=== PATIENT | female | born 1935 | race Caucasian/White ===

== ENCOUNTER 2020-01-04 19:16 | Inpatient (IN) | payer MEDICARE, MEDICAID, SELFPAY ==
[2020-01-04 19:27] VITALS: BP 127/68; PULSE 98; RESP 20; TEMP 38.8; BMI 29.2
--- NOTE | 2020-01-04 19:52 | ECG_ITS ---
Test Reason : SEPSIS Blood Pressure : / mmHG Vent. Rate : 093 BPM Atrial Rate : 093 BPM P-R Int : 154 ms QRS Dur : 110 ms QT Int : 392 ms P-R-T Axes : 064 027 066 degrees QTc Int : 487 ms Normal sinus rhythm Intra-ventricular conduction delay Nonspecific ST abnormality Abnormal ECG No previous ECGs available Referred By: Cora Giraldo Electronically Signed By:BRUNLIDA WALTON MD
--- NOTE | 2020-01-04 19:54 | XR_ITS ---
EXAMINATION: XR CHEST CLINICAL INFORMATION: Baseline COMPARISON: None TECHNIQUE: Frontal view of the chest was obtained. FINDINGS: Patient status post median sternotomy. There is mild cardiac enlargement. There is an aortic valve prosthesis present. There is some mild increased interstitial markings but no gross CHF. In the retrocardiac region there is some mild increased density which could represent an infiltrate. No pleural effusions are seen. XR/XR chest 1V IMPRESSION: Mild cardiomegaly with aortic valve prosthesis. Left lower lobe infiltrate.
--- NOTE | 2020-01-04 19:55 | CT_ITS ---
EXAMINATION: CT ABDOMEN AND PELVIS WITHOUT CONTRAST CLINICAL INFORMATION: Peripheral and drainage from nephrostomy tube COMPARISON: None TECHNIQUE: Multidetector volumetric imaging was performed from the superior aspect of the liver through the pubic symphysis. Sagittal and coronal reformatted images were obtained on the technologist's workstation. This CT examination was performed using dose optimization techniques as appropriate, variously including the following: *Automated exposure control *Adjustment of mA and/or kV according to patient size (this includes techniques or standardized protocols for targeted exams where dose is matched to indication/reason for exam; i.e. extremities or head) *Use of iterative reconstruction technique DLP: 717 mGy-cm FINDINGS: LUNG BASES: There is patchy groundglass opacity in the lingula and left lower lobe which could represent atelectasis although pneumonia could give a similar appearance. There is likely right lower lobe atelectasis. Mild cardiomegaly. Sternal wires. Valve calcifications. LIVER, GALLBLADDER, AND BILIARY TREE: Limited noncontrast evaluation of the liver is normal. The common bile duct and central intrahepatic bile ducts are prominent. Status post cholecystectomy. PANCREAS: Limited noncontrast evaluation is normal. 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 Normal size spleen. No focal splenic lesion seen. ADRENAL GLANDS: Unremarkable. KIDNEYS AND URETERS: Left-sided nephroureteral stent in place. There is dilation of the left renal pelvis but no dilation of the left renal pelvis. The left ureter is not dilated. There is a right-sided nephrostomy tube as well as a right-sided nephroureteral stent. There is a 1.2 cm calculus in the right renal pelvis. There is a 3 mm right upper pole renal calculus. There is gas in the right upper pole collecting system as well as the right renal pelvis. A right-sided nephrostomy tube enters a right lower pole calyx and loops in the right renal pelvis. BLADDER: Bilateral nephrostomy tubes are seen. GASTROINTESTINAL TRACT: Stomach and small bowel are nondilated. No evidence of colitis or diverticulitis. ABDOMINAL WALL: Small fat-containing umbilical hernia. LYMPH NODES: Normal. VASCULAR: IVC filter in place. Circumferential calcified atherosclerotic changes. PELVIC VISCERA: Left ovary measures 2.5 x 2.0 cm. Right ovary measures 2.4 x 1.3 cm. OSSEOUS STRUCTURES: Extensive degenerative changes. No acute osseous abnormality. Grade 1 anterolisthesis of L4 on L5. Lower lumbar facet arthropathy most notable inferiorly. CT/CT abdomen pelvis wo con IMPRESSION: There are bilateral nephroureteral stents in place. A right-sided nephrostomy tube is also seen, entering a right lower pole calyx looping in the right renal pelvis. There is a 1.2 cm calculus in the right renal pelvis. There is a 4 mm right upper pole calculus. There is no right-sided hydronephrosis with a few scattered foci of gas in the right renal pelvis and a right upper pole calyx. This is nonspecific and could be due to the presence of the nephrostomy tube rather than from gas forming organisms. Mild left hydronephrosis suggest the left nephroureteral stent is not fully decompressed in the left renal collecting system.
[2020-01-04 20:32] LABS: Basophils Percent Auto 0.2 % (0-2); Hematocrit 24.5 % (37-47); Hemoglobin 7.1 g/dl (12.0-16.0); Imm Gran Abs Auto 0.05 X10*3/uL (0.00-0.03); Imm Gran Pct Auto 0.4 % (0.0-0.4); Lymphocytes Absolute Auto 0.3 X10*3/uL (1.2-4.9); Lymphocytes Percent Auto 2.7 % (20-40); MANUAL DIFF FLAG SCAN; Mean Corpuscular Hemoglobin 21.1 pg (27.0-33.0); Mean Corpuscular Volume 72.7 fL (80-98); Monocytes Absolute Auto 0.7 X10*3/uL (0.1-1.2); Neutrophils Absolute Auto 10.5 X10*3/uL (2.0-8.3); Neutrophils Percent Auto 90.7 % (45-73); Platelet Count 160 X10*3/uL (160-400); Red Blood Count 3.37 X10*6/uL (4.20-5.50); Red Cell Distribution Width 18.5 % (11.0-16.0); SCAN SMEAR FLAG 1; White Blood Count 11.6 X10*3/uL (4.8-10.8)
[2020-01-04] MEDS: 0.9 % Sodium Chloride 1,000 ML 999 ML IVCONT ×2 (20:36→23:24)
--- NOTE | 2020-01-04 20:37 | PC.NURSE ---
PT RECEIVED 500CC NS BY EMS AND ON ARRIVAL PT STARTED ON SEPSIS PROTOCAL. NS INFUSION STARTED AT 1999.
--- NOTE | 2020-01-04 20:38 | PC.NURSE ---
PT RETURNED FROM CT. PT JESSA WELL. CHEST XRAY NOW.
[2020-01-04] MEDS: cefTRIAXone sodium 1 GM in 0.9 % Sodium Chloride 50 ML IV (20:48)
[2020-01-04 20:49] VITALS: BP 115/59; PULSE 86; RESP 22
[2020-01-04 20:54] LABS: Lactic Acid 3.1 mmol/L (0.5-2.0)
[2020-01-04 20:56] LABS: SLIDE REVIEW VERIFIED
--- NOTE | 2020-01-04 20:56 | ED.FEVER ---
HPI - Fever General Chief Complaint: Fever Stated Complaint: blood in nephrostomy bag,fever (100.4) Time Seen by Provider: 01/04/20 19:51 Source: family Mode of arrival: EMS Limitations: altered mental status and physical limitation History of Present Illness HPI Narrative: 84-year-old female with past medical history of percutaneous nephrostomy tube, hypertension, hyperlipidemia, atrial fibrillation, anemia, dementia, and GERD presents with dark blood in nephrostomy bag and fevers of 103 at home. she presents via EMS with her daughter, daughter is healthcare proxy and is the primary is support analyst. MD elicited complaint: fever and weakness Pertinent past history: sepsis Onset (ago): day(s) ( Three) Measured temperature: 103 F Exacerbating factors: nothing Relieving factors: nothing Associated symptoms: back/flank pain Related Data Home Medications Medication Instructions Recorded Confirmed apixaban [Eliquis] 1 tab PO BID 01/05/20 01/05/20 atorvastatin 1 tab PO DAILY 01/05/20 01/05/20 fluoxetine 2 cap PO DAILY 01/05/20 01/05/20 furosemide 0.5 tab PO Q OTHER DAY 01/05/20 01/05/20 multivitamin [Daily-Reece] 1 tab PO DAILY 01/05/20 01/05/20 omeprazole 1 cap PO DAILY 01/05/20 01/05/20 spironolactone 0.5 tab PO DAILY 01/05/20 01/05/20 trazodone 1 tab PO BEDTIME 01/05/20 01/05/20 Allergies Allergy/AdvReac Type Severity Reaction Status Date / Time acetaminophen [From Percocet] AdvReac Rash Verified 01/04/20 20:42 aspirin [From Percodan] AdvReac Rash Verified 01/04/20 20:42 fentanyl AdvReac Rash Verified 01/04/20 20:42 oxycodone [From Percocet] AdvReac Rash Verified 01/04/20 20:42 Review of Systems Review of Systems: Yes Unobtainable due to mental status PMFSH Past Medical History Source: obtained from family Medical History (Updated 01/05/20 @ 01:19 by Cora Giraldo NP) Atrial fibrillation Dementia Kidney stones Surgical History Hx of heart artery stent Social History Social History Advance Directives: No Advance Directives Information Provided: Yes Physical Exam Vital Signs: Vital Signs: Last Vital Signs Temp 100.0 F 01/04/20 23:21 Pulse 93 01/05/20 00:00 Resp 22 H 01/05/20 00:00 BP 100/46 L 01/05/20 00:00 Pulse Ox 94 01/05/20 00:00 Body Mass Index 29.2 Constitutional: positive Fever and Chills has dementia per baseline ENT/Mouth: No sore throat Eyes: No Eye Pain, No Swelling, No Redness Cardiovascular: No Chest Pain, No SOB Respiratory: No Cough, No Sputum, No Wheezing Gastrointestinal: no Nausea, no Vomiting, No Diarrhea, positive abdominal pain Genitourinary: no Dysuria, positive Flank Pain, dark viscous blood noted in nephrostomy tube, no crepitus noted surrounding tube Musculoskeletal: No joint pain, No Myalgias Skin: No Skin Lesions, No rash Neuro: No Weakness, No Numbness, No Headache Psych: No Anxiety/Panic, No Depression Heme/Lymph: No Bruising, No Lymphadenopathy Course Course Course Narrative: patient meets sepsis criteria upon presentation, we will resuscitate fluids she did receive 500 mL via EMS, we will order 2 L to complete 30 mg/kg. we will order ceftriaxone, no prior lab values or microbiology studies. EKG shows normal sinus rhythm with nonspecific ST abnormality, rate is 93 beats per minute. She does have a history of AFib. Cultures and lactic acid pending. Patient does have a significant history of renal colic, had a percutaneous nephrostomy tube placement approximately 9 months ago at [facility]. She did live in [place], however she has been declining physically and mentally, moved in with her daughter who is healthcare proxy. Nephrostomy tube placed for renal stones that were not able to be removed with lithotripsy. Approximately 3 days ago daughter noted that there was blood in the tubing, she reached out to nephrology and/or primary care. White count 11.6, lactic acid 3.1, magnesium 1.3, troponin 26.5, H&H 7.1/24.5. Type and screen and 1 unit of packed red blood cells pending. Potassium repleted with 60 mEq p.o. and 10 mEq IV, magnesium repleted with 2 g IV, 3rd L of normal saline infusing. CT scan shows lower lobe infiltrates suggesting possible pneumonia, hydronephrosis and renal stones. Discussion with synthetic gem press operator Dr Harper and urology Dr. Lopez. Advised to continue with fluid infusion, antibiotics and they will follow up in the morning. Discussion with hospitalist regarding plan of care, patient will be admitted for sepsis, Pneumonia, and anemia. Consultations Consultation #1: Meredith Time: 21:40 Consultation #2: John Time: 21:50 Consultation #3: Donte Delacruz Time: 22:00 MDM - Fever Differential Diagnosis Differential diagnosis: Likely cellulitis, fever of unknown origin, pyelonephritis and sepsis Medical Records Attestation: I reviewed the patient's medical records. Lab Data Attestation: I reviewed the patient's lab results. Result diagrams: 01/04/20 20:18 01/04/20 20:18 Labs: Lab Results 01/04/20 01/04/20 01/04/20 Range/Units 20:18 20:18 20:18 WBC (4.8-10.8) X10*3/uL RBC (4.20-5.50) X10*6/uL Hgb (12.0-16.0) g/dl Hct (37-47) % MCV (80-98) fL MCH (27.0-33.0) pg MCHC (31.0-35.0) g/dl RDW (11.0-16.0) % Plt Count (160-400) X10*3/uL MPV (9.4-12.3) fL Immature Gran % (Auto) (0.0-0.4) % Neut % (Auto) (45-73) % Lymph % (Auto) (20-40) % Burnett % (Auto) (2-11) % Eos % (Auto) (0-4) % Baso % (Auto) (0-2) % Lymph # (Auto) (1.2-4.9) X10*3/uL Burnett # (Auto) (0.1-1.2) X10*3/uL Eos # (Auto) (0.0-0.4) X10*3/uL Baso # (Auto) (0.0-0.2) X10*3/uL Abs Immat Gran (auto) (0.00-0.03) X10*3/uL Absolute Neuts (auto) (2.0-8.3) X10*3/uL Absolute Nucleated RBC (0.0-0.012) X10*3/uL Nucleated RBC % (auto) (0.0-0.2) /100WBC Smear Tech's Comments Sodium (135-145) mmol/L Potassium (3.3-5.1) mmol/l Chloride (96-108) mmol/L Carbon Dioxide (22-29) mmol/L Anion Gap (12-20) BUN (9-16) mg/dL Creatinine (0.5-1.4) mg/dL Estim Creat Clear Calc Estimated GFR Random Glucose (60-115) mg/dL Lactic Acid 3.1 H* (0.5-2.0) mmol/L Lactic Acid Fup @ 2Hr (0.5-2.0) mmol/L Calcium (8.4-10.2) mg/dL Magnesium 1.3 L* (1.6-2.6) mg/dL Total Bilirubin (0.0-1.0) mg/dL Direct Bilirubin (0.0-0.5) mg/dL AST (5-31) U/L ALT (0-31) U/L Alkaline Phosphatase (39-117) U/L Troponin I High Sens 26.5 H (<3.5-17.0) ng/L Total Protein (6.5-8.0) g/dL Albumin (3.5-5.0) g/dL Lipase (8-78) U/L C. difficile Toxin A&B (Negative) C. difficile Antigen (Negative) C. difficile Interpret Crossmatch 01/04/20 01/04/20 01/04/20 Range/Units 20:18 20:18 20:34 WBC 11.6 H (4.8-10.8) X10*3/uL RBC 3.37 L (4.20-5.50) X10*6/uL Hgb 7.1 L (12.0-16.0) g/dl Hct 24.5 L (37-47) % MCV 72.7 L (80-98) fL MCH 21.1 L (27.0-33.0) pg MCHC 29.0 L (31.0-35.0) g/dl RDW 18.5 H (11.0-16.0) % Plt Count 160 (160-400) X10*3/uL MPV 10.0 (9.4-12.3) fL Immature Gran % (Auto) 0.4 (0.0-0.4) % Neut % (Auto) 90.7 H (45-73) % Lymph % (Auto) 2.7 L (20-40) % Burnett % (Auto) 6.0 (2-11) % Eos % (Auto) 0.0 (0-4) % Baso % (Auto) 0.2 (0-2) % Lymph # (Auto) 0.3 L (1.2-4.9) X10*3/uL Burnett # (Auto) 0.7 (0.1-1.2) X10*3/uL Eos # (Auto) 0.0 (0.0-0.4) X10*3/uL Baso # (Auto) 0.0 (0.0-0.2) X10*3/uL Abs Immat Gran (auto) 0.05 H (0.00-0.03) X10*3/uL Absolute Neuts (auto) 10.5 H (2.0-8.3) X10*3/uL Absolute Nucleated RBC 0.000 (0.0-0.012) X10*3/uL Nucleated RBC % (auto) 0.0 (0.0-0.2) /100WBC Smear Tech's Comments VERIFIED Sodium 137 (135-145) mmol/L Potassium 2.9 L (3.3-5.1) mmol/l Chloride 104 (96-108) mmol/L Carbon Dioxide 22 (22-29) mmol/L Anion Gap 14 (12-20) BUN 15 (9-16) mg/dL Creatinine 0.71 (0.5-1.4) mg/dL Estim Creat Clear Calc 59.2 Estimated GFR > 60 Random Glucose 177 H (60-115) mg/dL Lactic Acid (0.5-2.0) mmol/L Lactic Acid Fup @ 2Hr (0.5-2.0) mmol/L Calcium 7.5 L (8.4-10.2) mg/dL Magnesium (1.6-2.6) mg/dL Total Bilirubin 0.3 (0.0-1.0) mg/dL Direct Bilirubin 0.2 (0.0-0.5) mg/dL AST 9 (5-31) U/L ALT 7 (0-31) U/L Alkaline Phosphatase 80 (39-117) U/L Troponin I High Sens (<3.5-17.0) ng/L Total Protein 5.9 L (6.5-8.0) g/dL Albumin 3.3 L (3.5-5.0) g/dL Lipase 31 (8-78) U/L C. difficile Toxin A&B Negative (Negative) C. difficile Antigen Negative (Negative) C. difficile Interpret SEE NOTE Crossmatch 01/05/20 01/05/20 Range/Units 00:05 00:05 WBC (4.8-10.8) X10*3/uL RBC (4.20-5.50) X10*6/uL Hgb (12.0-16.0) g/dl Hct (37-47) % MCV (80-98) fL MCH (27.0-33.0) pg MCHC (31.0-35.0) g/dl RDW (11.0-16.0) % Plt Count (160-400) X10*3/uL MPV (9.4-12.3) fL Immature Gran % (Auto) (0.0-0.4) % Neut % (Auto) (45-73) % Lymph % (Auto) (20-40) % Burnett % (Auto) (2-11) % Eos % (Auto) (0-4) % Baso % (Auto) (0-2) % Lymph # (Auto) (1.2-4.9) X10*3/uL Burnett # (Auto) (0.1-1.2) X10*3/uL Eos # (Auto) (0.0-0.4) X10*3/uL Baso # (Auto) (0.0-0.2) X10*3/uL Abs Immat Gran (auto) (0.00-0.03) X10*3/uL Absolute Neuts (auto) (2.0-8.3) X10*3/uL Absolute Nucleated RBC (0.0-0.012) X10*3/uL Nucleated RBC % (auto) (0.0-0.2) /100WBC Smear Tech's Comments Sodium (135-145) mmol/L Potassium (3.3-5.1) mmol/l Chloride (96-108) mmol/L Carbon Dioxide (22-29) mmol/L Anion Gap (12-20) BUN (9-16) mg/dL Creatinine (0.5-1.4) mg/dL Estim Creat Clear Calc Estimated GFR Random Glucose (60-115) mg/dL Lactic Acid (0.5-2.0) mmol/L Lactic Acid Fup @ 2Hr 1.7 (0.5-2.0) mmol/L Calcium (8.4-10.2) mg/dL Magnesium (1.6-2.6) mg/dL Total Bilirubin (0.0-1.0) mg/dL Direct Bilirubin (0.0-0.5) mg/dL AST (5-31) U/L ALT (0-31) U/L Alkaline Phosphatase (39-117) U/L Troponin I High Sens (<3.5-17.0) ng/L Total Protein (6.5-8.0) g/dL Albumin (3.5-5.0) g/dL Lipase (8-78) U/L C. difficile Toxin A&B (Negative) C. difficile Antigen (Negative) C. difficile Interpret Crossmatch See Detail Imaging Data CT scan - abdomen: Attestation: I personally reviewed and interpreted this imaging study as follows: Radiologist's impression: FINDINGS: LUNG BASES: There is patchy groundglass opacity in the lingula and left lower lobe which could represent atelectasis although pneumonia could give a similar appearance. There is likely right lower lobe atelectasis. Mild cardiomegaly. Sternal wires. Valve calcifications. LIVER, GALLBLADDER, AND BILIARY TREE: Limited noncontrast evaluation of the liver is normal. The common bile duct and central intrahepatic bile ducts are prominent. Status post cholecystectomy. PANCREAS: Limited noncontrast evaluation is normal. 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 Normal size spleen. No focal splenic lesion seen. ADRENAL GLANDS: Unremarkable. KIDNEYS AND URETERS: Left-sided nephroureteral stent in place. There is dilation of the left renal pelvis but no dilation of the left renal pelvis. The left ureter is not dilated. There is a right-sided nephrostomy tube as well as a right-sided nephroureteral stent. There is a 1.2 cm calculus in the right renal pelvis. There is a 3 mm right upper pole renal calculus. There is gas in the right upper pole collecting system as well as the right renal pelvis. A right-sided nephrostomy tube enters a right lower pole calyx and loops in the right renal pelvis. BLADDER: Bilateral nephrostomy tubes are seen. GASTROINTESTINAL TRACT: Stomach and small bowel are nondilated. No evidence of colitis or diverticulitis. ABDOMINAL WALL: Small fat-containing umbilical hernia. LYMPH NODES: Normal. VASCULAR: IVC filter in place. Circumferential calcified atherosclerotic changes. PELVIC VISCERA: Left ovary measures 2.5 x 2.0 cm. Right ovary measures 2.4 x 1.3 cm. OSSEOUS STRUCTURES: Extensive degenerative changes. No acute osseous abnormality. Grade 1 anterolisthesis of L4 on L5. Lower lumbar facet arthropathy most notable inferiorly. CT/CT abdomen pelvis wo con IMPRESSION: There are bilateral nephroureteral stents in place. A right-sided nephrostomy tube is also seen, entering a right lower pole calyx looping in the right renal pelvis. There is a 1.2 cm calculus in the right renal pelvis. There is a 4 mm right upper pole calculus. There is no right-sided hydronephrosis with a few scattered foci of gas in the right renal pelvis and a right upper pole calyx. This is nonspecific and could be due to the presence of the nephrostomy tube rather than from gas forming organisms. Mild left hydronephrosis suggest the left nephroureteral stent is not fully decompressed in the left renal collecting system. Chest x-ray: Attestation: I personally reviewed and interpreted this imaging study as follows: Radiologist's impression: XR CHEST CLINICAL INFORMATION: Baseline COMPARISON: None TECHNIQUE: Frontal view of the chest was obtained. FINDINGS: Patient status post median sternotomy. There is mild cardiac enlargement. There is an aortic valve prosthesis present. There is some mild increased interstitial markings but no gross CHF. In the retrocardiac region there is some mild increased density which could represent an infiltrate. No pleural effusions are seen. XR/XR chest 1V IMPRESSION: Mild cardiomegaly with aortic valve prosthesis. Left lower lobe infiltrate. ECG Data ECG #1: Attestation: I personally reviewed and interpreted this ECG as follows: ECG interpretation date: 01/04/20 ECG interpretation time: 20:00 Prior ECG tracings: not available for review Interpretation: Vent. Rate : 093 BPM Atrial Rate : 093 BPM P-R Int : 154 ms QRS Dur : 110 ms QT Int : 392 ms P-R-T Axes : 064 027 066 degrees QTc Int : 487 ms Normal sinus rhythm Nonspecific ST abnormality Abnormal ECG No previous ECGs available Critical Care Time Critical Care Time Critical Care Time: Yes Total Critical Care Time: 65 Attestation: I have personally provided critical care time exclusive of time spent on separately billable procedures. Time includes review of laboratory data, radiology results, discussion with consultants, and monitoring for potential decompensation. Interventions were performed as documented. Discharge Plan Discharge Clinical Impression: Kidney stones, Sepsis, Pneumonia, Anemia, Hypokalemia, Hypomagnesemia Patient Disposition: Admitted As Inpatient
[2020-01-04 20:57] LABS: Alanine Aminotransferase 7 U/L (0-31); Albumin Level 3.3 g/dL (3.5-5.0); Alkaline Phosphatase 80 U/L (39-117); Anion Gap 14 (12-20); Aspartate Amino Transferase 9 U/L (5-31); Bilirubin Direct 0.2 mg/dL (0.0-0.5); Bilirubin Total 0.3 mg/dL (0.0-1.0); Blood Urea Nitrogen 15 mg/dL (9-16); Calcium 7.5 mg/dL (8.4-10.2); Carbon Dioxide 22 mmol/L (22-29); Chloride 104 mmol/L (96-108); Creatinine Clr Calc Pharmacy 59.2; Estimated Glomerular Filt Rate > 60; Glucose Random 177 mg/dL (60-115); Lipase 31 U/L (8-78); Potassium 2.9 mmol/l (3.3-5.1); Sodium 137 mmol/L (135-145); Total Protein 5.9 g/dL (6.5-8.0)
[2020-01-04 20:58] LABS: Troponin-I High Sensitivity 26.5 ng/L (<3.5-17.0)
[2020-01-04 20:59] LABS: Magnesium 1.3 mg/dL (1.6-2.6)
[2020-01-04 21:18] LABS: CDIFF Ag Negative (Negative); CDIFF Internal ctrl Dots and bkg OK (V); CDiff Toxin Negative (Negative)
[2020-01-04 22:00] VITALS: BP 109/55; PULSE 87; RESP 14
[2020-01-04 22:25] LABS: Reflex Lactate? Lactic Acid Added
[2020-01-04 22:38] VITALS: BP 99/53; PULSE 89
[2020-01-04] MEDS: Magnesium Sulfate/H2O 2 GM/50 ML PIGGYBACK IV (22:38)
[2020-01-04] MEDS: Potassium Chloride ER 20 MEQ TAB.ER.PRT 60 MEQ PO (22:38)
[2020-01-04 22:56] VITALS: BP 125/62; PULSE 94; RESP 14; O2SAT 97
--- NOTE | 2020-01-04 23:09 | PM.IMHP ---
History of Present Illness Date of Service: 01/04/20 Chief Complaint: blood in urine 84 y/o female with significant hx of nephrolithiasis s/p bilateral renal nephrostomy tube, HLP, Dementia, underlying psychotic disorder, GERD, HTN and afib on eliquis who presented from home due to blood in urine. GIven severe dementia patient is unable to provide with any significant hx but family member reported that patient started presenting with blood in the urine x 1 day now. Patient has a nephrostomy tube with bag which is filled with dark urine. One episode of fever of 101.9 recorded in the ED. WBC of 11.6, Hgb of 7.1, INR of 2.3, K of 2.9. lactate of 3.1, magnesium of 1.3. CT abdomen consistent with bilateral nephrostomy tube, right renal stone in the right renal pelvis, mild left hydronephrosis with no fully decompression. CXR showing left lower lobe infiltrate, aortic valve prosthesis. KCL supplemented by Ed as well as magnesium now, type and screen and 1 unit of blood ordered per ED. EKG showing QTC of 480. One dose of Rocephin adn Doxy ordered. Decision for admission given. Patient seen and evaluated at the bedside, laying down in bed, severe dementia. ROS unable to be obtained. Physical exam positive for right sided nephrostomy tube with bag filled of bloody dark urine. PMHX: nephrolithiasis s/p bilateral renal nephrostomy tube, HLP, Dementia, underlying psychotic disorder, GERD, HTN and afib on eliquis PSx: Bilateral nephrostomy tube with stenting, aortic valve prosthesis Toxic habits: No documented hx of alcohol abuse, smoking or IVDA Review of Systems Review of Systems: Yes Other (unable to be obtained ) [facility] Medical History (Updated 01/05/20 @ 00:31 by Anamaria Delacruz MD) Atrial fibrillation Dementia Kidney stones Functional capacity: independent ambulation Surgical History Hx of heart artery stent Social History Advance Directives: No Advance Directives Information Provided: Yes Meds Allergies Allergy/AdvReac Type Severity Reaction Status Date / Time acetaminophen [From Percocet] AdvReac Rash Verified 01/04/20 20:42 aspirin [From Percodan] AdvReac Rash Verified 01/04/20 20:42 fentanyl AdvReac Rash Verified 01/04/20 20:42 oxycodone [From Percocet] AdvReac Rash Verified 01/04/20 20:42 Home Medications Medication Instructions Recorded Confirmed Type apixaban [Eliquis] 1 tab PO BID 01/05/20 01/05/20 History atorvastatin 1 tab PO DAILY 01/05/20 01/05/20 History fluoxetine 2 cap PO DAILY 01/05/20 01/05/20 History furosemide 0.5 tab PO Q OTHER DAY 01/05/20 01/05/20 History multivitamin [Daily-Reece] 1 tab PO DAILY 01/05/20 01/05/20 History omeprazole 1 cap PO DAILY 01/05/20 01/05/20 History spironolactone 0.5 tab PO DAILY 01/05/20 01/05/20 History trazodone 1 tab PO BEDTIME 01/05/20 01/05/20 History Physical Exam Vital Signs and Narrative: Vital Signs: Last Vital Signs Temp 101.9 F H 01/04/20 19:27 Pulse 94 01/04/20 22:56 Resp 14 01/04/20 22:56 BP 125/62 01/04/20 22:56 Pulse Ox 97 01/04/20 22:56 Body Mass Index 29.2 Const: General: cooperative HENMT: Head: Yes normal to inspection Eyes: General: appearance normal, both eyes and all related structures Neck: Yes normal visual inspection Chest: Chest palpation & inspection: normal inspection of the chest Resp: Effort & Inspection: normal respiratory effort Cardio: Jugular venous distension: no JVD Rate: regular rate Heart sounds: S1 normal heart sound present and S2 normal heart sound present GI: Inspection: Yes normal to inspection Back/Spine/Pelvis: Back: other (right nephrostomy tube draining blood urine ) Skin: General skin exam: no rashes or lesions noted Neuro: General: other (awake but not oriented x 3) Extrem: General: Yes normal to inspection Results Labs Labs: Laboratory Tests 01/04/20 01/04/20 01/04/20 20:18 20:18 20:18 WBC RBC Hgb Hct MCV MCH MCHC RDW Plt Count MPV Immature Gran % (Auto) Neut % (Auto) Lymph % (Auto) [place] % (Auto) Eos % (Auto) Baso % (Auto) Lymph # (Auto) [place] # (Auto) Eos # (Auto) Baso # (Auto) Abs Immat Gran (auto) Absolute Neuts (auto) Absolute Nucleated RBC Nucleated RBC % (auto) Smear Tech's Comments Sodium Potassium Chloride Carbon Dioxide Anion Gap BUN Creatinine Estim Creat Clear Calc Estimated GFR Random Glucose Lactic Acid 3.1 H* Calcium Magnesium 1.3 L* Total Bilirubin Direct Bilirubin AST ALT Alkaline Phosphatase Troponin I High Sens 26.5 H Total Protein Albumin Lipase C. difficile Toxin A&B C. difficile Antigen C. difficile Interpret 01/04/20 01/04/20 01/04/20 20:18 20:18 20:34 WBC 11.6 H RBC 3.37 L Hgb 7.1 L Hct 24.5 L MCV 72.7 L MCH 21.1 L MCHC 29.0 L RDW 18.5 H Plt Count 160 MPV 10.0 Immature Gran % (Auto) 0.4 Neut % (Auto) 90.7 H Lymph % (Auto) 2.7 L [place] % (Auto) 6.0 Eos % (Auto) 0.0 Baso % (Auto) 0.2 Lymph # (Auto) 0.3 L [place] # (Auto) 0.7 Eos # (Auto) 0.0 Baso # (Auto) 0.0 Abs Immat Gran (auto) 0.05 H Absolute Neuts (auto) 10.5 H Absolute Nucleated RBC 0.000 Nucleated RBC % (auto) 0.0 Smear Tech's Comments VERIFIED Sodium 137 Potassium 2.9 L Chloride 104 Carbon Dioxide 22 Anion Gap 14 BUN 15 Creatinine 0.71 Estim Creat Clear Calc 59.2 Estimated GFR > 60 Random Glucose 177 H Lactic Acid Calcium 7.5 L Magnesium Total Bilirubin 0.3 Direct Bilirubin 0.2 AST 9 ALT 7 Alkaline Phosphatase 80 Troponin I High Sens Total Protein 5.9 L Albumin 3.3 L Lipase 31 C. difficile Toxin A&B Negative C. difficile Antigen Negative C. difficile Interpret SEE NOTE Imaging Radiologist's Impressions: Impressions Chest X-Ray 01/04/20 19:54 IMPRESSION: Mild cardiomegaly with aortic valve prosthesis. Left lower lobe infiltrate. Abdomen/Pelvis CT 01/04/20 19:55 IMPRESSION: There are bilateral nephroureteral stents in place. A right-sided nephrostomy tube is also seen, entering a right lower pole calyx looping in the right renal pelvis. There is a 1.2 cm calculus in the right renal pelvis. There is a 4 mm right upper pole calculus. There is no right-sided hydronephrosis with a few scattered foci of gas in the right renal pelvis and a right upper pole calyx. This is nonspecific and could be due to the presence of the nephrostomy tube rather than from gas forming organisms. Mild left hydronephrosis suggest the left nephroureteral stent is not fully decompressed in the left renal collecting system. Assessment and Plan (1) Sepsis: Status: Acute S/p one dose of rocephin and doxy per ED Continue with zosyn for gram neg and anaerobic coverage Follow up Bcx and Ucx as ordered per ED as well as UA Trend lactate Keep MAP >65 mmHg Infectious disease consult in the am (2) Pneumonia: Status: Acute as above (3) Anemia: Status: Acute Hgb 7.1 s/p type and screen and consent obtained per ED 1 unit of PRBC ordered per ED Repeat CBC in 6 hrs Keep Hgb >7 (4) Atrial fibrillation: Status: Acute hold Eliquis given significant hematuria Urology consulted per ED who will evaluate patient in the am Nephrology consulted per ED who will evaluate in the am (5) Dementia: Status: Acute (6) Kidney stones: Status: Acute right renal stone evident on imaging follow up urology / nephro recs (7) Hyperlipidemia: Status: Acute continue with statin home dose (8) Hypertension: Status: Acute hold lasix for now given borderline BP and hypokalemia continue with spironolactone home dose (9) GERD (gastroesophageal reflux disease): Status: Acute continue with PPI home dose (10) Hypokalemia: Status: Acute supplemented in the Ed. Follow up repeat in 3 hrs from now (11) Hypomagnesemia: Status: Acute supplemented. Follow up repeat mag in 3 hrs from now
[2020-01-04] MEDS: Potassium Chloride/H20 10 MEQ/100 ML PIGGYBACK 100 MEQ IV (23:19)
[2020-01-04 23:21] VITALS: BP 120/65; PULSE 94; RESP 20; TEMP 37.8; O2SAT 96
[2020-01-05] VITALS (16 sets, daily range): BP systolic 93–135; BP diastolic 46–76; PULSE 69–93; RESP 16–22; TEMP 36.1–39.4; O2SAT 92–99
[2020-01-05] MEDS: Doxycycline Hyclate 100 MG in 0.9 % Sodium Chloride 250 ML 166.67 MG IV (00:22)
[2020-01-05 00:31] LABS: ~Lactic Acid-LAB USE ONLY 1.7 mmol/L (0.5-2.0)
[2020-01-05 01:22] LABS: SARS COV2 PCR INHOUSE NEGATIVE (Negative)
--- NOTE | 2020-01-05 01:55 | PC.NURSE ---
pt is resting comfortably, daughter at bedside, rn will call back for report.
[2020-01-05 02:18] LABS: Glucose Urine UA NEG (NEG); Nitrite Urine POS (NEG); PH 6.5 (5.0-8.0); Urine Blood 3+ (NEG); Urine Ketones NEG (NEG); Urine Protein 2+ MG/DL (NEG-TRACE)
[2020-01-05 02:21] LABS: Appearance Urine TURBID; Color Urine RED
[2020-01-05 02:22] LABS: Leukocyte Esterase Urine 3+ (NEG)
[2020-01-05 02:33] LABS: RBC Urine TNTC /HPF (0)
--- NOTE | 2020-01-05 02:41 | PC.NURSE ---
pt cass left Chloe if needed call her for anything, pt is a poor historian and has vascular dementa. pt also is a fiddler and the nephrostomy tube is taped closed to prevent pt from opening. pt has not attempted to climb oob, pt has her upper dentures and the daughter took her clothing home. total neph tube output 600cc [place] no clots
[2020-01-05 06:12] LABS: MANUAL DIFF FLAG NO
[2020-01-05 06:52] LABS: Anion Gap 12 (12-20); Blood Urea Nitrogen 13 mg/dL (9-16); Calcium 7.8 mg/dL (8.4-10.2); Carbon Dioxide 22 mmol/L (22-29); Chloride 109 mmol/L (96-108); Estimated Glomerular Filt Rate > 60; Glucose Random 134 mg/dL (60-115); Lactate Dehydrogenase 236 U/L (122-220); Magnesium 1.9 mg/dL (1.6-2.6); Potassium 4.4 mmol/l (3.3-5.1); Sodium 139 mmol/L (135-145)
[2020-01-05 06:55] LABS: Anion Gap 13 (12-20); Blood Urea Nitrogen 13 mg/dL (9-16); Calcium 7.6 mg/dL (8.4-10.2); Carbon Dioxide 21 mmol/L (22-29); Chloride 109 mmol/L (96-108); Estimated Glomerular Filt Rate > 60; Glucose Random 134 mg/dL (60-115); Magnesium 1.9 mg/dL (1.6-2.6); Potassium 4.4 mmol/l (3.3-5.1); Sodium 139 mmol/L (135-145)
[2020-01-05 07:00] LABS: Basophils Percent Auto 0.1 % (0-2); Imm Gran Pct Auto 0.6 % (0.0-0.4); Lymphocytes Percent Auto 6.1 % (20-40); Mean Corpuscular HGB Conc 28.3 g/dl (31.0-35.0); Mean Corpuscular Hemoglobin 21.1 pg (27.0-33.0); Mean Corpuscular Volume 74.3 fL (80-98); Mean Platelet Volume 10.6 fL (9.4-12.3); Monocytes Percent Auto 6.2 % (2-11); Neutrophils Absolute Auto 13.6 X10*3/uL (2.0-8.3); Platelet Count 151 X10*3/uL (160-400); Red Blood Count 3.23 X10*6/uL (4.20-5.50); Red Cell Distribution Width 18.7 % (11.0-16.0); White Blood Count 15.6 X10*3/uL (4.8-10.8)
[2020-01-05 07:25] LABS: Hemoglobin 6.8 g/dl (12.0-16.0)
--- NOTE | 2020-01-05 08:30 | PM.UROCN ---
History of Present Illness Consult details Narrative: 84 y/o female with significant hx of nephrolithiasis s/p bilateral renal nephrostomy tube, Dementia, underlying psychotic disorder, GERD, HTN and afib on eliquis who presented from home due to blood in urine. Given severe dementia patient is unable to provide with any significant hx but family member reported that patient started presenting with blood in the urine x 1 day now. Nephrostomy tubes have been placed at [facility] in [place] Patient has a nephrostomy tube with bag which is filled with dark urine. One episode of fever of 101.9 recorded in the ED. WBC of 11.6, Hgb of 7.1, INR of 2.3, K of 2.9. lactate of 3.1, magnesium of 1.3. CT abdomen consistent with bilateral nephrostomy tube, right renal stone in the right renal pelvis, mild left hydronephrosis with no fully decompression. CXR showing left lower lobe infiltrate, aortic valve prosthesis. Blood in nephrostomy tube secondary to likely inflammation, infection on top of anticoagulation. Suggest secondary to aortic valve will need baseline anticoagulation. Would stop Eliquis and transition to heparin. Treat potential infection and hopefully this will resolve. More information will be needed regarded management of stones and further planning from urologist at the [facility] Past Medical History Medical History (Updated 01/05/20 @ 08:33 by Johnnie Lopez MD) Atrial fibrillation Dementia Kidney stones Functional capacity: independent ambulation Surgical History Surgical History Hx of heart artery stent Social History Social History Household Members: Unknown / Unable to assess Housing: Unknown / Unable to assess Alcohol intake: never Smoking Status: Unknown if ever smoked Smoked in Last 30 Days: No Use of substances other than those prescribed or required for medical reasons: Unknown Advance Directives: No Advance Directives Information Provided: Yes Do you have thoughts of harming others: None Recently lost weight without trying: Unsure Meds Allergies Allergy/AdvReac Type Severity Reaction Status Date / Time acetaminophen [From Percocet] AdvReac Rash Verified 01/04/20 20:42 aspirin [From Percodan] AdvReac Rash Verified 01/04/20 20:42 fentanyl AdvReac Rash Verified 01/04/20 20:42 oxycodone [From Percocet] AdvReac Rash Verified 01/04/20 20:42 Home Medications Medication Instructions Recorded Confirmed Type apixaban [Eliquis] 1 tab PO BID 01/05/20 01/05/20 History atorvastatin 1 tab PO DAILY 01/05/20 01/05/20 History fluoxetine 2 cap PO DAILY 01/05/20 01/05/20 History furosemide 0.5 tab PO Q OTHER DAY 01/05/20 01/05/20 History multivitamin [Daily-Reece] 1 tab PO DAILY 01/05/20 01/05/20 History omeprazole 1 cap PO DAILY 01/05/20 01/05/20 History spironolactone 0.5 tab PO DAILY 01/05/20 01/05/20 History trazodone 1 tab PO BEDTIME 01/05/20 01/05/20 History Physical Exam Vital Signs: Vital Signs: Last Vital Signs Temp 96.9 F 01/05/20 07:29 Pulse 88 01/05/20 07:29 Resp 18 01/05/20 07:29 BP 122/73 01/05/20 07:29 Pulse Ox 92 01/05/20 07:29 Body Mass Index 29.2 Const: General: alert and awake Nutritional Appearance: average body habitus Orientation/consciousness: oriented to person Eyes: General: appearance normal, both eyes and all related structures Chest: Chest palpation & inspection: normal inspection of the chest Resp: Effort & Inspection: normal respiratory effort Cardio: Rate: regular rate GI: Inspection: Yes normal to inspection Skin: Hair: normal Neuro: General: oriented to person Extrem: General: Yes normal to inspection Results Labs Result diagrams: 01/05/20 05:27 01/05/20 05:27 Labs: Abnormal lab results 01/04/20 01/04/20 01/04/20 Range/Units 20:18 20:18 20:18 WBC (4.8-10.8) X10*3/uL RBC (4.20-5.50) X10*6/uL Hgb (12.0-16.0) g/dl Hct (37-47) % MCV (80-98) fL MCH (27.0-33.0) pg MCHC (31.0-35.0) g/dl RDW (11.0-16.0) % Plt Count (160-400) X10*3/uL Immature Gran % (Auto) (0.0-0.4) % Neut % (Auto) (45-73) % Lymph % (Auto) (20-40) % Lymph # (Auto) (1.2-4.9) X10*3/uL Abs Immat Gran (auto) (0.00-0.03) X10*3/uL Absolute Neuts (auto) (2.0-8.3) X10*3/uL Potassium (3.3-5.1) mmol/l Chloride (96-108) mmol/L Carbon Dioxide (22-29) mmol/L Random Glucose (60-115) mg/dL Lactic Acid 3.1 H* (0.5-2.0) mmol/L Calcium (8.4-10.2) mg/dL Magnesium 1.3 L* (1.6-2.6) mg/dL Lactate Dehydrogenase (122-220) U/L Troponin I High Sens 26.5 H (<3.5-17.0) ng/L Total Protein (6.5-8.0) g/dL Albumin (3.5-5.0) g/dL Urine Protein (NEG-TRACE) MG/DL Urine Blood (NEG) Urine Nitrite (NEG) Ur Leukocyte Esterase (NEG) Urine RBC (0) /HPF Crossmatch 01/04/20 01/04/20 01/05/20 Range/Units 20:18 20:18 00:05 WBC 11.6 H (4.8-10.8) X10*3/uL RBC 3.37 L (4.20-5.50) X10*6/uL Hgb 7.1 L (12.0-16.0) g/dl Hct 24.5 L (37-47) % MCV 72.7 L (80-98) fL MCH 21.1 L (27.0-33.0) pg MCHC 29.0 L (31.0-35.0) g/dl RDW 18.5 H (11.0-16.0) % Plt Count (160-400) X10*3/uL Immature Gran % (Auto) (0.0-0.4) % Neut % (Auto) 90.7 H (45-73) % Lymph % (Auto) 2.7 L (20-40) % Lymph # (Auto) 0.3 L (1.2-4.9) X10*3/uL Abs Immat Gran (auto) 0.05 H (0.00-0.03) X10*3/uL Absolute Neuts (auto) 10.5 H (2.0-8.3) X10*3/uL Potassium 2.9 L (3.3-5.1) mmol/l Chloride (96-108) mmol/L Carbon Dioxide (22-29) mmol/L Random Glucose 177 H (60-115) mg/dL Lactic Acid (0.5-2.0) mmol/L Calcium 7.5 L (8.4-10.2) mg/dL Magnesium (1.6-2.6) mg/dL Lactate Dehydrogenase (122-220) U/L Troponin I High Sens (<3.5-17.0) ng/L Total Protein 5.9 L (6.5-8.0) g/dL Albumin 3.3 L (3.5-5.0) g/dL Urine Protein (NEG-TRACE) MG/DL Urine Blood (NEG) Urine Nitrite (NEG) Ur Leukocyte Esterase (NEG) Urine RBC (0) /HPF Crossmatch See Detail 01/05/20 01/05/20 01/05/20 Range/Units 01:38 05:27 05:27 WBC 15.6 H (4.8-10.8) X10*3/uL RBC 3.23 L (4.20-5.50) X10*6/uL Hgb 6.8 L* (12.0-16.0) g/dl Hct 24.0 L (37-47) % MCV 74.3 L (80-98) fL MCH 21.1 L (27.0-33.0) pg MCHC 28.3 L (31.0-35.0) g/dl RDW 18.7 H (11.0-16.0) % Plt Count 151 L (160-400) X10*3/uL Immature Gran % (Auto) 0.6 H (0.0-0.4) % Neut % (Auto) 87.0 H (45-73) % Lymph % (Auto) 6.1 L (20-40) % Lymph # (Auto) 1.0 L (1.2-4.9) X10*3/uL Abs Immat Gran (auto) 0.10 H (0.00-0.03) X10*3/uL Absolute Neuts (auto) 13.6 H (2.0-8.3) X10*3/uL Potassium (3.3-5.1) mmol/l Chloride 109 H (96-108) mmol/L Carbon Dioxide (22-29) mmol/L Random Glucose 134 H (60-115) mg/dL Lactic Acid (0.5-2.0) mmol/L Calcium 7.8 L (8.4-10.2) mg/dL Magnesium (1.6-2.6) mg/dL Lactate Dehydrogenase 236 H (122-220) U/L Troponin I High Sens (<3.5-17.0) ng/L Total Protein (6.5-8.0) g/dL Albumin (3.5-5.0) g/dL Urine Protein 2+ H (NEG-TRACE) MG/DL Urine Blood 3+ H (NEG) Urine Nitrite POS H (NEG) Ur Leukocyte Esterase 3+ H (NEG) Urine RBC TNTC H (0) /HPF Crossmatch 01/05/20 Range/Units 05:27 WBC (4.8-10.8) X10*3/uL RBC (4.20-5.50) X10*6/uL Hgb (12.0-16.0) g/dl Hct (37-47) % MCV (80-98) fL MCH (27.0-33.0) pg MCHC (31.0-35.0) g/dl RDW (11.0-16.0) % Plt Count (160-400) X10*3/uL Immature Gran % (Auto) (0.0-0.4) % Neut % (Auto) (45-73) % Lymph % (Auto) (20-40) % Lymph # (Auto) (1.2-4.9) X10*3/uL Abs Immat Gran (auto) (0.00-0.03) X10*3/uL Absolute Neuts (auto) (2.0-8.3) X10*3/uL Potassium (3.3-5.1) mmol/l Chloride 109 H (96-108) mmol/L Carbon Dioxide 21 L (22-29) mmol/L Random Glucose 134 H (60-115) mg/dL Lactic Acid (0.5-2.0) mmol/L Calcium 7.6 L (8.4-10.2) mg/dL Magnesium (1.6-2.6) mg/dL Lactate Dehydrogenase (122-220) U/L Troponin I High Sens (<3.5-17.0) ng/L Total Protein (6.5-8.0) g/dL Albumin (3.5-5.0) g/dL Urine Protein (NEG-TRACE) MG/DL Urine Blood (NEG) Urine Nitrite (NEG) Ur Leukocyte Esterase (NEG) Urine RBC (0) /HPF Crossmatch Short CBC 01/04/20 01/05/20 01/05/20 Range/Units 20:18 05:27 05:27 WBC 11.6 H Cancelled 15.6 H (4.8-10.8) X10*3/uL Hgb 7.1 L Cancelled 6.8 L* (12.0-16.0) g/dl Hct 24.5 L Cancelled 24.0 L (37-47) % Plt Count 160 Cancelled 151 L (160-400) X10*3/uL BMP 01/04/20 01/05/20 01/05/20 20:18 05:27 05:27 Sodium 137 139 139 Potassium 2.9 L 4.4 D 4.4 Chloride 104 109 H 109 H Carbon Dioxide 22 22 21 L BUN 15 13 13 Creatinine 0.71 0.60 0.60 Calcium 7.5 L 7.8 L 7.6 L Liver Function 01/04/20 Range/Units 20:18 Total Bilirubin 0.3 (0.0-1.0) mg/dL Direct Bilirubin 0.2 (0.0-0.5) mg/dL AST 9 (5-31) U/L ALT 7 (0-31) U/L Alkaline Phosphatase 80 (39-117) U/L Albumin 3.3 L (3.5-5.0) g/dL Urine 01/05/20 Range/Units 01:38 Urine Color RED Urine Appearance TURBID Urine pH 6.5 (5.0-8.0) Ur Specific [place] 1.020 (1.005-1.025) Urine Protein 2+ H (NEG-TRACE) MG/DL Urine Glucose (UA) NEG (NEG) MG/DL All other labs normal. Assessment and Plan (1) Kidney stones: Status: Acute (2) Gross hematuria: Status: Acute Hold anticoagulation if possible Treat with IV antibiotics for infection Will need further information for decision making regarding stone management. Has stent on left side which has no stone.
[2020-01-05] MEDS: Spironolactone 25 MG TABLET 12.5 MG PO (08:32)
[2020-01-05] MEDS: Piperacillin Sodium/Tazobactam 3.375 GM in 0.9 % Sodium Chloride 50 ML IV ×2 (08:32→16:27)
[2020-01-05] MEDS: FLUoxetine HCl 20 MG CAPSULE 40 MG PO (08:33)
[2020-01-05] MEDS: Omeprazole 20 MG CAPSULE.DR PO (08:33)
[2020-01-05] MEDS: 0.9 % Sodium Chloride Flush 3 ML SYRINGE IVFLUSH ×2 (08:38→16:27)
[2020-01-05] MEDS: Atorvastatin Calcium 80 MG TABLET PO (08:42)
--- NOTE | 2020-01-05 09:05 | P.CDIC_ITS ---
CDI Concurrent Query Service Date: 01/05/20 Documentation Clarification: Please clarify if you are treating a proba ble/suspected/likely or confirmed: Acute Blood Loss Anemia Other Anemia, please specify PLEASE DO NOT DELETE/MODIFY EXISTING CONTENT Additional information is needed in order to code to the highest accuracy and appropriate Severity of Illness (SOI). Please clarify the information noted below in your progress notes and discharge summary. Risk Factors/Clinical Indicators/Treatments 84 year old female admitted with fever and blood in nephrostomy bag, altered mental status, back and flank pain H/H 7.1/24.5 Transfuse 1 unit PRBC ED Impression: Anemia H&P Impression: Anemia Urology: kidney stones, gross hematuria CDS: Mary Cervantes RN Contact Number: [phone] Please Review the information above and exercise your independent professional judgment in responding to the query. If you concur, pleas document in the PROGRESS NOTES and DISCHARGE SUMMARY. If you do not agree with the query, please document in the query above. THIS QUERY IS PART OF THE PERMANENT MEDICAL RECORD
--- NOTE | 2020-01-05 11:13 | MHC.CM.PN ---
FEMALE 84 lives with dtr. Adult foster in place. Pt with dementia supervision and assistance required all functional mobility. DP home with family family transport PCP Shellie Morris. CM will follow for assessment of DC needs.
--- NOTE | 2020-01-05 12:20 | P.PNIM_ITS ---
Subjective Subjective Date of Service: 01/05/20 Interval History: f/u for anemia, acute blood loss anemia from hematuria and uti Physical Exam Vital Signs: Vital Signs: Last Vital Signs Temp 97.8 F 01/05/20 12:16 Pulse 69 01/05/20 12:16 Resp 18 01/05/20 12:16 BP 112/54 L 01/05/20 12:16 Pulse Ox 98 01/05/20 10:54 Body Mass Index 29.2 General: very confused, restless at time Resp: CTA bilateral CVS: S1,S2,RRR GI: +BS, NT, no distention : nephrostomy tube with dark urine Skin: No rash Neuro: motor grossly intact Psych: appropriate affect Objective Data Current Medications Generic Name Dose Route Start Last Admin Trade Name Freq PRN Reason Stop Dose Admin Atorvastatin Calcium 80 mg 01/05/20 09:00 01/05/20 08:42 Atorvastatin Calcium 80 Mg Tablet PO 80 mg DAILY YEHUDA Administration Fluoxetine HCl 40 mg 01/05/20 09:00 01/05/20 08:33 Fluoxetine Hcl 20 Mg Capsule PO 40 mg DAILY YEHUDA Administration Piperacillin Sod/Tazobactam 50 mls @ 100 mls/hr 01/05/20 09:00 01/05/20 10:41 Sod 3.375 gm/ Sodium Chloride IV Infused Q6H YEHUDA Infusion Omeprazole 20 mg 01/05/20 09:00 01/05/20 08:33 Omeprazole 20 Mg Capsule.Dr PO 20 mg DAILY YEHUDA Administration Sodium Chloride 3 ml 01/05/20 08:00 01/05/20 08:38 0.9 % Sodium Chloride Flush 3 Ml Syringe IVFLUSH 3 ml QSHIFT YEHUDA Administration Spironolactone 12.5 mg 01/05/20 09:00 01/05/20 08:32 Spironolactone 25 Mg Tablet PO 12.5 mg DAILY YEHUDA Administration Protocol Labs CBC & Chem 7: 01/05/20 05:27 01/05/20 05:27 Microbiology Microbiology Results: Microbiology 01/04/20 20:18 Blood - Venous Blood Culture - Preliminary 01/04/20 20:18 Blood - Venous Blood Culture - Preliminary Assessment and Plan (1) Gross hematuria: Status: Acute (2) Anemia due to acute blood loss: Status: Acute (3) Atrial fibrillation: Status: Acute (4) Hypertension: Status: Acute (5) Dementia: Status: Acute Assessment and Plan: 84/F full code with history of AF, kidney stones and has Nephrostomy tube iserted at [facility] 9 months ago and replaced 3 times, last time november 21, she is on Eliquis for AFIB. She presented with 3 days of hematuria and found to have severe anemia and has UTI. 1. Acute blood loss anemia/gross hematuria.. -stop Eliquis -Transfue and follow H/H -Urology following 2. AF--hold Eliquis d/t anemia and hematuria 3. HLD--Lipitor 4. UTI--D/C Zosyn, treat with Ceftriaxone should be suficient 5. Lactic acidosis due to severe anemia 6. dementia, not on med 7. GERD Omeprazole I discussed with daughter over the phone
[2020-01-05 17:23] LABS: Hematocrit 29.3 % (37-47); Hemoglobin 8.8 g/dl (12.0-16.0)
[2020-01-05] MEDS: cefTRIAXone sodium 1 GM in 0.9 % Sodium Chloride 50 ML IV (19:37)
[2020-01-06] MEDS: 0.9 % Sodium Chloride Flush 3 ML SYRINGE IVFLUSH ×3 (00:30→15:46)
[2020-01-06 04:00] VITALS: BP 118/81; PULSE 83; RESP 16; TEMP 36.3; O2SAT 96
[2020-01-06 07:03] VITALS: BP 142/72; PULSE 52; RESP 20; TEMP 36.6; O2SAT 96
[2020-01-06 07:17] LABS: Hematocrit 29.5 % (37-47); Hemoglobin 8.8 g/dl (12.0-16.0); Mean Corpuscular HGB Conc 29.8 g/dl (31.0-35.0); Mean Corpuscular Hemoglobin 22.2 pg (27.0-33.0); Mean Corpuscular Volume 74.5 fL (80-98); Mean Platelet Volume 10.8 fL (9.4-12.3); Platelet Count 143 X10*3/uL (160-400); Red Blood Count 3.96 X10*6/uL (4.20-5.50); White Blood Count 8.6 X10*3/uL (4.8-10.8)
[2020-01-06 08:06] LABS: Anion Gap 9 (12-20); Blood Urea Nitrogen 12 mg/dL (9-16); Calcium 7.7 mg/dL (8.4-10.2); Carbon Dioxide 26 mmol/L (22-29); Chloride 106 mmol/L (96-108); Creatinine Clr Calc Pharmacy 60.9; Estimated Glomerular Filt Rate > 60; Glucose Random 102 mg/dL (60-115); Sodium 137 mmol/L (135-145)
[2020-01-06] MEDS: FLUoxetine HCl 20 MG CAPSULE 40 MG PO (08:29)
[2020-01-06] MEDS: Omeprazole 20 MG CAPSULE.DR PO (08:29)
[2020-01-06] MEDS: Spironolactone 25 MG TABLET 12.5 MG PO (08:29)
[2020-01-06] MEDS: Atorvastatin Calcium 80 MG TABLET PO (08:29)
--- NOTE | 2020-01-06 10:11 | HO.PM.IMPN ---
Subjective Subjective Date of Service: 01/06/20 Interval History: f/u for anemia, acute blood loss anemia from hematuria and uti Review of Systems Review of Systems: Yes Unobtainable due to mental status Physical Exam Vital Signs: Vital Signs: Last Vital Signs Temp 98 F 01/06/20 07:03 Pulse 52 01/06/20 07:03 Resp 20 01/06/20 07:03 BP 142/72 H 01/06/20 07:03 Pulse Ox 96 01/06/20 07:03 Body Mass Index 29.2 General: very confused, restless at time Resp: CTA bilateral CVS: S1,S2,RRR GI: +BS, NT, no distention : nephrostomy tube with dark urine Skin: No rash Neuro: motor grossly intact Psych: appropriate affect Objective Data Current Medications Generic Name Dose Route Start Last Admin Trade Name Freq PRN Reason Stop Dose Admin Atorvastatin Calcium 80 mg 01/05/20 09:00 01/06/20 08:29 Atorvastatin Calcium 80 Mg Tablet PO 80 mg DAILY YEHUDA Administration Fluoxetine HCl 40 mg 01/05/20 09:00 01/06/20 08:29 Fluoxetine Hcl 20 Mg Capsule PO 40 mg DAILY YEHUDA Administration Ceftriaxone Sodium 1 gm/ 50 mls @ 100 mls/hr 01/05/20 18:00 01/05/20 20:07 Sodium Chloride IV Infused Q24H YEHUDA Infusion Omeprazole 20 mg 01/05/20 09:00 01/06/20 08:29 Omeprazole 20 Mg Capsule.Dr PO 20 mg DAILY YEHUDA Administration Sodium Chloride 3 ml 01/05/20 08:00 01/06/20 08:30 0.9 % Sodium Chloride Flush 3 Ml Syringe IVFLUSH 3 ml QSHIFT YEHUDA Administration Spironolactone 12.5 mg 01/05/20 09:00 01/06/20 08:29 Spironolactone 25 Mg Tablet PO 12.5 mg DAILY YEHUDA Administration Protocol Labs CBC & Chem 7: 01/06/20 06:06 01/06/20 06:06 Microbiology Microbiology Results: Microbiology 01/04/20 20:18 Blood - Venous Blood Culture - Preliminary Gram negative chantel 01/04/20 20:18 Blood - Venous Blood Culture - Preliminary Gram negative hcantel Assessment and Plan (1) Gross hematuria: Status: Acute (2) Anemia due to acute blood loss: Status: Acute (3) Atrial fibrillation: Status: Acute (4) Hypertension: Status: Acute (5) Dementia: Status: Acute Assessment and Plan: 84/F full code with history of AF, kidney stones and has Nephrostomy tube [facility]erted at [facility] 9 months ago and replaced 3 times, last time november 21, she is on Eliquis for AFIB. She presented with 3 days of hematuria and found to have severe anemia and has UTI. 1. Acute blood loss anemia/gross hematuria.. -Hold Eliquis -H/H is better following 2 units of RBC on 01/04 -Urology following 2. AF--hold Eliquis d/t anemia and hematuria 3. HLD--Lipitor 4. -Gram negative chantel bacteremia/UTI--likely urinary source -ID consult -Continue Ceftriaxone and follow culture sensitivity 5. Lactic acidosis due to severe anemia 6. dementia, not on med 7. GERD Omeprazole I di
[2020-01-06 11:57] VITALS: BP 166/77; PULSE 80; TEMP 36.8; O2SAT 99
[2020-01-06 15:46] VITALS: BP 113/59; RESP 18; TEMP 37.2
[2020-01-06] MEDS: cefTRIAXone sodium 1 GM in 0.9 % Sodium Chloride 50 ML IV (17:34)
[2020-01-06 18:56] VITALS: BP 143/70; PULSE 85; RESP 18; TEMP 37.3; O2SAT 96
--- NOTE | 2020-01-06 22:07 | P.CNID_ITS ---
History of Present Illness Data of Consult Service Date: 01/06/20 Requesting physician: Charles Danielle Primary Care Provider: Unknown Physician HPI Reason for consult: bacteremia He presents with gross hematuria He has dementia so cant tell pain well He has bilateral hydronephrosis but no gross obstruction noted He has no fever or chills Review of Systems Neurologic: Reports confusion Psychiatric: Psychiatric: Reports confusion [facility] Past Medical History Medical History Atrial fibrillation Dementia Kidney stones Functional capacity: independent ambulation Surgical History Surgical History Hx of heart artery stent Social History Social History Household Members: Unknown / Unable to assess Housing: Unknown / Unable to assess Alcohol intake: never Smoking Status: Unknown if ever smoked service: No Current occupational status: retired Meds Allergies Allergy/AdvReac Type Severity Reaction Status Date / Time acetaminophen [From Percocet] AdvReac Rash Verified 01/04/20 20:42 aspirin [From Percodan] AdvReac Rash Verified 01/04/20 20:42 fentanyl AdvReac Rash Verified 01/04/20 20:42 oxycodone [From Percocet] AdvReac Rash Verified 01/04/20 20:42 Home Medications Medication Instructions Recorded Confirmed Type Eliquis 1 tab PO BID 01/05/20 01/05/20 History atorvastatin 1 tab PO DAILY 01/05/20 01/05/20 History fluoxetine 2 cap PO DAILY 01/05/20 01/05/20 History furosemide 0.5 tab PO Q OTHER DAY 01/05/20 01/05/20 History multivitamin [Daily-Reece] 1 tab PO DAILY 01/05/20 01/05/20 History omeprazole 1 cap PO DAILY 01/05/20 01/05/20 History spironolactone 0.5 tab PO DAILY 01/05/20 01/05/20 History trazodone 1 tab PO BEDTIME 01/05/20 01/05/20 History Physical Exam Vital Signs: Vital Signs: Last Vital Signs Temp 99.1 F 01/06/20 18:56 Pulse 85 01/06/20 18:56 Resp 18 01/06/20 18:56 BP 143/70 H 01/06/20 18:56 Pulse Ox 96 01/06/20 18:56 Body Mass Index 29.2 Const: General: cooperative and confusion Orientation/consciousness: confusion HENMT: Head: Yes normal to inspection Eyes: General: appearance normal, both eyes and all related structures Resp: Effort & Inspection: normal respiratory effort Cardio: Rate: regular rate Rhythm: regular rhythm GI: Inspection: Yes normal to inspection Palpation (GI): nontender : General: Yes no CVA tenderness Back/Spine/Pelvis: Back: no CVA tenderness Skin: General skin exam: no rashes or lesions noted Neuro: General: confusion Extrem: General: Yes normal to inspection Assessment and Plan (1) Gross hematuria: Status: Acute Continue antibiotics, Ceftriaxone Urology followup Await cultures (2) Anemia due to acute blood loss: Status: Acute (3) Sepsis: Qualifiers: Sepsis acute organ dysfunction status: without acute organ dysfunction Sepsis type: sepsis due to unspecified organism Qualified Code(s): A41.9 - Sepsis, unspecified organism Status: Acute (4) Hypomagnesemia: Status: Acute (5) Hypokalemia: Status: Acute Results Labs CBC & Chem 7: 01/08/20 05:35 01/08/20 05:35 Labs: Short CBC 01/06/20 Range/Units 06:06 WBC 8.6 (4.8-10.8) X10*3/uL Hgb 8.8 L (12.0-16.0) g/dl Hct 29.5 L (37-47) % Plt Count 143 L (160-400) X10*3/uL BMP 01/06/20 06:06 Sodium 137 Potassium 4.0 Chloride 106 Carbon Dioxide 26 BUN 12 Creatinine 0.69 Calcium 7.7 L Microbiology Microbiology Results: Microbiology 01/05/20 01:36 Nephron, Right Urine Culture - Preliminary Gram negative chantel 01/04/20 20:18 Blood - Venous Blood Culture - Preliminary Gram negative chantel 01/04/20 20:18 Blood - Venous Blood Culture - Preliminary Gram negative chantel
--- NOTE | 2020-01-06 22:13 | P.CNID_ITS ---
History of Present Illness Data of Consult Primary Care Provider: Unknown Physician Review of Systems Neurologic: Reports confusion Psychiatric: Psychiatric: Reports confusion [facility] Past Medical History Medical History Atrial fibrillation Dementia Kidney stones Functional capacity: independent ambulation Surgical History Surgical History Hx of heart artery stent Social History Social History Household Members: Unknown / Unable to assess Housing: Unknown / Unable to assess Alcohol intake: never Smoking Status: Unknown if ever smoked Smoked in Last 30 Days: No Use of substances other than those prescribed or required for medical reasons: Unknown Currently Displaying Signs/Symptoms of Drug Intoxication Withdrawal: No Advance Directives: No Advance Directives Information Provided: Yes Do you have thoughts of harming others: None Recently lost weight without trying: Unsure service: No Current occupational status: retired Meds Allergies Allergy/AdvReac Type Severity Reaction Status Date / Time acetaminophen [From Percocet] AdvReac Rash Verified 01/04/20 20:42 aspirin [From Percodan] AdvReac Rash Verified 01/04/20 20:42 fentanyl AdvReac Rash Verified 01/04/20 20:42 oxycodone [From Percocet] AdvReac Rash Verified 01/04/20 20:42 Home Medications Medication Instructions Recorded Confirmed Type apixaban [Eliquis] 1 tab PO BID 01/05/20 01/05/20 History atorvastatin 1 tab PO DAILY 01/05/20 01/05/20 History fluoxetine 2 cap PO DAILY 01/05/20 01/05/20 History furosemide 0.5 tab PO Q OTHER DAY 01/05/20 01/05/20 History multivitamin [Daily-Reece] 1 tab PO DAILY 01/05/20 01/05/20 History omeprazole 1 cap PO DAILY 01/05/20 01/05/20 History spironolactone 0.5 tab PO DAILY 01/05/20 01/05/20 History trazodone 1 tab PO BEDTIME 01/05/20 01/05/20 History Physical Exam Vital Signs: Vital Signs: Last Vital Signs Temp 99.1 F 01/06/20 18:56 Pulse 85 01/06/20 18:56 Resp 18 01/06/20 18:56 BP 143/70 H 01/06/20 18:56 Pulse Ox 96 01/06/20 18:56 Body Mass Index 29.2 Const: General: confusion Orientation/consciousness: confusion Neuro: General: confusion Results Labs CBC & Chem 7: 01/06/20 06:06 01/06/20 06:06 Labs: Short CBC 01/06/20 Range/Units 06:06 WBC 8.6 (4.8-10.8) X10*3/uL Hgb 8.8 L (12.0-16.0) g/dl Hct 29.5 L (37-47) % Plt Count 143 L (160-400) X10*3/uL BMP 01/06/20 06:06 Sodium 137 Potassium 4.0 Chloride 106 Carbon Dioxide 26 BUN 12 Creatinine 0.69 Calcium 7.7 L Microbiology Microbiology Results: Microbiology 01/05/20 01:36 Nephron, Right Urine Culture - Preliminary Gram negative chantel 01/04/20 20:18 Blood - Venous Blood Culture - Preliminary Gram negative chantel 01/04/20 20:18 Blood - Venous Blood Culture - Preliminary Gram negative chantel
[2020-01-07] VITALS (7 sets, daily range): BP systolic 120–195; BP diastolic 58–98; PULSE 68–85; RESP 18–20; TEMP 36.2–37.2; O2SAT 95–98
[2020-01-07] MEDS: 0.9 % Sodium Chloride Flush 3 ML SYRINGE IVFLUSH ×3 (00:18→23:25)
--- NOTE | 2020-01-07 04:15 | PC.NURSE ---
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 I rechecked BP approx half hour later and it was improved. Patient was resting at this time.
[2020-01-07] MEDS: Atorvastatin Calcium 80 MG TABLET PO (09:32)
[2020-01-07] MEDS: Spironolactone 25 MG TABLET 12.5 MG PO (09:32)
[2020-01-07] MEDS: Omeprazole 20 MG CAPSULE.DR PO (09:32)
[2020-01-07] MEDS: FLUoxetine HCl 20 MG CAPSULE 40 MG PO (09:32)
--- NOTE | 2020-01-07 13:11 | P.PNIM_ITS ---
Subjective Subjective Interval History: f/u for anemia, acute blood loss anemia from hematuria and uti with GNR b acteremia ROS: no fever Neuro: confused Physical Exam Vital Signs: Vital Signs: Last Vital Signs Temp 98.5 F 01/07/20 12:00 Pulse 76 01/07/20 12:00 Resp 20 01/07/20 12:00 BP 156/89 H 01/07/20 12:00 Pulse Ox 98 01/07/20 12:00 Body Mass Index 29.2 General: very confused, baseline from dementia Resp: CTA bilateral CVS: S1,S2,RRR GI: +BS, NT, no distention : nephrostomy tube with dark urine Skin: No rash Neuro: motor grossly intact Psych: appropriate affect Objective Data Current Medications Generic Name Dose Route Start Last Admin Trade Name Freq PRN Reason Stop Dose Admin Atorvastatin Calcium 80 mg 01/05/20 09:00 01/07/20 09:32 Atorvastatin Calcium 80 Mg Tablet PO 80 mg DAILY YEHUDA Administration Fluoxetine HCl 40 mg 01/05/20 09:00 01/07/20 09:32 Fluoxetine Hcl 20 Mg Capsule PO 40 mg DAILY YEHUDA Administration Ceftriaxone Sodium 1 gm/ 50 mls @ 100 mls/hr 01/05/20 18:00 01/06/20 18:48 Sodium Chloride IV Infused Q24H YEHUDA Infusion Omeprazole 20 mg 01/05/20 09:00 01/07/20 09:32 Omeprazole 20 Mg Capsule.Dr PO 20 mg DAILY YEHUDA Administration Sodium Chloride 3 ml 01/05/20 08:00 01/07/20 09:32 0.9 % Sodium Chloride Flush 3 Ml Syringe IVFLUSH Not Given QSHIFT YEHUDA Spironolactone 12.5 mg 01/05/20 09:00 01/07/20 09:32 Spironolactone 25 Mg Tablet PO 12.5 mg DAILY YEHUDA Administration Protocol Labs CBC & Chem 7: 01/06/20 06:06 01/06/20 06:06 Microbiology Microbiology Results: Microbiology 01/05/20 01:36 Nephron, Right Urine Culture - Final Citrobacter braakii 01/04/20 20:18 Blood - Venous Blood Culture - Final Citrobacter braakii 01/04/20 20:18 Blood - Venous Blood Culture - Final Citrobacter braakii Assessment and Plan (1) Gross hematuria: Status: Acute (2) Anemia due to acute blood loss: Status: Acute (3) Atrial fibrillation: Status: Acute (4) Hypertension: Status: Acute (5) Dementia: Status: Acute Assessment and Plan: 84/F full code with history of advanced dementia, AF, kidney stones and has Nephrostomy tube iserted at [facility] 9 months ago and replaced 3 times, last time november 21, she is on Eliquis for AFIB. She presented with 3 days of hematuria and found to have severe anemia and has UTI ang Citrobacter bacteremia 1. Acute blood loss anemia/gross hematuria.. -Hold Eliquis -H/H is better following 2 units of RBC on 01/04 -Urology following 2. AF--hold Eliquis d/t anemia and hematuria 3. HLD--Lipitor 4. -Gram negative chantel (Citrobacterer) bacteremia/UTI -Was on Zosyn x 1 day, then Ceftriaxone Citrobacter is sensitive to ceftriaxone. ID to determine is PO is an option (i think so) and if not then will need a PICC line -Continue Ceftriaxone and follow culture sensitivity 5. Lactic acidosis due to severe anemia 6. dementia, not on med 7. GERD Omeprazole DVT prophylaxis , compression device
[2020-01-07] MEDS: cefTRIAXone sodium 1 GM in 0.9 % Sodium Chloride 50 ML IV (16:53)
[2020-01-08] MEDS: Haloperidol Lactate 5 MG/ML VIAL 2 MG IV (03:00)
[2020-01-08 03:38] VITALS: BP 130/78; PULSE 75; RESP 20; TEMP 36.9; O2SAT 97
[2020-01-08 03:39] VITALS: BP 130/78; PULSE 75; RESP 20; TEMP 36.9; O2SAT 97
[2020-01-08 06:22] LABS: Hematocrit 29.9 % (37-47); Hemoglobin 8.9 g/dl (12.0-16.0); Mean Corpuscular HGB Conc 29.8 g/dl (31.0-35.0); Mean Platelet Volume 10.4 fL (9.4-12.3); Platelet Count 142 X10*3/uL (160-400); Red Blood Count 4.04 X10*6/uL (4.20-5.50); Red Cell Distribution Width 19.4 % (11.0-16.0); White Blood Count 5.3 X10*3/uL (4.8-10.8)
[2020-01-08 07:13] LABS: Anion Gap 10 (12-20); Blood Urea Nitrogen 11 mg/dL (9-16); Calcium 8.2 mg/dL (8.4-10.2); Carbon Dioxide 28 mmol/L (22-29); Chloride 104 mmol/L (96-108); Creatinine Clr Calc Pharmacy 65.6; Estimated Glomerular Filt Rate > 60; Glucose Random 88 mg/dL (60-115); Potassium 3.5 mmol/l (3.3-5.1); Sodium 138 mmol/L (135-145)
[2020-01-08 07:22] VITALS: BP 142/80; PULSE 80; RESP 18; TEMP 37; O2SAT 97
[2020-01-08] MEDS: Atorvastatin Calcium 80 MG TABLET PO (08:32)
[2020-01-08] MEDS: Omeprazole 20 MG CAPSULE.DR PO (08:32)
[2020-01-08] MEDS: FLUoxetine HCl 20 MG CAPSULE 40 MG PO (08:32)
[2020-01-08 08:33] VITALS: BP 142/80; PULSE 80
[2020-01-08] MEDS: Spironolactone 25 MG TABLET 12.5 MG PO (08:33)
[2020-01-08] MEDS: 0.9 % Sodium Chloride Flush 3 ML SYRINGE IVFLUSH (08:33)
[2020-01-08 11:01] VITALS: BP 157/66; PULSE 83; RESP 20; TEMP 37.4; O2SAT 97
--- NOTE | 2020-01-08 14:02 | MHC.CM.PN ---
CM placed a call to dtr ARI Camacho to return call re: VNA services, is patient already active with VNA and if so which one. patient continues on IV ceftriaxone for positive blood cultures. Discharge plan is to return home with dtr in an adult foster care setting. Family will provide transport. CM will continue to follow for discharge needs.
--- NOTE | 2020-01-08 14:09 | PM.DS ---
DS: Providers Provider Date of admission: 01/05/20 00:18 Primary care physician: Shellie Betts MD [address] [place] [address] Consults: 01/05/20 00:32 Consult to Infectious Diseases Routine Consulting Provider: Infectious Disease Reason for consultation: sepsis Has provider been notified: No 01/05/20 04:15 Consult to Urology Routine Consulting Provider: [facility] [place] Urology Services Reason for consultation: nephrostomy tube with ureteral stone Has provider been notified: No 01/05/20 17:39 Consult to Infectious Diseases Routine Consulting Provider: Linh Vizcarra Reason for consultation: Gram negative chantel bacteremia Has provider been notified: Yes DS: Diagnosis Discharge Diagnosis (1) Gross hematuria: Status: Acute (2) Anemia due to acute blood loss: Status: Acute (3) Atrial fibrillation: Status: Acute (4) Sepsis: Status: Acute (5) Bacteremia: Status: Acute (6) Citrobacter infection: Status: Acute (7) Nephrostomy complication: Status: Acute (8) Hypomagnesemia: Status: Acute (9) Hypokalemia: Status: Acute DS: Summary Hospital Course Hospital Course: From the admission history and physical by hospitalist Anamaria Delacruz, 01/04/20: 84 y/o female with significant hx of nephrolithiasis s/p bilateral renal nephrostomy tube, HLP, Dementia, underlying psychotic disorder, GERD, HTN and afib on eliquis who presented from home due to blood in urine. GIven severe dementia patient is unable to provide with any significant hx but family member reported that patient started presenting with blood in the urine x 1 day now. Patient has a nephrostomy tube with bag which is filled with dark urine. One episode of fever of 101.9 recorded in the ED. WBC of 11.6, Hgb of 7.1, INR of 2.3, K of 2.9. lactate of 3.1, magnesium of 1.3. CT abdomen consistent with bilateral nephrostomy tube, right renal stone in the right renal pelvis, mild left hydronephrosis with no fully decompression. CXR showing left lower lobe infiltrate, aortic valve prosthesis. KCL supplemented by Ed as well as magnesium now, type and screen and 1 unit of blood ordered per ED. EKG showing QTC of 480. One dose of Rocephin adn Doxy ordered. Decision for admission given. Patient seen and evaluated at the bedside, laying down in bed, severe dementia. ROS unable to be obtained. Physical exam positive for right sided nephrostomy tube with bag filled of bloody dark urine. The patient was admitted to the [facility] for severe sepsis and anemia from hematuria. Apixaban was held and she was transfused 2 units of packed red blood cells. Lactate normalized with volume repletion. Potassium and magnesium were repleted. She was found to have Citrobacter braakii UTI with bacteremia. She was treated with ceftriaxone for 4 days and transitioned to sulfamethoxazole/trimethoprim upon discharge to complete another 10 days of therapy. To avoid hyperkalemia, spironolactone will be held while on the antibiotic. Hematuria resolved as the infection was treated. She was instructed to follow up with her primary care physician and her urologist at [facility] and to discuss resumption of apixaban with them. A lab order for CBCd, BMP, and magnesium in 1 week was placed. Time Spent with Patient Time attestation: Total time spent providing and/or coordinating discharge services: 45 Physical Exam Vital Signs: Vital Signs: Last Vital Signs Temp 99.4 F 01/08/20 11:01 Pulse 83 01/08/20 11:01 Resp 20 01/08/20 11:01 BP 157/66 H 01/08/20 11:01 Pulse Ox 97 01/08/20 11:01 Body Mass Index 29.2 Const: General: no acute distress Neck: Neck: Yes normal visual inspection Resp: Effort & Inspection: normal respiratory effort Auscultation: clear to auscultation bilaterally Cardio: Rate: regular rate Rhythm: regular rhythm Heart sounds: S1 normal heart sound present GI: Inspection: Yes normal to inspection Palpation (GI): Soft to palpation and nontender : Other: R nephrostomy draining clear urine without hematuria Skin: General skin exam: no rashes or lesions noted DS: Data Data Completed and Pending Labs on day of discharge: Laboratory Tests 01/04/20 01/04/20 01/04/20 20:18 20:18 20:18 WBC RBC Hgb Hct MCV MCH MCHC RDW Plt Count MPV Immature Gran % (Auto) Neut % (Auto) Lymph % (Auto) Fisher % (Auto) Eos % (Auto) Baso % (Auto) Lymph # (Auto) Fisher # (Auto) Eos # (Auto) Baso # (Auto) Abs Immat Gran (auto) Absolute Neuts (auto) Absolute Nucleated RBC Nucleated RBC % (auto) Smear Tech's Comments Smear Path Review Sodium Potassium Chloride Carbon Dioxide Anion Gap BUN Creatinine Estim Creat Clear Calc Estimated GFR Random Glucose Lactic Acid 3.1 H* Lactic Acid Fup @ 2Hr Calcium Magnesium 1.3 L* Total Bilirubin Direct Bilirubin AST ALT Alkaline Phosphatase Lactate Dehydrogenase Troponin I High Sens 26.5 H Total Protein Albumin Lipase Urine Color Urine Appearance Urine pH Ur Specific Francis Urine Protein Urine Glucose (UA) Urine Ketones Urine Blood Urine Nitrite Ur Leukocyte Esterase Urine RBC Urine WBC Ur Squamous Epith Cells Urine Bacteria C. difficile Toxin A&B C. difficile Antigen C. difficile Interpret Coronavirus (PCR) Blood Type Antibody Screen Crossmatch 01/04/20 01/04/20 01/04/20 20:18 20:18 20:34 WBC 11.6 H RBC 3.37 L Hgb 7.1 L Hct 24.5 L MCV 72.7 L MCH 21.1 L MCHC 29.0 L RDW 18.5 H Plt Count 160 MPV 10.0 Immature Gran % (Auto) 0.4 Neut % (Auto) 90.7 H Lymph % (Auto) 2.7 L Fisher % (Auto) 6.0 Eos % (Auto) 0.0 Baso % (Auto) 0.2 Lymph # (Auto) 0.3 L Fisher # (Auto) 0.7 Eos # (Auto) 0.0 Baso # (Auto) 0.0 Abs Immat Gran (auto) 0.05 H Absolute Neuts (auto) 10.5 H Absolute Nucleated RBC 0.000 Nucleated RBC % (auto) 0.0 Smear Tech's Comments VERIFIED Smear Path Review Sodium 137 Potassium 2.9 L Chloride 104 Carbon Dioxide 22 Anion Gap 14 BUN 15 Creatinine 0.71 Estim Creat Clear Calc 59.2 Estimated GFR > 60 Random Glucose 177 H Lactic Acid Lactic Acid Fup @ 2Hr Calcium 7.5 L Magnesium Total Bilirubin 0.3 Direct Bilirubin 0.2 AST 9 ALT 7 Alkaline Phosphatase 80 Lactate Dehydrogenase Troponin I High Sens Total Protein 5.9 L Albumin 3.3 L Lipase 31 Urine Color Urine Appearance Urine pH Ur Specific Francis Urine Protein Urine Glucose (UA) Urine Ketones Urine Blood Urine Nitrite Ur Leukocyte Esterase Urine RBC Urine WBC Ur Squamous Epith Cells Urine Bacteria C. difficile Toxin A&B Negative C. difficile Antigen Negative C. difficile Interpret SEE NOTE Coronavirus (PCR) Blood Type Antibody Screen Crossmatch 01/05/20 01/05/20 01/05/20 00:05 00:05 00:05 WBC RBC Hgb Hct MCV MCH MCHC RDW Plt Count MPV Immature Gran % (Auto) Neut % (Auto) Lymph % (Auto) Fisher % (Auto) Eos % (Auto) Baso % (Auto) Lymph # (Auto) Fisher # (Auto) Eos # (Auto) Baso # (Auto) Abs Immat Gran (auto) Absolute Neuts (auto) Absolute Nucleated RBC Nucleated RBC % (auto) Smear Tech's Comments Smear Path Review Sodium Potassium Chloride Carbon Dioxide Anion Gap BUN Creatinine Estim Creat Clear Calc Estimated GFR Random Glucose Lactic Acid Lactic Acid Fup @ 2Hr 1.7 Calcium Magnesium Total Bilirubin Direct Bilirubin AST ALT Alkaline Phosphatase Lactate Dehydrogenase Troponin I High Sens Total Protein Albumin Lipase Urine Color Urine Appearance Urine pH Ur Specific Francis Urine Protein Urine Glucose (UA) Urine Ketones Urine Blood Urine Nitrite Ur Leukocyte Esterase Urine RBC Urine WBC Ur Squamous Epith Cells Urine Bacteria C. difficile Toxin A&B C. difficile Antigen C. difficile Interpret Coronavirus (PCR) NEGATIVE Blood Type O Negative Antibody Screen NEGATIVE Crossmatch See Detail 01/05/20 01/05/20 01/05/20 01:38 05:27 05:27 WBC Cancelled RBC Cancelled Hgb Cancelled Hct Cancelled MCV Cancelled MCH Cancelled MCHC Cancelled RDW Cancelled Plt Count Cancelled MPV Cancelled Immature Gran % (Auto) Cancelled Neut % (Auto) Cancelled Lymph % (Auto) Cancelled Fisher % (Auto) Cancelled Eos % (Auto) Cancelled Baso % (Auto) Cancelled Lymph # (Auto) Cancelled Fisher # (Auto) Cancelled Eos # (Auto) Cancelled Baso # (Auto) Cancelled Abs Immat Gran (auto) Cancelled Absolute Neuts (auto) Cancelled Absolute Nucleated RBC Cancelled Nucleated RBC % (auto) Cancelled Smear Tech's Comments Smear Path Review Sodium 139 Potassium 4.4 D Chloride 109 H Carbon Dioxide 22 Anion Gap 12 BUN 13 Creatinine 0.60 Estim Creat Clear Calc 70.0 Estimated GFR > 60 Random Glucose 134 H Lactic Acid Lactic Acid Fup @ 2Hr Calcium 7.8 L Magnesium 1.9 Total Bilirubin Direct Bilirubin AST ALT Alkaline Phosphatase Lactate Dehydrogenase 236 H Troponin I High Sens Total Protein Albumin Lipase Urine Color RED Urine Appearance TURBID Urine pH 6.5 Ur Specific Francis 1.020 Urine Protein 2+ H Urine Glucose (UA) NEG Urine Ketones NEG Urine Blood 3+ H Urine Nitrite POS H Ur Leukocyte Esterase 3+ H Urine RBC TNTC H Urine WBC TNP Ur Squamous Epith Cells TNP Urine Bacteria TNP C. difficile Toxin A&B C. difficile Antigen C. difficile Interpret Coronavirus (PCR) Blood Type Antibody Screen Crossmatch 01/05/20 01/05/20 01/05/20 05:27 05:27 17:16 WBC 15.6 H RBC 3.23 L Hgb 6.8 L* 8.8 L D Hct 24.0 L 29.3 L D MCV 74.3 L MCH 21.1 L MCHC 28.3 L RDW 18.7 H Plt Count 151 L MPV 10.6 Immature Gran % (Auto) 0.6 H Neut % (Auto) 87.0 H Lymph % (Auto) 6.1 L Fisher % (Auto) 6.2 Eos % (Auto) 0.0 Baso % (Auto) 0.1 Lymph # (Auto) 1.0 L Fisher # (Auto) 1.0 Eos # (Auto) 0.0 Baso # (Auto) 0.0 Abs Immat Gran (auto) 0.10 H Absolute Neuts (auto) 13.6 H Absolute Nucleated RBC 0.000 Nucleated RBC % (auto) 0.0 Smear Tech's Comments Smear Path Review SEE NOTE Sodium 139 Potassium 4.4 Chloride 109 H Carbon Dioxide 21 L Anion Gap 13 BUN 13 Creatinine 0.60 Estim Creat Clear Calc 70.0 Estimated GFR > 60 Random Glucose 134 H Lactic Acid Lactic Acid Fup @ 2Hr Calcium 7.6 L Magnesium 1.9 Total Bilirubin Direct Bilirubin AST ALT Alkaline Phosphatase Lactate Dehydrogenase Troponin I High Sens Total Protein Albumin Lipase Urine Color Urine Appearance Urine pH Ur Specific Francis Urine Protein Urine Glucose (UA) Urine Ketones Urine Blood Urine Nitrite Ur Leukocyte Esterase Urine RBC Urine WBC Ur Squamous Epith Cells Urine Bacteria C. difficile Toxin A&B C. difficile Antigen C. difficile Interpret Coronavirus (PCR) Blood Type Antibody Screen Crossmatch 11/07/20 11/07/20 11/09/20 06:06 06:06 05:35 WBC 8.6 5.3 RBC 3.96 L D 4.04 L Hgb 8.8 L 8.9 L Hct 29.5 L 29.9 L MCV 74.5 L 74.0 L MCH 22.2 L 22.0 L MCHC 29.8 L 29.8 L RDW 19.0 H 19.4 H Plt Count 143 L 142 L MPV 10.8 10.4 Immature Gran % (Auto) Neut % (Auto) Lymph % (Auto) Fisher % (Auto) Eos % (Auto) Baso % (Auto) Lymph # (Auto) Fisher # (Auto) Eos # (Auto) Baso # (Auto) Abs Immat Gran (auto) Absolute Neuts (auto) Absolute Nucleated RBC 0.000 0.000 Nucleated RBC % (auto) 0.0 0.0 Smear Tech's Comments Smear Path Review Sodium 137 Potassium 4.0 Chloride 106 Carbon Dioxide 26 Anion Gap 9 L BUN 12 Creatinine 0.69 Estim Creat Clear Calc 60.9 Estimated GFR > 60 Random Glucose 102 Lactic Acid Lactic Acid Fup @ 2Hr Calcium 7.7 L Magnesium Total Bilirubin Direct Bilirubin AST ALT Alkaline Phosphatase Lactate Dehydrogenase Troponin I High Sens Total Protein Albumin Lipase Urine Color Urine Appearance Urine pH Ur Specific Francis Urine Protein Urine Glucose (UA) Urine Ketones Urine Blood Urine Nitrite Ur Leukocyte Esterase Urine RBC Urine WBC Ur Squamous Epith Cells Urine Bacteria C. difficile Toxin A&B C. difficile Antigen C. difficile Interpret Coronavirus (PCR) Blood Type Antibody Screen Crossmatch 01/08/20 05:35 WBC RBC Hgb Hct MCV MCH MCHC RDW Plt Count MPV Immature Gran % (Auto) Neut % (Auto) Lymph % (Auto) Fisher % (Auto) Eos % (Auto) Baso % (Auto) Lymph # (Auto) Fisher # (Auto) Eos # (Auto) Baso # (Auto) Abs Immat Gran (auto) Absolute Neuts (auto) Absolute Nucleated RBC Nucleated RBC % (auto) Smear Tech's Comments Smear Path Review Sodium 138 Potassium 3.5 Chloride 104 Carbon Dioxide 28 Anion Gap 10 L BUN 11 Creatinine 0.64 Estim Creat Clear Calc 65.6 Estimated GFR > 60 Random Glucose 88 Lactic Acid Lactic Acid Fup @ 2Hr Calcium 8.2 L D Magnesium Total Bilirubin Direct Bilirubin AST ALT Alkaline Phosphatase Lactate Dehydrogenase Troponin I High Sens Total Protein Albumin Lipase Urine Color Urine Appearance Urine pH Ur Specific Francis Urine Protein Urine Glucose (UA) Urine Ketones Urine Blood Urine Nitrite Ur Leukocyte Esterase Urine RBC Urine WBC Ur Squamous Epith Cells Urine Bacteria C. difficile Toxin A&B C. difficile Antigen C. difficile Interpret Coronavirus (PCR) Blood Type Antibody Screen Crossmatch Urine and blood cultures from 01/04/20: Organism 1 Citrobacter braakii C braakii M.I.C. RX --------- --- Cefazolin >=64 R Ceftriaxone <=1 S Gentamicin <=1 S Levofloxacin <=0.12 S Trimethoprim/Sulfamethoxazole <=[address] A/P from 01/04/20: There are bilateral nephroureteral stents in place. A right-sided nephrostomy tube is also seen, entering a right lower pole calyx looping in the right renal pelvis. There is a 1.2 cm calculus in the right renal pelvis. There is a 4 mm right upper pole calculus. There is no right-sided hydronephrosis with a few scattered foci of gas in the right renal pelvis and a right upper pole calyx. This is nonspecific and could be due to the presence of the nephrostomy tube rather than from gas forming organisms. Mild left hydronephrosis suggest the left nephroureteral stent is not fully decompressed in the left renal collecting system. CXR from 01/04/20: Mild cardiomegaly with aortic valve prosthesis. Left lower lobe infiltrate. Discharge Plan Discharge Anticipated Discharge Date/Time: 01/08/20 13:39 Patient Disposition: Home Health Service Referrals: Physician,Unknown [Primary Care Provider] - Discharge Medications: New sulfamethoxazole-trimethoprim 800-160 mg Tablet 1 tab PO BID 10 Days Qty: 20 RF: 0 Continued multivitamin [Daily-Reece] Tablet 1 tab PO DAILY RF: 0 atorvastatin 80 mg tablet 1 tab PO DAILY RF: 0 trazodone 50 mg tablet 1 tab PO BEDTIME RF: 0 omeprazole 20 mg capsule,delayed release(DR/EC) 1 cap PO DAILY RF: 0 furosemide 20 mg tablet 0.5 tab PO Q OTHER DAY RF: 0 fluoxetine 20 mg capsule 2 cap PO DAILY RF: 0 Held spironolactone 25 mg tablet 0.5 tab PO DAILY RF: 0 Hold Instructions: Resume on 01/18/20. Eliquis 5 mg tablet 1 tab PO BID RF: 0 Hold Instructions: Resume on 01/15/20. discuss with primary care physician and urologist Discharge Orders: Discharge Order (Routine); Ordered 01/08/20 Ordered By: Leeanne Dao Diet: advance to your usual diet Activity on Discharge: As tolerated Patient Instructions: Sulfamethoxazole/Trimethoprim (By mouth), Nephrostomy Tube Care (DC), Bacteremia (DC) Other Ambulatory Orders: Basic Metabolic Panel (Routine) Timeframe: 1 Week Facility: [facility] - Location: Laboratory Ordered By: Leeanne Dao Complete Blood Count Auto Diff (Routine) Timeframe: 1 Week Facility: [facility] - Location: Laboratory Ordered By: Leeanne Dao Magnesium (Routine) Timeframe: 1 Week Facility: [facility] - Location: Laboratory Ordered By: Leeanne Dao Visit Report Forms: Patient Portal Discharge page Care Plan Goals: resolve infection + hematuria Health Concerns: UTI, bacteremia, and hematuria Plan of Treatment: Take antibiotic [sulfamethoxazole/trimethoprim, also known as Bactrim or Septra] 1 tab twice daily for 10 more days. HOLD apixaban [Eliquis] until you can discuss this with your primary care doctor and your urologist. HOLD spironolactone [Aldactone] while taking Bactrim; otherwise, your potassium level may rise too high. Recheck labs [basic metabolic panel plus magnesium level] in 1 week. You were transfused 2 units of packed red blood cells. Take iron 1 tab daily for a month. Recheck labs [CBC with differential] in 1 week.
--- NOTE | 2020-01-08 14:16 | MHC.CM.PN ---
ENRRIQUE spoke with patient's dtr Chloe who reports patient does not have VNA and does not need a referral to a VNA. Instructed mom is discharged home today, no services. Chloe will be providing transportation.
--- NOTE | 2020-01-08 14:30 | W.MHC.F2F ---
Service Date Service Date: 01/08/20 Encounter Date of encounter: 01/08/20 Reasons for Services Reason for nursing home: medication management, medication treatment, teach disease management and GI/ assessment Homebound: Leaving the home is medically contraindicated at this time without the asist of a device and/or another person due th the listed conditions above and below. Reason homebound: cognitively impaired / unsafe and weakness related to hospital stay Homebound supporting statement: Ms Prater was admitted to [facility] 01/04-01/08/20 for severe sepsis from Citrobacter UTI/bacteremia. She has underlying dementia. Certification: Based on the above findings, I certify that this patient is confined to the home and needs intermittent nursing home care, physical therapy and/or speech therapy, or continues to need occupational therapy. The patient is under my care, and I have initiated the establishment of the plan of care. The patient will be followed by a physician who will periodically review the plan of care.
[2020-01-08 15:11] VITALS: BP 148/75; PULSE 90; RESP 18; TEMP 36.7; O2SAT 97
== END 2020-01-08 17:16 | disposition home health service (06) | DRG 871 ==
LOC: HO.ED 22:36 → HO.IMC 01-05 00:47
PROVIDERS: Internal Medicine; Nurse Practitioner Family; Admitting Provider Internal Medicine; Emergency Provider Internal Medicine; Visit Provider Family Medicine
DX: A41.59 Other Gram-negative sepsis (principal); J18.9 Pneumonia, unspecified organism; D62 Acute posthemorrhagic anemia; N13.6 Pyonephrosis; I48.91 Unspecified atrial fibrillation; E87.6 Hypokalemia; E83.42 Hypomagnesemia; K21.9 Gastro-esophageal reflux disease without esophagitis; R31.0 Gross hematuria; F03.90 Unspecified dementia, unspecified severity, without behavioral disturbance, psychotic disturbance, mood disturbance, and anxiety; R65.20 Severe sepsis without septic shock; Z20.828 Contact with and (suspected) exposure to other viral communicable diseases; Z87.442 Personal history of urinary calculi; Z88.5 Allergy status to narcotic agent; Z88.6 Allergy status to analgesic agent; Z79.01 Long term (current) use of anticoagulants; Z79.899 Other long term (current) drug therapy
CPT/HCPCS: 36415; 36430; 71045; 74176; 80048; 80076; 81001; 83605; 83615; 83690; 83735; 84484; 85014; 85018; 85025; 85027; 85060; 86850; 86900; 86901; 86920; 86923; 87040; 87077; 87086; 87088; 87186; 87324; 87449; 93005; 96361; 96365; 96366; 96367; 96375; 99285; 99291; J0696; J2543; J3475; P9016; U0003

== ENCOUNTER 2021-03-14 16:25 | Emergency (ER) | payer MEDICARE, MEDICAID, SELFPAY ==
--- NOTE | ~2021-03-14 | CT_ITS ---
EXAMINATION: CT HEAD WITHOUT CONTRAST (STROKE PROTOCOL) CLINICAL INFORMATION: Stroke protocol. Aphasia. Left-sided weakness. COMPARISON: None TECHNIQUE: Contiguous axial imaging was performed from the skull base to vertex without intravenous administration of contrast. This CT examination was performed using dose optimization techniques as appropriate, variously including the following: *Automated exposure control *Adjustment of mA and/or kV according to patient size (this includes techniques or standardized protocols for targeted exams where dose is matched to indication/reason for exam; i.e. extremities or head) *Use of iterative reconstruction technique DLP: 677 mGy-cm FINDINGS: Old infarct with focal encephalomalacia involving the right parietal-occipital lobe. Old lacunar infarct in the right external capsule. There is generalized global volume loss. There is moderate prominence of the ventricles and the sulci . There is moderate hypodensity of the periventricular white matter due to chronic small vessel ischemic disease. There are vascular calcifications of the internal carotid arteries bilaterally. There is no intracranial hemorrhage, hematoma, or extra-axial fluid collection. There is no hydrocephalus, edema, or mass effect. The [place]-white matter differentiation appears symmetric. There is no acute infarct or mass lesion. No acute osseous abnormality. The visualized sinuses and middle ears and mastoid air cells show no significant mucosal thickening. There are no air-fluid levels. CT/CT head for stroke IMPRESSION: No acute intracranial pathology. This critical result was discussed with DR. Coker at 1647 hours on 03/14/2019. It was ascertained that the content and urgency of the report was understood at the time of direct communication.
--- NOTE | 2021-03-14 16:29 | ECG_ITS ---
Test Reason : STROKE Blood Pressure : / mmHG Vent. Rate : 088 BPM Atrial Rate : 088 BPM P-R Int : 150 ms QRS Dur : 106 ms QT Int : 374 ms P-R-T Axes : 071 049 057 degrees QTc Int : 452 ms Sinus rhythm with Premature atrial complexes Nonspecific ST abnormality Borderline ECG When compared with ECG of 04-JAN-2020 20:00, Premature atrial complexes are now Present Referred By: Gaurav Davey Electronically Signed By:ANA FLORES
--- NOTE | 2021-03-14 16:33 | ED_ITS ---
HPI - Neuro Symptoms/Deficit General Chief Complaint: Stroke Stated Complaint: CVA Time Seen by Provider: 03/14/21 16:29 Source: family Mode of arrival: EMS History of Present Illness HPI Narrative: Patient 85 years old with history of vascular dementia AFib on Eliquis with history of TIAs in the past came here as daughter noticed the ang ent is very weak with weakness in both lower extremities just prior to arrival when EMS arrived patient had difficulty in speaking with left-sided weakness when she arrived patient has no focal weakness noticed no facial deformity speaking occasionally no dysarthria noted Related Data Home Medications Medication Instructions Recorded Confirmed apixaban 5 mg tablet (Eliquis) 1 tab PO BID 01/05/20 01/05/20 atorvastatin 80 mg tablet 1 tab PO DAILY 01/05/20 01/05/20 fluoxetine 20 mg capsule 2 cap PO DAILY 01/05/20 01/05/20 furosemide 20 mg tablet 0.5 tab PO Q OTHER DAY 01/05/20 01/05/20 multivitamin (Daily-Reece) 1 tab PO DAILY 01/05/20 01/05/20 omeprazole 20 mg capsule,delayed 1 cap PO DAILY 01/05/20 01/05/20 release spironolactone 25 mg tablet 0.5 tab PO DAILY 01/05/20 01/05/20 trazodone 50 mg tablet 1 tab PO BEDTIME 01/05/20 01/05/20 Previous Rx's Medication Instructions Recorded ferrous sulfate 325 mg (65 mg 325 mg PO DAILY #30 tab 01/08/20 iron) tablet,delayed release sulfamethoxazole 800 1 tab PO BID 10 Days #20 tab 01/08/20 mg-trimethoprim 160 mg tablet cefuroxime axetil 250 mg tablet 250 mg PO BID 7 Days #14 tab 03/14/21 Allergies Allergy/AdvReac Type Severity Reaction Status Date / Time acetaminophen [From Percocet] AdvReac Rash Verified 01/04/20 20:42 aspirin [From Percodan] AdvReac Rash Verified 01/04/20 20:42 fentanyl AdvReac Rash Verified 01/04/20 20:42 oxycodone [From Percocet] AdvReac Rash Verified 01/04/20 20:42 Review of Systems Review of Systems: Yes Unobtainable due to mental status PMFSH Past Medical History Medical History Anemia Atrial fibrillation Dementia GERD (gastroesophageal reflux disease) Hyperlipidemia Hypertension Kidney stones Surgical History Hx of heart artery stent Social History Social History Household Members: Unknown / Unable to assess Housing: Unknown / Unable to assess Unable to assess alcohol history related to: Unknown Alcohol intake: never Advance Directives: No Advance Directives Information Provided: Yes service: No Current occupational status: retired Physical Exam Vital Signs: Vital Signs: Last Vital Signs Temp 98.5 F 03/14/21 19:57 Pulse 80 03/14/21 19:57 Resp 20 03/14/21 19:57 BP 118/64 03/14/21 19:57 Pulse Ox 97 03/14/21 19:57 BMI result Body Mass Index 31.6 Appearance: Alert. Oriented X1. No acute distress. Eyes: PERRLA, No Nystagmus ENT: Pharynx normal. Oral Mucosa moist Neck: Normal inspection. Neck supple. CVS: Normal heart rate and rhythm. Pulses normal. Respiratory: No respiratory distress. Equal air entry bilateral, no wheezing/rales/rhonchi Abdomen: Soft and nontender. Bowel sounds are present, no mass palpable, no CVA tenderness Skin: Skin warm and dry. Normal skin color. Normal skin turgor. Extremities: No lower extremity edema. No calf tenderness Neuro: Oriented X 1. No motor deficit. No sensory deficit.No cerebellar signs , cranial nerves II-XII intact MDM - Neuro Symptoms/Deficit MDM Narrative Medical decision making narrative: CT scan negative for any acute severe patient improved after coming to the ER at her baseline per daughter workup showed UTI will start her on Rocephin and discharge patient home on Ceftin per urine culture report in the past when she had Citrobacter sensitive to Rocephin Lab Data Attestation: I reviewed the patient's lab results. Result diagrams: 03/14/21 16:49 03/14/21 16:49 Labs: Lab Results 03/14/21 03/14/21 03/14/21 Range/Units 16:49 16:49 16:49 WBC 6.7 (4.8-10.8) X10*3/uL RBC 3.77 L (4.20-5.50) X10*6/uL Hgb 8.9 L (12.0-16.0) g/dl Hct 29.5 L (37.0-47.0) % MCV 78.2 L (80.0-98.0) fL MCH 23.6 L (27.0-33.0) pg MCHC 30.2 L (31.0-35.0) g/dl RDW 18.3 H (11.0-16.0) % Plt Count 201 (160-400) X10*3/uL MPV 8.9 L (9.4-12.3) fL Immature Gran % (Auto) 0.4 (0.0-0.4) % Neut % (Auto) 75.0 H (45-73) % Lymph % (Auto) 12.6 L (20-40) % [place] % (Auto) 11.8 H (2-11) % Eos % (Auto) 0.1 (0-4) % Baso % (Auto) 0.1 (0-2) % Lymph # (Auto) 0.9 L (1.2-4.9) X10*3/uL [place] # (Auto) 0.8 (0.1-1.2) X10*3/uL Eos # (Auto) 0.0 (0.0-0.4) X10*3/uL Baso # (Auto) 0.0 (0.0-0.2) X10*3/uL Abs Immat Gran (auto) 0.03 (0.00-0.03) X10*3/uL Absolute Neuts (auto) 5.0 (2.0-8.3) x10*3/uL Absolute Nucleated RBC 0.000 (0.0-0.012) X10*3/uL Nucleated RBC % (auto) 0.0 (0.0-0.2) /100WBC PT 17.7 H (9.9-13.0) SEC INR 1.5 H (0.9-1.1) Sodium 136 (135-145) mmol/L Potassium 4.2 (3.3-5.1) mmol/L Chloride 102 (96-108) mmol/L Carbon Dioxide 24 (22-29) mmol/L Anion Gap 14 (12-20) BUN 17 H (9-16) mg/dL Creatinine 0.82 (0.5-1.4) mg/dL Estim Creat Clear Calc 56.4 Estimated GFR > 60 Random Glucose 169 H (60-115) mg/dL Calcium 8.7 D (8.4-10.2) mg/dL Troponin I High Sens (<3.5-17.0) ng/L Hold Red Top Urine Color Urine Appearance Urine pH (5.0-8.0) Ur Specific [place] (1.005-1.025) Urine Protein (NEG-TRACE) MG/DL Urine Glucose (UA) (NEG) MG/DL Urine Ketones (NEG) MG/DL Urine Blood (NEG) Urine Nitrite (NEG) Ur Leukocyte Esterase (NEG) Urine RBC (0) /HPF Urine WBC (0-4) /HPF Ur Squamous Epith Cells /LPF Urine Bacteria /LPF 03/14/21 03/14/21 03/14/21 Range/Units 16:49 16:49 19:22 WBC (4.8-10.8) X10*3/uL RBC (4.20-5.50) X10*6/uL Hgb (12.0-16.0) g/dl Hct (37.0-47.0) % MCV (80.0-98.0) fL MCH (27.0-33.0) pg MCHC (31.0-35.0) g/dl RDW (11.0-16.0) % Plt Count (160-400) X10*3/uL MPV (9.4-12.3) fL Immature Gran % (Auto) (0.0-0.4) % Neut % (Auto) (45-73) % Lymph % (Auto) (20-40) % [place] % (Auto) (2-11) % Eos % (Auto) (0-4) % Baso % (Auto) (0-2) % Lymph # (Auto) (1.2-4.9) X10*3/uL [place] # (Auto) (0.1-1.2) X10*3/uL Eos # (Auto) (0.0-0.4) X10*3/uL Baso # (Auto) (0.0-0.2) X10*3/uL Abs Immat Gran (auto) (0.00-0.03) X10*3/uL Absolute Neuts (auto) (2.0-8.3) x10*3/uL Absolute Nucleated RBC (0.0-0.012) X10*3/uL Nucleated RBC % (auto) (0.0-0.2) /100WBC PT (9.9-13.0) SEC INR (0.9-1.1) Sodium (135-145) mmol/L Potassium (3.3-5.1) mmol/L Chloride (96-108) mmol/L Carbon Dioxide (22-29) mmol/L Anion Gap (12-20) BUN (9-16) mg/dL Creatinine (0.5-1.4) mg/dL Estim Creat Clear Calc Estimated GFR Random Glucose (60-115) mg/dL Calcium (8.4-10.2) mg/dL Troponin I High Sens 10.6 (<3.5-17.0) ng/L Hold Red Top See Note Urine Color YELLOW Urine Appearance CLOUDY Urine pH 6.0 (5.0-8.0) Ur Specific [place] >= 1.030 H (1.005-1.025) Urine Protein 2+ H (NEG-TRACE) MG/DL Urine Glucose (UA) 100 H (NEG) MG/DL Urine Ketones NEG (NEG) MG/DL Urine Blood 3+ H (NEG) Urine Nitrite NEG (NEG) Ur Leukocyte Esterase 3+ H (NEG) Urine RBC 15-29 H (0) /HPF Urine WBC TNTC H (0-4) /HPF Ur Squamous Epith Cells NONE /LPF Urine Bacteria 4+ /LPF ECG Data Attestation: I personally reviewed and interpreted this ECG as follows: Interpretation: Number sinus rhythm heart rate 88 beats per minute PACs no acute ST wave changes no acute ischemia Discharge Plan Discharge Clinical Impression: Generalized weakness, Urinary tract infection Patient Disposition: Home, Self-Care Instructions: Urinary Tract Infection in Women (ED), Weakness (ED) Additional Instructions: Drink plenty of fluids Antibiotics as advised Prescriptions: New cefuroxime axetil 250 mg tablet 250 mg PO BID 7 Days Qty: 14 RF: 0 No Action multivitamin [Daily-Reece] Tablet 1 tab PO DAILY RF: 0 atorvastatin 80 mg tablet 1 tab PO DAILY RF: 0 trazodone 50 mg tablet 1 tab PO BEDTIME RF: 0 spironolactone 25 mg tablet 0.5 tab PO DAILY RF: 0 Hold Instructions: Resume on 01/18/20. omeprazole 20 mg capsule,delayed release(DR/EC) 1 cap PO DAILY RF: 0 furosemide 20 mg tablet 0.5 tab PO Q OTHER DAY RF: 0 fluoxetine 20 mg capsule 2 cap PO DAILY RF: 0 Eliquis 5 mg tablet 1 tab PO BID RF: 0 Hold Instructions: Resume on 01/15/20. discuss with primary care physician and urologist sulfamethoxazole-trimethoprim 800-160 mg Tablet 1 tab PO BID 10 Days Qty: 20 RF: 0 ferrous sulfate 325 mg (65 mg iron) tablet,delayed release (DR/EC) 325 mg PO DAILY Qty: 30 RF: 0 Interventions: ED Discharge Assessment Last Done: 03/14/21 21:19 Discharge Date/Time: 03/14/21 21:20
[2021-03-14 16:39] VITALS: BP 147/76; BP 180/90; PULSE 85; PULSE 92; RESP 18; TEMP 37.3; O2SAT 94; BMI 31.6
[2021-03-14 16:53] LABS: MANUAL DIFF FLAG NO
[2021-03-14 16:54] LABS: Basophils Percent Auto 0.1 % (0-2); Eosinophils Percent Auto 0.1 % (0-4); Hematocrit 29.5 % (37.0-47.0); Hemoglobin 8.9 g/dl (12.0-16.0); Imm Gran Abs Auto 0.03 X10*3/uL (0.00-0.03); Imm Gran Pct Auto 0.4 % (0.0-0.4); Lymphocytes Absolute Auto 0.9 X10*3/uL (1.2-4.9); Lymphocytes Percent Auto 12.6 % (20-40); Mean Corpuscular HGB Conc 30.2 g/dl (31.0-35.0); Mean Corpuscular Hemoglobin 23.6 pg (27.0-33.0); Mean Corpuscular Volume 78.2 fL (80.0-98.0); Mean Platelet Volume 8.9 fL (9.4-12.3); Monocytes Absolute Auto 0.8 X10*3/uL (0.1-1.2); Monocytes Percent Auto 11.8 % (2-11); Platelet Count 201 X10*3/uL (160-400); Red Blood Count 3.77 X10*6/uL (4.20-5.50); Red Cell Distribution Width 18.3 % (11.0-16.0); White Blood Count 6.7 X10*3/uL (4.8-10.8)
[2021-03-14 16:59] LABS: INTERNATIONAL NORM RATIO 1.5 (0.9-1.1); Prothrombin Time 17.7 SEC (9.9-13.0)
[2021-03-14 17:15] LABS: Anion Gap 14 (12-20); Blood Urea Nitrogen 17 mg/dL (9-16); Calcium 8.7 mg/dL (8.4-10.2); Carbon Dioxide 24 mmol/L (22-29); Chloride 102 mmol/L (96-108); Creatinine Clr Calc Pharmacy 56.4; Estimated Glomerular Filt Rate > 60; Glucose Random 169 mg/dL (60-115); Potassium 4.2 mmol/L (3.3-5.1); Sodium 136 mmol/L (135-145)
[2021-03-14 17:17] LABS: Troponin-I High Sensitivity 10.6 ng/L (<3.5-17.0)
[2021-03-14 17:27] LABS: Stroke Lab Use COMPLETE
[2021-03-14 19:47] LABS: Appearance Urine CLOUDY; Color Urine YELLOW; Glucose Urine UA 100 MG/DL (NEG); Leukocyte Esterase Urine 3+ (NEG); Nitrite Urine NEG (NEG); Specific Gravity - Urine >= 1.030 (1.005-1.025); UACC Culture Trigger YES; Urine Blood 3+ (NEG); Urine Ketones NEG (NEG); Urine Protein 2+ MG/DL (NEG-TRACE)
[2021-03-14 19:48] LABS: Bacteria Urine 4+ /LPF; WBC Urine TNTC /HPF (0-4)
[2021-03-14 19:57] VITALS: BP 118/64; PULSE 80; RESP 20; TEMP 36.9; O2SAT 97
[2021-03-14] MEDS: cefTRIAXone sodium 1 GM in 0.9 % Sodium Chloride 50 ML IV (20:42)
== END 2021-03-14 21:20 | disposition home or self-care (01) ==
PROVIDERS: Emergency Provider Internal Medicine
DX: R53.1 Weakness (principal); N39.0 Urinary tract infection, site not specified; I48.91 Unspecified atrial fibrillation; Z79.01 Long term (current) use of anticoagulants; Z79.899 Other long term (current) drug therapy; Z86.73 Personal history of transient ischemic attack (TIA), and cerebral infarction without residual deficits
CPT/HCPCS: 36415; 51798; 70450; 80048; 81001; 84484; 85025; 85610; 87086; 93005; 96365; 99285; J0696

== ENCOUNTER 2022-12-17 13:56 | Inpatient (IN) | payer MEDICARE, MEDICAID, SELFPAY ==
[2022-12-17] VITALS (9 sets, daily range): BP systolic 117–149; BP diastolic 75–92; PULSE 101–130; RESP 16–28; TEMP 36.8–38.6; O2SAT 93–96; BMI 28.8; BMI 27.8
--- NOTE | ~2022-12-17 | XR_ITS ---
EXAMINATION: XR CHEST CLINICAL INFORMATION: Cough. COMPARISON: Chest x-ray January 04, 2020 TECHNIQUE: Frontal portable view of the chest was obtained. 2:58 PM FINDINGS: Status post median sternotomy for aortic valve replacement. No acute abnormality. No pulmonary vascular congestion allowing for low inspiratory effort. There is no focal consolidation, no pleural effusion or pneumothorax. Multilevel degenerative spondylosis spine. XR/XR chest 1V IMPRESSION: No acute abnormality of the chest.
--- NOTE | ~2022-12-17 | XR_ITS ---
EXAMINATION: XR WRIST, LEFT XR HAND, LEFT CLINICAL INFORMATION: Fall. Clinical concern for fracture COMPARISON: None available. TECHNIQUE: Two views of the left wrist and 2 view of the left hand FINDINGS: LEFT WRIST: Osteopenia. Proliferative osteophyte. The scapholunate interval is top normal. There is sclerosis and proliferative change involving the radial aspect of the midcarpal joint and there is narrowing with sclerosis and proliferative osteophyte in the radial aspect of the carpal metacarpal joint. LEFT HAND: There is an apparent fracture involving the distal aspect of the second metacarpal. This may involve the articular surface to a minor degree. There are extensive proliferative changes involving the IP joints throughout the hand. There appears to be swelling involving the thumb and throughout the digits. Focal constriction around the soft tissues at the first proximal phalanx suspected. XR/XR hand wrist LT IMPRESSION: Extensive soft tissue swelling. I suspect a fracture of the distal second metacarpal. Osteopenia and fairly marked arthritis.
--- NOTE | ~2022-12-17 | CT_ITS ---
EXAMINATION: CT facial bones wo IV con, CT head/brain wo IV con CLINICAL INFORMATION: Reason for Exam AMS, periorbital ecchymosis COMPARISON: CT head 03/14/2021 TECHNIQUE: Contiguous axial imaging was performed from the skull base to vertex without intravenous contrast. Sagittal and coronal reformatted images were obtained. Helical noncontrast CT imaging was acquired through the facial bones and source images were reviewed along with axial reconstructions and sagittal and coronal MPRs. This CT examination was performed using dose optimization techniques as appropriate, variously including the following: * Automated exposure control * Adjustment of mA and/or kV according to patient size (this includes techniques or standardized protocols for targeted exams where dose is matched to indication/reason for exam; i.e. extremities or head) Use of iterative reconstruction technique DLP: 1161 mGy-cm FINDINGS: CT HEAD: Soft tissue swelling/hematoma overlying the right frontal calvarium. No underlying displaced calvarial fracture. No acute intracranial hemorrhage. 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 Chronic infarction along the right external capsule. Left greater than right cerebellar hemisphere infarctions. Generalized cerebral volume loss with associated ventricular and sulcal prominence. Confluent periventricular and subcortical white matter hypodensity is nonspecific but likely represent chronic or vascular ischemic change. Intracranial atherosclerotic ossification is noted. CT MAXILLOFACIAL: The pterygoid plates and zygomatic arches are intact. The globes are unremarkable. The orbits including the orbital floors are intact. The mandible is intact and both temporomandibular joints are located. The patient is edentulous. Scattered polypoid mucosal thickening in the paranasal sinuses. Prior left-sided canal wall down mastoidectomy. Soft tissue in the left mastoidectomy bowl and external auditory canal. Partially visualized degenerative changes of the upper cervical spine with prominent degenerative pannus around the odontoid process. CT/CT facial bones wo IV con IMPRESSION: Right frontal soft tissue swelling/hematoma. No underlying depressed calvarial fracture. No acute intracranial hemorrhage. Numerous areas of chronic infarction as described above. No acute, displaced facial bone fracture.
--- NOTE | 2022-12-17 14:00 | ECG_ITS ---
Test Reason : AMS Blood Pressure : / mmHG Vent. Rate : 124 BPM Atrial Rate : 124 BPM P-R Int : 138 ms QRS Dur : 104 ms QT Int : 338 ms P-R-T Axes : 050 -10 134 degrees QTc Int : 485 ms Sinus tachycardia Intra-ventricular conduction delay Possible Left atrial enlargement Left ventricular hypertrophy with repolarization abnormality ( R in aVL , [place] product ) Abnormal ECG When compared with ECG of 14-MAR-2021 17:10, Premature atrial complexes are no longer Present Questionable change in QRS axis ST now depressed in Lateral leads T wave inversion now evident in Lateral leads Referred By: Africa Turner Electronically Signed By:BRUNILDA WALTON MD
--- NOTE | 2022-12-17 14:21 | ED.GENADULT ---
HPI - General Adult General Chief complaint: General Medical Stated complaint: FALL 11 DAYS AGO,LETHARGIC,H/O UTI,AMS Time Seen by Provider: 12/17/22 13:59 Source: EMS Mode of arrival: EMS History of Present Illness HPI narrative: This is an 87-year-old female who is brought in by EMS, lethargic, does have a history of urinary tract infections, altered mental status, not providing any of the history at this time, was noted to be in a hospital bed in the basement of her daughter's house and there was feces everywhere according to EMS. Further history is that patient had a fall on [employer] approximately 10 days ago on my quick review of patient's medication listed appears at Eliquis has been held. At that time she was at evaluated at [facility]. Related Data Home Medications Medication Instructions Recorded Confirmed atorvastatin 80 mg tablet 1 tab PO DAILY 01/05/20 12/17/22 fluoxetine 20 mg capsule 2 cap PO DAILY 01/05/20 12/17/22 furosemide 20 mg tablet 0.5 tab PO Q48H 01/05/20 12/17/22 omeprazole 20 mg capsule,delayed 1 cap PO DAILY 01/05/20 12/17/22 release spironolactone 25 mg tablet 0.5 tab PO DAILY 01/05/20 12/17/22 trazodone 50 mg tablet 1 tab PO BEDTIME PRN Insomnia 01/05/20 12/17/22 apixaban 2.5 mg tablet (Eliquis) 2.5 mg PO BID 12/17/22 12/17/22 nystatin 100,000 unit/gram topical 1 appl topical DAILY N 12/17/22 12/17/22 powder Allergies Allergy/AdvReac Type Severity Reaction Status Date / Time acetaminophen [From Percocet] AdvReac Rash Verified 01/04/20 20:42 aspirin [From Percodan] AdvReac Rash Verified 01/04/20 20:42 fentanyl AdvReac Rash Verified 01/04/20 20:42 oxycodone [From Percocet] AdvReac Rash Verified 01/04/20 20:42 Review of Systems Review of Systems: Pertinent positives and negatives as stated in the HPI [facility] Past Medical History Source: nursing notes reviewed Medical History GERD (gastroesophageal reflux disease) Hypertension Hyperlipidemia Anemia Atrial fibrillation Kidney stones Dementia Surgical History Hx of heart artery stent Social History Social History Household Members: Unknown / Unable to assess Housing: Unknown / Unable to assess Unable to assess alcohol history related to: Unknown Alcohol intake: never Smoked in Last 30 Days: No Use of substances other than those prescribed or required for medical reasons: No Advance Directives: Yes Advance Directives Information Provided: No Advance Directives on File: No service: No Current occupational status: retired Physical Exam ED Vital Signs: Vital Signs - 24 hr 12/17/22 14:21 12/17/22 15:27 12/17/22 15:32 Temperature 101.5 F H 98.6 F 98.8 F Pulse Rate 126 H 124 H 117 H Respiratory Rate 28 H 23 H 17 Blood Pressure 149/88 H 129/88 129/88 Pulse Oximetry 93 94 93 Oxygen Delivery Method Room Air Room Air Room Air BMI result Body Mass Index 28.8 VITAL SIGNS: Reviewed. GENERAL: Well developed, well nourished, in no acute distress. HEAD: Normocephalic/4-1/2 cm contusion of the right forehead that extends into the hairline appears to be older in nature as there is color change noted, no ritchie signs EYES: PERRLA, EOMI, there is periorbital ecchymosis EARS: Ext canals without abnormality, TMs non-bulging and non-erythematous NOSE: Nares patent bilateral OROPHARYNX: no oral lesions noted, posterior pharynx clear, dry mucosa, patient does have ecchymosis to the submental area NECK: Supple, no adenopathy LUNGS: Normal breath sounds. No adventitious sounds or accessory muscle use. SpO2<93> CARDIOVASCULAR: Regular rate and rhythm without noted murmurs, no JVD or lower extremity edema. ABDOMEN: Soft, non-tender, non-distended with bowel sounds. MUSCULOSKELETAL: No tenderness, deformities, or effusions noted on gross inspection. EXTREMITIES: No cyanosis, clubbing or edema. SKIN: Inspection of the skin reveals no rashes, I do not note any questionable bruising on the body no suspicious skin breakdown NEUROLOGIC: Lethargic and strength and sensation to light touch were grossly intact x 4. Medications Administered Discontinued Medications Generic Name Dose Route Start Last Admin Trade Name Bill PRN Reason Stop Dose Admin Acetaminophen 650 mg 12/17/22 14:24 12/17/22 14:52 Acetaminophen Supp 650 Mg Supp.Rect MD 12/17/22 14:25 650 mg ONCE ONE Administration Sodium Chloride 1,000 mls @ 999 mls/hr 12/17/22 14:30 12/17/22 14:53 Ns IV 12/17/22 15:30 999 mls/hr .Q1H1M YEHUDA Administration Cefepime HCl 2 gm/ Sodium 50 mls @ 100 mls/hr 12/17/22 14:39 12/17/22 15:31 Chloride IV 12/17/22 15:08 Infused ONCE ONE Infusion Medical Decision Making Medical Decision Making [facility] Narrative: 1405: 87-year-old female with history and clinical presentation, DDX: Suspect UTI, sepsis, dehydration, intracranial hemorrhage. EMS/nursing will be reporting patient's living conditions and social work/case management was notified. 1410: Sepsis alert called I reviewed all investigations to include documentation from [facility]. Although hematologic indices do not demonstrate a leukocytosis patient is febrile and urinalysis is grossly positive for infection. Otherwise, there is a stable microcytic anemia without evidence of active bleeding and there is no thrombocytopenia. Coagulation studies are elevated with a PT-20.1 and an INR-1.7. Chemistry indices are consistent with likely dehydration there is a mild metabolic acidosis this likely attributable to dehydration, lactic acid is 1.9. Otherwise, there is no evidence of GINA or electrolyte/liver enzyme derangements. CT scan of the head negative for acute intracranial pathology and CT scan of facial bones also just showing soft tissue injury. Chest x-ray does not demonstrate any infiltrate and otherwise my interpretation is in agreement with radiology's impression. 1527: I discussed case with hospitalist service who accepts admission. Differential Diagnosis Differential Diagnoses: The differential diagnosis associated with the presentation includes Please see the discussion above Admission/Observation Consideration of admission/observation: Escalation of care including admission/observation considered Please see the discussion above Consult Healthcare Provider Management of the patient was discussed with: Hospitalist Please see the discussion above Lab Data [facility] Lab Attestation statement: I reviewed the patient's lab results. Please see the discussion above 12/17/22 14:42 12/17/22 14:42 Labs: Lab Results 12/17/22 12/17/22 Range/Units 14:42 14:47 WBC 10.2 (4.8-10.8) X10*3/uL RBC 4.95 D (4.20-5.50) X10*6/uL Hgb 10.3 L (12.0-16.0) g/dl Hct 36.6 L D (37.0-47.0) % MCV 73.9 L (80.0-98.0) fL MCH 20.8 L (27.0-33.0) pg MCHC 28.1 L (31.0-35.0) g/dl RDW 23.1 H (11.0-16.0) % Plt Count 322 D (160-400) X10*3/uL MPV 9.8 (9.4-12.3) fL Immature Gran % (Auto) 0.5 H (0.0-0.4) % Neut % (Auto) 73.1 H (45-73) % Lymph % (Auto) 16.9 L (20-40) % [place] % (Auto) 9.3 (2-11) % Eos % (Auto) 0.0 (0-4) % Baso % (Auto) 0.2 (0-2) % Lymph # (Auto) 1.7 (1.2-4.9) X10*3/uL [place] # (Auto) 1.0 (0.1-1.2) X10*3/uL Eos # (Auto) 0.0 (0.0-0.4) X10*3/uL Baso # (Auto) 0.0 (0.0-0.2) X10*3/uL Abs Immat Gran (auto) 0.05 H (0.00-0.03) X10*3/uL Absolute Neuts (auto) 7.4 (2.0-8.3) x10*3/uL Absolute Nucleated RBC 0.020 H (0.0-0.012) X10*3/uL Nucleated RBC % (auto) 0.2 (0.0-0.2) /100WBC PT 20.1 H (11.1-13.3) SEC INR 1.7 H (0.9-1.1) Sodium 148 H (135-145) mmol/L Potassium 4.2 (3.3-5.1) mmol/L Chloride 116 H (96-108) mmol/L Carbon Dioxide 21 L (22-29) mmol/L Anion Gap 15 (12-20) BUN 86 H (9-16) mg/dL Creatinine 1.37 (0.5-1.4) mg/dL Estim Creat Clear Calc 28.8 Estimated GFR 37 Random Glucose 157 H (60-115) mg/dL Lactic Acid 1.9 (0.5-2.0) mmol/L Calcium 10.3 H D (8.4-10.2) mg/dL Total Bilirubin 0.4 (0.0-1.0) mg/dL AST 26 (5-31) U/L ALT 20 (0-31) U/L Alkaline Phosphatase 106 (39-117) U/L Total Protein 8.3 H (6.5-8.0) g/dL Albumin 4.0 (3.5-5.0) g/dL Urine Color [place] A Urine Appearance Turbid Urine pH 7.5 (5.0-9.0) Ur Specific [place] 1.020 (1.005-1.025) Urine Protein 300 (3+) H (Neg-Trace) mg/dL Urine Glucose (UA) Negative (Negative) mg/dL Urine Ketones Negative (Negative) mg/dL Urine Blood Large (3+) H (Negative) Urine Nitrite Positive H (Negative) Ur Leukocyte Esterase Large (3+) H (Negative) Urine RBC >20 H (0-2) /HPF Urine WBC >50 H (0-5) /HPF Ur Squamous Epith Cells 6-10 (0-2) /HPF Urine Bacteria 4+ (None Seen) Hyaline Casts 3-5 (0-2) /LPF Independent Interpretation I performed an independent interpretation of an: EKG Interpretation: Sinus tachycardia, HR-124, no STEMI, MD/QTC within normal limits there does appear to be ST-T changes in the lateral leads likely secondary to rate. Radiology Impression Discussion of test interpretation with radiology: I have reviewed the radiologist's reading. Radiologist Impression: Please see the discussion above External Record Review External record reviewed: Outpatient record, Prior outpatient labs, Prior outpatient radiology and Outside ED record Critical Care Time Critical Care Time Critical Care Time: Yes Total Critical Care Time: 60 Attestation: I personally attest to this time spent taking care of the patient. Discharge Plan Discharge Clinical Impression: Altered mental status, Sepsis, Urinary tract infection Patient Disposition: Admitted As Inpatient
[2022-12-17 14:48] LABS: MANUAL DIFF FLAG NO
[2022-12-17 14:49] LABS: Basophils Percent Auto 0.2 % (0-2); Hematocrit 36.6 % (37.0-47.0); Hemoglobin 10.3 g/dl (12.0-16.0); Imm Gran Abs Auto 0.05 X10*3/uL (0.00-0.03); Imm Gran Pct Auto 0.5 % (0.0-0.4); Lymphocytes Absolute Auto 1.7 X10*3/uL (1.2-4.9); Lymphocytes Percent Auto 16.9 % (20-40); Mean Corpuscular HGB Conc 28.1 g/dl (31.0-35.0); Mean Corpuscular Hemoglobin 20.8 pg (27.0-33.0); Mean Corpuscular Volume 73.9 fL (80.0-98.0); Mean Platelet Volume 9.8 fL (9.4-12.3); Monocytes Percent Auto 9.3 % (2-11); NRBC Pct Auto 0.2 /100WBC (0.0-0.2); Neutrophils Absolute Auto 7.4 x10*3/uL (2.0-8.3); Neutrophils Percent Auto 73.1 % (45-73); Platelet Count 322 X10*3/uL (160-400); Red Blood Count 4.95 X10*6/uL (4.20-5.50); Red Cell Distribution Width 23.1 % (11.0-16.0); White Blood Count 10.2 X10*3/uL (4.8-10.8)
[2022-12-17] MEDS: Acetaminophen Supp 650 MG SUPP.RECT PR (14:52)
[2022-12-17] MEDS: cefEPime HCl 2 GM in 0.9 % Sodium Chloride 50 ML IV (14:53)
[2022-12-17] MEDS: 0.9 % Sodium Chloride 1,000 ML 999 ML IV (14:53)
[2022-12-17 14:55] LABS: INTERNATIONAL NORM RATIO 1.7 (0.9-1.1); Prothrombin Time 20.1 SEC (11.1-13.3)
[2022-12-17 15:05] LABS: Appearance Urine Turbid; Color Urine Orange; Glucose Urine UA Negative (Negative); Leukocyte Esterase Urine Large (3+) (Negative); Nitrite Urine Positive (Negative); PH 7.5 (5.0-9.0); UMIC TRIGGER UACC YES; Urine Blood Large (3+) (Negative); Urine Ketones Negative (Negative); Urine Protein 300 (3+) mg/dL (Neg-Trace)
[2022-12-17 15:06] LABS: Alanine Aminotransferase 20 U/L (0-31); Alkaline Phosphatase 106 U/L (39-117); Anion Gap 15 (12-20); Aspartate Amino Transferase 26 U/L (5-31); Bilirubin Total 0.4 mg/dL (0.0-1.0); Blood Urea Nitrogen 86 mg/dL (9-16); Calcium 10.3 mg/dL (8.4-10.2); Carbon Dioxide 21 mmol/L (22-29); Chloride 116 mmol/L (96-108); Creatinine Clr Calc Pharmacy 28.8; Estimated Glomerular Filt Rate 37; Glucose Random 157 mg/dL (60-115); Potassium 4.2 mmol/L (3.3-5.1); Sodium 148 mmol/L (135-145); Total Protein 8.3 g/dL (6.5-8.0)
[2022-12-17 15:08] LABS: Bacteria Urine 4+ (None Seen); RBC Urine >20 /HPF (0-2); UACC Culture Trigger YES; WBC Urine >50 /HPF (0-5)
[2022-12-17 15:09] LABS: Lactic Acid 1.9 mmol/L (0.5-2.0)
--- OUTSIDE RECORDS SUMMARY | 2022-12-17 15:38 | XMS_ITS | Continuity of Care Document ---
Author Name Unknown Organization [facility] ter Address [address] [place] [id number]- Care Team Providers Care Director Translation Name Role Phone Win Wright MD Primary Care Physician Encounter [facility] [place](s): 12/06/22 - 12/06/[address] [id number]- Encounter Diagnosis Fracture of ethmoid sinus(Final) - 12/06/22 Urinary tract infection(Final) - 12/06/22 Discharge Disposition: A-D/C Home Attending Physician: Loc Frausto DO Admitting Physician: Loc Frausto DO Referring Physician: Not on Staff, Referring MD Allergies, Adverse Reactions, Alerts Substance Reaction Severity Status fentaNYL Oxycodone Active oxyCODONE Active Immunizations Given and Recorded Vaccine Date Status Refusal Reason tetanus/diphtheria/pertussis, acel(Tdap) 12/06/22 Given SARS-CoV-2 (COVID-19) mRNA BNT-162b2 vac 1, 2 12/25/20 Given 1? Unknown: Resend to [facility]. 2Result Comment: BOOSTER Medications nitrofurantoin macrocrystals 100 mg oral capsule 1 capsule = 100 mg, By Mouth, 2 times a day, for 5 days, # 10 capsule, 0 Refills, Acute 12/11/22 20:05:00 EDT, 12/06/22 20:05:00 EDT, Capsule, [id number], Partial fill upon patient request if the prescription is for a schedule II opio... Start Date: 12/06/22 Stop Date: 12/11/22 Status: Ordered Results Radiology Reports * Exam Date Time Procedure Performing Provider Status 12/06/22 12:[address] Maxilloface W/O Contrast [place] i , Destinee; Auth (Verified) Notes: (CT Maxilloface W/O Contrast) Reason For Exam: Pain RESULT: CT Maxilloface W/O Contrast CT Head/Brain W/O Contrast, CT Cervical Spine W/O Contrast, CT Maxilloface W/O Contrast INDICATION: Patient was with family when she fell out of her wheelchair. Found by EMS to have a nose bleed which resolved en route.; Reason: Trauma; Clinical Question(s): Hematoma TECHNIQUE: Noncontrast head CT using axial technique was reconstructed in axial and coronal planes.Noncontrast spiral CT through the facial bones and cervical spine was formatted in 3 planes. Automatic tube modulation was used for the cervical spine and iterative dose reconstruction was used for both the head and cervical spine to optimize scan parameters and image quality. CTDIvol Body: 11.30 mGy, DLP Body: 340 mGy*cm. CTDIvol Head: 39.90 mGy, DLP Head: 671 mGy*cm. COMPARISON: None. FINDINGS: Track Laborer View Findings, Lines and Tubes: None. BRAIN AND EXTRA-AXIAL SPACES: No parenchymal hemorrhage, midline shift, or mass effect. Chronic encephalomalacia in the right parietal lobe. Chronic infarct in the left cerebellum. Chronic lacunar infarct in the right basal ganglia. Ackerman-white matter differentiation is well preserved. No acute infarct. Negative insular ribbon sign. Atherosclerotic vascular calcification of the carotid arteries but negative hyperdense vessel sign. Moderate prominence of the ventricles and sulci consistent with parenchymal volume loss. Moderate low-density white matter changes. No subarachnoid hemorrhage. No subdural or epidural collection. CALVARIUM, SKULL BASE, AND SOFT TISSUES: No fractures or suspicious bony lesions. Mild mucosal thickening within the bilateral ethmoidal, sphenoidal and maxillary sinuses. There is a mucosal retention cyst/polyp in the left maxillary sinus. There is nonpneumatization/postinfectious sclerosis related to chronic mastoiditis. There is mild serum within the left external auditory canal. Visualized orbits and globes are intact. Right frontoparietal scalp hematoma with an overlying laceration. Right periorbital hematoma. MAXILLOFACIAL: Facial soft tissues: Right periorbital/preseptal hematoma Nasal bones: No fracture. Orbits and orbital juares: No fracture of the orbital juares. No intraorbital hematoma. Maxilla and alveolus: Mild discontinuity along the right frontal process of the maxilla/ethmoidal air cells (series 301; image 121), suspicious for an acute fracture. There are surrounding small gas locules in this region. Pterygoid plates: No fracture. Visualized parapharyngeal spaces: Symmetric without suspicious or acute abnormality. Zygomatic arches: No fracture. Mandible: The portions included on the exam are normal. No fracture or dislocation. CERVICAL SPINE: No fracture. No acute osseous abnormalities. No locked or perched facet. Severe multilevel degenerative disc space narrowing and end plate irregularity, most pronounced at the C4-C5 and C5-C6 levels.. OTHER BONES: No acute abnormality. CERVICAL SOFT TISSUES AND LUNG APICES: Normal soft tissues. Visualized lung apices are clear. Diffuse multinodular goiter. IMPRESSION: 1. No acute intracranial abnormality. 2. Mild discontinuity along the frontal process of the right maxilla/ethmoidal air cells, suspicious for an acute fracture. Scattered gas locules in this region. 3. Right frontoparietal scalp hematoma with an overlying laceration as well as a right periorbital hematoma. 4. Diffuse multinodular goiter. I have personally reviewed the images and I agree with this report. WSN: [id number] Ordering Physician: Cesar Wade Dictated By: Andres Rodas MD Dictated Date/Time: 12/06/22 12:47 p Reviewed By: Dominguez Kay MD Signed By: Dominguez Kay MD Signed Date/Time: 12/06/22 12:52 pm Transcribed By: MARCO ANTONIO Transcribed Date/Time: 12/06/22 12:34 pm * Exam Date Time Procedure Performing Provider Status 12/06/22 12:[address] Cervical Spine W/O Contrast Destinee Kaur; Auth (Verified) Notes: (CT Cervical Spine W/O Contrast) Reason For Exam: Neck trauma, dangerous injury mechanism;Other: RESULT: CT Cervical Spine W/O Contrast CT Head/Brain W/O Contrast, CT Cervical Spine W/O Contrast, CT Maxilloface W/O Contrast INDICATION: Patient was with family when she fell out of her wheelchair. Found by EMS to have a nose bleed which resolved en route.; Reason: Trauma; Clinical Question(s): Hematoma TECHNIQUE: Noncontrast head CT using axial technique was reconstructed in axial and coronal planes.Noncontrast spiral CT through the facial bones and cervical spine was formatted in 3 planes. Automatic tube modulation was used for the cervical spine and iterative dose reconstruction was used for both the head and cervical spine to optimize scan parameters and image quality. CTDIvol Body: 11.30 mGy, DLP Body: 340 mGy*cm. CTDIvol Head: 39.90 mGy, DLP Head: 671 mGy*cm. COMPARISON: None. FINDINGS: Track Laborer View Findings, Lines and Tubes: None. BRAIN AND EXTRA-AXIAL SPACES: No parenchymal hemorrhage, midline shift, or mass effect. Chronic encephalomalacia in the right parietal lobe. Chronic infarct in the left cerebellum. Chronic lacunar infarct in the right basal ganglia. Ackerman-white matter differentiation is well preserved. No acute infarct. Negative insular ribbon sign. Atherosclerotic vascular calcification of the carotid arteries but negative hyperdense vessel sign. Moderate prominence of the ventricles and sulci consistent with parenchymal volume loss. Moderate low-density white matter changes. No subarachnoid hemorrhage. No subdural or epidural collection. CALVARIUM, SKULL BASE, AND SOFT TISSUES: No fractures or suspicious bony lesions. Mild mucosal thickening within the bilateral ethmoidal, sphenoidal and maxillary sinuses. There is a mucosal retention cyst/polyp in the left maxillary sinus. There is nonpneumatization/postinfectious sclerosis related to chronic mastoiditis. There is mild serum within the left external auditory canal. Visualized orbits and globes are intact. Right frontoparietal scalp hematoma with an overlying laceration. Right periorbital hematoma. MAXILLOFACIAL: Facial soft tissues: Right periorbital/preseptal hematoma Nasal bones: No fracture. Orbits and orbital juares: No fracture of the orbital juares. No intraorbital hematoma. Maxilla and alveolus: Mild discontinuity along the right frontal process of the maxilla/ethmoidal air cells (series 301; image 121), suspicious for an acute fracture. There are surrounding small gas locules in this region. Pterygoid plates: No fracture. Visualized parapharyngeal spaces: Symmetric without suspicious or acute abnormality. Zygomatic arches: No fracture. Mandible: The portions included on the exam are normal. No fracture or dislocation. CERVICAL SPINE: No fracture. No acute osseous abnormalities. No locked or perched facet. Severe multilevel degenerative disc space narrowing and end plate irregularity, most pronounced at the C4-C5 and C5-C6 levels.. OTHER BONES: No acute abnormality. CERVICAL SOFT TISSUES AND LUNG APICES: Normal soft tissues. Visualized lung apices are clear. Diffuse multinodular goiter. IMPRESSION: 1. No acute intracranial abnormality. 2. Mild discontinuity along the frontal process of the right maxilla/ethmoidal air cells, suspicious for an acute fracture. Scattered gas locules in this region. 3. Right frontoparietal scalp hematoma with an overlying laceration as well as a right periorbital hematoma. 4. Diffuse multinodular goiter. I have personally reviewed the images and I agree with this report. WSN: [id number] Ordering Physician: Cesar Wade Dictated By: Andres Rodas MD Dictated Date/Time: 12/06/22 12:47 p Reviewed By: Dominguez Kay MD Signed By: Dominguez Kay MD Signed Date/Time: 12/06/22 12:52 pm Transcribed By: MARCO ANTONIO Transcribed Date/Time: 12/06/22 12:34 pm * Exam Date Time Procedure Performing Provider Status 12/06/22 12:[address] Head/Brain W/O Contrast Destinee Pham; Auth (Verified) Notes: (CT Head/Brain W/O Contrast) Reason For Exam: Trauma RESULT: CT Head/Brain W/O Contrast CT Head/Brain W/O Contrast, CT Cervical Spine W/O Contrast, CT Maxilloface W/O Contrast INDICATION: Patient was with family when she fell out of her wheelchair. Found by EMS to have a nose bleed which resolved en route.; Reason: Trauma; Clinical Question(s): Hematoma TECHNIQUE: Noncontrast head CT using axial technique was reconstructed in axial and coronal planes.Noncontrast spiral CT through the facial bones and cervical spine was formatted in 3 planes. Automatic tube modulation was used for the cervical spine and iterative dose reconstruction was used for both the head and cervical spine to optimize scan parameters and image quality. CTDIvol Body: 11.30 mGy, DLP Body: 340 mGy*cm. CTDIvol Head: 39.90 mGy, DLP Head: 671 mGy*cm. COMPARISON: None. FINDINGS: Track Laborer View Findings, Lines and Tubes: None. BRAIN AND EXTRA-AXIAL SPACES: No parenchymal hemorrhage, midline shift, or mass effect. Chronic encephalomalacia in the right parietal lobe. Chronic infarct in the left cerebellum. Chronic lacunar infarct in the right basal ganglia. Ackerman-white matter differentiation is well preserved. No acute infarct. Negative insular ribbon sign. Atherosclerotic vascular calcification of the carotid arteries but negative hyperdense vessel sign. Moderate prominence of the ventricles and sulci consistent with parenchymal volume loss. Moderate low-density white matter changes. No subarachnoid hemorrhage. No subdural or epidural collection. CALVARIUM, SKULL BASE, AND SOFT TISSUES: No fractures or suspicious bony lesions. Mild mucosal thickening within the bilateral ethmoidal, sphenoidal and maxillary sinuses. There is a mucosal retention cyst/polyp in the left maxillary sinus. There is nonpneumatization/postinfectious sclerosis related to chronic mastoiditis. There is mild serum within the left external auditory canal. Visualized orbits and globes are intact. Right frontoparietal scalp hematoma with an overlying laceration. Right periorbital hematoma. MAXILLOFACIAL: Facial soft tissues: Right periorbital/preseptal hematoma Nasal bones: No fracture. Orbits and orbital juares: No fracture of the orbital juares. No intraorbital hematoma. Maxilla and alveolus: Mild discontinuity along the right frontal process of the maxilla/ethmoidal air cells (series 301; image 121), suspicious for an acute fracture. There are surrounding small gas locules in this region. Pterygoid plates: No fracture. Visualized parapharyngeal spaces: Symmetric without suspicious or acute abnormality. Zygomatic arches: No fracture. Mandible: The portions included on the exam are normal. No fracture or dislocation. CERVICAL SPINE: No fracture. No acute osseous abnormalities. No locked or perched facet. Severe multilevel degenerative disc space narrowing and end plate irregularity, most pronounced at the C4-C5 and C5-C6 levels.. OTHER BONES: No acute abnormality. CERVICAL SOFT TISSUES AND LUNG APICES: Normal soft tissues. Visualized lung apices are clear. Diffuse multinodular goiter. IMPRESSION: 1. No acute intracranial abnormality. 2. Mild discontinuity along the frontal process of the right maxilla/ethmoidal air cells, suspicious for an acute fracture. Scattered gas locules in this region. 3. Right frontoparietal scalp hematoma with an overlying laceration as well as a right periorbital hematoma. 4. Diffuse multinodular goiter. I have personally reviewed the images and I agree with this report. WSN: [id number] Ordering Physician: Cesar Wade Dictated By: Andres Rodas MD Dictated Date/Time: 12/06/22 12:47 p Reviewed By: Dominguez Kay MD Signed By: Dominguez Kay MD Signed Date/Time: 12/06/22 12:52 pm Transcribed By: MARCO ANTONIO Transcribed Date/Time: 12/06/22 12:34 pm Vital Signs Most recent to oldest [Reference Range]: 1 2 3 Oxygen Saturation [94-100 %] 98 % (12/06/22 8:42 PM) 98 % (12/06/22 6:28 PM) 97 % (12/06/22 11:46 AM) Pulse Rate [55-90 bpm] 88 bpm (12/06/22 8:42 PM) 85 bpm (12/06/22 6:28 PM) 82 bpm (12/06/22 11:46 AM) Blood Pressure [90-138/55-84 mm Hg] 145/98mm Hg *H* (12/06/22 8:42 PM) 149/88mm Hg *H* (12/06/22 6:28 PM) 144/93mm Hg *H* (12/06/22 11:46 AM) Respiratory Rate [16-30 br/min] 16 br/min (12/06/22 8:42 PM) 16 br/min (12/06/22 6:28 PM) 18 br/min (12/06/22 11:46 AM) Temperature [96.8-100.4 DegF] 98.2 DegF (12/06/22 8:42 PM) 98.2 DegF (12/06/22 11:46 AM) Mode of Delivery (Oxygen) Room air (12/06/22 8:42 PM) Room air (12/06/22 6:28 PM) Room air (12/06/22 11:46 AM) Temperature Route Oral (12/06/22 8:42 PM) Temporal (12/06/22 11:46 AM) EKG study * Event Display: ECG 12-Lead Authored Date: Please click on pdf link to open report * Event Display: ECG 12-Lead Authored Date: Ventricular Rate: 81 BPM Atrial Rate: 81 BPM P-R Interval: 156 ms QRS Duration: 120 ms Q-T Interval: 410 ms QTC Calculation(Bazett): 476 ms P [place]: 47 degrees R [place]: 6 degrees T [place]: 89 degrees Normal sinus rhythm Left ventricular hypertrophy with QRS widening and repolarization abnormality ( R in aVL , José product ) Abnormal ECG No previous ECGs available Confirmed by JERAD VÁSQUEZ MD ([id number]) on 12/06/2022 8:27:02 PM [place]: JERAD VÁSQUEZ MD Patient Care team information Care Team Personnel Name: Win Wright MD Position: Reference Physician Member Role: PCP Address: Address: [address] [place] [id number] Name: Viki Schulte Position: [facility] ED TA [facility] Name: Selena Salinas RN Position: [facility] ED RN W/OE and Tasks Member Role: Patient Care Provider Name: Loc Frausto DO Position: [facility] Resident Member Role: Admitting Physician Address: Address: [address] [place] [address] Dept of Emergency Medicine [address] Name: Guerda Hutchison MD Position: [facility] Resident Member Role: ED Resident Address: Address: [address] [place] [address] Emergency Medicine [address]
--- NOTE | 2022-12-17 16:41 | P.HPHOSP_ITS ---
History of Present Illness Date of Service: 12/17/22 Attending physician on admission: Osiel Ramirez Chief Complaint: AMS, lethargy Pt is a 87-year-old female with a PMH significant for?advanced dementia, paroxysmal AFib on Eliquis, HLD, mood disorder, GERD, and nephrolithiasis s/p bilateral renal nephrostomy tubes who presents to the ED from home with altered mental status and lethargy. Patient is arousable but altered and incapable of providing HPI instead obtained from provider and chart review supplemented by family. Patient was brought in by EMS who found her in a hospital bed in the basement of her daughter's house with ?feces everywhere? according to EMS. Daughter reports she found her mother lethargic and minimally responsive this morning. States she has long history of UTIs often presents similarly when she has a UTI. Denies patient complained of any other symptoms. No chest pain, SOB, abdominal pain. Had not experienced any nausea or vomiting or diarrhea. Of note, patient with significant ecchymosis around face and eyes and with notable right forehead contusion the patient's daughter states she suffered after a fall from her wheelchair 10 days ago. Patient is non ambulatory and wheelchair-bound. Apparently patient was outside sitting in her wheelchair when she leaned forward to grab something and fell forward on the pavement when one of the wheels became stuck. Patient was evaluated at [facility] and cleared for any acute intracranial fracture or hemorrhage. In the ED patient was febrile up to 101.5, tachycardic up to 126, tachypneic up to 28, hypertensive up to 149/88, satting at 93% on RA. Labs were significant for stable microcytic anemia of 10.3/36.6, sodium 148, BUN 86 with creatinine 1.37. UA positive for UTI. CXR showed no acute abnormality of the chest. CT?of face and head showed right frontal soft tissue swelling/hematoma but no underlying depressed calvarial fracture, and no acute displaced facial bone fracture. Also found no acute intracranial hemorrhage but numerous areas of chronic infarction. EKG demonstrated sinus tachycardia with intraventricular conduction delay with ST depressions and T-wave inversions in lateral leads. Pt was treated with acetaminophen, IVF, and cefepime. Pt will be admitted to the hospital for treatment of acute toxic metabolic encephalopathy in the setting of UTI. Review of Systems 2 Review of Systems: Unable to obtain due to patient's mentation [facility] Medical History GERD (gastroesophageal reflux disease) Hypertension Hyperlipidemia Anemia Atrial fibrillation Kidney stones Dementia Surgical History Hx of heart artery stent Social History Household Members: Unknown / Unable to assess Housing: Unknown / Unable to assess Unable to assess alcohol history related to: Unknown Alcohol intake: never Smoked in Last 30 Days: No Use of substances other than those prescribed or required for medical reasons: No Advance Directives: Yes Advance Directives Information Provided: No Advance Directives on File: No service: No Current occupational status: retired [employer] Allergies Allergy/AdvReac Type Severity Reaction Status Date / Time acetaminophen [From Percocet] AdvReac Rash Verified 01/04/20 20:42 aspirin [From Percodan] AdvReac Rash Verified 01/04/20 20:42 fentanyl AdvReac Rash Verified 01/04/20 20:42 oxycodone [From Percocet] AdvReac Rash Verified 01/04/20 20:42 Home Medications Medication Instructions Recorded Confirmed Last Taken Type atorvastatin 80 mg tablet 1 tab PO DAILY 01/05/20 12/17/22 12/17/22 History fluoxetine 20 mg capsule 2 cap PO DAILY 01/05/20 12/17/22 12/17/22 History furosemide 20 mg tablet 0.5 tab PO Q48H 01/05/20 12/17/22 12/17/22 History omeprazole 20 mg capsule,delayed 1 cap PO DAILY 01/05/20 12/17/22 12/17/22 History release spironolactone 25 mg tablet 0.5 tab PO DAILY 01/05/20 12/17/22 12/17/22 History trazodone 50 mg tablet 1 tab PO BEDTIME PRN Insomnia 01/05/20 12/17/22 Unknown History apixaban 2.5 mg tablet (Eliquis) 2.5 mg PO BID 12/17/22 12/17/22 12/17/22 History nystatin 100,000 unit/gram topical 1 appl topical DAILY N 12/17/22 12/17/22 12/17/22 History powder Physical Exam 2 Vital Signs and Narrative: Vital Signs: Last Vital Signs Temp 98.8 F 12/17/22 15:32 Pulse 117 H 12/17/22 15:32 Resp 17 12/17/22 15:32 BP 129/88 12/17/22 15:32 Pulse Ox 93 12/17/22 15:32 O2 Del Method Room Air 12/17/22 15:32 BMI result Body Mass Index 28.8 Constitutional: Lethargic, opens eyes to verbal stimuli but not responding to questions, in no acute distress. Mental Status: Patient is lethargic, not oriented to person place, time, or situation. Head: Contusion with ecchymosis on right forehead. See pictures below. Eyes: Pupils are equal, round, and reactive to light. Periorbital ecchymosis. See pictures below. Ear, Nose, and Throat: Oropharynx clear, mucous membranes moist. Ears and nose without deformities. Trachea midline. Respiratory: Clear to auscultation bilaterally. No wheezing, rales, or rhonchi. Cardiovascular: S1, S2, tachycardic. No murmurs, rubs, or gallops. Gastrointestinal: Abdomen soft, non-tender, non-distended. Normal bowel sounds. Neurologic: Cranial nerves II-XII are grossly intact bilaterally. Moves all extremities spontaneously. Extremities: No edema. Unkept and overgrown toenails. See pictures below. Results Labs 12/17/22 14:42 12/17/22 14:42 Labs: Laboratory Results - last 24 hr 12/17/22 12/17/22 14:42 14:47 MCV 73.9 L MCH 20.8 L MCHC 28.1 L RDW 23.1 H Plt Count 322 D MPV 9.8 Immature Gran % (Auto) 0.5 H Neut % (Auto) 73.1 H Lymph % (Auto) 16.9 L Bent % (Auto) 9.3 Eos % (Auto) 0.0 Baso % (Auto) 0.2 Lymph # (Auto) 1.7 Bent # (Auto) 1.0 Eos # (Auto) 0.0 Baso # (Auto) 0.0 Abs Immat Gran (auto) 0.05 H Absolute Neuts (auto) 7.4 Absolute Nucleated RBC 0.020 H Nucleated RBC % (auto) 0.2 PT 20.1 H INR 1.7 H Anion Gap 15 Estim Creat Clear Calc 28.8 Estimated GFR 37 Random Glucose 157 H Lactic Acid 1.9 Calcium 10.3 H D Total Bilirubin 0.4 AST 26 ALT 20 Alkaline Phosphatase 106 Total Protein 8.3 H Albumin 4.0 Urine Color [place] A Urine Appearance Turbid Urine pH 7.5 Ur Specific [place] 1.020 Urine Protein 300 (3+) H Urine Glucose (UA) Negative Urine Ketones Negative Urine Blood Large (3+) H Urine Nitrite Positive H Ur Leukocyte Esterase Large (3+) H Urine RBC >20 H Urine WBC >50 H Ur Squamous Epith Cells 6-10 Urine Bacteria 4+ Hyaline Casts 3-5 Imaging Radiologist's Impressions: Impressions Chest X-Ray 12/17/22 15:12 IMPRESSION: No acute abnormality of the chest. Face CT 12/17/22 15:35 IMPRESSION: Right frontal soft tissue swelling/hematoma. No underlying depressed calvarial fracture. No acute intracranial hemorrhage. Numerous areas of chronic infarction as described above. No acute, displaced facial bone fracture. Head CT 12/17/22 15:35 IMPRESSION: Right frontal soft tissue swelling/hematoma. No underlying depressed calvarial fracture. No acute intracranial hemorrhage. Numerous areas of chronic infarction as described above. No acute, displaced facial bone fracture. Assessment and Plan (1) Urinary tract infection: Status: Acute (2) Altered mental status: Status: Acute (3) GINA (acute kidney injury): Status: Acute Plan Pt is a 87-year-old female with a PMH significant for?advanced dementia, paroxysmal AFib on Eliquis, HLD, mood disorder, GERD, and nephrolithiasis s/p bilateral renal nephrostomy tubes who presents to the ED from home with altered mental status and lethargy. Pt will be admitted to the hospital for treatment of acute toxic metabolic encephalopathy in the setting of UTI. Acute metabolic encephalopathy in the setting of UTI Patient with lethargy, altered mental status, not oriented to self UA positive for UTI Patient meets sepsis criteria: UTI, fever, tachycardia, tachypnea; lactic acid WNL at 1.9 Patient received IVF and started on broad-spectrum antibiotics in the ED Will treat with cefepime, started 12/17/[address] on maintenance fluids Monitor mental status GINA BUN 86 creatinine 1.37, up from BUN 17 and creatinine 0.82 on 03/14/2021 Likely secondary to dehydration Patient received IVF in ED, will place on maintenance fluids Follow BMP Paroxysmal AFib Continue Eliquis GERD Continue omeprazole HLD Continue statin Mood disorder Continue fluoxetine Full Code Attending:?Dr. Cannon DVT Prophylaxis: Lovenox Pt will require a hospitalization of at least two nights for treatment of?acute metabolic encephalopathy in the setting of UTI with IV hydration and antibiotics. Time Spent With Patient Time: Total time managing care of this patient today ____ minutes. Quality Stroke Does the patient have a stroke diagnosis?: No VTE Prior VTE?: No VTE Risk Level:: Medical - moderate - high VTE Device Contraindication: Treatment Not Indicated VTE Drug Contraindication: N/A - Med Ordered
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
[2022-12-17] MEDS: Lactated Ringers 1,000 ML 100 ML IVCONT (17:58)
--- NOTE | 2022-12-17 18:06 | HO.SKINPHOTO ---
Location: Category: Stage: Length: Width: Depth: cm Location: Category: Stage: Length: Width: Depth: cm Location: Category: Stage: Length: Width: Depth: cm Location: Category: Stage: Length: Width: Depth: cm Location: Category: Stage: Length: Width: Depth: cm Location: Category: Stage: Length: Width: Depth: cm
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
--- NOTE | 2022-12-17 19:43 | PC.NURSE ---
report given to c rn derrick awaiting transport.
[2022-12-17] MEDS: Apixaban 2.5 MG TABLET PO (21:50)
[2022-12-17] MEDS: 0.9 % Sodium Chloride Flush 3 ML SYRINGE IVFLUSH (21:50)
[2022-12-18] MEDS: cefEPime HCl 1 GM in 0.9 % Sodium Chloride 50 ML IV ×2 (02:30→16:05)
[2022-12-18 04:00] VITALS: BP 142/69; PULSE 106; RESP 18; TEMP 36.4; O2SAT 94
[2022-12-18] MEDS: Lactated Ringers 1,000 ML 100 ML IVCONT (06:21)
[2022-12-18 08:00] VITALS: BP 159/90; PULSE 109; RESP 20; TEMP 36.7; O2SAT 95
[2022-12-18 09:19] LABS: Anion Gap 14 (12-20); Blood Urea Nitrogen 71 mg/dL (9-16); Calcium 9.6 mg/dL (8.4-10.2); Carbon Dioxide 20 mmol/L (22-29); Chloride 121 mmol/L (96-108); Estimated Glomerular Filt Rate 56; Glucose Random 146 mg/dL (60-115); Potassium 3.9 mmol/L (3.3-5.1); Sodium 151 mmol/L (135-145)
--- NOTE | 2022-12-18 09:19 | MHC.SL.SWA ---
Speech Pathologist Impression: Risk of aspiration, oropharyngeal dysphagia Risk of Aspiration Due to: Lethargy Neurological Condition Reduced Cognition Dysphasia Diet Status: UPGRADE, START on NDD1 Liquid Consistency and Strategies for Safe Swallow: Liquid Intake Recommendation: Thin Liquid Intake Strategies: Small Sips No Straws Solid Food Consistency: Dietary Recommendations: Pureed (NDD1) Additional Modifications to Solid Foods: Recommend UPGRADE from NPO, START on PUREED (NDD1) diet and THIN liquids, pills CRUSHED in PUREE. Pt requires total 1:1 assistance feeding and strict aspiration precautions. Pt must be awake and alert for presentation of PO, minimize distractions during meal time. Notified team (MD, RN, RD) of recommendations via [place] Message. MOLD CHECKER will continue to follow during pt's hospitalization. Oral Medication Intake: Crushed with Puree Please contact the pharmacy regarding appropriate crushable or liquid drug formulations that are available whenever modified delivery is recommended. Compensatory Strategies and Precautions to be Taken for Safe Swallow: Sitting Upright (90 deg) No Straw Small Bites and Sips Alternate Liquids/Solids Rate of Ingestion Change Oral Check Avoid Specific Foods Supervision While Eating and Drinking for Safe Swallow: Total Assistance (1:1) Foods to Avoid: Mixed textures Swallowing Recommended Treatments: Compens. Strategy Educat. Recommendation for Speech: Inpatient Speech Therapy Comment: Frequency/Duration: PRN M-F Date Range for Service Req: Timeline to reassess: Head Host/Hostess Clinican/Clinical Fellow: No Supervisory Statement: I have reviewed and agree with the student/clinical fellow's documentation: N/A Speech Language Pathologist: Sosa Wei M.A., CCC-MOLD CHECKER
[2022-12-18 09:23] LABS: Hematocrit 31.9 % (37.0-47.0); Mean Corpuscular HGB Conc 28.2 g/dl (31.0-35.0); Mean Corpuscular Hemoglobin 21.5 pg (27.0-33.0); Mean Corpuscular Volume 76.1 fL (80.0-98.0); Mean Platelet Volume 10.6 fL (9.4-12.3); Platelet Count 246 X10*3/uL (160-400); Red Blood Count 4.19 X10*6/uL (4.20-5.50); Red Cell Distribution Width 22.9 % (11.0-16.0); White Blood Count 7.8 X10*3/uL (4.8-10.8)
[2022-12-18] MEDS: Spironolactone 25 MG TABLET 12.5 MG PO (10:56)
[2022-12-18] MEDS: FLUoxetine HCl 20 MG CAPSULE 40 MG PO (10:57)
[2022-12-18] MEDS: Atorvastatin Calcium 80 MG TABLET PO (10:57)
[2022-12-18] MEDS: Dextrose 5 % 1,000 ML 50 ML IVCONT (10:57)
[2022-12-18] MEDS: Omeprazole 20 MG CAPSULE.DR PO (10:57)
[2022-12-18] MEDS: Apixaban 2.5 MG TABLET PO ×2 (10:57→20:43)
[2022-12-18 11:39] VITALS: BP 137/91; PULSE 110; RESP 18; TEMP 36.7; O2SAT 96
--- NOTE | 2022-12-18 13:12 | MHC.CM.PN ---
CM MET WITH PTS DAUGHTERTRENT AT BEDSIDE SHE REPORTS THE PT LIVES WITH HER AND HAS A ROOM IN THE FINISHED BASEMENT AND ON THE MAIN LEVEL SHE SAYS THERE IS ALSO A CHAIR LIFT SHE SAYS THE PT HAS HER CATS IN THE BASEMENT WHICH IS LIKE HER OWN LITTLE APARTMENT SHE HAS A HOSPITAL BED IN THE DOWNSTAIRS ROOM AND USES A ROLLATOR TO AMBULATE PT GOES TO A DAY [facility]GRAM M-F FROM [id number] AND HAS A PRIVATE PAY FREEDOM OF INFORMATION OFFICER THAT COMES WHEN DAUGHTER AND ARE WORKING PTS DAUGHTER REPORTS THE PT IS NEVER IN THE HOME ALONE HER PCP IS [facility] PCP OFFICE PER HER REPORT, COPY REQUESTED IMM DELIVERED DCP: RETURN HOME WITH RESUMPTION OF DAY PROGRAM AND FREEDOM OF INFORMATION OFFICER DAUGHTER WILL TRANSPORT
[2022-12-18 16:00] VITALS: BP 140/83; PULSE 113; RESP 16; TEMP 36.7; O2SAT 97
--- NOTE | 2022-12-18 16:43 | P.PNIM_ITS ---
Subjective Subjective Date of Service: 12/18/22 Interval History: ams ,gina Review of Systems Patient is more awake but unable to give much info No fevers Physical Exam 2 Vital Signs: Vital Signs: Last Vital Signs Temp 98.0 F 12/18/22 16:00 Pulse 113 H 12/18/22 16:00 Resp 16 12/18/22 16:00 BP 140/83 H 12/18/22 16:00 Pulse Ox 97 12/18/22 16:00 O2 Del Method Room Air 12/18/22 16:00 BMI result Body Mass Index 27.8 Appearance: awake ,unable to provide info.? please see pictures from h&P -face eccymosis. cvs: rrr, [id number] , no murmur res: clear to auscultation ,no rhonchii or wheezing abd: no rebound or guarding ,nt, bs present. ext pulses present , no cyanosis , neuro:moves ext sponatneously Objective Data Active Medications Apixaban (Apixaban 2.5 Mg Tablet) 2.5 mg PO BID [facility] Last Admin: 12/18/22 10:57 Dose: 2.5 mg Documented By: BRIGID Atorvastatin Calcium (Atorvastatin Calcium 80 Mg Tablet) 80 mg PO DAILY [facility] Last Admin: 12/18/22 10:57 Dose: 80 mg Documented By: BIRGID Benzonatate (Benzonatate 100 Mg Capsule) 100 mg PO TID PRN PRN Reason: Cough Docusate Sodium (Docusate Sodium 100 Mg Capsule) 100 mg PO DAILY PRN PRN Reason: Constipation Fluoxetine HCl (Fluoxetine Hcl 20 Mg Capsule) 40 mg PO DAILY [facility] Last Admin: 12/18/22 10:57 Dose: 40 mg Documented By: BRIGID Cefepime HCl 1 gm/ Sodium (Chloride) 50 mls @ 100 mls/hr IV Q12H [facility] Last Admin: 12/18/22 16:05 Dose: 100 mls/hr Documented By: BRIGID Dextrose (D5w) 1,000 mls @ 50 mls/hr IVCONT .Q20H [facility] Last Admin: 12/18/22 10:57 Dose: 50 mls/hr Documented By: BRIGID Melatonin (Melatonin 3 Mg Tablet) 6 mg PO BEDTIME PRN PRN Reason: Insomnia Omeprazole (Omeprazole 20 Mg Capsule.) 20 mg PO DAILY@0630 [facility] Last Admin: 12/18/22 10:57 Dose: 20 mg Documented By: BRIGID Ondansetron HCl (Ondansetron Hcl 4 Mg/2 Ml Vial) 4 mg IVPUSH Q8H PRN PRN Reason: Nausea and Vomiting Sodium Chloride (0.9 % Sodium Chloride Flush 3 Ml Syringe) 3 ml IVFLUSH QSHIFT [facility] Last Admin: 12/18/22 16:26 Dose: Not Given Documented By: BRIGID Non-Admin Reason: IV Running Spironolactone (Spironolactone 25 Mg Tablet) 12.5 mg PO DAILY [facility]; Protocol Last Admin: 12/18/22 10:56 Dose: 12.5 mg Documented By: BRIGID Trazodone HCl (Trazodone Hcl 50 Mg Tablet) 50 mg PO BEDTIME PRN PRN Reason: Insomnia Labs 12/18/22 08:18 12/18/22 08:18 Labs: Laboratory Results - last 24 hr 12/18/22 08:18 MCV 76.1 L MCH 21.5 L MCHC 28.2 L RDW 22.9 H Plt Count 246 MPV 10.6 Absolute Nucleated RBC 0.000 Nucleated RBC % (auto) 0.0 Anion Gap 14 Estim Creat Clear Calc 41.0 Estimated GFR 56 Random Glucose 146 H Calcium 9.6 D Microbiology Microbiology Results: Microbiology 12/17/22 Unknown Urine Culture - Preliminary Urine Catheterized - Arellano Catheter Gram negative chantel Assessment and Plan (1) GNIA (acute kidney injury): Status: Acute (2) Urinary tract infection: Status: Acute (3) Sepsis: Status: Acute Plan 87-year-old female with a PMH significant for?advanced dementia, paroxysmal AFib on Eliquis, HLD, mood disorder, GERD, and nephrolithiasis s/p bilateral renal nephrostomy tubes who presents to the ED from home with altered mental status and lethargy. Pt will be admitted to the hospital for treatment of acute toxic metabolic encephalopathy in the setting of UTI. Acute metabolic encephalopathy in the setting of UTI awake ,not able to give info, not oriented to self UA positive for UTI,sepsis improving continue cefepime, started 12/17/2022 Monitor mental status GINA-Likely secondary to dehydration improving with fluids Follow BMP. hypernatremia :changed fluids to d5w -will recheck sodium. Paroxysmal AFib Continue Eliquis GERD Continue omeprazole HLD Continue statin Mood disorder Continue fluoxetine Full Code Attending:?Dr. Cannon DVT Prophylaxis: Lovenox ongoing hospitalization need for treatment of?acute metabolic encephalopathy in the setting of UTI and antibiotics. Time Spent With Patient Time: Total time managing care of this patient today ____ minutes. Quality Stroke Does the patient have a stroke diagnosis?: No VTE Prior VTE?: No VTE Risk Level:: Medical - moderate - high VTE Device Contraindication: Treatment Not Indicated VTE Drug Contraindication: N/A - Med Ordered
--- NOTE | 2022-12-18 16:46 | P.CDIM_ITS ---
PROVIDER RESPONSE TEXT: To clarify, the appropriate diagnosis supported by the clinical indicators: Other (explain): no metabolic acisodis QUERY TEXT: PHYSICIAN'S DOCUMENTATION REQUEST Date of Query: 12/18/2022 12:33 PM EDT Patient Name: Susan Prater Admit Date: 12/17/2022 Dear Stuart Cannon, A review of the medical record indicates additional documentation may be needed. Please review below and update the documentation accordingly. Clinical Indicators: Ed: Chemistry indices are consistent with likely dehydration there is a mild metabolic acidosis this likely attributable to dehydration, lactic acid 1.9, Clarify which of the following accurately represents the acuity of the metabolic acidosis: Acute Acute on chronic Other (explain)Clinically unable to determine (explain)Thank you, Rita Carter, CCS, CDIS Use of terms such as suspected, likely, concern for, or probable (associated with a specific diagnosi s that is being evaluated, monitored, or treated as if it exists) are acceptable and can be coded in the inpatient se tting, when documented at the time of discharge. Please use your independent medical judgment in providing your response. THIS QUERY IS PART OF THE PERMANENT MEDICAL RECORD
[2022-12-18 19:10] VITALS: BP 121/79; PULSE 114; RESP 18; TEMP 37; O2SAT 95
[2022-12-18 19:24] LABS: Sodium 149 mmol/L (135-145)
[2022-12-19] VITALS: BP 139/89; PULSE 109; RESP 20; TEMP 36.8; O2SAT 99
[2022-12-19] MEDS: cefEPime HCl 1 GM in 0.9 % Sodium Chloride 50 ML IV ×2 (03:39→15:27)
[2022-12-19] MEDS: Dextrose 5 % 1,000 ML 50 ML IVCONT (03:39)
[2022-12-19 03:43] VITALS: BP 165/97; PULSE 93; RESP 20; TEMP 36.3; O2SAT 96
[2022-12-19 07:12] VITALS: BP 158/85; PULSE 97; RESP 20; O2SAT 98
[2022-12-19] MEDS: Apixaban 2.5 MG TABLET PO ×2 (09:02→21:54)
[2022-12-19] MEDS: FLUoxetine HCl 20 MG CAPSULE 40 MG PO (09:02)
[2022-12-19] MEDS: Spironolactone 25 MG TABLET 12.5 MG PO (09:02)
[2022-12-19] MEDS: Atorvastatin Calcium 80 MG TABLET PO (09:02)
[2022-12-19] MEDS: 0.9 % Sodium Chloride Flush 3 ML SYRINGE IVFLUSH ×3 (09:03→21:55)
[2022-12-19 10:06] LABS: Anion Gap 14 (12-20); Blood Urea Nitrogen 48 mg/dL (9-16); Calcium 9.2 mg/dL (8.4-10.2); Carbon Dioxide 21 mmol/L (22-29); Chloride 116 mmol/L (96-108); Creatinine Clr Calc Pharmacy 39.7; Estimated Glomerular Filt Rate 54; Glucose Random 209 mg/dL (60-115); Potassium 3.7 mmol/L (3.3-5.1); Sodium 147 mmol/L (135-145)
[2022-12-19 11:15] VITALS: BP 119/73; PULSE 96; RESP 20; O2SAT 97
[2022-12-19 15:31] VITALS: BP 147/73; PULSE 98; RESP 20; TEMP 37.1; O2SAT 95
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
[2022-12-19 16:24] LABS: Estimated Average Glucose 111 mg/dL; Hemoglobin A1c % 5.5 % (<6.0)
[2022-12-19 18:59] VITALS: BP 128/70; PULSE 98; RESP 20; TEMP 36.7; O2SAT 98
[2022-12-19] MEDS: Melatonin 3 MG TABLET 6 MG PO (21:54)
[2022-12-20] VITALS (7 sets, daily range): BP systolic 104–140; BP diastolic 55–79; PULSE 77–91; RESP 16–20; TEMP 36.1–37.4; O2SAT 93–100
[2022-12-20] MEDS: Dextrose 5 % 1,000 ML 50 ML IVCONT (00:25)
[2022-12-20] MEDS: cefEPime HCl 1 GM in 0.9 % Sodium Chloride 50 ML IV ×2 (03:34→13:36)
[2022-12-20] MEDS: Omeprazole 20 MG CAPSULE.DR PO (06:49)
[2022-12-20 08:28] LABS: Anion Gap 14 (12-20); Blood Urea Nitrogen 39 mg/dL (9-16); Calcium 9.3 mg/dL (8.4-10.2); Carbon Dioxide 20 mmol/L (22-29); Chloride 116 mmol/L (96-108); Creatinine Clr Calc Pharmacy 44.2; Estimated Glomerular Filt Rate > 60; Glucose Random 114 mg/dL (60-115); Potassium 4.1 mmol/L (3.3-5.1); Sodium 146 mmol/L (135-145)
[2022-12-20] MEDS: 0.9 % Sodium Chloride Flush 3 ML SYRINGE IVFLUSH ×3 (09:43→20:28)
--- NOTE | 2022-12-20 09:54 | PM.EVENT ---
Event Note Date of Service: 12/20/22 Event Note: Patient unable to give history Currently in splint Moving all digits No additional orthopedic intervention needed at this time Formal note to follow Time Spent With Patient Time: Total time managing care of this patient today ____ minutes.
--- NOTE | 2022-12-20 11:20 | P.CONOP_ITS ---
History of Present Illness HPI Consult date: 12/20/22 Chief complaint: AMS, lethargy, UTI Narrative: Patient resting in bed Unable to give history Nursing is at bedside attending to patient No acute distress Brace placed LUE Moving all extremities LUE moving all digits PMFSH Past Medical History Medical History GERD (gastroesophageal reflux disease) Hypertension Hyperlipidemia Anemia Atrial fibrillation Kidney stones Dementia Surgical History Surgical History Hx of heart artery stent Social History Social History Household Members: Children Housing: House Unable to assess alcohol history related to: Unknown Alcohol intake: never Patient Tobacco Use Status: Tobacco use Unknown Smoked in Last 30 Days: No Use of substances other than those prescribed or required for medical reasons: Unknown Currently Displaying Signs/Symptoms of Drug Intoxication Withdrawal: No Advance Directives: Yes Advance Directives Information Provided: No Advance Directives on File: No Advance Directives Date on File: 12/17/22 Recently lost weight without trying: Unsure Nutrition Risks: Difficulty swallowing Patient : No : No service: No Current occupational status: retired [employer] Allergies Allergy/AdvReac Type Severity Reaction Status Date / Time acetaminophen [From Percocet] AdvReac Rash Verified 01/04/20 20:42 aspirin [From Percodan] AdvReac Rash Verified 01/04/20 20:42 fentanyl AdvReac Rash Verified 01/04/20 20:42 oxycodone [From Percocet] AdvReac Rash Verified 01/04/20 20:42 Active Medications: Current Medications Apixaban (Apixaban 2.5 Mg Tablet) 2.5 mg PO BID [facility] Last Admin: 12/20/22 09:44 Dose: Not Given Atorvastatin Calcium (Atorvastatin Calcium 80 Mg Tablet) 80 mg PO DAILY [facility] Last Admin: 12/20/22 09:44 Dose: Not Given Benzonatate (Benzonatate 100 Mg Capsule) 100 mg PO TID PRN PRN Reason: Cough Docusate Sodium (Docusate Sodium 100 Mg Capsule) 100 mg PO DAILY PRN PRN Reason: Constipation Fluoxetine HCl (Fluoxetine Hcl 20 Mg Capsule) 40 mg PO DAILY [facility] Last Admin: 12/20/22 09:44 Dose: Not Given Cefepime HCl 1 gm/ Sodium (Chloride) 50 mls @ 100 mls/hr IV Q12H [facility] Last Infusion: 12/20/22 04:05 Dose: Infused Melatonin (Melatonin 3 Mg Tablet) 6 mg PO BEDTIME PRN PRN Reason: Insomnia Last Admin: 12/19/22 21:54 Dose: 6 mg Omeprazole (Omeprazole 20 Mg Capsule.Dr) 20 mg PO DAILY@0630 [facility] Last Admin: 12/20/22 06:49 Dose: 20 mg Ondansetron HCl (Ondansetron Hcl 4 Mg/2 Ml Vial) 4 mg IVPUSH Q8H PRN PRN Reason: Nausea and Vomiting Sodium Chloride (0.9 % Sodium Chloride Flush 3 Ml Syringe) 3 ml IVFLUSH QSHIFT [facility] Last Admin: 12/20/22 09:43 Dose: 3 ml Spironolactone (Spironolactone 25 Mg Tablet) 12.5 mg PO DAILY [facility]; Protocol Last Admin: 12/20/22 09:44 Dose: Not Given Trazodone HCl (Trazodone Hcl 50 Mg Tablet) 50 mg PO BEDTIME PRN PRN Reason: Insomnia Home Medications Medication Instructions Recorded Confirmed Last Taken Type atorvastatin 80 mg tablet 1 tab PO DAILY 01/05/20 12/17/22 12/17/22 History fluoxetine 20 mg capsule 2 cap PO DAILY 01/05/20 12/17/22 12/17/22 History furosemide 20 mg tablet 0.5 tab PO Q48H 01/05/20 12/17/22 12/17/22 History omeprazole 20 mg capsule,delayed 1 cap PO DAILY 01/05/20 12/17/22 12/17/22 History release spironolactone 25 mg tablet 0.5 tab PO DAILY 01/05/20 12/17/22 12/17/22 History trazodone 50 mg tablet 1 tab PO BEDTIME PRN Insomnia 01/05/20 12/17/22 Unknown History apixaban 2.5 mg tablet (Eliquis) 2.5 mg PO BID 12/17/22 12/17/22 12/17/22 History nystatin 100,000 unit/gram topical 1 appl topical DAILY N 12/17/22 12/17/22 12/17/22 History powder Physical Exam 2 Vital Signs: Vital Signs: Last Vital Signs Temp 97.8 F 12/20/22 11:09 Pulse 77 12/20/22 11:09 Resp 20 12/20/22 11:09 BP 132/77 12/20/22 11:09 Pulse Ox 96 12/20/22 11:09 O2 Del Method Room Air 12/20/22 11:09 BMI result Body Mass Index 27.8 Const: General: healthy appearing and no acute distress Resp: Effort & Inspection: normal respiratory effort and able to speak in complete sentences Cardio: Rate: regular rate Peripheral pulses: Peripheral pulses 2+ throughout GI: Palpation (GI): Soft to palpation Skin: Lesions: no lesions Rashes: no rashes Results Labs 12/18/22 08:18 12/20/22 07:58 Labs: Abnormal lab results 12/20/22 Range/Units 07:58 Sodium 146 H (135-145) mmol/L Chloride 116 H (96-108) mmol/L Carbon Dioxide 20 L (22-29) mmol/L BUN 39 H (9-16) mg/dL H & H 12/17/22 12/18/22 Range/Units 14:42 08:18 Hgb 10.3 L 9.0 L (12.0-16.0) g/dl Hct 36.6 L D 31.9 L (37.0-47.0) % Coagulation 12/17/22 Range/Units 14:42 INR 1.7 H (0.9-1.1) All other labs normal. Assessment and Plan (1) Sepsis: Status: Acute (2) Altered mental status: Status: Acute (3) Metacarpal bone fracture: Status: Acute X-rays of left hand reviewed and significant for second metacarpal fracture distally Splint patient has is appropriate and she should remain in No lifting, pushing, pulling left hand No additional acute orthopeidc intervention needed at this time - June f/u out patient Time Spent With Patient Time: Total time managing care of this patient today ____ minutes. Procedures Date of Service Date of Service: 12/20/22
--- NOTE | 2022-12-20 15:11 | HO.PM.IMPN ---
Subjective Subjective Date of Service: 12/20/22 Interval History: ams ,gina Review of Systems More awake, unable to give much information Seems pleasant Physical Exam Vital Signs: Vital Signs: Last Vital Signs Temp 98.5 F 12/20/22 14:59 Pulse 78 12/20/22 14:59 Resp 20 12/20/22 14:59 BP 127/75 12/20/22 14:59 Pulse Ox 98 12/20/22 14:59 O2 Del Method Room Air 12/20/22 14:59 BMI result Body Mass Index 27.8 Appearance: awake ,unable to provide info.? please see pictures from h&P -face eccymosis. cvs: [id number], [id number] , no murmur res: clear to auscultation ,no rhonchii or wheezing abd: no rebound or guarding ,nt, bs present. ext pulses present , no cyanosis , arm left -wrapped ,some discomfort wiggles arms neuro:moves ext sponatneously Objective Data Active Medications Apixaban (Apixaban 2.5 Mg Tablet) 2.5 mg PO BID [facility] Last Admin: 12/20/22 09:44 Dose: Not Given Documented By: RICHARDSON Non-Admin Reason: Patient Refused Atorvastatin Calcium (Atorvastatin Calcium 80 Mg Tablet) 80 mg PO DAILY [facility] Last Admin: 12/20/22 09:44 Dose: Not Given Documented By: RICHARDSON Non-Admin Reason: Patient Refused Benzonatate (Benzonatate 100 Mg Capsule) 100 mg PO TID PRN PRN Reason: Cough Docusate Sodium (Docusate Sodium 100 Mg Capsule) 100 mg PO DAILY PRN PRN Reason: Constipation Fluoxetine HCl (Fluoxetine Hcl 20 Mg Capsule) 40 mg PO DAILY [facility] Last Admin: 12/20/22 09:44 Dose: Not Given Documented By: RICHARDSON Non-Admin Reason: Patient Refused Cefepime HCl 1 gm/ Sodium (Chloride) 50 mls @ 100 mls/hr IV Q12H [facility] Last Admin: 12/20/22 13:36 Dose: 100 mls/hr Documented By: ZAMZAM Melatonin (Melatonin 3 Mg Tablet) 6 mg PO BEDTIME PRN PRN Reason: Insomnia Last Admin: 12/19/22 21:54 Dose: 6 mg Documented By: BEL Omeprazole (Omeprazole 20 Mg Capsule.) 20 mg PO DAILY@0630 [facility] Last Admin: 12/20/22 06:49 Dose: 20 mg Documented By: BEL Ondansetron HCl (Ondansetron Hcl 4 Mg/2 Ml Vial) 4 mg IVPUSH Q8H PRN PRN Reason: Nausea and Vomiting Sodium Chloride (0.9 % Sodium Chloride Flush 3 Ml Syringe) 3 ml IVFLUSH QSHIFT [facility] Last Admin: 12/20/22 09:43 Dose: 3 ml Documented By: RICHARDSON Spironolactone (Spironolactone 25 Mg Tablet) 12.5 mg PO DAILY [facility]; Protocol Last Admin: 12/20/22 09:44 Dose: Not Given Documented By: RICHARDSON Non-Admin Reason: Patient Refused Trazodone HCl (Trazodone Hcl 50 Mg Tablet) 50 mg PO BEDTIME PRN PRN Reason: Insomnia Labs 12/18/22 08:18 12/20/22 07:58 Labs: Laboratory Results - last 24 hr 12/18/22 12/20/22 08:18 07:58 Hold Purple Top SEE NOTE Anion Gap 14 Estim Creat Clear Calc 44.2 Estimated GFR > 60 Random Glucose 114 Estimat Average Glucose 111 Hemoglobin A1c % 5.5 Calcium 9.3 Microbiology Microbiology Results: Microbiology 12/17/22 14:44 Blood Culture - Preliminary Blood - Venous No growth after 48 hours. 12/17/22 14:42 Blood Culture - Preliminary Blood - Venous No growth after 48 hours. Assessment and Plan (1) GINA (acute kidney injury): Status: Acute (2) Urinary tract infection: Status: Acute Plan 87-year-old female with a PMH significant for?advanced dementia, paroxysmal AFib on Eliquis, HLD, mood disorder, GERD, and nephrolithiasis s/p bilateral renal nephrostomy tubes who presents to the ED from home with altered mental status and lethargy. Pt will be admitted to the hospital for treatment of acute toxic metabolic encephalopathy in the setting of UTI. Acute metabolic encephalopathy in the setting of UTI awake ,not able to give info, not oriented to self UA positive for UTI,sepsis improving continue cefepime, started 12/17/2022 Monitor mental status GINA-Likely secondary to dehydration improving with fluids Follow BMP. hypernatremia :changed fluids to d5w -sodiumimproving 146 stop fluids free moniter bmp. Paroxysmal AFib Continue Eliquis GERD Continue omeprazole HLD Continue statin Mood disorder Continue fluoxetine left wrist wraapped /has ?fracture : xray added ortho eval Full Code DVT Prophylaxis: Lovenox ongoing hospitalization need for treatment of?acute metabolic encephalopathy in the setting of UTI and antibiotics. called family to updated in detail ,overall prognosis seems very poor. Time Spent With Patient Time: Total time managing care of this patient today ____ minutes. Quality Stroke Does the patient have a stroke diagnosis?: No VTE Prior VTE?: No VTE Risk Level:: Medical - moderate - high VTE Device Contraindication: Treatment Not Indicated VTE Drug Contraindication: N/A - Med Ordered
[2022-12-20] MEDS: Apixaban 2.5 MG TABLET PO (20:28)
[2022-12-21 03:23] VITALS: BP 134/77; PULSE 86; RESP 20; TEMP 36.4; O2SAT 100
[2022-12-21] MEDS: cefEPime HCl 1 GM in 0.9 % Sodium Chloride 50 ML IV ×2 (03:39→17:24)
--- NOTE | 2022-12-21 04:38 | PC.NURSE ---
pt is confused and non redirectable. pt continued to pull off tele monitor. MD aware and apprved pt. being off tele for the night.
[2022-12-21 07:44] VITALS: BP 118/76; PULSE 84; RESP 16; TEMP 36.2; O2SAT 94
[2022-12-21] MEDS: Dextrose 5 % 1,000 ML 50 ML IVCONT (09:26)
[2022-12-21] MEDS: 0.9 % Sodium Chloride Flush 3 ML SYRINGE IVFLUSH ×3 (09:32→20:14)
[2022-12-21 09:33] LABS: Anion Gap 12 (12-20); Blood Urea Nitrogen 27 mg/dL (9-16); Calcium 9.4 mg/dL (8.4-10.2); Carbon Dioxide 21 mmol/L (22-29); Chloride 113 mmol/L (96-108); Creatinine Clr Calc Pharmacy 48.6; Estimated Glomerular Filt Rate > 60; Glucose Random 93 mg/dL (60-115); Sodium 142 mmol/L (135-145)
[2022-12-21 11:42] VITALS: BP 115/83; PULSE 79; RESP 20; TEMP 36.2; O2SAT 98
--- NOTE | 2022-12-21 12:08 | MHC.CM.PN ---
Multiple PT attempts have been made; CM will follow for PT eval to assist with disposition.
--- NOTE | 2022-12-21 12:46 | MHC.SLORD ---
Speech Language Pathology Order Status: TELEGRAPHIC TYPEWRITER REPAIRER attempted to see pt at lunchtime for f/u. Pt sleeping, awoke to light touch, but falling back asleep. No PO trials administered. Pt is currently on a pureed diet w/ thin liquids, requiring 1:1 assist d/t hx dementia.
[2022-12-21 15:10] VITALS: BP 97/62; PULSE 87; RESP 20; TEMP 36.4; O2SAT 98
--- NOTE | 2022-12-21 15:47 | P.PNIM_ITS ---
Subjective Subjective Date of Service: 12/21/22 Interval History: ams ,gina,hypernatremia Review of Systems More awake, unable to give much information Seems pleasant Physical Exam 2 Vital Signs: Vital Signs: Last Vital Signs Temp 97.5 F 12/21/22 15:10 Pulse 87 12/21/22 15:10 Resp 20 12/21/22 15:10 BP 97/62 12/21/22 15:10 Pulse Ox 98 12/21/22 15:10 O2 Del Method Room Air 12/21/22 15:10 BMI result Body Mass Index 27.8 Appearance: awake ,unable to provide info.? please see pictures from h&P -face eccymosis. cvs: [id number], [id number] . res: clear to auscultation ,no rhonchii or wheezing abd: no rebound or guarding ,nt, bs present. ext pulses present , no cyanosis , arm left -wrapped ,some discomfort wiggles arms neuro:moves ext sponatneously Objective Data Active Medications Apixaban (Apixaban 2.5 Mg Tablet) 2.5 mg PO BID [facility] Last Admin: 12/21/22 09:40 Dose: Not Given Documented By: MERA Non-Admin Reason: Patient Refused Atorvastatin Calcium (Atorvastatin Calcium 80 Mg Tablet) 80 mg PO DAILY [facility] Last Admin: 12/21/22 09:40 Dose: Not Given Documented By: MERA Non-Admin Reason: Patient Refused Benzonatate (Benzonatate 100 Mg Capsule) 100 mg PO TID PRN PRN Reason: Cough Docusate Sodium (Docusate Sodium 100 Mg Capsule) 100 mg PO DAILY PRN PRN Reason: Constipation Fluoxetine HCl (Fluoxetine Hcl 20 Mg Capsule) 40 mg PO DAILY [facility] Last Admin: 12/21/22 09:40 Dose: Not Given Documented By: MERA Non-Admin Reason: Patient Refused Cefepime HCl 1 gm/ Sodium (Chloride) 50 mls @ 100 mls/hr IV Q12H [facility] Last Infusion: 12/21/22 04:29 Dose: Infused Documented By: ANDREW Dextrose (D5w) 1,000 mls @ 50 mls/hr IVCONT .Q20H [facility] Last Admin: 12/21/22 09:26 Dose: 50 mls/hr Documented By: MERA Melatonin (Melatonin 3 Mg Tablet) 6 mg PO BEDTIME PRN PRN Reason: Insomnia Last Admin: 12/19/22 21:54 Dose: 6 mg Documented By: BEL Omeprazole (Omeprazole 20 Mg Capsule.) 20 mg PO DAILY@0630 [facility] Last Admin: 12/21/22 06:03 Dose: Not Given Documented By: ANDREW Non-Admin Reason: Patient Refused Ondansetron HCl (Ondansetron Hcl 4 Mg/2 Ml Vial) 4 mg IVPUSH Q8H PRN PRN Reason: Nausea and Vomiting Sodium Chloride (0.9 % Sodium Chloride Flush 3 Ml Syringe) 3 ml IVFLUSH QSHIFT [facility] Last Admin: 12/21/22 09:32 Dose: 3 ml Documented By: MERA Trazodone HCl (Trazodone Hcl 50 Mg Tablet) 50 mg PO BEDTIME PRN PRN Reason: Insomnia Labs 12/18/22 08:18 12/21/22 08:49 Labs: Laboratory Results - last 24 hr 12/21/22 08:49 Anion Gap 12 Estim Creat Clear Calc 48.6 Estimated GFR > 60 Random Glucose 93 Calcium 9.4 Assessment and Plan (1) GINA (acute kidney injury): Status: Acute (2) Urinary tract infection: Status: Acute (3) Metacarpal bone fracture: Status: Acute Plan 87-year-old female with a PMH significant for?advanced dementia, paroxysmal AFib on Eliquis, HLD, mood disorder, GERD, and nephrolithiasis s/p bilateral renal nephrostomy tubes who presents to the ED from home with altered mental status and lethargy. Pt will be admitted to the hospital for treatment of acute toxic metabolic encephalopathy in the setting of UTI. Acute metabolic encephalopathy in the setting of UTI awake ,not able to give info, not oriented to self UA positive for UTI,sepsis improving continue cefepime, started 12/17/2022 Monitor mental status GINA-Likely secondary to dehydration improving with fluids Follow BMP. hypernatremia :changed fluids to d5w -sodiumimproving 146 stop fluids free moniter bmp. Paroxysmal AFib Continue Eliquis GERD Continue omeprazole HLD Continue statin Mood disorder Continue fluoxetine left wrist wraapped /has ?fracture : ortho eval noted -X-rays of left hand reviewed and significant for second metacarpal fracture distally Splint patient has is appropriate and she should remain in No lifting, pushing, pulling left hand No additional acute orthopeidc intervention needed at this time - May f/u out patient Full Code DVT Prophylaxis: Lovenox ongoing hospitalization need for treatment of?acute metabolic encephalopathy in the setting of UTI and antibiotics. Time Spent With Patient Time: Total time managing care of this patient today ____ minutes. Quality Stroke Does the patient have a stroke diagnosis?: No VTE Prior VTE?: No VTE Risk Level:: Medical - moderate - high VTE Device Contraindication: Treatment Not Indicated VTE Drug Contraindication: N/A - Med Ordered
[2022-12-21 18:59] VITALS: BP 97/62; PULSE 88; RESP 20; TEMP 36.7; O2SAT 97
[2022-12-21] MEDS: Apixaban 2.5 MG TABLET PO (20:14)
[2022-12-21 23:07] VITALS: BP 137/75; PULSE 83; RESP 19; TEMP 36.6; O2SAT 96
--- NOTE | 2022-12-22 02:22 | PC.NURSE ---
report given to gia BENAVIDES @ 1101
[2022-12-22 03:08] VITALS: BP 137/73; PULSE 87; RESP 16; TEMP 36.3; O2SAT 95
[2022-12-22] MEDS: Dextrose 5 % 1,000 ML 50 ML IVCONT (03:23)
[2022-12-22] MEDS: cefEPime HCl 1 GM in 0.9 % Sodium Chloride 50 ML IV (03:23)
[2022-12-22 07:09] VITALS: BP 115/70; PULSE 86; RESP 20; TEMP 37.1; O2SAT 98
[2022-12-22] MEDS: Atorvastatin Calcium 80 MG TABLET PO (09:05)
[2022-12-22] MEDS: FLUoxetine HCl 20 MG CAPSULE 40 MG PO (09:05)
[2022-12-22] MEDS: Apixaban 2.5 MG TABLET PO ×2 (09:05→22:30)
[2022-12-22] MEDS: 0.9 % Sodium Chloride Flush 3 ML SYRINGE IVFLUSH ×2 (09:06→17:57)
--- NOTE | 2022-12-22 09:33 | MHC.CM.PN ---
CM received a call from Brooke at [facility]/Protective Worker, @ [phone], Ext. [phone]; Brooke will be included in the final dc plan. CM will follow.
[2022-12-22 11:21] VITALS: BP 111/58; PULSE 89; RESP 16; TEMP 36.7; O2SAT 98
--- NOTE | 2022-12-22 12:58 | HO.PM.IMPN ---
Subjective Subjective Date of Service: 12/22/22 Interval History: ams Review of Systems Awake, unable to give much information. Physical Exam Vital Signs: Vital Signs: Last Vital Signs Temp 98.1 F 12/22/22 11:21 Pulse 89 12/22/22 11:21 Resp 16 12/22/22 11:21 BP 111/58 L 12/22/22 11:21 Pulse Ox 98 12/22/22 11:21 O2 Del Method Room Air 12/22/22 11:21 BMI result Body Mass Index 27.8 Appearance: awake ,unable to provide info.? please see pictures from h&P -face eccymosis. cvs: rrr, [id number] . res: clear to auscultation ,no rhonchii or wheezing abd: no rebound or guarding ,nt, bs present. ext pulses present , no cyanosis , arm left -wrapped ,some discomfort wiggles arms neuro:moves ext sponatneously Objective Data Active Medications Apixaban (Apixaban 2.5 Mg Tablet) 2.5 mg PO BID [facility] Last Admin: 12/22/22 09:05 Dose: 2.5 mg Documented By: IAM Atorvastatin Calcium (Atorvastatin Calcium 80 Mg Tablet) 80 mg PO DAILY [facility] Last Admin: 12/22/22 09:05 Dose: 80 mg Documented By: IAM Benzonatate (Benzonatate 100 Mg Capsule) 100 mg PO TID PRN PRN Reason: Cough Docusate Sodium (Docusate Sodium 100 Mg Capsule) 100 mg PO DAILY PRN PRN Reason: Constipation Fluoxetine HCl (Fluoxetine Hcl 20 Mg Capsule) 40 mg PO DAILY [facility] Last Admin: 12/22/22 09:05 Dose: 40 mg Documented By: IAM Cefepime HCl 1 gm/ Sodium (Chloride) 50 mls @ 100 mls/hr IV Q12H [facility] Last Infusion: 12/22/22 04:02 Dose: Infused Documented By: CHAVEZ Dextrose (D5w) 1,000 mls @ 50 mls/hr IVCONT .Q20H [facility] Last Admin: 12/22/22 03:23 Dose: 50 mls/hr Documented By: CHAVEZ Melatonin (Melatonin 3 Mg Tablet) 6 mg PO BEDTIME PRN PRN Reason: Insomnia Last Admin: 12/19/22 21:54 Dose: 6 mg Documented By: BEL Omeprazole (Omeprazole 20 Mg Darek.) 20 mg PO DAILY@0630 [facility] Last Admin: 12/22/22 05:49 Dose: Not Given Documented By: CHAVEZ Non-Admin Reason: Patient Refused Ondansetron HCl (Ondansetron Hcl 4 Mg/2 Ml Vial) 4 mg IVPUSH Q8H PRN PRN Reason: Nausea and Vomiting Sodium Chloride (0.9 % Sodium Chloride Flush 3 Ml Syringe) 3 ml IVFLUSH QSHIFT [facility] Last Admin: 12/22/22 09:06 Dose: 3 ml Documented By: JESSEEYChiara Trazodone HCl (Trazodone Hcl 50 Mg Tablet) 50 mg PO BEDTIME PRN PRN Reason: Insomnia Labs 12/18/22 08:18 12/21/22 08:49 Assessment and Plan (1) Altered mental status: Status: Acute Plan 87-year-old female with a PMH significant for?advanced dementia, paroxysmal AFib on Eliquis, HLD, mood disorder, GERD, and nephrolithiasis s/p bilateral renal nephrostomy tubes who presents to the ED from home with altered mental status and lethargy. Pt will be admitted to the hospital for treatment of acute toxic metabolic encephalopathy in the setting of UTI. Acute metabolic encephalopathy in the setting of UTI awake ,not able to give info, not oriented to self ct head negative UA positive for UTI,sepsis improving urine culture ecoli-senstive to ceftriaxone.blood culture neg@48hrs got cefpime from 12/17/2022 to 12/22 ,switched to ceftriaxone now. Monitor mental status seems unchanged added neuro eval . id eval added GINA-Likely secondary to dehydration improving with fluids Follow BMP. hypernatremia :changed fluids to d5w -sodiumimproving 146 stop fluids free moniter bmp. Paroxysmal AFib Continue Eliquis GERD Continue omeprazole HLD Continue statin Mood disorder Continue fluoxetine left wrist wraapped /has ?fracture : ortho eval noted -X-rays of left hand reviewed and significant for second metacarpal fracture distally Splint patient has is appropriate and she should remain in No lifting, pushing, pulling left hand No additional acute orthopeidc intervention needed at this time - June f/u out patient Full Code DVT Prophylaxis: Lovenox ongoing hospitalization need for treatment of?acute metabolic encephalopathy in the setting of UTI and antibiotics. mental status not optimal yet. parminder d/w patient daughter in detail . Time Spent With Patient Time: Total time managing care of this patient today ____ minutes. Quality Stroke Does the patient have a stroke diagnosis?: No VTE Prior VTE?: No VTE Risk Level:: Medical - moderate - high VTE Device Contraindication: Treatment Not Indicated VTE Drug Contraindication: N/A - Med Ordered
--- NOTE | 2022-12-22 13:45 | MHC.CM.PN ---
This CM placed call to [facility] casework manager Brooke x 2 (awaiting return call), and [facility] facility maintenance supervisor Michelle Kent x 1 (awaiting return call). This CM met with pt, she is non-verbal, appears very confused, and unable to provide any information. CM will continue to follow.
[2022-12-22 15:14] VITALS: BP 129/66; PULSE 86; RESP 20; TEMP 36.4; O2SAT 96
--- NOTE | 2022-12-22 16:04 | MHC.CM.PN ---
This CM called pts daughter Paradise to confirm [facility] services and Day program. Per Paradise the [employer] TECHNICIAN is a family friend that comes in to help with her care, and the day program is at the [facility] in [place]. This CM called and spoke to the nurse of the day program Rita at [phone] to confirm that the pt attends 5 days/week and was last there on 12/04. Per Rita, the pts previous baseline was ambulating with assistance of 2 people and a walker, and she states she is not very talkative at baseline. Per Rita, the pts attending the day program there must be able to bare their own weight to return to the day program and cannot be on oxygen.
[2022-12-22] MEDS: cefTRIAXone sodium 1 GM in 0.9 % Sodium Chloride 50 ML IV (17:56)
[2022-12-22 18:51] VITALS: BP 115/70; PULSE 90; RESP 20; TEMP 36.6; O2SAT 98
[2022-12-22 23:10] VITALS: BP 105/64; PULSE 92; RESP 19; TEMP 36.3
[2022-12-23] MEDS: Dextrose 5 % 1,000 ML 50 ML IVCONT (00:40)
[2022-12-23 03:34] VITALS: BP 134/59; PULSE 88; RESP 19; TEMP 36.7
[2022-12-23 07:17] VITALS: BP 122/75; PULSE 88; RESP 20; TEMP 36.3; O2SAT 99
[2022-12-23] MEDS: Apixaban 2.5 MG TABLET PO ×2 (07:57→20:07)
[2022-12-23] MEDS: FLUoxetine HCl 20 MG CAPSULE 40 MG PO (07:57)
[2022-12-23] MEDS: Atorvastatin Calcium 80 MG TABLET PO (07:57)
[2022-12-23] MEDS: 0.9 % Sodium Chloride Flush 3 ML SYRINGE IVFLUSH ×3 (07:58→20:07)
[2022-12-23 11:12] VITALS: BP 115/70; PULSE 96; RESP 20; TEMP 36.6; O2SAT 99
[2022-12-23 11:35] VITALS: BP 115/70; PULSE 96; O2SAT 99
--- NOTE | 2022-12-23 11:39 | P.CNNE_ITS ---
History of Present Illness Data of Consult Service Date: 12/23/22 Primary Care Provider: Meenu Mcgarry [facility] Reason for consult: Encephalopathy 87-year-old female with a PMH significant for?advanced dementia, paroxysmal AFib on Eliquis, HLD, mood disorder, GERD, and nephrolithiasis s/p bilateral renal nephrostomy tubes who presents to the ED from home with altered mental status and lethargy. She was unable to provide any history. There was no witnessing of any seizure or any new focal weakness. Review of Systems 2 Review of Systems: Could not be done with her [facility] Past Medical History Medical History GERD (gastroesophageal reflux disease) Hypertension Hyperlipidemia Anemia Atrial fibrillation Kidney stones Dementia Surgical History Surgical History Hx of heart artery stent Social History Social History Household Members: Children Housing: House Unable to assess alcohol history related to: Unknown Alcohol intake: never Patient Tobacco Use Status: Tobacco use Unknown Smoked in Last 30 Days: No Use of substances other than those prescribed or required for medical reasons: Unknown Currently Displaying Signs/Symptoms of Drug Intoxication Withdrawal: No Advance Directives: Yes Advance Directives Information Provided: No Advance Directives on File: No Advance Directives Date on File: 12/17/22 Recently lost weight without trying: Unsure Nutrition Risks: Difficulty swallowing Patient : No : No service: No Current occupational status: retired Meds Allergies Allergy/AdvReac Type Severity Reaction Status Date / Time acetaminophen [From Percocet] AdvReac Rash Verified 01/04/20 20:42 aspirin [From Percodan] AdvReac Rash Verified 01/04/20 20:42 fentanyl AdvReac Rash Verified 01/04/20 20:42 oxycodone [From Percocet] AdvReac Rash Verified 01/04/20 20:42 Active Medications: Current Medications Apixaban (Apixaban 2.5 Mg Tablet) 2.5 mg PO BID [facility] Last Admin: 12/23/22 07:57 Dose: 2.5 mg Atorvastatin Calcium (Atorvastatin Calcium 80 Mg Tablet) 80 mg PO DAILY [facility] Last Admin: 12/23/22 07:57 Dose: 80 mg Benzonatate (Benzonatate 100 Mg Capsule) 100 mg PO TID PRN PRN Reason: Cough Docusate Sodium (Docusate Sodium 100 Mg Capsule) 100 mg PO DAILY PRN PRN Reason: Constipation Fluoxetine HCl (Fluoxetine Hcl 20 Mg Capsule) 40 mg PO DAILY [facility] Last Admin: 12/23/22 07:57 Dose: 40 mg Ceftriaxone Sodium 1 gm/ (Sodium Chloride) 50 mls @ 100 mls/hr IV Q24H [facility] Last Infusion: 12/22/22 18:40 Dose: Infused Melatonin (Melatonin 3 Mg Tablet) 6 mg PO BEDTIME PRN PRN Reason: Insomnia Last Admin: 12/19/22 21:54 Dose: 6 mg Omeprazole (Omeprazole 20 Mg Capsule.Dr) 20 mg PO DAILY@0630 [facility] Last Admin: 12/23/22 06:27 Dose: Not Given Ondansetron HCl (Ondansetron Hcl 4 Mg/2 Ml Vial) 4 mg IVPUSH Q8H PRN PRN Reason: Nausea and Vomiting Sodium Chloride (0.9 % Sodium Chloride Flush 3 Ml Syringe) 3 ml IVFLUSH QSHIFT [facility] Last Admin: 12/23/22 07:58 Dose: 3 ml Trazodone HCl (Trazodone Hcl 50 Mg Tablet) 50 mg PO BEDTIME PRN PRN Reason: Insomnia Home Medications Medication Instructions Recorded Confirmed Last Taken Type atorvastatin 80 mg tablet 1 tab PO DAILY 01/05/20 12/17/22 12/17/22 History fluoxetine 20 mg capsule 2 cap PO DAILY 01/05/20 12/17/22 12/17/22 History furosemide 20 mg tablet 0.5 tab PO Q48H 01/05/20 12/17/22 12/17/22 History omeprazole 20 mg capsule,delayed 1 cap PO DAILY 01/05/20 12/17/22 12/17/22 History release spironolactone 25 mg tablet 0.5 tab PO DAILY 01/05/20 12/17/22 12/17/22 History trazodone 50 mg tablet 1 tab PO BEDTIME PRN Insomnia 01/05/20 12/17/22 Unknown History apixaban 2.5 mg tablet (Eliquis) 2.5 mg PO BID 12/17/22 12/17/22 12/17/22 History nystatin 100,000 unit/gram topical 1 appl topical DAILY N 12/17/22 12/17/22 12/17/22 History powder Physical Exam 2 Vital Signs: Vital Signs: Last Vital Signs Temp 97.8 F 12/23/22 11:12 Pulse 96 12/23/22 11:12 Resp 20 12/23/22 11:12 BP 115/70 12/23/22 11:12 Pulse Ox 99 12/23/22 11:12 O2 Del Method Room Air 12/23/22 11:12 FiO2 94 12/23/22 03:34 BMI result Body Mass Index 27.8 Neuro: Other: She is alert and awake playing with the table name. She did not speak, did not comprehend, and did not follow commands. She made eye contact. There was no obvious eye jerking or facial twitching. Face seems symmetrical. Visual miranda seemed okay. There was no obvious focal arm weakness. Plantars were withdrawing. Exam was limited. Results Labs 12/18/22 08:18 12/21/22 08:49 Labs: Noncontrast head CT revealed moderate to severe diffuse atrophy moderately severe chronic microvascular ischemic changes and larger area of infarction and right parietal and smaller and left parietal area. Microbiology Microbiology Results: Microbiology 12/17/22 14:44 Blood - Venous Blood Culture - Final No growth after 5 days. 12/17/22 14:42 Blood - Venous Blood Culture - Final No growth after 5 days. 12/17/22 Unknown Urine Catheterized - Arellano Catheter Urine Culture - Final Escherichia coli Assessment and Plan (1) Aphasia: Status: Acute 87 years old woman with underlying history of probably moderate to severe multifactorial, degenerative and vascular, dementia. At this time her examination was consistent with mixed aphasia. With history of atrial fibrillation and severe dementia, both vascular disease and dementia could be explanations. If feasible, noncontrast MRI of brain care up to make definitive diagnosis. Otherwise conservative management is recommended. Anticoagulation may continue. Time Spent With Patient Time: Total time managing care of this patient today ____ minutes. Procedures Date of Service Date of Service: 12/23/22
--- NOTE | 2022-12-23 12:13 | MHC.SL.SWA ---
Risk of Aspiration Due to: Lethargy Neurological Condition Reduced Cognition Dysphasia Diet Status: No change Liquid Consistency and Strategies for Safe Swallow: Liquid Intake Recommendation: Thin Liquid Intake Strategies: Small Sips No Straws Solid Food Consistency: Dietary Recommendations: Pureed (NDD1) Oral Medication Intake: Crushed with Puree Please contact the pharmacy regarding appropriate crushable or liquid drug formulations that are available whenever modified delivery is recommended. Compensatory Strategies and Precautions to be Taken for Safe Swallow: Sitting Upright (90 deg) No Straw Small Bites and Sips Alternate Liquids/Solids Rate of Ingestion Change Oral Check Avoid Specific Foods Supervision While Eating and Drinking for Safe Swallow: Total Assistance (1:1) Foods to Avoid: Mixed textures Swallowing Recommended Treatments: Compens. Strategy Educat. Recommendation for Speech: Inpatient Speech Therapy Comment: RN reports pt tolerated pills crushed in puree. RN reports overall decreased PO intake; frequently pushing hands away and trying to spit food into blanche reporting various items don't taste food. Continue to recommend Puree Solids (NDD1) and Thin Liquids. Meds Crushed w/ Puree. Pt requires total 1:1 assistance feeding and strict aspiration precautions. Pt must be awake and alert for presentation of PO, minimize distractions during meal time. [employer] to continue to follow during hospitalization. Frequency/Duration: PRN M-F On Site Nurse Clinican/Clinical Fellow: No Supervisory Statement: I have reviewed and agree with the student/clinical fellow's documentation: N/A Speech Language Pathologist: Adele Reeves M.A., [facility]-[employer]
--- NOTE | 2022-12-23 13:52 | MHC.CM.PN ---
EMR reviewed and per MD rounds, pt is not medically cleared for D/C at this time, and awaiting neuro consult. This CM spoke with Brooke from [facility] to inquire about a home evaluation taking place prior to the pts discharge. Per Brooke she will speak with her animal humane agent supervisor about this tomorrow 12/24. PT eval completed with pt today and due to her advanced dementia and inability to consistently follow commands, pt is not appropriate for skilled PT and D/C home with 24/hr care or LTC is recommended.
[2022-12-23] MEDS: cefTRIAXone sodium 1 GM in 0.9 % Sodium Chloride 50 ML IV (14:43)
--- NOTE | 2022-12-23 15:32 | P.PNIM_ITS ---
Subjective Subjective Date of Service: 12/23/22 Interval History: Minimally verbal When I examined her heart, she said there's a lobster on my chest Review of Systems Review of Systems: Yes Unobtainable due to mental status Physical Exam 2 Vital Signs: Vital Signs: Last Vital Signs Temp 97.8 F 12/23/22 11:12 Pulse 96 12/23/22 11:35 Resp 20 12/23/22 11:12 BP 115/70 12/23/22 11:35 Pulse Ox 99 12/23/22 11:35 O2 Del Method Room Air 12/23/22 11:12 FiO2 94 12/23/22 03:34 BMI result Body Mass Index 27.8 Gen: in no acute distress HEENT: sclera anicteric, moist mucus membranes Neck: supple Lungs: clear to auscultation bilaterally Heart: regular rate and rhythm, no murmurs Abd: soft, non-tender, non-distended Ext: no edema Skin: warm/well-perfused Neuro: alert, disoriented, moving all extremities Psych: impaired insight Objective Data Active Medications Apixaban (Apixaban 2.5 Mg Tablet) 2.5 mg PO BID [facility] Last Admin: 12/23/22 07:57 Dose: 2.5 mg Documented By: ZAMZAM Atorvastatin Calcium (Atorvastatin Calcium 80 Mg Tablet) 80 mg PO DAILY [facility] Last Admin: 12/23/22 07:57 Dose: 80 mg Documented By: ZAMZAM Benzonatate (Benzonatate 100 Mg Capsule) 100 mg PO TID PRN PRN Reason: Cough Docusate Sodium (Docusate Sodium 100 Mg Capsule) 100 mg PO DAILY PRN PRN Reason: Constipation Fluoxetine HCl (Fluoxetine Hcl 20 Mg Capsule) 40 mg PO DAILY [facility] Last Admin: 12/23/22 07:57 Dose: 40 mg Documented By: ZAMZAM Ceftriaxone Sodium 1 gm/ (Sodium Chloride) 50 mls @ 100 mls/hr IV Q24H [facility] Last Infusion: 12/23/22 15:30 Dose: Infused Documented By: ZAMZAM Melatonin (Melatonin 3 Mg Tablet) 6 mg PO BEDTIME PRN PRN Reason: Insomnia Last Admin: 12/19/22 21:54 Dose: 6 mg Documented By: BEL Omeprazole (Omeprazole 20 Mg Capsule.) 20 mg PO DAILY@0630 [facility] Last Admin: 12/23/22 06:27 Dose: Not Given Documented By: MOY Non-Admin Reason: Patient Refused Ondansetron HCl (Ondansetron Hcl 4 Mg/2 Ml Vial) 4 mg IVPUSH Q8H PRN PRN Reason: Nausea and Vomiting Sodium Chloride (0.9 % Sodium Chloride Flush 3 Ml Syringe) 3 ml IVFLUSH QSHIFT [facility] Last Admin: 12/23/22 14:43 Dose: 3 ml Documented By: ZAMZAM Trazodone HCl (Trazodone Hcl 50 Mg Tablet) 50 mg PO BEDTIME PRN PRN Reason: Insomnia Labs 12/18/22 08:18 12/21/22 08:49 Microbiology Microbiology Results: Microbiology 12/17/22 14:44 Blood Culture - Final Blood - Venous No growth after 5 days. 12/17/22 14:42 Blood Culture - Final Blood - Venous No growth after 5 days. Assessment and Plan (1) Altered mental status: Status: Acute Plan d7 87yo F with advanced dementia, paroxysmal AF on apixaban, HLD, mood disorder, GERD, nephrolithiasis with history of bilateral nephrostomy tubes presents from home with AMS + lethargy admitted for encephalopathy due to sepsis from UTI acute encephalopathy due to sepsis/UTI - E coli, li-sensitive, on cefepime 12/17-12/22 then ceftriaxone 12/22- - Neuro consulted, MRI for definitive diagnosis of demenetia etiology GINA, prerenal - resolved after fluid hydration hyperNa, hypovolemic - resolved after fluid hydration paroxysmal AF - continue apixaban GERD - PPI HLD - statin mood disorder - fluoxetine, trazodone distal L 2nd MCP fracture - splinted, Ortho consulted, outpt f/u VTE ppx - LMWH dispo - TBD In my clinical judgment, the patient requires continued inpatient hospitalization for the following reasons: encephalopathy Time Spent With Patient Time: Total time managing care of this patient today __35__ minutes. Quality Stroke Does the patient have a stroke diagnosis?: No VTE Prior VTE?: No VTE Risk Level:: Medical - moderate - high VTE Device Contraindication: Treatment Not Indicated VTE Drug Contraindication: N/A - Med Ordered
[2022-12-23 15:51] VITALS: BP 115/65; PULSE 105; RESP 20; TEMP 37.1; O2SAT 94
[2022-12-23] MEDS: traZODone HCL 50 MG TABLET PO (20:07)
[2022-12-23 20:38] VITALS: BP 135/80; PULSE 100; RESP 20; TEMP 37.3; O2SAT 98
[2022-12-24 03:13] VITALS: BP 124/87; PULSE 76; RESP 20; TEMP 36.9; O2SAT 95
[2022-12-24] MEDS: cefuroxime axetiL 500 MG TABLET PO (04:50)
[2022-12-24 07:07] VITALS: BP 106/65; PULSE 77; RESP 20; TEMP 36.3; O2SAT 98
[2022-12-24 07:42] LABS: Anion Gap 14 (12-20); Blood Urea Nitrogen 14 mg/dL (9-16); Calcium 9.4 mg/dL (8.4-10.2); Carbon Dioxide 22 mmol/L (22-29); Chloride 108 mmol/L (96-108); Creatinine Clr Calc Pharmacy 49.2; Estimated Glomerular Filt Rate > 60; Glucose Random 103 mg/dL (60-115); Potassium 3.6 mmol/L (3.3-5.1); Sodium 140 mmol/L (135-145)
[2022-12-24] MEDS: Apixaban 2.5 MG TABLET PO (09:10)
[2022-12-24] MEDS: FLUoxetine HCl 20 MG CAPSULE 40 MG PO (09:10)
[2022-12-24] MEDS: Atorvastatin Calcium 80 MG TABLET PO (09:10)
[2022-12-24] MEDS: 0.9 % Sodium Chloride Flush 3 ML SYRINGE IVFLUSH ×2 (09:11→15:25)
[2022-12-24 11:12] VITALS: BP 117/76; PULSE 87; RESP 20; TEMP 36.6; O2SAT 98
--- NOTE | 2022-12-24 12:23 | MHC.CM.PN ---
This CM spoke with Michelle Kent, shuttle veneering supervisor at [facility], per Michelle they do not go to people's home to evaluate prior to D/C, but can go to the home once the pt is there. Per Michelle, this pt should not return home due to the environment EMS reported, but they cannot officially recommend that due to her being under [facility]'s care. [facility] will continue to stay involved with the pt through D/C. This CM spoke with daughter Paradise regarding PT recommendations for LTC, Chloe states that's not going to happen, and is adamant about her mother returning home. This CM stated to Chloe that there are concerns about her mother going back home due to the environment EMS found her in. Chloe states she has no idea what this CM is talking about. This CM asked Chloe if she was aware that there is an open report with protective services, Chloe stated she did not, and became upset using explicit language and denying the allegations. This CM stated to Chloe that CM director and MD would be notified and we would contact her again when we know the next steps. CM will continue to follow.
--- NOTE | 2022-12-24 13:58 | HO.PM.IMPN ---
Subjective Subjective Date of Service: 12/24/22 Interval History: unable to obtain ROS due to mental status Review of Systems Review of Systems: Yes Unobtainable due to mental status Physical Exam Vital Signs: Vital Signs: Last Vital Signs Temp 97.9 F 12/24/22 11:12 Pulse 87 12/24/22 11:12 Resp 20 12/24/22 11:12 BP 117/76 12/24/22 11:12 Pulse Ox 98 12/24/22 11:12 O2 Del Method Room Air 12/24/22 11:12 FiO2 94 12/23/22 03:34 BMI result Body Mass Index 27.8 Gen: in no acute distress HEENT: sclera anicteric, moist mucus membranes Neck: supple Lungs: clear to auscultation bilaterally Heart: regular rate and rhythm, no murmurs Abd: soft, non-tender, non-distended Ext: no edema Skin: warm/well-perfused Neuro: alert, disoriented, moving all extremities Psych: impaired insight Objective Data Active Medications Apixaban (Apixaban 2.5 Mg Tablet) 2.5 mg PO BID [facility] Last Admin: 12/24/22 09:10 Dose: 2.5 mg Documented By: AYLA Atorvastatin Calcium (Atorvastatin Calcium 80 Mg Tablet) 80 mg PO DAILY [facility] Last Admin: 12/24/22 09:10 Dose: 80 mg Documented By: AYLA Benzonatate (Benzonatate 100 Mg Capsule) 100 mg PO TID PRN PRN Reason: Cough Cefuroxime Axetil (Cefuroxime Axetil 500 Mg Tablet) 500 mg PO Q12H [facility] Last Admin: 12/24/22 04:50 Dose: 500 mg Documented By: LEONARD Docusate Sodium (Docusate Sodium 100 Mg Capsule) 100 mg PO DAILY PRN PRN Reason: Constipation Fluoxetine HCl (Fluoxetine Hcl 20 Mg Capsule) 40 mg PO DAILY [facility] Last Admin: 12/24/22 09:10 Dose: 40 mg Documented By: AYLA Melatonin (Melatonin 3 Mg Tablet) 6 mg PO BEDTIME PRN PRN Reason: Insomnia Last Admin: 12/19/22 21:54 Dose: 6 mg Documented By: BEL Omeprazole (Omeprazole 20 Mg Capsule.) 20 mg PO DAILY@0630 [facility] Last Admin: 12/24/22 05:08 Dose: Not Given Documented By: LEONARD Non-Admin Reason: Inability to swallow whole pills Ondansetron HCl (Ondansetron Hcl 4 Mg/2 Ml Vial) 4 mg IVPUSH Q8H PRN PRN Reason: Nausea and Vomiting Sodium Chloride (0.9 % Sodium Chloride Flush 3 Ml Syringe) 3 ml IVFLUSH QSHIFT [facility] Last Admin: 12/24/22 09:11 Dose: 3 ml Documented By: AYLA Trazodone HCl (Trazodone Hcl 50 Mg Tablet) 50 mg PO BEDTIME PRN PRN Reason: Insomnia Last Admin: 12/23/22 20:07 Dose: 50 mg Documented By: LEONARD Labs 12/18/22 08:18 12/24/22 06:31 Labs: Laboratory Results - last 24 hr 12/24/22 12/24/22 06:31 07:16 Hold Purple Top SEE NOTE Anion Gap 14 Estim Creat Clear Calc 49.2 Estimated GFR > 60 Random Glucose 103 Calcium 9.4 Assessment and Plan (1) Altered mental status: Status: Acute Plan d8 87yo F with advanced dementia, paroxysmal AF on apixaban, HLD, mood disorder, GERD, nephrolithiasis with history of bilateral nephrostomy tubes presents from home with AMS + lethargy admitted for encephalopathy due to sepsis from UTI acute encephalopathy due to sepsis/UTI - E coli, li-sensitive, on cefepime 12/17-12/22 then ceftriaxone 12/22-12/23 then cefuroxime 12/23- - Neuro consulted, MRI for definitive diagnosis of dementia etiology GINA, prerenal - resolved after fluid hydration hyperNa, hypovolemic - resolved after fluid hydration paroxysmal AF - continue apixaban GERD - PPI HLD - statin mood disorder - fluoxetine, trazodone distal L 2nd MCP fracture - splinted, Ortho consulted, outpt f/u VTE ppx - LMWH dispo - TBD In my clinical judgment, the patient requires continued inpatient hospitalization for the following reasons: encephalopathy, active Elder Protective Services case- refer to Case Management notes Time Spent With Patient Time: Total time managing care of this patient today ___35_ minutes. Quality Stroke Does the patient have a stroke diagnosis?: No VTE Prior VTE?: No VTE Risk Level:: Medical - moderate - high VTE Device Contraindication: Treatment Not Indicated VTE Drug Contraindication: N/A - Med Ordered
--- NOTE | 2022-12-24 14:29 | MHC.SL.SWA ---
Speech Pathologist Impression: Risk of Aspiration Due to: Lethargy Neurological Condition Reduced Cognition Dysphasia Diet Status: Continue to recommend Puree Solids (NDD1) and Thin Liquids. Meds Crushed w/ Puree. Pt requires total 1:1 assistance feeding and strict aspiration precautions. Pt must be awake and alert for presentation of PO, minimize distractions during meal time. Liquid Consistency and Strategies for Safe Swallow: Liquid Intake Recommendation: Thin Liquid Intake Strategies: Small Sips No Straws Solid Food Consistency: Dietary Recommendations: Pureed (NDD1) Additional Modifications to Solid Foods: Notified team (MD, RN, RD) of recommendations via [employer] Message. FACILITY WORKER will continue to follow during pt's hospitalization. Oral Medication Intake: Crushed with Puree Please contact the pharmacy regarding appropriate crushable or liquid drug formulations that are available whenever modified delivery is recommended. Compensatory Strategies and Precautions to be Taken for Safe Swallow: Sitting Upright (90 deg) No Straw Small Bites and Sips Alternate Liquids/Solids Rate of Ingestion Change Oral Check Avoid Specific Foods Supervision While Eating and Drinking for Safe Swallow: Total Assistance (1:1) Foods to Avoid: Mixed textures Swallowing Recommended Treatments: Compens. Strategy Educat. Recommendation for Speech: Inpatient Speech Therapy Comment: Patient seen at lunch, with patient sleeping at onset of treatment, but woke to voice and expressed interest in having food. Head of bed adjusted so patient was seated upright in bed. Patient with limited food at lunch, had bowl of mashed potato with gravy, jello, chocolate pudding, ice cream and juices on tray. Patient accepted bite of potato with gravy, mildly grimacing at the taste, producing a mildly prolonged oral phase and mild delay of swallow on single bite. Patient then expressed dislike of the potato and pushed away offered second bite. Patient was then offered ice cream on tray, which was noted to be a preferred food. Patient said I like ice cream but on first bite, said what's that? at taste. Patient accepted several bites of ice cream without evidencing any swallow difficulty, but then refused further presentations. Patient offered bite of pudding, accepting only one spoonful, then stating I don't like that. Patient given sips of both apple juice and cranberry juice, with patient rejecting the juice for taste as well after two sips. Patient is tolerating current food consistencies well with regard to swallow, however is taking limited PO, rejecting food after a bite or two. Patient would benefit from nutrition consult/supplements to assure adequate nutrition. Recommend continue on puree (NDD1) with Thin Liquids, pills crushed in puree. Frequency/Duration: PRN M-F Date Range for Service Req: Timeline to reassess: Superintendent Clinican/Clinical Fellow: No Supervisory Statement: I have reviewed and agree with the student/clinical fellow's documentation: N/A Speech Language Pathologist: Adele Reeves M.A., CCC-FACILITY WORKER
[2022-12-24 14:57] VITALS: BP 117/67; PULSE 89; RESP 16; TEMP 36.9; O2SAT 92
[2022-12-24 20:00] VITALS: BP 109/82; PULSE 99; RESP 17; TEMP 36.7; O2SAT 97
[2022-12-24 23:42] VITALS: BP 127/73; PULSE 96; RESP 20; TEMP 36.6; O2SAT 98
[2022-12-25] MEDS: 0.9 % Sodium Chloride Flush 3 ML SYRINGE IVFLUSH ×3 (00:22→16:31)
[2022-12-25 03:33] VITALS: BP 126/58; PULSE 100; RESP 18; TEMP 36.3; O2SAT 97
[2022-12-25] MEDS: cefuroxime axetiL 500 MG TABLET PO (05:16)
[2022-12-25] MEDS: Omeprazole 20 MG CAPSULE.DR PO (05:26)
--- NOTE | 2022-12-25 07:55 | MHC.CM.PN ---
Addendum entered by Alla Krishna 12/25/22 10:31: Spoke with Outside Parts Salesisabell Remy- plan to discuss with Kylah Gan & Michelle Kent for next steps. Original Note: This health science writer reviewed case with covering Risk Management- Dr. Lemus, MASK DESIGN ENGINEER. Plan to discuss case with Eliazar and Jonel. Call placed by this health science writer- awaiting return phone call.
[2022-12-25 08:00] VITALS: BP 125/91; PULSE 97; RESP 20; TEMP 36.8; O2SAT 96
--- NOTE | 2022-12-25 10:46 | MHC.SLORD ---
Speech Language Pathology Order Status: Pt refused all offerings of food from breakfast tray. IRONWORKER APPRENTICE brought pt vanilla ice cream, which she reportedly enjoys, but pt continued to refuse. Pt holding blanket to her mouth and swiping IRONWORKER APPRENTICE's arm away. Pt is currently on a pureed diet (NDD1) with thin liquids.
[2022-12-25 11:34] VITALS: BP 188/94; PULSE 95; RESP 18; TEMP 36.3; O2SAT 97
--- NOTE | 2022-12-25 12:02 | HO.PM.IMPN ---
Subjective Subjective Date of Service: 12/25/22 Interval History: blood-tinged urine last night altered, unable to get history Review of Systems Review of Systems: Yes Unobtainable due to mental status Physical Exam Vital Signs: Vital Signs: Last Vital Signs Temp 97.4 F 12/25/22 11:34 Pulse 95 12/25/22 11:34 Resp 18 12/25/22 11:34 BP 188/94 H 12/25/22 11:34 Pulse Ox 97 12/25/22 11:34 O2 Del Method Room Air 12/25/22 11:34 FiO2 94 12/23/22 03:34 BMI result Body Mass Index 27.8 Gen: in no acute distress HEENT: sclera anicteric, moist mucus membranes Neck: supple Lungs: clear to auscultation bilaterally Heart: regular rate and rhythm, no murmurs Abd: soft, non-tender, non-distended Ext: no edema, L wrist in splint Skin: warm/well-perfused Neuro: alert, disoriented, moving all extremities Psych: impaired insight Objective Data Active Medications Apixaban (Apixaban 2.5 Mg Tablet) 2.5 mg PO BID [facility] Last Admin: 12/24/22 09:10 Dose: 2.5 mg Documented By: AYLA Atorvastatin Calcium (Atorvastatin Calcium 80 Mg Tablet) 80 mg PO DAILY [facility] Last Admin: 12/25/22 09:23 Dose: Not Given Documented By: CHRIS Non-Admin Reason: Patient Refused Benzonatate (Benzonatate 100 Mg Capsule) 100 mg PO TID PRN PRN Reason: Cough Cefuroxime Axetil (Cefuroxime Axetil 500 Mg Tablet) 500 mg PO Q12H [facility] Last Admin: 12/25/22 05:16 Dose: 500 mg Documented By: NAT Comments: pt was very sleepy Docusate Sodium (Docusate Sodium 100 Mg Capsule) 100 mg PO DAILY PRN PRN Reason: Constipation Fluoxetine HCl (Fluoxetine Hcl 20 Mg Capsule) 40 mg PO DAILY [facility] Last Admin: 12/25/22 09:23 Dose: Not Given Documented By: CHRIS Non-Admin Reason: Patient Refused Melatonin (Melatonin 3 Mg Tablet) 6 mg PO BEDTIME PRN PRN Reason: Insomnia Last Admin: 12/19/22 21:54 Dose: 6 mg Documented By: BEL Omeprazole (Omeprazole 20 Mg Capsule.) 20 mg PO DAILY@0630 [facility] Last Admin: 12/25/22 05:26 Dose: 20 mg Documented By: NAT Ondansetron HCl (Ondansetron Hcl 4 Mg/2 Ml Vial) 4 mg IVPUSH Q8H PRN PRN Reason: Nausea and Vomiting Sodium Chloride (0.9 % Sodium Chloride Flush 3 Ml Syringe) 3 ml IVFLUSH QSHIFT [facility] Last Admin: 12/25/22 09:17 Dose: 3 ml Documented By: CHRIS Trazodone HCl (Trazodone Hcl 50 Mg Tablet) 50 mg PO BEDTIME PRN PRN Reason: Insomnia Last Admin: 12/23/22 20:07 Dose: 50 mg Documented By: LEONARD Labs 12/18/22 08:18 12/24/22 06:31 Assessment and Plan (1) Altered mental status: Status: Acute Plan d9 87yo F with advanced dementia, paroxysmal AF on apixaban, HLD, mood disorder, GERD, nephrolithiasis with history of bilateral nephrostomy tubes presents from home with AMS + lethargy admitted for encephalopathy due to sepsis from UTI acute encephalopathy due to sepsis/UTI - E coli, li-sensitive, on cefepime 12/17-12/22 then ceftriaxone 12/22-12/23 then cefuroxime 12/23-12/25 - Neuro consulted, MRI for definitive diagnosis of dementia etiology but pt unable to stay still for study hematuria - hold apixaban, monitor hyperNa, hypovolemic GINA, prerenal - resolved after fluid hydration, recheck BMP in AM paroxysmal AF - continue apixaban GERD - PPI HLD - statin mood disorder - fluoxetine, trazodone distal L 2nd MCP fracture - splinted, Ortho consulted, outpt f/u VTE ppx - SCDs dispo - TBD In my clinical judgment, the patient requires continued inpatient hospitalization for the following reasons: encephalopathy, active Elder Protective Services case- refer to Case Management notes Time Spent With Patient Time: Total time managing care of this patient today ___35_ minutes. Quality Stroke Does the patient have a stroke diagnosis?: No VTE Prior VTE?: No VTE Risk Level:: Medical - moderate - high VTE Device Contraindication: Treatment Not Indicated VTE Drug Contraindication: N/A - Med Ordered
[2022-12-25 17:28] VITALS: BP 119/76; PULSE 93; RESP 20; TEMP 36.2; O2SAT 99
--- NOTE | 2022-12-25 18:19 | PC.NURSE ---
Patient refused morning medication, she also refused to speak or make eye contact. When offered food or drink she would push the spoon away and cover face with blanket. Patient did refused meals - will have a few spoon full each meal - less than 10%
[2022-12-25 19:05] VITALS: BP 126/75; PULSE 89; RESP 20; TEMP 35.9; O2SAT 98
[2022-12-25 23:46] VITALS: BP 122/60; PULSE 86; RESP 20; TEMP 35.9; O2SAT 98
[2022-12-26 03:19] VITALS: BP 145/84; PULSE 92; RESP 20; TEMP 36.3; O2SAT 98
[2022-12-26] MEDS: Omeprazole 20 MG CAPSULE.DR PO (05:30)
[2022-12-26 08:00] VITALS: BP 115/86; PULSE 95; RESP 20; TEMP 36.3; O2SAT 94
[2022-12-26] MEDS: 0.9 % Sodium Chloride Flush 3 ML SYRINGE IVFLUSH ×3 (10:15→20:18)
--- NOTE | 2022-12-26 11:21 | HO.PM.IMPN ---
Subjective Subjective Date of Service: 12/26/22 Interval History: minimally verbal Review of Systems Review of Systems: Yes Unobtainable due to mental status Physical Exam Vital Signs: Vital Signs: Last Vital Signs Temp 97.4 F 12/26/22 08:00 Pulse 95 12/26/22 08:00 Resp 20 12/26/22 08:00 BP 115/86 12/26/22 08:00 Pulse Ox 94 12/26/22 08:00 O2 Del Method Room Air 12/26/22 08:00 FiO2 94 12/23/22 03:34 BMI result Body Mass Index 27.8 Gen: in no acute distress HEENT: sclera anicteric, moist mucus membranes Neck: supple Lungs: clear to auscultation bilaterally Heart: regular rate and rhythm, no murmurs Abd: soft, non-tender, non-distended Ext: no edema, L wrist in splint Skin: warm/well-perfused Neuro: alert, disoriented, moving all extremities Psych: impaired insight Objective Data Active Medications Apixaban (Apixaban 2.5 Mg Tablet) 2.5 mg PO BID [facility] Last Admin: 12/24/22 09:10 Dose: 2.5 mg Documented By: AYLA Atorvastatin Calcium (Atorvastatin Calcium 80 Mg Tablet) 80 mg PO DAILY [facility] Last Admin: 12/26/22 10:18 Dose: Not Given Documented By: GOLDY Non-Admin Reason: Patient Refused Benzonatate (Benzonatate 100 Mg Capsule) 100 mg PO TID PRN PRN Reason: Cough Docusate Sodium (Docusate Sodium 100 Mg Capsule) 100 mg PO DAILY PRN PRN Reason: Constipation Fluoxetine HCl (Fluoxetine Hcl 20 Mg Capsule) 40 mg PO DAILY [facility] Last Admin: 12/26/22 10:18 Dose: Not Given Documented By: GOLDY Non-Admin Reason: Patient Refused Melatonin (Melatonin 3 Mg Tablet) 6 mg PO BEDTIME PRN PRN Reason: Insomnia Last Admin: 12/19/22 21:54 Dose: 6 mg Documented By: BEL Omeprazole (Omeprazole 20 Mg Capsule.) 20 mg PO DAILY@0630 [facility] Last Admin: 12/26/22 05:30 Dose: 20 mg Documented By: NAVA Ondansetron HCl (Ondansetron Hcl 4 Mg/2 Ml Vial) 4 mg IVPUSH Q8H PRN PRN Reason: Nausea and Vomiting Sodium Chloride (0.9 % Sodium Chloride Flush 3 Ml Syringe) 3 ml IVFLUSH QSHIFT [facility] Last Admin: 12/26/22 10:15 Dose: 3 ml Documented By: GOLDY Trazodone HCl (Trazodone Hcl 50 Mg Tablet) 50 mg PO BEDTIME PRN PRN Reason: Insomnia Last Admin: 12/23/22 20:07 Dose: 50 mg Documented By: LEONARD Labs 12/18/22 08:18 12/24/22 06:31 Assessment and Plan (1) Altered mental status: Status: Acute Plan d10 87yo F with advanced dementia, paroxysmal AF on apixaban, HLD, mood disorder, GERD, nephrolithiasis with history of bilateral nephrostomy tubes presents from home with AMS + lethargy admitted for encephalopathy due to sepsis from UTI acute encephalopathy due to sepsis/UTI - E coli, li-sensitive, completed antibiotics: cefepime 12/17-12/22 then ceftriaxone 12/22-12/23 then cefuroxime 12/23-12/25 - Neuro consulted, MRI for definitive diagnosis of dementia etiology but pt unable to stay still for study hematuria - hold apixaban, monitor hyperNa, hypovolemic GINA, prerenal - resolved after fluid hydration, recheck BMP pending paroxysmal AF - continue apixaban GERD - PPI HLD - statin mood disorder - fluoxetine, trazodone distal L 2nd MCP fracture - splinted, Ortho consulted, outpt f/u VTE ppx - SCDs dispo - TBD In my clinical judgment, the patient requires continued inpatient hospitalization for the following reasons: encephalopathy, active Elder Protective Services case- refer to Case Management notes- Risk Mgmt involved at this point Transfer to /S, no tele needed Time Spent With Patient Time: Total time managing care of this patient today __35__ minutes. Quality Stroke Does the patient have a stroke diagnosis?: No VTE Prior VTE?: No VTE Risk Level:: Medical - moderate - high VTE Device Contraindication: Treatment Not Indicated VTE Drug Contraindication: N/A - Med Ordered
[2022-12-26 11:57] VITALS: BP 114/59; PULSE 93; RESP 16; TEMP 36.4
[2022-12-26 15:38] VITALS: BP 117/75; PULSE 92; RESP 20; TEMP 36.3; O2SAT 97
[2022-12-26 16:14] VITALS: BP 132/74; PULSE 90; RESP 20; TEMP 37; O2SAT 99
[2022-12-26 19:57] VITALS: BP 120/71; PULSE 95; RESP 17; TEMP 36.1; O2SAT 97
[2022-12-27] VITALS (7 sets, daily range): BP systolic 109–153; BP diastolic 72–81; PULSE 70–97; RESP 14–20; TEMP 36.2–36.6; O2SAT 95–99
[2022-12-27] MEDS: 0.9 % Sodium Chloride Flush 3 ML SYRINGE IVFLUSH ×2 (08:52→21:52)
--- NOTE | 2022-12-27 08:59 | P.PNIM_ITS ---
Subjective Subjective Date of Service: 12/27/22 Interval History: awake but non-verbal Review of Systems Review of Systems: Yes Unobtainable due to mental status Physical Exam 2 Vital Signs: Vital Signs: Last Vital Signs Temp 97.8 F 12/27/22 07:35 Pulse 88 12/27/22 07:35 Resp 20 12/27/22 07:35 BP 147/76 H 12/27/22 07:35 Pulse Ox 99 12/27/22 07:35 O2 Del Method Room Air 12/27/22 07:35 FiO2 94 12/23/22 03:34 BMI result Body Mass Index 27.8 Gen: in no acute distress but non-verbal HEENT: sclera anicteric, moist mucus membranes Neck: supple Lungs: clear to auscultation bilaterally Heart: regular rate and rhythm, no murmurs Abd: soft, non-tender, non-distended Ext: no edema, L wrist in splint Skin: warm/well-perfused Neuro: alert, non-verbal, moving all extremities Psych: impaired insight Objective Data Active Medications Apixaban (Apixaban 2.5 Mg Tablet) 2.5 mg PO BID [facility] Last Admin: 12/24/22 09:10 Dose: 2.5 mg Documented By: AYLA Atorvastatin Calcium (Atorvastatin Calcium 80 Mg Tablet) 80 mg PO DAILY [facility] Last Admin: 12/26/22 10:18 Dose: Not Given Documented By: GOLDY Non-Admin Reason: Patient Refused Benzonatate (Benzonatate 100 Mg Capsule) 100 mg PO TID PRN PRN Reason: Cough Docusate Sodium (Docusate Sodium 100 Mg Capsule) 100 mg PO DAILY PRN PRN Reason: Constipation Fluoxetine HCl (Fluoxetine Hcl 20 Mg Capsule) 40 mg PO DAILY [facility] Last Admin: 12/26/22 10:18 Dose: Not Given Documented By: GOLDY Non-Admin Reason: Patient Refused Melatonin (Melatonin 3 Mg Tablet) 6 mg PO BEDTIME PRN PRN Reason: Insomnia Last Admin: 12/19/22 21:54 Dose: 6 mg Documented By: BEL Omeprazole (Omeprazole 20 Mg Capsule.) 20 mg PO DAILY@0630 [facility] Last Admin: 12/27/22 05:26 Dose: Not Given Documented By: JAMIE Non-Admin Reason: unable to crush Ondansetron HCl (Ondansetron Hcl 4 Mg/2 Ml Vial) 4 mg IVPUSH Q8H PRN PRN Reason: Nausea and Vomiting Sodium Chloride (0.9 % Sodium Chloride Flush 3 Ml Syringe) 3 ml IVFLUSH QSHIFT [facility] Last Admin: 12/26/22 20:18 Dose: 3 ml Documented By: JAMIE Trazodone HCl (Trazodone Hcl 50 Mg Tablet) 50 mg PO BEDTIME PRN PRN Reason: Insomnia Last Admin: 12/23/22 20:07 Dose: 50 mg Documented By: LEONARD Labs 12/18/22 08:18 12/24/22 06:31 Assessment and Plan (1) Altered mental status: Status: Acute Plan d11 87yo F with advanced dementia, paroxysmal AF on apixaban, HLD, mood disorder, GERD, nephrolithiasis with history of bilateral nephrostomy tubes presents from home with AMS + lethargy admitted for encephalopathy due to sepsis from UTI acute encephalopathy due to sepsis/UTI - E coli, li-sensitive, completed antibiotics: cefepime 12/17-12/22 then ceftriaxone 12/22-12/23 then cefuroxime 12/23-12/25 - Neuro consulted, MRI for definitive diagnosis of dementia etiology but pt unable to stay still for study hematuria onset 12/25/22 - hold apixaban, continue to monitor hyperNa, hypovolemic GINA, prerenal - resolved after fluid hydration paroxysmal AF - apixaban held due to hematuria GERD - PPI HLD - statin mood disorder - fluoxetine, trazodone distal L 2nd MCP fracture - splinted, Ortho consulted, outpt follow-up VTE ppx - SCDs, apixaban held dispo - TBD In my clinical judgment, the patient requires continued inpatient hospitalization for the following reasons: active Elder Protective Services case- refer to Case Management notes- Risk Mgmt involved at this point Time Spent With Patient Time: Total time managing care of this patient today ___30_ minutes. Quality Stroke Does the patient have a stroke diagnosis?: No VTE Prior VTE?: No VTE Risk Level:: Medical - moderate - high VTE Device Contraindication: Treatment Not Indicated VTE Drug Contraindication: N/A - Med Ordered
[2022-12-28 02:39] VITALS: BP 126/79; PULSE 92; RESP 16; TEMP 36.4; O2SAT 99
[2022-12-28 07:21] VITALS: BP 146/70; PULSE 87; RESP 16; TEMP 36.2; O2SAT 98
[2022-12-28] MEDS: 0.9 % Sodium Chloride Flush 3 ML SYRINGE IVFLUSH ×2 (08:30→16:24)
[2022-12-28] MEDS: FLUoxetine HCl 20 MG CAPSULE 40 MG PO (08:30)
[2022-12-28] MEDS: Atorvastatin Calcium 80 MG TABLET PO (08:30)
--- NOTE | 2022-12-28 09:31 | P.PNIM_ITS ---
Subjective Subjective Date of Service: 12/29/22 Interval History: Unable to obtain medical history, patient is nonverbal, no acute issues overnight tolerating diet. Review of Systems Unable to obtain as above. Physical Exam 2 Vital Signs: Vital Signs: Last Vital Signs Temp 97.1 F 12/28/22 07:21 Pulse 87 12/28/22 07:21 Resp 16 12/28/22 07:21 BP 146/70 H 12/28/22 07:21 Pulse Ox 98 12/28/22 07:21 O2 Del Method Room Air 12/28/22 07:21 FiO2 94 12/23/22 03:34 BMI result Body Mass Index 27.8 Const: Other: Gen: Resting comfortably, in no acute distress, non-verbal HEENT: sclera anicteric, moist mucus membranes Neck: No JVD Lungs: clear to auscultation bilaterally Heart: regular rate and rhythm, no murmurs Abd: soft, non-tender, non-distended Ext: no edema, L wrist in splint Skin: Facial ecchymosis Neuro: alert, non-verbal, moving all extremities Psych: impaired insight Objective Data Active Medications Apixaban (Apixaban 2.5 Mg Tablet) 2.5 mg PO BID [facility] Last Admin: 12/24/22 09:10 Dose: 2.5 mg Documented By: AYLA Atorvastatin Calcium (Atorvastatin Calcium 80 Mg Tablet) 80 mg PO DAILY [facility] Last Admin: 12/28/22 08:30 Dose: 80 mg Documented By: ALE Benzonatate (Benzonatate 100 Mg Capsule) 100 mg PO TID PRN PRN Reason: Cough Docusate Sodium (Docusate Sodium 100 Mg Capsule) 100 mg PO DAILY PRN PRN Reason: Constipation Fluoxetine HCl (Fluoxetine Hcl 20 Mg Capsule) 40 mg PO DAILY [facility] Last Admin: 12/28/22 08:30 Dose: 40 mg Documented By: ALE Melatonin (Melatonin 3 Mg Tablet) 6 mg PO BEDTIME PRN PRN Reason: Insomnia Last Admin: 12/19/22 21:54 Dose: 6 mg Documented By: BEL Omeprazole (Omeprazole 20 Mg Capsule.) 20 mg PO DAILY@0630 [facility] Last Admin: 12/28/22 06:26 Dose: Not Given Documented By: SENG Non-Admin Reason: pt refusing covering mouth Ondansetron HCl (Ondansetron Hcl 4 Mg/2 Ml Vial) 4 mg IVPUSH Q8H PRN PRN Reason: Nausea and Vomiting Sodium Chloride (0.9 % Sodium Chloride Flush 3 Ml Syringe) 3 ml IVFLUSH QSHIFT [facility] Last Admin: 12/28/22 08:30 Dose: 3 ml Documented By: ALE Trazodone HCl (Trazodone Hcl 50 Mg Tablet) 50 mg PO BEDTIME PRN PRN Reason: Insomnia Last Admin: 12/23/22 20:07 Dose: 50 mg Documented By: LEONARD Labs 12/18/22 08:18 12/24/22 06:31 Assessment and Plan (1) Altered mental status: Status: Acute Plan 87yo F with advanced dementia, paroxysmal AF on apixaban, HLD, mood disorder, GERD, nephrolithiasis with history of bilateral nephrostomy tubes presents from home with AMS + lethargy admitted for encephalopathy due to sepsis from UTI acute encephalopathy due to sepsis/UTI - acute encephalopathy resolved spoke with daughter she feels patient is at her baseline, she communicates with daughter in couple words go to day program - E coli, li-sensitive, completed antibiotics: cefepime 12/17-12/22 then ceftriaxone 12/22-12/23 then cefuroxime 12/23-12/25 - Neuro consulted, MRI for definitive diagnosis of dementia etiology ordered but patient unable to stay still for study therefore will cancel MRI. hematuria onset 12/25/22 - apixaban on hold, no recurrent hematuria will follow next 24 hours and will discuss with family regarding continued use of apixaban hyperNa, hypovolemic GINA, prerenal - resolved after fluid hydration paroxysmal AF - now in normal sinus rhythm, apixaban held due to hematuria, not on rate control medication GERD - PPI HLD - statin mood disorder - fluoxetine, trazodone distal L 2nd MCP fracture - splinted, Ortho consulted, outpt follow-up VTE ppx - SCDs, apixaban held dispo - PT recommend long-term care versus 24/ 7 care at home In my clinical judgment, the patient requires continued inpatient hospitalization for the following reasons: active Elder Protective Services case- refer to Case Management notes- Risk Mgmt involved at this point Time Spent With Patient Time: Total time managing care of this patient today ____ minutes. Quality Stroke Does the patient have a stroke diagnosis?: No VTE Prior VTE?: No VTE Risk Level:: Medical - moderate - high VTE Device Contraindication: Treatment Not Indicated VTE Drug Contraindication: N/A - Med Ordered
--- NOTE | 2022-12-28 11:17 | MHC.SL.SWA ---
Speech Pathologist Impression: Risk of aspiration Risk of Aspiration Due to: Lethargy Neurological Condition Reduced Cognition Dysphasia Diet Status: Continue to recommend Puree Solids (NDD1) and Thin Liquids. Meds Crushed w/ Puree. Pt requires total 1:1 assistance feeding and strict aspiration precautions. Pt must be awake and alert for presentation of PO, minimize distractions during meal time. Liquid Consistency and Strategies for Safe Swallow: Liquid Intake Recommendation: Thin Liquid Intake Strategies: Small Sips No Straws Solid Food Consistency: Dietary Recommendations: Pureed (NDD1) Oral Medication Intake: Crushed with Puree Please contact the pharmacy regarding appropriate crushable or liquid drug formulations that are available whenever modified delivery is recommended. Compensatory Strategies and Precautions to be Taken for Safe Swallow: Sitting Upright (90 deg) No Straw Small Bites and Sips Alternate Liquids/Solids Rate of Ingestion Change Oral Check Avoid Specific Foods Supervision While Eating and Drinking for Safe Swallow: Total Assistance (1:1) Foods to Avoid: Mixed textures Swallowing Recommended Treatments: Compens. Strategy Educat. Recommendation for Speech: Inpatient Speech Therapy Frequency/Duration: PRN M-F Date Range for Service Req: Timeline to reassess: Interior Design Consultant Clinican/Clinical Fellow: No Supervisory Statement: I have reviewed and agree with the student/clinical fellow's documentation: N/A Speech Language Pathologist: Sosa Wei M.A., CCC-TACTICAL DEBRIEFER
--- NOTE | 2022-12-28 15:07 | MHC.CM.PN ---
per rounds pt not ready for dc risk is involved
[2022-12-28 15:23] VITALS: BP 145/77; PULSE 95; RESP 16; TEMP 36.1; O2SAT 94
[2022-12-28 19:41] VITALS: BP 118/79; PULSE 94; RESP 18; TEMP 36.3; O2SAT 96
[2022-12-29] MEDS: 0.9 % Sodium Chloride Flush 3 ML SYRINGE IVFLUSH ×2 (00:35→08:24)
[2022-12-29 03:36] VITALS: BP 114/75; PULSE 87; RESP 18; TEMP 36.3; O2SAT 98
[2022-12-29 07:33] VITALS: BP 120/71; PULSE 75; RESP 18; TEMP 36; O2SAT 100
[2022-12-29] MEDS: FLUoxetine HCl 20 MG CAPSULE 40 MG PO (08:24)
[2022-12-29] MEDS: Atorvastatin Calcium 80 MG TABLET PO (08:24)
--- NOTE | 2022-12-29 09:44 | PC.NURSE ---
IV and due to be removed, Spoke with MD Dr Allan regarding a new IV access, per MD Pt does not require IV access at this time, IV removed no issues, no new access attempted.
--- NOTE | 2022-12-29 10:31 | MHC.SPEECHCO ---
Pt signaled decline of PO items offered by swating away with her right arm. Left arm is in a brace. She has a fidget toy beside her, but does not engage when models provided. No verbal responses to questioning this morning. Pt has had minimal PO intake in recent days. INDUSTRIAL TRUCK DRIVER will continue to follow.
[2022-12-29 11:45] VITALS: BP 122/81; PULSE 69; RESP 16; TEMP 35.8; O2SAT 98
[2022-12-29 15:11] VITALS: BP 125/72; PULSE 76; RESP 18; TEMP 36.3; O2SAT 98
--- NOTE | 2022-12-29 16:23 | HO.PM.IMPN ---
Subjective Subjective Date of Service: 12/29/22 Interval History: Resting comfortably, no acute events overnight ,vitals remains stable, tolerating diet. Review of Systems Unable to obtain according to mental status Physical Exam Vital Signs: Vital Signs: Last Vital Signs Temp 97.3 F 12/29/22 15:11 Pulse 76 12/29/22 15:11 Resp 18 12/29/22 15:11 BP 125/72 12/29/22 15:11 Pulse Ox 98 12/29/22 15:11 O2 Del Method Room Air 12/29/22 15:11 FiO2 94 12/23/22 03:34 BMI result Body Mass Index 27.8 Const: Other: Gen: Resting comf ortably, in no acu te distress, non-v erbal HEENT: scler a anicteric, moist mucus membranes N priyanka: No JVD Lungs : clear to auscult ation bilaterally Heart: regular rat e and rhythm, no m urmurs Abd: soft, non-tender, non-di stended Ext: no ed cameron, L wrist in sp lint Skin: Facial ecchymosis Neuro: alert, non-verbal , moving all extre mities Psych: impa ired insight Objective Data Active Medications Apixaban (Apixaban 2.5 Mg Tablet) 2.5 mg PO BID [facility] Last Admin: 12/24/22 09:10 Dose: 2.5 mg Documented By: AYLA Atorvastatin Calcium (Atorvastatin Calcium 80 Mg Tablet) 80 mg PO DAILY [facility] Last Admin: 12/29/22 08:24 Dose: 80 mg Documented By: ALE Benzonatate (Benzonatate 100 Mg Capsule) 100 mg PO TID PRN PRN Reason: Cough Docusate Sodium (Docusate Sodium 100 Mg Capsule) 100 mg PO DAILY PRN PRN Reason: Constipation Fluoxetine HCl (Fluoxetine Hcl 20 Mg Capsule) 40 mg PO DAILY [facility] Last Admin: 12/29/22 08:24 Dose: 40 mg Documented By: ALE Melatonin (Melatonin 3 Mg Tablet) 6 mg PO BEDTIME PRN PRN Reason: Insomnia Last Admin: 12/19/22 21:54 Dose: 6 mg Documented By: BEL Omeprazole (Omeprazole 20 Mg Capsule.) 20 mg PO DAILY@0630 [facility] Last Admin: 12/29/22 06:18 Dose: Not Given Documented By: NAT Non-Admin Reason: Patient Refused Ondansetron HCl (Ondansetron Hcl 4 Mg/2 Ml Vial) 4 mg IVPUSH Q8H PRN PRN Reason: Nausea and Vomiting Sodium Chloride (0.9 % Sodium Chloride Flush 3 Ml Syringe) 3 ml IVFLUSH QSHIFT YEHUDA Last Admin: 12/29/22 13:47 Dose: Not Given Documented By: ALE Non-Admin Reason: No Access Trazodone HCl (Trazodone Hcl 50 Mg Tablet) 50 mg PO BEDTIME PRN PRN Reason: Insomnia Last Admin: 12/23/22 20:07 Dose: 50 mg Documented By: LEONARD Labs 12/18/22 08:18 12/24/22 06:31 Assessment and Plan (1) Altered mental status: Status: Acute Plan 87yo F with advanced dementia, paroxysmal AF on apixaban, HLD, mood disorder, GERD, nephrolithiasis with history of bilateral nephrostomy tubes presents from home with AMS + lethargy admitted for encephalopathy due to sepsis from UTI acute encephalopathy due to sepsis/UTI. - acute encephalopathy resolved spoke with daughter she feels patient is at her baseline, she communicates with daughter in couple words, go to day program - E coli, li-sensitive, completed antibiotics: cefepime 12/17-12/22 then ceftriaxone 12/22-12/23 then cefuroxime 12/23-12/25 - Neuro consulted, and they felt patient probably has moderate to severe multifactorial, degenerative/vascular dementia MRI was rec for definitive diagnosis of dementia but patient unable to stay still for study therefore mri cancelled. hematuria onset 12/25/22 is spoke with daughter patient has no history of recurrent fall, hematuria resolved therefore will resume apixaban recommend to follow up with Cardiology hyperNa, hypovolemic GINA, prerenal - resolved after fluid hydration, Lasix and Aldactone on hold, will resume low-dose Aldactone upon discharge. paroxysmal AF- now in normal sinus rhythm, apixaban held due to hematuria, not on rate control medication GERD - PPI HLD - statin mood disorder - continue fluoxetine, trazodone distal L 2nd MCP fracture - splinted, Ortho consulted, outpt follow-up, informed daughter to call or toe for follow-up in next 1-2 weeks VTE ppx - SCDs, apixaban held dispo - PT recommend long-term care versus 24/ 7 care at home, daughter wishes to take her home once cleared by risk management In my clinical judgment, the patient requires continued inpatient hospitalization for the following reasons: active Elder Protective Services case- refer to Case Management notes- Risk Mgmt involved at this point Called daughter and updated her about patient's clinical condition daughter wishes to take her home, will discuss with disability case manager regarding discharge plan. Time Spent With Patient Time: Total time managing care of this patient today ____ minutes. Quality Stroke Does the patient have a stroke diagnosis?: No VTE Prior VTE?: No VTE Risk Level:: Medical - moderate - high VTE Device Contraindication: Treatment Not Indicated VTE Drug Contraindication: N/A - Med Ordered
[2022-12-29 19:20] VITALS: BP 105/64; PULSE 87; RESP 18; TEMP 36.8; O2SAT 99
[2022-12-29 23:45] VITALS: BP 125/80; PULSE 75; RESP 18; TEMP 36.2; O2SAT 99
[2022-12-30 03:54] VITALS: BP 136/68; PULSE 51; RESP 17; TEMP 36.1; O2SAT 96
[2022-12-30] MEDS: Omeprazole 20 MG CAPSULE.DR PO (06:38)
[2022-12-30 07:22] VITALS: BP 131/88; PULSE 77; RESP 12; TEMP 37.1; O2SAT 99
[2022-12-30] MEDS: Atorvastatin Calcium 80 MG TABLET PO (08:59)
[2022-12-30] MEDS: FLUoxetine HCl 20 MG CAPSULE 40 MG PO (08:59)
--- NOTE | 2022-12-30 10:52 | MHC.CM.PN ---
per risk pt can be dcd home if ok with [facility] ..spoke with rahel at [facility] who says pt can go and she will be followed in the community pt also [facility] ,she is in adult family care program t/ worker notified gss/protective worker charlie at [phone] ext [phone] by telephone message that pt is being dcd today vance beyer pick up attendant pt at 4
[2022-12-30 11:24] VITALS: PULSE 76; RESP 16; TEMP 36.1; O2SAT 99
--- NOTE | 2022-12-30 12:04 | PM.DS ---
DS: Providers Provider Date of Service: 12/30/22 Date of admission: 12/17/22 17:41 Primary care physician: Meenu Mcgarry Consults: 12/19/22 15:51 Consult to Orthopedics Routine Consulting Provider: [facility] Reason for consultation: distal 2 nd metacarpal fracture Has provider been notified: No 12/22/22 14:14 Consult to Neurology Routine Consulting Provider: [facility] Reason for consultation: encephalopathy unclear etiology Has provider been notified: No DS: Diagnosis Discharge Diagnosis (1) Altered mental status: Status: Acute DS: Summary Hospital Course Hospital Course: History of presenting illness: Date of Service: 12/17/22 Attending physician on admission: Osiel Ramirez Chief Complaint: AMS, lethargy Pt is a 87-year-old female with a PMH significant for?advanced dementia, paroxysmal AFib on Eliquis, HLD, mood disorder, GERD, and nephrolithiasis s/p bilateral renal nephrostomy tubes who presents to the ED from home with altered mental status and lethargy. Patient is arousable but altered and incapable of providing HPI instead obtained from provider and chart review supplemented by family. Patient was brought in by EMS who found her in a hospital bed in the basement of her daughter's house with ?feces everywhere? according to EMS. Daughter reports she found her mother lethargic and minimally responsive this morning. States she has long history of UTIs often presents similarly when she has a UTI. Denies patient complained of any other symptoms. No chest pain, SOB, abdominal pain. Had not experienced any nausea or vomiting or diarrhea. Of note, patient with significant ecchymosis around face and eyes and with notable right forehead contusion the patient's daughter states she suffered after a fall from her wheelchair 10 days ago. Patient is non ambulatory and wheelchair-bound. Apparently patient was outside sitting in her wheelchair when she leaned forward to grab something and fell forward on the pavement when one of the wheels became stuck. Patient was evaluated at [facility] and cleared for any acute intracranial fracture or hemorrhage. In the ED patient was febrile up to 101.5, tachycardic up to 126, tachypneic up to 28, hypertensive up to 149/88, satting at 93% on RA. Labs were significant for stable microcytic anemia of 10.3/36.6, sodium 148, BUN 86 with creatinine 1.37. UA positive for UTI. CXR showed no acute abnormality of the chest. CT?of face and head showed right frontal soft tissue swelling/hematoma but no underlying depressed calvarial fracture, and no acute displaced facial bone fracture. Also found no acute intracranial hemorrhage but numerous areas of chronic infarction. EKG demonstrated sinus tachycardia with intraventricular conduction delay with ST depressions and T-wave inversions in lateral leads. Pt was treated with acetaminophen, IVF, and cefepime. Pt will be admitted to the hospital for treatment of acute toxic metabolic encephalopathy in the setting of UTI. She Hospital course: 87yo F with advanced dementia, paroxysmal AF on apixaban, HLD, mood disorder, GERD, nephrolithiasis with history of bilateral nephrostomy tubes,presents from home with AMS + lethargy admitted for encephalopathy due to sepsis from UTI acute toxic metabolic encephalopathy due to sepsis/UTI, urine culture grew E colii, li-sensitive, completed antibiotics: cefepime 12/17-12/22 then ceftriaxone 12/22-12/23 then cefuroxime 12/23-12/25, Neuro consulted, and they felt patient probably has moderate to severe multifactorial, degenerative/vascular dementia MRI was rec for definitive diagnosis of dementia but patient unable to stay still for study therefore mri cancelled,acute encephalopathy resolved spoke with daughter she feels patient is at her baseline hematuria noted on 12/25/22 spoke with daughter patient has no history of recurrent fall, hematuria resolved therefore will resume apixaban recommend to follow up with Cardiology. hyperNa, hypovolemic GINA, prerenal - resolved after fluid hydration, Lasix and Aldactone were held, will resume low-dose Aldactone. paroxysmal AF- now in normal sinus rhythm, continue apixaban, not on rate control medication In regard to GERD, hyperlipidemia and mood disorder recommend to continue all home medications. Distal L 2nd MCP fracture - splinted, Ortho consulted, they recommend outpt follow-up, informed daughter to call orthopedic surgeon, follow-up in next 1-2 weeks. Time Attestation Discharge coordination time: Greater than 30 minutes Quality: Safe Use of Opioids Does Pt have an Active Cancer Diagnosis on the Problem List?: No Quality: Stroke Does the patient have a stroke diagnosis?: No Physical Exam Vital Signs: Vital Signs: Last Vital Signs Temp 97.0 F 12/30/22 11:24 Pulse 76 12/30/22 11:24 Resp 16 12/30/22 11:24 BP 131/88 12/30/22 07:22 Pulse Ox 99 12/30/22 11:24 O2 Del Method Room Air 12/30/22 07:22 FiO2 94 12/23/22 03:34 BMI result Body Mass Index 27.8 Const: Other: Gen: Resting comfortably, in no acute distress, non-verbal. HEENT: sclera anicteric, moist mucus membranes. Neck: No JVD. Lungs: clear to auscultation bilaterally Heart: regular rate and rhythm, no murmurs Abd: soft, non-tender, non-distended Ext: no edema, L wrist in splint Skin: Facial ecchymosis fading. Neuro: alert, non-verbal, moving all extremities. Psych: impaired insight. DS: Data Data Completed and Pending Completed studies during hospitalization [Text1]: Procedures Transfusion of Nonautologous Red Blood Cells into Peripheral Vein, Percutaneous Approach (01/05/20) Discharge Plan Discharge Anticipated Discharge Date/Time: 12/30/22 11:37 Patient Disposition: Home, Self-Care Discharge Diagnosis: Acute toxic metabolic encephalopathy Acute UTI Acute kidney injury Referrals: Meenu Mcgarry [Other] - 1 Week [facility]/protective,af foster care program [Other] - 1 Week Discharge Medications: New acetaminophen 500 mg capsule 500 mg PO Q6H PRN (Reason: pain (scale score 1-3)) Qty: 60 0RF Continued atorvastatin 80 mg tablet 1 tab PO DAILY trazodone 50 mg tablet 1 tab PO BEDTIME PRN (Reason: Insomnia) spironolactone 25 mg tablet 0.5 tab PO DAILY Hold Instructions: Resume on 01/18/20. omeprazole 20 mg capsule,delayed release(DR/EC) 1 cap PO DAILY fluoxetine 20 mg capsule 2 cap PO DAILY nystatin 100,000 unit/gram powder 1 appl topical DAILY Eliquis 2.5 mg tablet 2.5 mg PO BID Discontinued furosemide 20 mg tablet 0.5 tab PO Q48H Discharge Orders: Discharge Order (Routine); Ordered 12/30/22 Ordered By: Jacobo Allan Diet: Advance to usual diet Activity on Discharge: As tolerated Stand Alone Forms: Patient Portal Discharge page Care Plan Goals: UTI finished treatment with antibiotic Acute kidney injury resolved discontinue Lasix Left hand 2nd metacarpal distal fracture, continue splint, no lifting, no pushing pulling left hand outpatient follow-up with Orthopedic Give Tylenol 1 tablet twice daily for 1-2 weeks for left hand pain Health Concerns: Continue all home medications as before Plan of Treatment: Outpatient follow-up with orthopedic surgeon call for appointment in next 1-2 weeks Assessment: As above
--- NOTE | 2022-12-30 12:34 | MHC.SL.SWA ---
Risk of Aspiration Due to: Lethargy Neurological Condition Reduced Cognition Dysphasia Diet Status: No change Liquid Consistency and Strategies for Safe Swallow: Liquid Intake Recommendation: Thin Liquid Intake Strategies: Small Sips Solid Food Consistency: Dietary Recommendations: Pureed (NDD1) Oral Medication Intake: Crushed with Puree Please contact the pharmacy regarding appropriate crushable or liquid drug formulations that are available whenever modified delivery is recommended. Compensatory Strategies and Precautions to be Taken for Safe Swallow: Sitting Upright (90 deg) Small Bites and Sips Alternate Liquids/Solids Rate of Ingestion Change Oral Check Avoid Specific Foods Supervision While Eating and Drinking for Safe Swallow: Total Assistance (1:1) Foods to Avoid: Mixed textures Swallowing Recommended Treatments: Compens. Strategy Educat. Recommendation for Speech: Inpatient Speech Therapy Continued dysphagia tx at next level of care Comment: Patient evaluated by SLEEP MANAGER on 12/18; recommended puree solids (NDD1), thin liquids, and pills crushed in puree. Patient spit out ground solid consistency during initial evaluation. Pt has accepted minimal trials of these consistencies w/ SLEEP MANAGER since initial evaluation. Pt has refused more advanced solids. Recommend patient receive speech therapy for dysphagia at next level of care. Patient would benefit from nutrition consult/supplements to assure adequate nutrition. Frequency/Duration: PRN M-F Camp Attendant Clinican/Clinical Fellow: No Supervisory Statement: I have reviewed and agree with the student/clinical fellow's documentation: N/A Speech Language Pathologist: Adele Reeves M.A., [facility]-SLEEP MANAGER
== END 2022-12-30 17:50 | disposition home or self-care (01) | DRG 871 ==
LOC: HO.ED 15:37 → HO.EDOVER 18:02 → HO.IMC 18:46 → HO.S3 12-26 15:12
PROVIDERS: Family Medicine; Internal Medicine; Admitting Provider Student in an Organized Health Care Education/Training Program; Emergency Provider Student in an Organized Health Care Education/Training Program; PCP Student in an Organized Health Care Education/Training Program; Visit Provider Hospitalist
DX: A41.9 Sepsis, unspecified organism (principal); G92.8 Other toxic encephalopathy; N39.0 Urinary tract infection, site not specified; N17.9 Acute kidney failure, unspecified; E87.0 Hyperosmolality and hypernatremia; R47.01 Aphasia; T76.01XA Adult neglect or abandonment, suspected, initial encounter; S62.391A Other fracture of second metacarpal bone, left hand, initial encounter for closed fracture; W19.XXXA Unspecified fall, initial encounter; F39 Unspecified mood [affective] disorder; B96.20 Unspecified Escherichia coli [E. coli] as the cause of diseases classified elsewhere; F01.C0 Vascular dementia, severe, without behavioral disturbance, psychotic disturbance, mood disturbance, and anxiety; E86.1 Hypovolemia; R31.9 Hematuria, unspecified; Z68.27 Body mass index [BMI] 27.0-27.9, adult; E78.5 Hyperlipidemia, unspecified; K21.9 Gastro-esophageal reflux disease without esophagitis; I48.0 Paroxysmal atrial fibrillation; E86.0 Dehydration; Z79.01 Long term (current) use of anticoagulants; Z79.899 Other long term (current) drug therapy
CPT/HCPCS: 36415; 70450; 70486; 71045; 73110; 73130; 80048; 80053; 81001; 81003; 83036; 83605; 84295; 85025; 85027; 85610; 87040; 87086; 87088; 87186; 92526; 92610; 93005; 97162; 99285; C1758; J0692; J0696

== ENCOUNTER → 2022-12-17 17:41 | Outpatient (BNV) | payer MEDICARE, MEDICAID, SELFPAY | PROVIDERS: Admitting Provider Student in an Organized Health Care Education/Training Program; Emergency Provider Student in an Organized Health Care Education/Training Program; Visit Provider Physician Assistant | DX: S62.301A Unspecified fracture of second metacarpal bone, left hand, initial encounter for closed fracture (principal); A41.9 Sepsis, unspecified organism | CPT/HCPCS: 99231; 99499 ==

== ENCOUNTER → 2022-12-17 17:41 | Outpatient (BNV) | payer MEDICARE, MEDICAID, SELFPAY | PROVIDERS: Admitting Provider Student in an Organized Health Care Education/Training Program; Emergency Provider Student in an Organized Health Care Education/Training Program; Visit Provider Student in an Organized Health Care Education/Training Program | DX: R41.82 Altered mental status, unspecified (principal) | CPT/HCPCS: 99223; 99231; 99232; 99233; 99239 ==

== ENCOUNTER 2024-09-02 14:51 | Inpatient (IN) | payer MEDICARE, MEDICAID, SELFPAY ==
[2024-09-02 15:01] VITALS: BP 105/71; PULSE 103; RESP 18; O2SAT 94; BMI 26.6
--- NOTE | 2024-09-02 15:03 | ECG_ITS ---
Test Reason : UTI Blood Pressure : */* mmHG Vent. Rate : 103 BPM Atrial Rate : 103 BPM P-R Int : 126 ms QRS Dur : 98 ms QT Int : 360 ms P-R-T Axes : 52 -1 83 degrees QTcB Int : 471 ms Sinus tachycardia Left ventricular hypertrophy with repolarization abnormality ( R in aVL , [place] product ) Abnormal ECG When compared with ECG of 17-Dec-2022 14:22, No significant change was found Referred By: Nanda Kaur Electronically Signed By: TERRANCE QUINTANA MD
--- NOTE | 2024-09-02 15:03 | ED.GENADULT ---
HPI - General Adult General Chief complaint: Altered Mental Status Stated complaint: quest uti Time Seen by Provider: 09/02/24 15:55 Source: family, RN notes reviewed and old records reviewed Mode of arrival: wheelchair Limitations: altered mental status History of Present Illness ED Provider: Lawson HPI narrative: Patient is an 88-year-old female with history of vascular dementia, anemia, aphasia, GERD, HTN, HLD, AFib on Eliquis presenting to the emergency department with daughter who reports that earlier in the week patient had nausea and vomiting, no diarrhea after her electronic device monitor was sick with similar symptoms. After that patient was not drinking enough fluids, more lethargic than baseline, darker urine. Daughter reports frequent UTIs and history of Klebsiella infection. Sees a urologist to replaces her ureteral stents every 3 months. Daughter had labs done and UA at [facility] today but brought patient here as it is closer to their home. Patient unable to report complaints but does grimace slightly with palpation of suprapubic area. MD complaint: lethargy Onset (ago): day(s) Related Data Home Medications ?Medication ?Instructions ?Recorded ?Confirmed atorvastatin 80 mg tablet 1 tab PO DAILY 01/05/20 12/17/22 fluoxetine 20 mg capsule 2 cap PO DAILY 01/05/20 12/17/22 omeprazole 20 mg capsule,delayed 1 cap PO DAILY 01/05/20 12/17/22 release spironolactone 25 mg tablet 0.5 tab PO DAILY 01/05/20 12/17/22 trazodone 50 mg tablet 1 tab PO BEDTIME PRN Insomnia 01/05/20 12/17/22 apixaban 2.5 mg tablet (Eliquis) 2.5 mg PO BID 12/17/22 12/17/22 nystatin 100,000 unit/gram topical 1 appl topical DAILY N 12/17/22 12/17/22 powder Previous Rx's ?Medication ?Instructions ?Recorded acetaminophen 500 mg capsule 500 mg PO Q6H PRN pain (scale 12/30/22 score 1-3) #60 caps Allergies Allergy/AdvReac Type Severity Reaction Status Date / Time aspirin (From Percodan) AdvReac Rash Verified 09/02/24 15:03 fentanyl AdvReac Rash Verified 09/02/24 15:03 oxycodone (From Percocet) AdvReac Rash Verified 09/02/24 15:03 Review of Systems Review of Systems: As per HPI Yes all other systems are reviewed and are negative Constitutional: Constitutional: Reports as per HPI [facility] Past Medical History Medical History GERD (gastroesophageal reflux disease) Hypertension Hyperlipidemia Anemia Atrial fibrillation Kidney stones Dementia Surgical History Hx of heart artery stent Social History Social History Household Members: Children Housing: House Unable to assess alcohol history related to: Unknown Alcohol intake: never Patient Tobacco Use Status: Tobacco use Unknown Advance Directives: Yes Advance Directives Information Provided: Yes Advance Directives on File: No Advance Directives Date on File: 12/17/22 service: No Current occupational status: retired Physical Exam ED Vital Signs: Vital Signs - 24 hr 09/02/24 15:01 09/02/24 15:54 09/02/24 18:49 Temperature 101.0 F H 97.8 F Pulse Rate 103 H 83 Respiratory Rate 18 13 Blood Pressure 105/71 97/57 L Pulse Oximetry 94 96 Oxygen Delivery Method Room Air Room Air BMI result Body Mass Index 26.6 Vital signs have been reviewed and appear to be correct. Blood pressure normal. Heart rate slightly tachycardic. Respiratory rate normal. Temperature febrile. Oxygen saturation normal. Const General: cooperative and no acute distress Limitations: other limitations (baseline dementia, aphasia) HENNV Head: Yes normocephalic and Yes atraumatic Ears: external ears normal General nose exam: Normal external nose present Face and sinus: Yes face symmetric Mouth: oropharynx normal and moist mucous membranes Throat: Yes uvula midline Eyes Pupils: Equal, round and reactive pupils present Neck Neck: Yes normal visual inspection and Yes supple Resp Effort & Inspection: normal respiratory effort and able to speak in complete sentences Auscultation: clear to auscultation bilaterally Cardio Rate: regular rate Rhythm: regular rhythm Heart sounds: S1 normal heart sound present and S2 normal heart sound present GI Palpation (GI): Soft to palpation, Tenderness to palpation present (GI) suprapubicly, no guarding and No Rebound tenderness present Auscultation: normoactive bowel sounds General: Yes no CVA tenderness Back/Spine/Pelvis Back: no CVA tenderness Skin General skin exam: elasticity normal and turgor normal Neuro General: moves all extremities, no focal motor deficits and CN's II-XI intact bilaterally Cranial nerves: Yes Equal, round and reactive pupils present Extrem General: Yes full ROM, Yes no pedal edema and Yes no calf tenderness Course Course Course Narrative: RME performed by Nanda Kaur PA-C. Patient is an 88 year old assigned female at presenting to the emergency department with lethargy and possible UTI. Detailed physical exam and review of systems are deferred to the candle [facility]. EKG, labs, imaging, and swabs ordered. Patient placed back in the waiting room pending room availability and results. Medications Administered Discontinued Medications Generic Name Dose Route Start Last Admin Trade Name Freq PRN Reason Stop Dose Admin Ceftriaxone Sodium 1 gm 09/02/24 16:04 09/02/24 17:17 Ceftriaxone Sodium 1 Gm Vial IVPUSH 09/02/24 16:05 1 gm ONCE ONE Administration Lactated Ringer's 1,000 mls @ 999 mls/hr 09/02/24 17:45 09/02/24 17:40 Lr IV 09/02/24 18:45 999 mls/hr .Q1H1M YEHUDA Administration Medical Decision Making Medical Decision Making [facility] Narrative: Patient is an 88-year-old female with history of vascular dementia, anemia, aphasia, GERD, HTN, HLD, AFib on Eliquis presenting to the emergency department with daughter who reports that earlier in the week patient had nausea and vomiting, no diarrhea after her electronic device monitor was sick with similar symptoms. On exam patient is awake, A+Ox3, slightly tachycardic, VS otherwise WNL, febrile, normal neurological exam without focal deficits, physical exam findings as above. Given reported symptoms and physical exam findings, initial differential includes but is not limited to UTI/pyelonephritis, sepsis, pneumonia, gastroenteritis, electrolyte abnormality, dehydration. IV antibiotics ordered. Labs notable for no leukocytosis, elevated lactic, slightly elevated troponin. EKG shows sinus tachycardia, no significant change from prior. UA notable for 3+ leukocytes, positive nitrites, 3+ blood, greater than 50 wbc's, 4+ bacteria. IV ceftriaxone ordered. IV Tylenol ordered for fever. Admission to medicine accepted by DONA Vilchis. Differential Diagnosis Differential Diagnoses: The differential diagnosis associated with the presentation includes as per MDM Admission/Observation Consideration of admission/observation: Escalation of care including admission/observation considered Consult Healthcare Provider Management of the patient was discussed with: Hospitalist Lab Data [facility] Lab Attestation statement: I reviewed the patient's lab results. as per [facility] 09/02/24 15:27 09/02/24 15:27 Labs: Lab Results 09/02/24 09/02/24 Range/Units 15:27 17:04 WBC 10.5 (4.8-10.8) X10*3/uL RBC 5.21 D (4.20-5.50) X10*6/uL Hgb 11.0 L D (12.0-16.0) g/dl Hct 37.3 (37.0-47.0) % MCV 71.6 L (80.0-98.0) fL MCH 21.1 L (27.0-33.0) pg MCHC 29.5 L (31.0-35.0) g/dl RDW 22.6 H (11.0-16.0) % Plt Count 171 D (160-400) X10*3/uL MPV 10.4 (9.4-12.3) fL Immature Gran % (Auto) 0.4 (0.0-0.4) % Neut % (Auto) 59.5 (45-73) % Lymph % (Auto) 30.1 (20-40) % [place] % (Auto) 7.9 (2-11) % Eos % (Auto) 1.8 (0-4) % Baso % (Auto) 0.3 (0-2) % Lymph # (Auto) 3.2 (1.2-4.9) X10*3/uL [place] # (Auto) 0.8 (0.1-1.2) X10*3/uL Eos # (Auto) 0.2 (0.0-0.4) X10*3/uL Baso # (Auto) 0.0 (0.0-0.2) X10*3/uL Abs Immat Gran (auto) 0.04 H (0.00-0.03) X10*3/uL Absolute Neuts (auto) 6.3 (2.0-8.3) x10*3/uL Absolute Nucleated RBC 0.000 (0.0-0.012) X10*3/uL Nucleated RBC % (auto) 0.0 (0.0-0.2) /100WBC PT 18.9 H (10.9-12.4) SEC INR 1.6 H (0.9-1.1) Sodium 144 (135-145) mmol/L Potassium 4.4 (3.3-5.1) mmol/L Chloride 113 H (96-108) mmol/L Carbon Dioxide 19 L (22-29) mmol/L Anion Gap 16 (12-20) BUN 64 H (9-16) mg/dL Creatinine 0.72 (0.5-1.4) mg/dL Estim Creat Clear Calc 51.9 Estimated GFR > 60 Random Glucose 163 H (60-115) mg/dL Lactic Acid 2.4 H* (0.5-2.0) mmol/L Calcium 9.4 (8.4-10.2) mg/dL Magnesium 1.9 (1.6-2.6) mg/dL Total Bilirubin 0.5 (0.0-1.0) mg/dL AST 21 (5-31) U/L ALT 15 (0-31) U/L Alkaline Phosphatase 74 (39-117) U/L Troponin I High Sens 19.0 H (<3.5-17.0) ng/L Total Protein 7.0 (6.5-8.0) g/dL Albumin 3.9 (3.5-5.0) g/dL Influenza Type A (PCR) NEGATIVE (Negative) Influenza Type B (PCR) NEGATIVE (Negative) RSV RNA Qual (PCR) NEGATIVE (Negative) SARS-CoV-2 RNA (RT-PCR) NEGATIVE (Negative) Independent Interpretation I performed an independent interpretation of an: EKG (Sinus tachycardia, rate 103 beats per minute, normal MI interval, no significant change from prior) Independent Historian Clinical information obtained from an independent historian. History obtained from or confirmed by: Other (daughter) External Record Review External record reviewed: Inpatient record, Office record and Outpatient record Prescription Management I considered prescription management with: Antibiotic Discharge Plan Discharge Clinical Impression: Sepsis Qualifiers: Sepsis type: sepsis due to unspecified organism Sepsis acute organ dysfunction status: without acute organ dysfunction Qualified Code(s): A41.9 - Sepsis, unspecified organism UTI (urinary tract infection) Qualifiers: Urinary tract infection type: acute cystitis Hematuria presence: with hematuria Qualified Code(s): N30.01 - Acute cystitis with hematuria Patient Disposition: Admitted As Inpatient Print Language: Choose Not To Answer
[2024-09-02 15:33] LABS: MANUAL DIFF FLAG NO
[2024-09-02 15:38] LABS: Hematocrit 37.3 % (37.0-47.0); Hemoglobin 11.0 g/dl (12.0-16.0); Imm Gran Abs Auto 0.04 X10*3/uL (0.00-0.03); Imm Gran Pct Auto 0.4 % (0.0-0.4); Lymphocytes Absolute Auto 3.2 X10*3/uL (1.2-4.9); Mean Corpuscular HGB Conc 29.5 g/dl (31.0-35.0); Mean Corpuscular Hemoglobin 21.1 pg (27.0-33.0); Mean Corpuscular Volume 71.6 fL (80.0-98.0); NRBC Abs Auto 0.000 X10*3/uL (0.0-0.012); NRBC Pct Auto 0.0 /100WBC (0.0-0.2); Platelet Count 171 X10*3/uL (160-400); Red Blood Count 5.21 X10*6/uL (4.20-5.50); White Blood Count 10.5 X10*3/uL (4.8-10.8)
[2024-09-02 15:41] LABS: INTERNATIONAL NORM RATIO 1.6 (0.9-1.1); Prothrombin Time 18.9 SEC (10.9-12.4)
[2024-09-02 15:54] VITALS: TEMP 38.3
[2024-09-02 16:10] LABS: Alanine Aminotransferase 15 U/L (0-31); Albumin Level 3.9 g/dL (3.5-5.0); Alkaline Phosphatase 74 U/L (39-117); Anion Gap 16 (12-20); Aspartate Amino Transferase 21 U/L (5-31); Blood Urea Nitrogen 64 mg/dL (9-16); Calcium 9.4 mg/dL (8.4-10.2); Carbon Dioxide 19 mmol/L (22-29); Chloride 113 mmol/L (96-108); Creatinine Clr Calc Pharmacy 51.9; Estimated Glomerular Filt Rate > 60; Magnesium 1.9 mg/dL (1.6-2.6); Potassium 4.4 mmol/L (3.3-5.1); Sodium 144 mmol/L (135-145); Total Protein 7.0 g/dL (6.5-8.0)
[2024-09-02 16:11] LABS: Resp Syncy Virus RNA Qual PCR NEGATIVE (Negative); SARS COV2 PCR INHOUSE NEGATIVE (Negative)
[2024-09-02 16:17] LABS: Troponin-I High Sensitivity 19.0 ng/L (<3.5-17.0)
[2024-09-02] MEDS: Lactated Ringers 1,000 ML 999 ML IV (17:40)
[2024-09-02 18:49] VITALS: BP 97/57; PULSE 83; RESP 13; TEMP 36.6; O2SAT 96
[2024-09-02 19:07] LABS: Reflex Lactate? Lactic Acid Added
[2024-09-02 19:24] LABS: Troponin-I High Sensitivity 17.0 ng/L (<3.5-17.0)
--- NOTE | 2024-09-02 19:35 | PHA.MEDREC ---
Addendum entered by Clementine Urbina [facility] 09/03/24 08:12: patient also gets all medications crushed. Addendum entered by Clementine Urbina [facility] 09/02/24 19:36: daughter stated she gave her mother night time meds for today prior to arrival as she knew they would be here a while Original Note: Pharmacy Consult ? Medication Reconciliation Pharmacy has completed the medication reconciliation, spoke to patient's daughter at bedside who confirmed all meds with a list from karen's office.
[2024-09-02 19:44] VITALS: TEMP 37.3
[2024-09-02 20:25] LABS: ~Lactic Acid-LAB USE ONLY 3.0 mmol/L (0.5-2.0)
--- NOTE | 2024-09-02 20:25 | PC.NURSE ---
Critical lactic 3.0 taken by this RN, admitting provider made aware at this time
--- NOTE | 2024-09-02 20:41 | PC.NURSE ---
delay in ivf admin d/t iv in L AC and positional, multiple attempts to keep arm straight. attempted to obtain 2nd iv pt is difficult stick and unable to.
[2024-09-02 20:50] LABS: Appearance Urine Turbid; Glucose Urine UA Negative (Negative); PH 5.5 (5.0-9.0); Specific Gravity - Urine 1.015 (1.005-1.025); UMIC TRIGGER UACC YES
[2024-09-02 21:09] LABS: UACC Culture Trigger YES
--- NOTE | 2024-09-02 21:13 | PM.IMHP ---
History of Present Illness Date of Service: 09/02/24 Attending physician on admission: Andrea Pederson Chief Complaint: AMS, fever Patient is an 88-year-old female with a past medical history significant for vascular dementia, HLD, paroxysmal AFib on Eliquis, mood disorder, GERD, chronic ureteral stents changed every 3 months due to nephrolithiasis, last changed 08/09/2024, who presented to the ED due to lethargy, concentrated urine, and decreased p.o. intake. The patient's daughter also notes change in mentation from her baseline dementia. She reports she recently had a GI bug which went around the family which subsequently caused her dehydration and she usually gets UTIs after dehydration. The patient does not contribute to her history, entire history as given by the patient's daughter. Review of Systems Review of Systems: Yes Unobtainable due to mental status [facility] Medical History (Updated 09/02/24 @ 21:29 by Chana Vo PA-C) Ureteral stent present Aphasia Metacarpal bone fracture GERD (gastroesophageal reflux disease) Hypertension Hyperlipidemia Anemia Atrial fibrillation Kidney stones Dementia Surgical History Hx of heart artery stent Social History Household Members: Children Housing: House Unable to assess alcohol history related to: Unknown Alcohol intake: never Patient Tobacco Use Status: Tobacco use Unknown Advance Directives: Yes Advance Directives Information Provided: Yes Advance Directives on File: No Advance Directives Date on File: 12/17/22 service: No Current occupational status: retired Narrative: No smoking, alcohol or drug use Meds Allergies Allergy/AdvReac Type Severity Reaction Status Date / Time aspirin (From Percodan) AdvReac Rash Verified 09/02/24 15:03 fentanyl AdvReac Rash Verified 09/02/24 15:03 oxycodone (From Percocet) AdvReac Rash Verified 09/02/24 15:03 Active Medications: Current Medications Acetaminophen (Acetaminophen 325 Mg Tablet) 975 mg PO Q6H PRN PRN Reason: Pain, Mild 1-3,fever,headache Apixaban (Apixaban 2.5 Mg Tablet) 2.5 mg PO BID YEHUDA Atorvastatin Calcium (Atorvastatin Calcium 80 Mg Tablet) 80 mg PO BEDTIME YEHUDA Calcium Carbonate (Calcium Carbonate 750 Mg Tab.Chew) 750 mg PO Q4H PRN PRN Reason: Heartburn Ceftriaxone Sodium (Ceftriaxone Sodium 2 Gm Vial) 2 gm IVPUSH Q24H ON LICENSE OF [facility] Erythromycin (Erythromycin Base 0.5% Oph Oin 1 Gm Tube) cm EYE-BOTH BEDTIME PRN PRN Reason: itchiness after rubbing eyes Fluoxetine HCl (Fluoxetine Hcl 20 Mg Capsule) 40 mg PO DAILY ON LICENSE OF [facility] Sodium Chloride (Sodium Chloride 0.45 %) 1,000 mls @ 50 mls/hr IVCONT .Q20H ON LICENSE OF [facility] Last Admin: 09/02/24 20:56 Dose: 50 mls/hr Magnesium Hydroxide (Milk Of Magnesia 30 Ml Oral.Susp) 30 ml PO DAILY PRN PRN Reason: Constipation Melatonin (Melatonin 3 Mg Tablet) 6 mg PO BEDTIME PRN PRN Reason: Insomnia Non-Formulary Medication (Zinc Oxide) 1 appl TOPICAL DAILY PRN PRN Reason: buttocks irritation Omeprazole (Omeprazole 20 Mg Capsule.Dr) 20 mg PO DAILY@629 ON LICENSE OF [facility] Ondansetron HCl (Ondansetron Hcl 4 Mg/2 Ml Vial) 4 mg IVPUSH Q8H PRN PRN Reason: Nausea and Vomiting Sodium Chloride (0.9 % Sodium Chloride Flush 3 Ml Syringe) 3 ml IVFLUSH QSHIFT ON LICENSE OF [facility] Tramadol HCl (Tramadol Hcl 50 Mg Tablet) 50 mg PO Q6H PRN PRN Reason: Pain, Moderate(Pain Scale 4-6) Trazodone HCl (Trazodone Hcl 50 Mg Tablet) 50 mg PO BID PRN PRN Reason: Insomnia/agitation Home Medications ?Medication ?Instructions ?Recorded ?Confirmed ?Last Taken ?Type atorvastatin 80 mg tablet 1 tab PO BEDTIME 01/05/20 09/02/24 09/02/24 History fluoxetine 20 mg capsule 2 cap PO DAILY 01/05/20 09/02/24 09/02/24 History omeprazole 20 mg capsule,delayed 20 mg PO DAILY@62901/05/20 09/02/24 09/02/24 History release trazodone 50 mg tablet 1 tab PO BID PRN Insomnia/agitation 01/05/20 09/02/24 Unknown History apixaban 2.5 mg tablet (Eliquis) 2.5 mg PO BID 12/17/22 09/02/24 09/02/24 History nystatin 100,000 unit/gram topical 1 appl topical DAILY PRN irritation 12/17/22 09/02/24 12/17/22 History powder erythromycin 5 mg/gram (0.5 %) eye 1 appl ophthalmic (eye) BEDTIME 09/02/24 09/02/24 Unknown History ointment PRN itchiness after rubbing eyes zinc oxide 40 % topical ointment 1 appl topical DAILY PRN buttocks 09/02/24 09/02/24 Unknown History irritation Physical Exam Vital Signs and Narrative: Vital Signs: Last Vital Signs Temp 97.8 F 09/02/24 18:49 Pulse 83 09/02/24 18:49 Resp 13 09/02/24 18:49 BP 97/57 L 09/02/24 18:49 Pulse Ox 96 09/02/24 18:49 O2 Del Method Room Air 09/02/24 18:49 BMI result Body Mass Index 26.6 General: responsive but somnolent. hard of hearing, better in right ear. no acute distress Resp: CTA bilaterally, limited exam as pt is not responsive to commands CVS: tachycardia, normal rhythm, +murmur GI: +BS, slight grimace with suprapubic palpation, no distention Skin: Warm, dry Neuro: Cranial nerves II-XII grossly intact bilaterally. Motor grossly intact bilaterally Extremities: No LE edema Psych: Somnolent Results Labs 09/02/24 15:27 09/02/24 15:27 Labs: Laboratory Results - last 24 hr 09/02/24 09/02/24 09/02/24 15:27 17:04 18:42 MCV 71.6 L MCH 21.1 L MCHC 29.5 L RDW 22.6 H Plt Count 171 D MPV 10.4 Immature Gran % (Auto) 0.4 Neut % (Auto) 59.5 Lymph % (Auto) 30.1 [place] % (Auto) 7.9 Eos % (Auto) 1.8 Baso % (Auto) 0.3 Lymph # (Auto) 3.2 [place] # (Auto) 0.8 Eos # (Auto) 0.2 Baso # (Auto) 0.0 Abs Immat Gran (auto) 0.04 H Absolute Neuts (auto) 6.3 Absolute Nucleated RBC 0.000 Nucleated RBC % (auto) 0.0 PT 18.9 H INR 1.6 H Anion Gap 16 Estim Creat Clear Calc 51.9 Estimated GFR > 60 Random Glucose 163 H Lactic Acid 2.4 H* Lactic Acid F/U @ 2Hr Calcium 9.4 Magnesium 1.9 Total Bilirubin 0.5 AST 21 ALT 15 Alkaline Phosphatase 74 Troponin I High Sens 19.0 H 17.0 Total Protein 7.0 Albumin 3.9 Urine Color Urine Appearance Urine pH Ur Specific [place] Urine Protein Urine Glucose (UA) Urine Ketones Urine Blood Urine Nitrite Ur Leukocyte Esterase Urine RBC Urine WBC Ur Squamous Epith Cells Urine Bacteria Hyaline Casts Influenza Type A (PCR) NEGATIVE Influenza Type B (PCR) NEGATIVE RSV RNA Qual (PCR) NEGATIVE SARS-CoV-2 RNA (RT-PCR) NEGATIVE 09/02/24 09/02/24 20:00 20:41 MCV MCH MCHC RDW Plt Count MPV Immature Gran % (Auto) Neut % (Auto) Lymph % (Auto) [place] % (Auto) Eos % (Auto) Baso % (Auto) Lymph # (Auto) [place] # (Auto) Eos # (Auto) Baso # (Auto) Abs Immat Gran (auto) Absolute Neuts (auto) Absolute Nucleated RBC Nucleated RBC % (auto) PT INR Anion Gap Estim Creat Clear Calc Estimated GFR Random Glucose Lactic Acid Lactic Acid F/U @ 2Hr 3.0 H* Calcium Magnesium Total Bilirubin AST ALT Alkaline Phosphatase Troponin I High Sens Total Protein Albumin Urine Color Yellow Urine Appearance Turbid Urine pH 5.5 Ur Specific [place] 1.015 Urine Protein 100 (2+) H Urine Glucose (UA) Negative Urine Ketones Negative Urine Blood Large (3+) H Urine Nitrite Positive H Ur Leukocyte Esterase Large (3+) H Urine RBC 0-2 Urine WBC 0-5 Ur Squamous Epith Cells 0-2 Urine Bacteria 1+ Hyaline Casts 0-2 Influenza Type A (PCR) Influenza Type B (PCR) RSV RNA Qual (PCR) SARS-CoV-2 RNA (RT-PCR) Assessment and Plan (1) Acute metabolic encephalopathy: Status: Acute (2) Sepsis: Qualifiers: Sepsis acute organ dysfunction status: without acute organ dysfunction Sepsis type: sepsis due to unspecified organism Qualified Code(s): A41.9 - Sepsis, unspecified organism Status: Acute (3) UTI (urinary tract infection): Qualifiers: Hematuria presence: with hematuria Urinary tract infection type: acute cystitis Qualified Code(s): N30.01 - Acute cystitis with hematuria Status: Acute (4) Ureteral stent present: Status: Acute (5) Hyperchloremic metabolic acidosis: Status: Acute (6) Elevated troponin: Status: Acute (7) Chronic anemia: Status: Acute (8) Lactic acidosis: Status: Acute Plan Patient is an 88-year-old female with a past medical history significant for vascular dementia, HLD, paroxysmal AFib on Eliquis, mood disorder, GERD, chronic ureteral stents changed every 3 months due to nephrolithiasis, last changed 08/09/2024, who presented to the ED due to lethargy, concentrated urine, and decreased p.o. intake. Patient is hard of hearing and currently altered. Patient's daughter reports entire history. She also states that the patient has poor p.o. intake and texture issues with foods but no dysphagia or choking issues, consumes 2 ensures daily. Acute metabolic encephalopathy with sepsis secondary to UTI - WBC 10.5, tachycardic, febrile at 101.0, lactic acid 2.4, 3.0 on repeat, blood cultures x2 pending, not severe sepsis - UA positive, culture pending - patient with chronic bilateral ureteral stents, last changed 08/09/2024, has not had a UTI and months per patient's daughter, followed by Andrei Chung urology - started on ceftriaxone in ED, continue - urology and ID consult - monitor CBC and BMP Hyperchloremic metabolic acidosis - bicarb 19, chloride 113 - received LR in ED - start 1/2NS 50ml/hr - monitor BMP Elevated troponin - troponin 19, 17 on repeat. Likely secondary to dehydration - EKG with sinus tachycardia, nonischemic - no reported chest pain Microcytic anemia - H&H at baseline - no need for blood transfusion at this time - monitor CBC Lactic acidosis -- likely secondary to dehydration. not severe sepsis - lactic acid 2.4, 3.0 on repeat - BUN elevated at 64 - given 1 L LR in the ED, start 1/2 normal saline 50 mL/HR as above - trend lactic acid Vascular dementia/mood disorder - continue fluoxetine, trazodone Paroxysmal AFib - mild tachycardia, no active AFib on EKG - continue Eliquis, already received night dose GERD - continue omeprazole HLD - continue statin Full code VTE prophylaxis: Eliquis Patient with acute metabolic encephalopathy with sepsis secondary to UTI, requiring admission for at least 2 midnight stay for IV fluids, IV antibiotics and monitoring. Quality Stroke Does the patient have a stroke diagnosis?: No VTE Prior VTE?: No VTE Risk Level:: Medical - moderate - high VTE Device Contraindication: Treatment Not Indicated VTE Drug Contraindication: N/A - Med Ordered
[2024-09-02 22:00] VITALS: BP 93/60; PULSE 71; RESP 15; O2SAT 95
[2024-09-02 22:03] LABS: Reflex Lactate? 2 Y
--- NOTE | 2024-09-02 22:08 | PM.EVENT ---
Event Note Date of Service: 09/02/24 Event Note: BP persistently low. was 95/59 when evaluated around 2044, now 93/60 at 2200. was started on 1/2 NS 50ml/hr, will discontinue and switch to LR 50ml/hr. due for repeat lactic acid now. management discussed with Dr Pederson. Time Spent With Patient Time: Total time managing care of this patient today ____ minutes.
--- NOTE | 2024-09-02 22:14 | PC.NURSE ---
carlie CARCAMO made aware of BP, fluids changed.
[2024-09-02] MEDS: Lactated Ringers 1,000 ML 50 ML IVCONT (22:23)
[2024-09-02 22:51] LABS: ~Lactic Acid-LAB USE ONLY 2.4 mmol/L (0.5-2.0)
[2024-09-02 22:58] VITALS: BP 109/65; PULSE 73; RESP 16; O2SAT 96
[2024-09-03 00:28] VITALS: BP 108/64; PULSE 73; RESP 16; O2SAT 95
[2024-09-03 05:51] VITALS: BP 126/71; PULSE 72; RESP 16; TEMP 36.4; O2SAT 98
--- NOTE | 2024-09-03 05:52 | PC.NURSE ---
incontinent of stool and urine, bed linen changed and eboni care given. purewick replaced. vitals obtained. repositioned. call means within reach, resting comfortably.
[2024-09-03 05:59] LABS: MANUAL DIFF FLAG NO
[2024-09-03 06:16] LABS: Anion Gap 14 (12-20); Blood Urea Nitrogen 45 mg/dL (9-16); Calcium 8.9 mg/dL (8.4-10.2); Carbon Dioxide 22 mmol/L (22-29); Chloride 112 mmol/L (96-108); Creatinine Clr Calc Pharmacy 60.3; Estimated Glomerular Filt Rate > 60; Potassium 4.2 mmol/L (3.3-5.1); Sodium 144 mmol/L (135-145)
[2024-09-03 06:42] LABS: Hematocrit 34.8 % (37.0-47.0); Hemoglobin 10.4 g/dl (12.0-16.0); Imm Gran Abs Auto 0.03 X10*3/uL (0.00-0.03); Imm Gran Pct Auto 0.5 % (0.0-0.4); Lymphocytes Absolute Auto 2.7 X10*3/uL (1.2-4.9); Mean Corpuscular HGB Conc 29.9 g/dl (31.0-35.0); Mean Corpuscular Hemoglobin 21.3 pg (27.0-33.0); Mean Corpuscular Volume 71.2 fL (80.0-98.0); NRBC Abs Auto 0.000 X10*3/uL (0.0-0.012); NRBC Pct Auto 0.0 /100WBC (0.0-0.2); Red Blood Count 4.89 X10*6/uL (4.20-5.50); White Blood Count 5.9 X10*3/uL (4.8-10.8)
[2024-09-03 06:52] LABS: Platelet Count 114 X10*3/uL (160-400)
--- NOTE | 2024-09-03 07:09 | PC.NURSE ---
This RN assumed care of patient @ 0700. Patient JON SEALS running @ 50 in Left AC. Patient takes medications crushed. Pure wick on collecting yellow urine. Patient fidgety at times pulling at BP cuff and purewick, redirected easily. VSS and up to date. Patient waiting for a bed at this time
--- NOTE | 2024-09-03 07:57 | HO.PM.IMPN ---
Subjective Subjective Date of Service: 09/03/24 Interval History: f/u on metabolic encephalopathy, UTI not saying d/t dementia Physical Exam Vital Signs: Vital Signs: Last Vital Signs Temp 97.5 F 09/03/24 05:51 Pulse 72 09/03/24 05:51 Resp 16 09/03/24 05:51 BP 126/71 09/03/24 05:51 Pulse Ox 98 09/03/24 05:51 O2 Del Method Room Air 09/03/24 05:51 BMI result Body Mass Index 26.6 Const: Other: General: No distress, non-verbal Resp: CTA bilateral CVS: S1,S2,RRR GI: +BS, NT, no distention Skin: No rash Neuro: motor grossly intact Psych: appropriate affect Objective Data Active Medications Acetaminophen (Acetaminophen 325 Mg Tablet) 975 mg PO Q6H PRN PRN Reason: Pain, Mild 1-3,fever,headache Apixaban (Apixaban 2.5 Mg Tablet) 2.5 mg PO BID YEHUDA Atorvastatin Calcium (Atorvastatin Calcium 80 Mg Tablet) 80 mg PO BEDTIME [facility]HU[facility] Calcium Carbonate (Calcium Carbonate 750 Mg Tab.Chew) 750 mg PO Q4H PRN PRN Reason: Heartburn Ceftriaxone Sodium (Ceftriaxone Sodium 2 Gm Vial) 2 gm IVPUSH Q24H [facility] Erythromycin (Erythromycin Base 0.5% Oph Oin 1 Gm Tube) 1 cm EYE-BOTH BEDTIME PRN PRN Reason: itchiness after rubbing eyes Fluoxetine HCl (Fluoxetine Hcl 20 Mg Capsule) 40 mg PO DAILY [facility] Lactated Ringer's (Lr) 1,000 mls @ 50 mls/hr IVCONT .Q20H [facility] Last Admin: 09/02/24 22:23 Dose: 50 mls/hr Documented By: MANUEL Magnesium Hydroxide (Milk Of Magnesia 30 Ml Oral.Susp) 30 ml PO DAILY PRN PRN Reason: Constipation Melatonin (Melatonin 3 Mg Tablet) 6 mg PO BEDTIME PRN PRN Reason: Insomnia Omeprazole (Omeprazole 20 Mg Capsule.Dr) 20 mg PO DAILY@0630 [facility] Last Admin: 09/03/24 07:08 Dose: 20 mg Documented By: BRENDON Ondansetron HCl (Ondansetron Hcl 4 Mg/2 Ml Vial) 4 mg IVPUSH Q8H PRN PRN Reason: Nausea and Vomiting Sodium Chloride (0.9 % Sodium Chloride Flush 3 Ml Syringe) 3 ml IVFLUSH QSHIFT [facility]HUDA Last Admin: 09/03/24 07:09 Dose: Not Given Documented By: BRENDON Non-Admin Reason: IV Running Tramadol HCl (Tramadol Hcl 50 Mg Tablet) 50 mg PO Q6H PRN PRN Reason: Pain, Moderate(Pain Scale 4-6) Trazodone HCl (Trazodone Hcl 50 Mg Tablet) 50 mg PO BID PRN PRN Reason: Insomnia/agitation Zinc Oxide (Zinc Oxide 20% Ointment 28.35 Gm Tube) 1 appl TOPICAL DAILY PRN PRN Reason: buttocks irritation Labs 09/03/24 05:40 09/03/24 05:40 Labs: Laboratory Results - last 24 hr 09/02/24 09/02/24 09/02/24 15:27 17:04 18:42 MCV 71.6 L MCH 21.1 L MCHC 29.5 L RDW 22.6 H Plt Count 171 D MPV 10.4 Immature Gran % (Auto) 0.4 Neut % (Auto) 59.5 Lymph % (Auto) 30.1 [place] % (Auto) 7.9 Eos % (Auto) 1.8 Baso % (Auto) 0.3 Lymph # (Auto) 3.2 [place] # (Auto) 0.8 Eos # (Auto) 0.2 Baso # (Auto) 0.0 Abs Immat Gran (auto) 0.04 H Absolute Neuts (auto) 6.3 Absolute Nucleated RBC 0.000 Nucleated RBC % (auto) 0.0 PT 18.9 H INR 1.6 H Anion Gap 16 Estim Creat Clear Calc 51.9 Estimated GFR > 60 Random Glucose 163 H Lactic Acid 2.4 H* Lactic Acid F/U @ 2Hr Lactic Acid F/U @ 4Hr Calcium 9.4 Magnesium 1.9 Total Bilirubin 0.5 AST 21 ALT 15 Alkaline Phosphatase 74 Troponin I High Sens 19.0 H 17.0 Total Protein 7.0 Albumin 3.9 Urine Color Urine Appearance Urine pH Ur Specific [place] Urine Protein Urine Glucose (UA) Urine Ketones Urine Blood Urine Nitrite Ur Leukocyte Esterase Urine RBC Urine WBC Ur Squamous Epith Cells Urine Bacteria Hyaline Casts Influenza Type A (PCR) NEGATIVE Influenza Type B (PCR) NEGATIVE RSV RNA Qual (PCR) NEGATIVE SARS-CoV-2 RNA (RT-PCR) NEGATIVE 09/02/24 09/02/24 09/02/24 20:00 20:41 22:25 MCV MCH MCHC RDW Plt Count MPV Immature Gran % (Auto) Neut % (Auto) Lymph % (Auto) [place] % (Auto) Eos % (Auto) Baso % (Auto) Lymph # (Auto) [place] # (Auto) Eos # (Auto) Baso # (Auto) Abs Immat Gran (auto) Absolute Neuts (auto) Absolute Nucleated RBC Nucleated RBC % (auto) PT INR Anion Gap Estim Creat Clear Calc Estimated GFR Random Glucose Lactic Acid Lactic Acid F/U @ 2Hr 3.0 H* Lactic Acid F/U @ 4Hr 2.4 H* Calcium Magnesium Total Bilirubin AST ALT Alkaline Phosphatase Troponin I High Sens Total Protein Albumin Urine Color Yellow Urine Appearance Turbid Urine pH 5.5 Ur Specific [place] 1.015 Urine Protein 100 (2+) H Urine Glucose (UA) Negative Urine Ketones Negative Urine Blood Large (3+) H Urine Nitrite Positive H Ur Leukocyte Esterase Large (3+) H Urine RBC 0-2 Urine WBC 0-5 Ur Squamous Epith Cells 0-2 Urine Bacteria 1+ Hyaline Casts 0-2 Influenza Type A (PCR) Influenza Type B (PCR) RSV RNA Qual (PCR) SARS-CoV-2 RNA (RT-PCR) 09/03/24 05:40 MCV 71.2 L MCH 21.3 L MCHC 29.9 L RDW 22.5 H Plt Count 114 L D MPV Not Reportable Immature Gran % (Auto) 0.5 H Neut % (Auto) 43.9 L Lymph % (Auto) 45.2 H [place] % (Auto) 7.7 Eos % (Auto) 2.2 Baso % (Auto) 0.5 Lymph # (Auto) 2.7 [place] # (Auto) 0.5 Eos # (Auto) 0.1 Baso # (Auto) 0.0 Abs Immat Gran (auto) 0.03 Absolute Neuts (auto) 2.6 Absolute Nucleated RBC 0.000 Nucleated RBC % (auto) 0.0 PT INR Anion Gap 14 Estim Creat Clear Calc 60.3 Estimated GFR > 60 Random Glucose 100 Lactic Acid Lactic Acid F/U @ 2Hr Lactic Acid F/U @ 4Hr Calcium 8.9 Magnesium Total Bilirubin AST ALT Alkaline Phosphatase Troponin I High Sens Total Protein Albumin Urine Color Urine Appearance Urine pH Ur Specific [place] Urine Protein Urine Glucose (UA) Urine Ketones Urine Blood Urine Nitrite Ur Leukocyte Esterase Urine RBC Urine WBC Ur Squamous Epith Cells Urine Bacteria Hyaline Casts Influenza Type A (PCR) Influenza Type B (PCR) RSV RNA Qual (PCR) SARS-CoV-2 RNA (RT-PCR) Assessment and Plan (1) UTI (urinary tract infection): Status: Acute Plan Patient is an 88-year-old female with a past medical history significant for vascular dementia, HLD, paroxysmal AFib on Eliquis, mood disorder, GERD, chronic ureteral stents changed every 3 months due to nephrolithiasis, last changed 08/09/2024, who presented to the ED due to lethargy, concentrated urine, and decreased p.o. intake. Patient is hard of hearing and currently altered. Patient's daughter reports entire history. She also states that the patient has poor p.o. intake and texture issues with foods but no dysphagia or choking issues, consumes 2 ensures daily. Acute metabolic encephalopathy d/t sepsis secondary to UTI treat underlying UTI with Ceftriaxone, follow culture Has bilateral ureteral stents, last changed 08/09/2024, has not had a UTI and months per patient's daughter, followed by Andrei Chung urology Urology, ID consult Hyperchloremic metabolic acidosis, resolved with IVF Elevated troponin, ruled [place], trop 19, 17, no chest pain, no further testing Microcytic anemia, chronic, stable - monitor CBC Acute Lactic acidosis --related d/t not sepsis Vascular dementia/mood disorder continue fluoxetine, trazodone Paroxysmal AFib, rate controlled, continue eliquis GERD continue omeprazole HLD continue Lipitor Full code VTE prophylaxis: Eliquis Quality Stroke Does the patient have a stroke diagnosis?: No VTE Prior VTE?: No VTE Risk Level:: Medical - moderate - high VTE Device Contraindication: Treatment Not Indicated VTE Drug Contraindication: N/A - Med Ordered
[2024-09-03 09:15] VITALS: BP 115/65; PULSE 73; RESP 16; TEMP 36.8; O2SAT 95
--- NOTE | 2024-09-03 12:00 | MHC.EDTECH ---
Patient is a 1:1 feed as well
--- NOTE | 2024-09-03 13:10 | MHC.EDTECH ---
patient was npo at that time in the morning
[2024-09-03 15:17] VITALS: BP 131/83; PULSE 74; RESP 14; TEMP 36.9; O2SAT 100
--- NOTE | 2024-09-03 15:23 | PC.NURSE ---
vital signs obtained/wnl. patient checked for incontinence - small amount of urine noted to pads. new pads/pericare performed. new purewick placed/set to suction. slight redness noted to pt's coccyx area/in between groin/thighs bilaterally. no open areas noted to reddened areas. barrier cream applied to all affected areas. pink foam applied to coccyx region. pt otherwise offers no complaints. LR infusing @ 50mls/hr. on RA w/o difficulty. no sob/wob noted. respirations even/unlabored. pending bed assignment. plan of care ongoing. call means placed within reach.
--- NOTE | 2024-09-03 15:25 | MHC.EDTECH ---
The RN and I changed and repositioned the patient, applied cream and a meplex to coccyx
[2024-09-03 17:15] VITALS: BMI 24.8
[2024-09-03] MEDS: Lactated Ringers 1,000 ML 50 ML IVCONT (17:42)
[2024-09-03 17:52] VITALS: BP 110/59; PULSE 68; RESP 20; TEMP 36; O2SAT 100
[2024-09-03 19:35] VITALS: BP 133/75; PULSE 71; RESP 16; TEMP 36.1; O2SAT 97
[2024-09-04 03:47] VITALS: BP 121/68; PULSE 67; RESP 16; TEMP 36.1; O2SAT 99
[2024-09-04 05:53] LABS: Hematocrit 32.6 % (37.0-47.0); Hemoglobin 9.5 g/dl (12.0-16.0); Imm Gran Abs Auto 0.02 X10*3/uL (0.00-0.03); Imm Gran Pct Auto 0.3 % (0.0-0.4); Lymphocytes Absolute Auto 2.0 X10*3/uL (1.2-4.9); MANUAL DIFF FLAG SCAN; Mean Corpuscular HGB Conc 29.1 g/dl (31.0-35.0); Mean Corpuscular Hemoglobin 20.9 pg (27.0-33.0); Mean Corpuscular Volume 71.6 fL (80.0-98.0); NRBC Abs Auto 0.000 X10*3/uL (0.0-0.012); NRBC Pct Auto 0.0 /100WBC (0.0-0.2); PLT CLUMP 1; Red Blood Count 4.55 X10*6/uL (4.20-5.50); SCAN SMEAR FLAG 1
[2024-09-04 06:04] LABS: Anion Gap 13 (12-20); Blood Urea Nitrogen 36 mg/dL (9-16); Calcium 8.9 mg/dL (8.4-10.2); Carbon Dioxide 24 mmol/L (22-29); Chloride 113 mmol/L (96-108); Creatinine Clr Calc Pharmacy 61.4; Estimated Glomerular Filt Rate > 60; Potassium 4.1 mmol/L (3.3-5.1); Sodium 146 mmol/L (135-145)
[2024-09-04 06:19] LABS: White Blood Count 6.1 X10*3/uL (4.8-10.8)
[2024-09-04 06:20] LABS: Platelet Count 108 X10*3/uL (160-400)
[2024-09-04 06:54] VITALS: BP 110/55; PULSE 58; RESP 15; TEMP 36.1; O2SAT 97
--- NOTE | 2024-09-04 09:35 | HO.PM.IMPN ---
Subjective Subjective Date of Service: 09/05/24 Interval History: f/u on metabolic encephalopathy, UTI Non verbal, No fever Physical Exam Vital Signs: Vital Signs: Last Vital Signs Temp 97 F 09/04/24 06:54 Pulse 58 09/04/24 06:54 Resp 15 09/04/24 06:54 BP 110/55 L 09/04/24 06:54 Pulse Ox 97 09/04/24 06:54 O2 Del Method Room Air 09/04/24 06:54 BMI result Body Mass Index 24.8 Const: Other: General: No distress, non-verbal Resp: CTA bilateral CVS: S1,S2,RRR GI: +BS, NT, no distention Skin: No rash Neuro: motor grossly intact Psych: appropriate affect Objective Data Active Medications Acetaminophen (Acetaminophen 325 Mg Tablet) 975 mg PO Q6H PRN PRN Reason: Pain, Mild 1-3,fever,headache Apixaban (Apixaban 2.5 Mg Tablet) 2.5 mg PO BID [facility] Last Admin: 09/04/24 07:36 Dose: 2.5 mg Documented By: MOODY Atorvastatin Calcium (Atorvastatin Calcium 80 Mg Tablet) 80 mg PO BEDTIME [facility] Last Admin: 09/03/24 21:36 Dose: 80 mg Documented By: CASTILChiara Calcium Carbonate (Calcium Carbonate 750 Mg Tab.Chew) 750 mg PO Q4H PRN PRN Reason: Heartburn Ceftriaxone Sodium (Ceftriaxone Sodium 2 Gm Vial) 2 gm IVPUSH Q24H [facility] Last Admin: 09/03/24 17:43 Dose: 2 gm Documented By: SANDRA Erythromycin (Erythromycin Base 0.5% Oph Oin 1 Gm Tube) 1 cm EYE-BOTH BEDTIME PRN PRN Reason: itchiness after rubbing eyes Fluoxetine HCl (Fluoxetine Hcl 20 Mg Capsule) 40 mg PO DAILY [facility] Last Admin: 09/04/24 07:36 Dose: 40 mg Documented By: MOODY Lactated Ringer's (Lr) 1,000 mls @ 50 mls/hr IVCONT .Q20H [facility] Last Admin: 09/03/24 17:42 Dose: 50 mls/hr Documented By: SANDRA Magnesium Hydroxide (Milk Of Magnesia 30 Ml Oral.Susp) 30 ml PO DAILY PRN PRN Reason: Constipation Melatonin (Melatonin 3 Mg Tablet) 6 mg PO BEDTIME PRN PRN Reason: Insomnia Omeprazole (Omeprazole 20 Mg Capsule.Dr) 20 mg PO DAILY@0630 [facility] Last Admin: 09/04/24 05:38 Dose: 20 mg Documented By: SAMREEN Ondansetron HCl (Ondansetron Hcl 4 Mg/2 Ml Vial) 4 mg IVPUSH Q8H PRN PRN Reason: Nausea and Vomiting Sodium Chloride (0.9 % Sodium Chloride Flush 3 Ml Syringe) 3 ml IVFLUSH QSHIFT [facility] Last Admin: 09/04/24 07:31 Dose: Not Given Documented By: MOODY Non-Admin Reason: IV Running Tramadol HCl (Tramadol Hcl 50 Mg Tablet) 50 mg PO Q6H PRN PRN Reason: Pain, Moderate(Pain Scale 4-6) Trazodone HCl (Trazodone Hcl 50 Mg Tablet) 50 mg PO BID PRN PRN Reason: Insomnia/agitation Last Admin: 09/03/24 23:32 Dose: 50 mg Documented By: SAMREEN Zinc Oxide (Zinc Oxide 20% Ointment 28.35 Gm Tube) 1 appl TOPICAL DAILY PRN PRN Reason: buttocks irritation Labs 09/05/24 05:35 09/05/24 05:35 Labs: Laboratory Results - last 24 hr 09/04/24 05:28 MCV 71.6 L MCH 20.9 L MCHC 29.1 L RDW 22.4 H Plt Count 108 L MPV Not Reportable Immature Gran % (Auto) 0.3 Neut % (Auto) 55.2 Lymph % (Auto) 32.8 [place] % (Auto) 9.4 Eos % (Auto) 2.0 Baso % (Auto) 0.3 Lymph # (Auto) 2.0 [place] # (Auto) 0.6 Eos # (Auto) 0.1 Baso # (Auto) 0.0 Abs Immat Gran (auto) 0.02 Absolute Neuts (auto) 3.4 Absolute Nucleated RBC 0.000 Nucleated RBC % (auto) 0.0 Smear Tech's Comments VERIFIED Anion Gap 13 Estim Creat Clear Calc 61.4 Estimated GFR > 60 Random Glucose 101 Calcium 8.9 Microbiology Microbiology Results: Microbiology 09/02/24 20:41 Urine Culture - Preliminary Urine Catheterized - Straight Catheter Culture in progress. 09/02/24 17:04 Blood Culture - Preliminary Blood - Venous No growth after 24 hours. 09/02/24 16:47 Blood Culture - Preliminary Blood - Venous No growth after 24 hours. Assessment and Plan (1) UTI (urinary tract infection): Status: Acute Plan Patient is an 88-year-old female with a past medical history significant for vascular dementia, HLD, paroxysmal AFib on Eliquis, mood disorder, GERD, chronic ureteral stents changed every 3 months due to nephrolithiasis, last changed 08/09/2024, who presented to the ED due to lethargy, concentrated urine, and decreased p.o. intake. Patient is hard of hearing and currently altered. Patient's daughter reports entire history. She also states that the patient has poor p.o. intake and texture issues with foods but no dysphagia or choking issues, consumes 2 ensures daily. Acute metabolic encephalopathy d/t sepsis secondary to UTI treat underlying UTI with Ceftriaxone, follow culture Has bilateral ureteral stents, last changed 08/09/2024, has not had a UTI in months per patient's daughter, followed by Andrei Chung urology Seen by uro, no intervention at this time HypErchloremic metabolic acidosis, resolved with IVF Elevated troponin, ruled [place], trop 19, 17, no chest pain, no further testing Microcytic anemia, chronic, stable - monitor CBC Acute Lactic acidosis --related d/t not sepsis Vascular dementia/mood disorder continue fluoxetine, trazodone Paroxysmal AFib, rate controlled, continue eliquis GERD continue omeprazole HLD continue Lipitor Full code VTE prophylaxis: Eliquis Quality Stroke Does the patient have a stroke diagnosis?: No VTE Prior VTE?: No VTE Risk Level:: Medical - moderate - high VTE Device Contraindication: Treatment Not Indicated VTE Drug Contraindication: N/A - Med Ordered
[2024-09-04] MEDS: Lactated Ringers 1,000 ML 50 ML IVCONT (12:25)
--- NOTE | 2024-09-04 15:12 | MHC.CM.PN ---
CM SPOKE TO PTS DAUGHTER, TRENT IRAHETA [phone] SHE CONFIRMS PT LIVES IN HER HOME, BUT HAS A SEPARATE LIVING AREA IN A [place]EMENT [place]EL [place] PT HAS A HOSPITAL BED AND A STAIR LIFT, SHE REQUIRES TWO ASSIST TO AMBULATE SHE TRIES TO SIT SHE HAS 20 HOURS OF [employer] REPAIRER SERVICES VIA [facility] PROVIDES ANY OTHER CARE NEEDED COPY OF HCP REQUESTED PCP: MEL MENDOZA AT [facility] DELIVERED DCP: HOME, [facility]SP[facility]
[2024-09-04 15:50] VITALS: BP 104/56; PULSE 73; RESP 16; TEMP 36.6; O2SAT 98
[2024-09-04] MEDS: 0.9 % Sodium Chloride Flush 3 ML SYRINGE IVFLUSH (17:37)
[2024-09-04 19:22] VITALS: BP 100/54; PULSE 76; RESP 16; TEMP 36.3; O2SAT 97
[2024-09-05 03:22] VITALS: BP 107/59; PULSE 56; RESP 18; TEMP 36.6; O2SAT 96
[2024-09-05 06:00] LABS: MANUAL DIFF FLAG NO
[2024-09-05 06:20] LABS: Anion Gap 12 (12-20); Blood Urea Nitrogen 22 mg/dL (9-16); Calcium 9.0 mg/dL (8.4-10.2); Carbon Dioxide 28 mmol/L (22-29); Chloride 112 mmol/L (96-108); Creatinine Clr Calc Pharmacy 58.4; Estimated Glomerular Filt Rate > 60; Potassium 4.2 mmol/L (3.3-5.1); Sodium 148 mmol/L (135-145)
[2024-09-05 06:36] LABS: Hematocrit 32.0 % (37.0-47.0); Hemoglobin 9.3 g/dl (12.0-16.0); Imm Gran Abs Auto 0.02 X10*3/uL (0.00-0.03); Imm Gran Pct Auto 0.4 % (0.0-0.4); Lymphocytes Absolute Auto 1.8 X10*3/uL (1.2-4.9); Mean Corpuscular HGB Conc 29.1 g/dl (31.0-35.0); Mean Corpuscular Hemoglobin 21.2 pg (27.0-33.0); Mean Corpuscular Volume 72.9 fL (80.0-98.0); NRBC Abs Auto 0.000 X10*3/uL (0.0-0.012); NRBC Pct Auto 0.0 /100WBC (0.0-0.2); Platelet Count 102 X10*3/uL (160-400); Red Blood Count 4.39 X10*6/uL (4.20-5.50); White Blood Count 5.1 X10*3/uL (4.8-10.8)
[2024-09-05 07:41] VITALS: BP 102/68; PULSE 50; RESP 16; TEMP 36; O2SAT 96
[2024-09-05] MEDS: 0.9 % Sodium Chloride Flush 3 ML SYRINGE IVFLUSH ×2 (09:19→17:08)
--- NOTE | 2024-09-05 10:36 | P.PNIM_ITS ---
Subjective Subjective Date of Service: 09/05/24 Interval History: No fever refusing to drink water, sodium 148] Physical Exam 2 Vital Signs: Vital Signs: Last Vital Signs Temp 96.8 F 09/05/24 07:41 Pulse 50 09/05/24 07:41 Resp 16 09/05/24 07:41 BP 102/68 09/05/24 07:41 Pulse Ox 96 09/05/24 07:41 O2 Del Method Room Air 09/05/24 07:41 BMI result Body Mass Index 24.8 Const: Other: General: No distress, non-verbal Resp: CTA bilateral CVS: S1,S2,RRR GI: +BS, NT, no distention Skin: No rash Neuro: motor grossly intact Psych: appropriate affect Objective Data Active Medications Acetaminophen (Acetaminophen 325 Mg Tablet) 975 mg PO Q6H PRN PRN Reason: Pain, Mild 1-3,fever,headache Apixaban (Apixaban 2.5 Mg Tablet) 2.5 mg PO BID [facility] Last Admin: 09/05/24 09:19 Dose: 2.5 mg Documented By: MIGDALIA Atorvastatin Calcium (Atorvastatin Calcium 80 Mg Tablet) 80 mg PO BEDTIME [facility] Last Admin: 09/04/24 21:55 Dose: 80 mg Documented By: HARMAN Calcium Carbonate (Calcium Carbonate 750 Mg Tab.Chew) 750 mg PO Q4H PRN PRN Reason: Heartburn Ceftriaxone Sodium (Ceftriaxone Sodium 2 Gm Vial) 2 gm IVPUSH Q24H [facility] Last Admin: 09/04/24 17:30 Dose: 2 gm Documented By: MOODY Erythromycin (Erythromycin Base 0.5% Oph Oin 1 Gm Tube) 1 cm EYE-BOTH BEDTIME PRN PRN Reason: itchiness after rubbing eyes Fluoxetine HCl (Fluoxetine Hcl 20 Mg Capsule) 40 mg PO DAILY [facility] Last Admin: 09/05/24 09:19 Dose: 40 mg Documented By: MIGDALIA Magnesium Hydroxide (Milk Of Magnesia 30 Ml Oral.Susp) 30 ml PO DAILY PRN PRN Reason: Constipation Melatonin (Melatonin 3 Mg Tablet) 6 mg PO BEDTIME PRN PRN Reason: Insomnia Last Admin: 09/04/24 21:54 Dose: 6 mg Documented By: HARMAN Omeprazole (Omeprazole 20 Mg Capsule.) 20 mg PO DAILY@0630 [facility] Last Admin: 09/05/24 05:36 Dose: 20 mg Documented By: HARMAN Ondansetron HCl (Ondansetron Hcl 4 Mg/2 Ml Vial) 4 mg IVPUSH Q8H PRN PRN Reason: Nausea and Vomiting Sodium Chloride (0.9 % Sodium Chloride Flush 3 Ml Syringe) 3 ml IVFLUSH QSHIFT [facility] Last Admin: 09/05/24 09:19 Dose: 3 ml Documented By: MIGDALIA Tramadol HCl (Tramadol Hcl 50 Mg Tablet) 50 mg PO Q6H PRN PRN Reason: Pain, Moderate(Pain Scale 4-6) Trazodone HCl (Trazodone Hcl 50 Mg Tablet) 50 mg PO BID PRN PRN Reason: Insomnia/agitation Last Admin: 09/04/24 21:54 Dose: 50 mg Documented By: HARMAN Zinc Oxide (Zinc Oxide 20% Ointment 28.35 Gm Tube) 1 appl TOPICAL DAILY PRN PRN Reason: buttocks irritation Labs 09/05/24 05:35 09/05/24 05:35 Labs: Laboratory Results - last 24 hr 09/05/24 05:35 MCV 72.9 L MCH 21.2 L MCHC 29.1 L RDW 22.2 H Plt Count 102 L MPV Not Reportable Immature Gran % (Auto) 0.4 Neut % (Auto) 56.6 Lymph % (Auto) 34.7 [place] % (Auto) 6.5 Eos % (Auto) 1.6 Baso % (Auto) 0.2 Lymph # (Auto) 1.8 [place] # (Auto) 0.3 Eos # (Auto) 0.1 Baso # (Auto) 0.0 Abs Immat Gran (auto) 0.02 Absolute Neuts (auto) 2.9 Absolute Nucleated RBC 0.000 Nucleated RBC % (auto) 0.0 Anion Gap 12 Estim Creat Clear Calc 58.4 Estimated GFR > 60 Random Glucose 92 Calcium 9.0 Microbiology Microbiology Results: Microbiology 09/02/24 20:41 Urine Culture - Preliminary Urine Catheterized - Straight Catheter Gram negative chantel 09/02/24 17:04 Blood Culture - Preliminary Blood - Venous No growth after 48 hours. 09/02/24 16:47 Blood Culture - Preliminary Blood - Venous No growth after 48 hours. Assessment and Plan (1) UTI (urinary tract infection): Status: Acute Plan Patient is an 88-year-old female with a past medical history significant for vascular dementia, HLD, paroxysmal AFib on Eliquis, mood disorder, GERD, chronic ureteral stents changed every 3 months due to nephrolithiasis, last changed 08/09/2024, who presented to the ED due to lethargy, concentrated urine, and decreased p.o. intake. Patient is hard of hearing and currently altered. Patient's daughter reports entire history. She also states that the patient has poor p.o. intake and texture issues with foods but no dysphagia or choking issues, consumes 2 ensures daily. Acute metabolic encephalopathy d/t sepsis secondary to UTI, culture = GNR, no sensitivity treat underlying UTI with Ceftriaxone, follow culture Has bilateral ureteral stents, last changed 08/09/2024, has not had a UTI in months per patient's daughter, followed by Andrei Chung urology Seen by uro, no intervention at this time HypErchloremic metabolic acidosis, resolved with IVF Elevated troponin, ruled [place], trop 19, 17, no chest pain, no further testing Mild hypernatremia, d/t refusin to drink water, iv water Microcytic anemia, chronic, stable - monitor CBC Acute Lactic acidosis --related d/t not sepsis Vascular dementia/mood disorder continue fluoxetine, trazodone Paroxysmal AFib, rate controlled, continue eliquis GERD continue omeprazole HLD continue Lipitor Full code VTE prophylaxis: Eliquis Quality Stroke Does the patient have a stroke diagnosis?: No VTE Prior VTE?: No VTE Risk Level:: Medical - moderate - high VTE Device Contraindication: Treatment Not Indicated VTE Drug Contraindication: N/A - Med Ordered
--- NOTE | 2024-09-05 11:12 | MHC.CLN ---
NUTRITION DIET=REGULAR. PER PROVIDER, ENSURE BID (700 KCALS, 40 G PROTEIN). INTAKE APPEARS TO BE ABOUT 25%. SUPPLEMENT APPROPRIATE TO PROMOTE NUTRITIONAL INTAKE.
[2024-09-05 15:15] VITALS: BP 99/53; PULSE 58; RESP 16; TEMP 36.6; O2SAT 97
[2024-09-05 19:18] VITALS: BP 105/55; PULSE 63; RESP 16; TEMP 36.3; O2SAT 99
[2024-09-06 04:00] VITALS: BP 114/65; PULSE 57; RESP 16; TEMP 36; O2SAT 94
--- NOTE | 2024-09-06 06:08 | PC.NURSE ---
Patient with 2 liquidy BM overnight. omeprazole held as PHA note and nurse note as well states pt on puree and takes all meds crushed. cannot crush omeprazole.
[2024-09-06 08:00] VITALS: BP 101/59; PULSE 67; RESP 16; TEMP 36.4; O2SAT 96
--- NOTE | 2024-09-06 08:54 | P.DS_ITS ---
DS: Providers Provider Date of Service: 09/07/24 Date of admission: 09/02/24 18:57 Date of discharge: 09/07/24 Primary care physician: Unknown Physician DS: Diagnosis Discharge Diagnosis (1) UTI (urinary tract infection): Status: Acute DS: Summary Hospital Course Hospital Course: admission hpi Chief Complaint: AMS, fever Patient is an 88-year-old female with a past medical history significant for vascular dementia, HLD, paroxysmal AFib on Eliquis, mood disorder, GERD, chronic ureteral stents changed every 3 months due to nephrolithiasis, last changed 08/09/2024, who presented to the ED due to lethargy, concentrated urine, and decreased p.o. intake. The patient's daughter also notes change in mentation from her baseline dementia. She reports she recently had a GI bug which went around the family which subsequently caused her dehydration and she usually gets UTIs after dehydration. The patient does not contribute to her history, entire history as given by the patient's daughter. Hospital course: Patient is an 88-year-old female with a past medical history significant for vascular dementia, HLD, paroxysmal AFib on Eliquis, mood disorder, GERD, chronic ureteral stents changed every 3 months due to nephrolithiasis, last changed 08/09/2024, who presented to the ED due to lethargy, concentrated urine, and decreased p.o. intake. Patient is hard of hearing and currently altered. Patient's daughter reports entire history. She also states that the patient has poor p.o. intake and texture issues with foods but no dysphagia or choking issues, consumes 2 ensures daily. Patient was admitted for UTI/sepsis and metabolic encephalopathy, hospital course complicated by hypernatremi due to refusing to drink water and given IVF Acute metabolic encephalopathy d/t sepsis secondary to UTI, culture = ESBL Klebsiela, sensitive to ertapenem, antibiotics was switched to meropenem while in the hospital and will change to Ertapenem at discharge for a total of 10 days . She has bilateral ureteral stents, last changed 08/09/2024, has not had a UTI in months per patient's daughter, followed by [facility]ung urology Seen by urology here and advise to follow up with her urologist. HypErchloremic metabolic acidosis, resolved with IVF Elevated troponin, ruled SD, trop 19, 17, no chest pain, no further testing Mild hypernatremia, d/t refusin to drink water, given iv fluid and corrected Microcytic anemia, chronic, stable - monitor CBC Acute Lactic acidosis --related d/t not sepsis Vascular dementia/mood disorder continue fluoxetine, trazodone Paroxysmal AFib, rate controlled, continue eliquis GERD continue omeprazole HLD continue Lipitor Dispo; daughter will take her home Time Attestation Discharge Coordination Time (in mins): 45 Quality: Safe Use of Opioids Does Pt have an Active Cancer Diagnosis on the Problem List?: No Quality: Stroke Does the patient have a stroke diagnosis?: No Physical Exam Vital Signs: Vital Signs: Selected Entries 09/07/24 08:00 Temperature 97.1 F Pulse Rate 74 Respiratory Rate 18 Blood Pressure 110/68 Pulse Oximetry 95 Oxygen Delivery Me thod Room Air Const: Other: General: No distress, non-verbal Resp: CTA bilateral CVS: S1,S2,RRR GI: +BS, NT, no distention Skin: No rash Neuro: motor grossly intact Psych: appropriate affect DS: Data Data Completed and Pending Completed studies during hospitalization [Text1]: Procedures Transfusion of Nonautologous Red Blood Cells into Peripheral Vein, Percutaneous Approach (01/05/20) Labs on day of discharge: Preliminary micro results at discharge 09/02/24 20:41 Urine Culture - Preliminary Urine Catheterized - Straight Catheter Klebsiella pneumoniae 09/02/24 17:04 Blood Culture - Preliminary Blood - Venous No growth after 48 hours. 09/02/24 16:47 Blood Culture - Preliminary Blood - Venous No growth after 48 hours. Discharge Plan Discharge Anticipated Discharge Date/Time: 09/07/24 08:44 Patient Disposition: Home Health Service Discharge Diagnosis: Sepsis, UTI, encephalopathy, Referrals: [facility] [Other] - 1 Week Referral Note: [facility] will provide your IV antibiotics [facility] [Outside] - 1 Day Physician,Unknown J [Primary Care Provider, Medical] - 1 Week Discharge Medications: New ertapenem 1 gram recon soln 1 g IM Q24H Qty: 8 0RF Rx Instructions: next dose 09/08/24 Continued atorvastatin 80 mg tablet 1 tab PO BEDTIME trazodone 50 mg tablet 1 tab PO BID PRN (Reason: Insomnia/agitation) omeprazole 20 mg capsule,delayed release(DR/EC) 20 mg PO DAILY@0630 fluoxetine 20 mg capsule 2 cap PO DAILY nystatin 100,000 unit/gram powder 1 appl topical DAILY PRN (Reason: irritation) Eliquis 2.5 mg tablet 2.5 mg PO BID acetaminophen 500 mg capsule 500 mg PO Q6H PRN (Reason: pain (scale score 1-3)) Qty: 60 0RF erythromycin 5 mg/gram (0.5 %) ointment 1 appl ophthalmic (eye) BEDTIME PRN (Reason: itchiness after rubbing eyes) zinc oxide 40 % Ointment 1 appl TOPICAL DAILY PRN (Reason: buttocks irritation) Discharge Orders: Discharge Order (Routine); Ordered 09/07/24 Ordered By: Charles Roberson Diet: Advance to usual diet Activity on Discharge: As tolerated Stand Alone Forms: Patient Portal Discharge page Print Language: Choose Not To Answer Care Plan Goals: recovery from uti, sepsis Health Concerns: uti, metabolic encephalopaty Plan of Treatment: take ertapenem for 8 more days, starting tomorrow 7s directed and follow up with your Doctor in a week, Assessment: see above
[2024-09-06 12:13] LABS: Anion Gap 10 (12-20); Blood Urea Nitrogen 12 mg/dL (9-16); Calcium 8.4 mg/dL (8.4-10.2); Carbon Dioxide 28 mmol/L (22-29); Chloride 106 mmol/L (96-108); Creatinine Clr Calc Pharmacy 61.4; Estimated Glomerular Filt Rate > 60; Potassium 3.8 mmol/L (3.3-5.1); Sodium 140 mmol/L (135-145)
[2024-09-06 15:28] VITALS: BP 113/59; PULSE 73; RESP 16; TEMP 37; O2SAT 93
--- NOTE | 2024-09-06 15:59 | MHC.CM.PN ---
Per MD not medically cleared for dc. Awaiting records from [facility]. Potential need for IV abx on dc. Referrals to [facility].
[2024-09-06 19:32] VITALS: BP 99/58; PULSE 66; RESP 16; TEMP 36.8; O2SAT 93
[2024-09-06] MEDS: 0.9 % Sodium Chloride Flush 3 ML SYRINGE IVFLUSH (19:43)
[2024-09-06 23:24] VITALS: BP 100/59; PULSE 71; RESP 20; TEMP 37.2; O2SAT 97
[2024-09-07 04:00] VITALS: BP 116/67; PULSE 63; RESP 20; TEMP 36.4; O2SAT 93
[2024-09-07 08:00] VITALS: BP 110/68; PULSE 74; RESP 18; TEMP 36.2; O2SAT 95
[2024-09-07] MEDS: 0.9 % Sodium Chloride Flush 3 ML SYRINGE IVFLUSH ×2 (08:38→17:07)
--- NOTE | 2024-09-07 12:28 | HO.MIDLINE_ITS ---
Midline Insertion MIDLINE INSERTION Diagnosis: Urinary Tract Infection Indication: IV Antibiotics Pertinent Labs: Reviewed Technique: Using sterile technique including cap and mask, glove and drape, the left arm was prepped and draped in the usual sterile fashion of full barrier technique with CHG. Using ultrasound guidance, the left brachial vein access was obtained in a second attempt by this RN. A 20 guage 8 cm Non-PASV Midline was positioned. The procedure was performed in 272. Ultrasound was used to document vein patency and for needle entry. A formal ultrasound picture was recorded. [facility] has released the line for use and it is currently dressed with a StatLock, Tegaderm, and CHG disc. Verification has been performed for blood return and line patency. Arm Circumference: 25.5 Equipment: BARD PowerGlide ST Midline catheter Catheter Type: 20 guage Non-PASV Midline Catheter Lot #: [id number]
--- NOTE | 2024-09-07 13:25 | MHC.CM.PN ---
Patient medically cleared for dc home w/ daughter. New [facility] & [facility] for IV ertapenem x8 days via midline. Daughter will administer and feels comfortable w/ plan. BLS transport scheduled for 8pm per daughter's request. MD and RN aware. IMM delivered.
--- NOTE | 2024-09-07 14:39 | W.MHC.F2F ---
Service Date Service Date: 09/07/24 Encounter Date of encounter: 09/07/24 Reasons for Services Signs and symptoms assessed: weakness, advanced dementia Reason for [facility]: medication management and medication treatment Homebound: Leaving the home is medically contraindicated at this time without the asist of a device and/or another person due th the listed conditions above and below. Reason homebound: psychologically impaired / unsafe and weakness related to hospital stay Homebound supporting statement: Homebound due to advanced dementia and lacks insight and therefore needs the assistance of another person Certification: Based on the above findings, I certify that this patient is confined to the home and needs intermittent [facility] care, physical therapy and/or speech therapy, or continues to need occupational therapy. The patient is under my care, and I have initiated the establishment of the plan of care. The patient will be followed by a physician who will periodically review the plan of care. Time Spent With Patient Time: Total time managing care of this patient today ____ minutes.
[2024-09-07 15:24] VITALS: BP 110/68; PULSE 82; RESP 16; TEMP 36.4; O2SAT 93
[2024-09-07 19:39] VITALS: BP 116/63; PULSE 66; RESP 16; TEMP 36.6; O2SAT 96
== END 2024-09-07 20:25 | disposition home health service (06) | DRG 871 ==
LOC: HO.ED 18:55 → HO.EDOVER 20:04 → HO.S3 09-03 16:25
PROVIDERS: Physician Assistant; Physician Assistant Medical; Registered Nurse Emergency; Admitting Provider Student in an Organized Health Care Education/Training Program; Emergency Provider Emergency Medicine; PCP Student in an Organized Health Care Education/Training Program; Visit Provider Internal Medicine
DX: A41.9 Sepsis, unspecified organism (principal); G93.41 Metabolic encephalopathy; F01.53 Vascular dementia, unspecified severity, with mood disturbance; E87.21 Acute metabolic acidosis; E87.0 Hyperosmolality and hypernatremia; N39.0 Urinary tract infection, site not specified; Z16.12 Extended spectrum beta lactamase (ESBL) resistance; I48.0 Paroxysmal atrial fibrillation; E87.8 Other disorders of electrolyte and fluid balance, not elsewhere classified; D50.9 Iron deficiency anemia, unspecified; K21.9 Gastro-esophageal reflux disease without esophagitis; B96.1 Klebsiella pneumoniae [K. pneumoniae] as the cause of diseases classified elsewhere; E86.0 Dehydration; Z20.822 Contact with and (suspected) exposure to COVID-19; Z79.01 Long term (current) use of anticoagulants; Z79.899 Other long term (current) drug therapy
CPT/HCPCS: 36410; 36415; 80048; 80053; 81001; 83605; 83735; 84484; 85025; 85610; 87040; 87086; 87088; 87186; 87637; 93005; 97163; 99285; J0131; J0696; J1335; J2185; J7120

== ENCOUNTER → 2024-09-02 15:03 | Outpatient (BNV) | payer MEDICARE, MEDICAID, SELFPAY | PROVIDERS: Admitting Provider Student in an Organized Health Care Education/Training Program; Emergency Provider Emergency Medicine; Visit Provider Internal Medicine Cardiovascular Disease | DX: I51.7 Cardiomegaly (principal); R00.0 Tachycardia, unspecified | CPT/HCPCS: 93010 ==

== ENCOUNTER → 2024-09-02 18:57 | Outpatient (BNV) | payer MEDICARE, MEDICAID, SELFPAY | PROVIDERS: Admitting Provider Student in an Organized Health Care Education/Training Program; Emergency Provider Emergency Medicine; Visit Provider Physician Assistant | DX: G93.41 Metabolic encephalopathy (principal); A41.9 Sepsis, unspecified organism; N30.01 Acute cystitis with hematuria; Z96.0 Presence of urogenital implants; E87.29 Other acidosis; R79.89 Other specified abnormal findings of blood chemistry; D64.9 Anemia, unspecified; E87.20 Acidosis, unspecified | CPT/HCPCS: 99223; 99232; 99499 ==

== ENCOUNTER 2024-09-12 14:23 | Outpatient (REF) | payer MEDICARE, MEDICAID, SELFPAY ==
[2024-09-12 14:25] LABS: MANUAL DIFF FLAG NO
[2024-09-12 14:30] LABS: Hematocrit 27.2 % (37.0-47.0); Hemoglobin 8.0 g/dl (12.0-16.0); Imm Gran Abs Auto 0.01 X10*3/uL (0.00-0.03); Imm Gran Pct Auto 0.2 % (0.0-0.4); Lymphocytes Absolute Auto 2.0 X10*3/uL (1.2-4.9); Mean Corpuscular HGB Conc 29.4 g/dl (31.0-35.0); Mean Corpuscular Hemoglobin 21.3 pg (27.0-33.0); Mean Corpuscular Volume 72.5 fL (80.0-98.0); NRBC Abs Auto 0.000 X10*3/uL (0.0-0.012); NRBC Pct Auto 0.0 /100WBC (0.0-0.2); Platelet Count 105 X10*3/uL (160-400); Red Blood Count 3.75 X10*6/uL (4.20-5.50); White Blood Count 4.8 X10*3/uL (4.8-10.8)
[2024-09-12 15:18] LABS: Anion Gap 10 (12-20); Blood Urea Nitrogen 26 mg/dL (9-16); Calcium 8.3 mg/dL (8.4-10.2); Carbon Dioxide 31 mmol/L (22-29); Chloride 103 mmol/L (96-108); Estimated Glomerular Filt Rate > 60; Potassium 4.5 mmol/L (3.3-5.1); Sodium 139 mmol/L (135-145)
== END 2024-09-12 14:24 | disposition home or self-care (01) ==
LOC: HO.HVNA 14:23
PROVIDERS: Visit Provider Internal Medicine
DX: A41.9 Sepsis, unspecified organism (principal)
CPT/HCPCS: 36415; 80048; 85025

== ENCOUNTER 2024-09-20 16:54 | Outpatient (REF) | payer MEDICARE, MEDICAID, SELFPAY ==
[2024-09-20 17:08] LABS: Hemoglobin 8.5 g/dl (12.0-16.0); Imm Gran Abs Auto 0.01 X10*3/uL (0.00-0.03); Imm Gran Pct Auto 0.2 % (0.0-0.4); MANUAL DIFF FLAG SCAN; NRBC Abs Auto 0.000 X10*3/uL (0.0-0.012); NRBC Pct Auto 0.0 /100WBC (0.0-0.2); SCAN SMEAR FLAG 1
[2024-09-20 17:10] LABS: Hematocrit 28.6 % (37.0-47.0); Lymphocytes Absolute Auto 1.9 X10*3/uL (1.2-4.9); Mean Corpuscular HGB Conc 29.7 g/dl (31.0-35.0); Mean Corpuscular Hemoglobin 21.4 pg (27.0-33.0); Mean Corpuscular Volume 72.0 fL (80.0-98.0); Platelet Count 138 X10*3/uL (160-400); Red Blood Count 3.97 X10*6/uL (4.20-5.50); White Blood Count 5.4 X10*3/uL (4.8-10.8)
[2024-09-20 17:28] LABS: PLT ABN DIST 1
[2024-09-20 17:31] LABS: Anion Gap 11 (12-20); Blood Urea Nitrogen 37 mg/dL (9-16); Calcium 9.1 mg/dL (8.4-10.2); Carbon Dioxide 27 mmol/L (22-29); Chloride 106 mmol/L (96-108); Estimated Glomerular Filt Rate > 60; Potassium 4.2 mmol/L (3.3-5.1); Sodium 140 mmol/L (135-145)
== END 2024-09-20 16:55 | disposition home or self-care (01) ==
LOC: HO.HVNA 16:54
PROVIDERS: Visit Provider Physician Assistant
DX: A41.59 Other Gram-negative sepsis (principal); N30.01 Acute cystitis with hematuria
CPT/HCPCS: 36415; 80048; 85025

== ENCOUNTER 2025-02-09 14:44 | Inpatient (IN) | payer MEDICARE, MEDICAID, SELFPAY ==
[2025-02-09] VITALS (13 sets, daily range): BP systolic 100–119; BP diastolic 64–84; PULSE 95–125; RESP 15–24; TEMP 37.4–39.3; O2SAT 92–98; BMI 23.7
--- NOTE | ~2025-02-09 | CT_ITS ---
CLINICAL HISTORY: sepsis hx of PNA CT chest with contrast Comparison: None provided Findings: Lung miranda are clear without acute infiltrates. No significant mediastinal adenopathy. No significant free pleural fluid. Sternotomy for aortic valve replacement. Cardiomegaly with coronary artery calcification. No significant focal bony abnormalities. Heterogeneous enlarged left lobe of thyroid. Impression: No acute processes This document has been electronically signed by: Blake Johnson MD on 02/09/2025 20:47:50
--- NOTE | ~2025-02-09 | CT_ITS ---
CLINICAL HISTORY: sepsis CT abdomen and pelvis with contrast Comparison: None provided Findings: Chest findings in chest CT report. Degenerative change lumbar spine and hips. No acute bony abnormalities. Liver and spleen within normal limits. Pancreas and adrenal glands unremarkable. Cholecystectomy. Bilateral ureteral stents and hydronephrosis. No significant focal renal abnormality noted. Small renal cysts incidentally noted. Abdominal aorta is normal in caliber. IVC filter. No free fluid or adenopathy in the pelvis. No diverticulitis. Appendix not identified. Large amount of stool in colon. Uterus normal size. No adnexal abnormality. Impression: Bilateral ureteral stents and hydronephrosis Otherwise unremarkable This document has been electronically signed by: Blake Johnson MD on 02/09/2025 20:46:41
--- NOTE | 2025-02-09 14:58 | ED.GENADULT ---
HPI - General Adult General Chief complaint: Urogenital-Female Stated complaint: AMS BEDBOUND HX OF UTIS Time Seen by Provider: 02/09/25 14:57 Source: EMS, RN notes reviewed, old records reviewed and other (note from daughter that EMS brought to ED) Mode of arrival: EMS Limitations: no limitations History of Present Illness ED Provider: Lawson HPI narrative: Patient is an 89-year-old female with history of vascular dementia, hearing loss, frequent UTIs, CVA, chronic anemia, bilateral ureteral stents, aphasia, GERD, HTN, HLD, AFib on Eliquis presenting to the emergency department for altered mental status. Patient unable to report HPI, however, note from daughter states that patient has history of frequent Klebsiella UTIs. Note states that patient recently had bilateral your red ureteral stents replaced on 02/05 and had fluconazole and IV antibiotic before leaving that procedure. Daughter states that following the procedure her urine culture was positive for Klebsiella and the provider sent doxycycline but [facility] and patient has not begun taking this medication yet. Patient also has history of sepsis, typically receives IV ertapenem. MD complaint: altered mental status Related Data Home Medications ?Medication ?Instructions ?Recorded ?Confirmed atorvastatin 80 mg tablet 1 tab PO BEDTIME 01/05/20 02/09/25 fluoxetine 20 mg capsule 2 cap PO DAILY 01/05/20 02/09/25 omeprazole 20 mg capsule,delayed 20 mg PO DAILY@0630 01/05/20 02/09/25 release trazodone 50 mg tablet 1 tab PO DAILY PRN 01/05/20 02/09/25 Insomnia/agitation apixaban 2.5 mg tablet (Eliquis) 2.5 mg PO BID 12/17/22 02/09/25 nystatin 100,000 unit/gram topical 1 appl topical TID PRN irritation 12/17/22 02/09/25 powder erythromycin 5 mg/gram (0.5 %) eye 1 appl ophthalmic (eye) BEDTIME 09/02/24 02/09/25 ointment PRN itchiness after rubbing eyes zinc oxide 40 % topical ointment 1 appl topical DAILY PRN buttocks 09/02/24 02/09/25 irritation estradiol 0.01% (0.1 mg/gram) 2 g vaginal MOWEFR 02/09/25 02/09/25 vaginal cream Previous Rx's ?Medication ?Instructions ?Recorded acetaminophen 500 mg capsule 500 mg PO Q6H PRN pain (scale 12/30/22 score 1-3) #60 caps Allergies Allergy/AdvReac Type Severity Reaction Status Date / Time aspirin (From Percodan) AdvReac Rash Verified 02/09/25 15:31 fentanyl AdvReac Rash Verified 02/09/25 15:31 oxycodone (From Percocet) AdvReac Rash Verified 02/09/25 15:31 Review of Systems Review of Systems: As per HPI Yes all other systems are reviewed and are negative Constitutional: Constitutional: Reports as per HPI Neurologic: Reports confusion (baseline) Psychiatric: Psychiatric: Reports confusion (baseline) [facility] Past Medical History Medical History (Updated 02/12/25 @ 10:43 by Anant Harper MD) GERD (gastroesophageal reflux disease) Nephrolithiasis Dementia Citrobacter infection Anemia due to acute blood loss Nephrostomy complication UTI (urinary tract infection) Chronic anemia Ureteral stent present Aphasia Metacarpal bone fracture GERD (gastroesophageal reflux disease) Hypertension Hyperlipidemia Anemia Atrial fibrillation Kidney stones Dementia Surgical History Hx of cholecystectomy Hx of heart artery stent Social History Social History Household Members: Unknown / Unable to assess Housing: House Do you presently have visiting nurse or other home services: Yes Alcohol intake: never Patient Tobacco Use Status: Tobacco use Unknown Advance Directives Date on File: 12/17/22 service: No Current occupational status: retired Physical Exam ED Vital Signs: Vital Signs - 24 hr 02/09/25 15:31 02/09/25 15:40 02/09/25 15:50 Temperature 102.7 F H Pulse Rate 125 H 117 H 117 H Respiratory Rate 23 H 24 H 22 H Blood Pressure 119/83 113/79 117/84 Pulse Oximetry 92 94 94 Oxygen Delivery Method Room Air Room Air Room Air 02/09/25 16:00 02/09/25 16:20 Temperature Pulse Rate 114 H 113 H Respiratory Rate 23 H 21 H Blood Pressure 100/76 115/82 Pulse Oximetry 93 94 Oxygen Delivery Method Room Air Room Air BMI result Body Mass Index 23.7 Vital signs have been reviewed and appear to be correct. Blood pressure normal. Heart rate tachycardic. Respiratory rate normal. Temperature febrile. Oxygen saturation normal. Const General: alert, awake and confusion (baseline) Orientation/consciousness: confusion (baseline) and Other orientation findings (aphasic) Limitations: altered mental status and other limitations (baseline aphasia) HENMT Head: Yes normocephalic and Yes atraumatic Ears: external ears normal General nose exam: Normal external nose present Face and sinus: Yes face symmetric Mouth: oropharynx normal and moist mucous membranes Throat: Yes uvula midline Neck Neck: Yes normal visual inspection and Yes supple Resp Effort & Inspection: normal respiratory effort Auscultation: clear to auscultation bilaterally Cardio Rate: regular rate Rhythm: regular rhythm Heart sounds: S1 normal heart sound present and S2 normal heart sound present GI Palpation (GI): Soft to palpation and nontender Auscultation: normoactive bowel sounds General: Yes no CVA tenderness Back/Spine/Pelvis Back: no CVA tenderness Skin General skin exam: elasticity normal and turgor normal Neuro General: tone normal, moves all extremities and confusion (baseline) Speech: Expressive aphasia present Extrem General: Yes full ROM, Yes no pedal edema and Yes no calf tenderness Medications Administered Generic Name Dose Route Start Last Admin Trade Name Freq PRN Reason Stop Dose Admin Apixaban 2.5 mg 02/10/25 21:00 02/12/25 11:56 Apixaban 2.5 Mg Tablet PO 2.5 mg BID YEHUDA Administration Atorvastatin Calcium 80 mg 02/10/25 21:00 02/11/25 20:47 Atorvastatin Calcium 80 Mg Tablet PO 80 mg BEDTIME YEHUDA Administration Fluoxetine HCl 40 mg 02/10/25 09:00 02/12/25 11:55 Fluoxetine Hcl 20 Mg Capsule PO 40 mg DAILY YEHUDA Administration Insulin Human Lispro 0 unit 02/10/25 21:00 02/12/25 11:57 Insulin Lispro 100 Unit/Ml 3 Ml Vial SUBCUT Not Given QIDACHS [facility] Protocol Meropenem 1 gm 02/10/25 10:00 02/12/25 09:24 Meropenem 1 Gm Vial IVPUSH 1 gm Q12H YEHUDA Administration Omeprazole 20 mg 02/10/25 06:30 02/12/25 05:27 Omeprazole 20 Mg Capsule.Dr PO 20 mg DAILY@0630 [facility] Administration Polyethylene Glycol 17 gm 02/10/25 09:00 02/12/25 11:56 Polyethylene Glycol 3350 17 Gm Powd.Pack PO 17 gm DAILY YEHUDA Administration Senna 17.2 mg 02/09/25 21:00 02/11/25 20:47 Sennosides 8.6 Mg Tablet PO 17.2 mg BEDTIME YEHUDA Administration Sodium Chloride 3 ml 02/10/25 00:00 02/12/25 09:23 0.9 % Sodium Chloride Flush 3 Ml Syringe IVFLUSH 3 ml QSHIFT YEHUDA Administration Discontinued Medications Generic Name Dose Route Start Last Admin Trade Name Freq PRN Reason Stop Dose Admin Bisacodyl 10 mg 02/09/25 20:59 02/09/25 23:00 Bisacodyl 10 Mg Supp.Rect AL 02/09/25 21:00 10 mg ONCE ONE Administration Acetaminophen 1,000 mg in 100 mls @ 400 mls/hr 02/09/25 15:30 02/09/25 16:00 Ofirmev IV 02/09/25 15:44 Infused ONCE ONE Infusion Ertapenem 1 gm/ Sodium 50 mls @ 100 mls/hr 02/09/25 15:38 02/09/25 16:15 Chloride IV 02/09/25 16:07 Infused ONCE ONE Infusion Lactated Ringer's 1,000 mls @ 999 mls/hr 02/09/25 16:30 02/09/25 17:45 Lr IV 02/09/25 17:30 Infused .Q1H1M YEHUDA Infusion Dextrose 1,000 mls @ 100 mls/hr 02/09/25 19:15 02/10/25 05:40 D5w IVCONT 02/10/25 05:14 Infused .Q10H YEHUDA Infusion Dextrose 1,000 mls @ 100 mls/hr 02/10/25 05:45 02/10/25 07:52 D5w IVCONT Infused .Q10H YEHUDA Infusion Dextrose 1,000 mls @ 60 mls/hr 02/10/25 19:00 02/11/25 21:26 D5w IVCONT Infused .[id number] YEHUDA Infusion Vancomycin HCl 1,500 mg/ 500 mls @ 333.333 mls/hr 02/10/25 20:00 02/10/25 22:00 Sodium Chloride IV 02/10/25 21:29 Infused ONCE ONE Infusion Vancomycin HCl 500 mg/ Sodium 110 mls @ 110 mls/hr 02/11/25 09:00 02/11/25 10:25 Chloride IV Infused Q12H YEHUDA Infusion Dextrose/Lactated Ringer's 1,000 mls @ 125 mls/hr 02/11/25 21:15 02/12/25 13:08 D5lr IVCONT Infused .Q8H YEHUDA Infusion Lactated Ringer's 500 mls @ 999 mls/hr 02/11/25 21:15 02/11/25 21:51 Lr IV 02/11/25 21:45 Infused .Q31M YEHUDA Infusion Iohexol 100 ml 02/09/25 19:55 02/09/25 19:55 Iohexol 350 Mg/Ml 100 Ml Infus..Btl IV 02/09/25 19:56 85 ml ONCE ONE Administration Quetiapine Fumarate 25 mg 02/10/25 15:50 02/10/25 17:27 Quetiapine Fumarate 25 Mg Tablet PO 02/10/25 15:51 25 mg ONCE ONE Administration Medical Decision Making Medical Decision Making [facility] Narrative: Patient is an 89-year-old female with history of vascular dementia, hearing loss, frequent UTIs, CVA, chronic anemia, bilateral ureteral stents, aphasia, GERD, HTN, HLD, AFib on Eliquis presenting to the emergency department for altered mental status. On exam patient is awake, alert, baseline expressive aphasia,tachycardic, febrile, physical exam findings as above. Given reported symptoms and physical exam findings, initial differential includes but is not limited to sepsis, UTI, viral illness, dehydration, electrolyte abnormality. IV ertapenem ordered given report of recent urine culture positive for klebsiella susceptible only to ertapenem and genatmicin. IV Tylenol ordered as well. Labs notable for hypernatremia at 160, lactic of 3, elevated BUN and creatinine as compared to baseline, mildly elevated transaminases. EKG shows sinus tachycardia with LVH. Viral serology negative. Case discussed with DONA Perez hospitalist who accepts admission to medicine. Differential Diagnosis Differential Diagnoses: The differential diagnosis associated with the presentation includes as per [facility] Admission/Observation Consideration of admission/observation: Escalation of care including admission/observation considered Consult Healthcare Provider Management of the patient was discussed with: Hospitalist Lab Data [facility] Lab Attestation statement: I reviewed the patient's lab results. as per [facility] 02/10/25 04:31 12/15/25 06:42 Labs: Lab Results 02/09/25 02/09/25 02/09/25 Range/Units 15:34 15:36 17:07 WBC 10.8 (4.8-10.8) X10*3/uL RBC 6.14 H D (4.20-5.50) X10*6/uL Hgb 12.7 D (12.0-16.0) g/dl Hct 46.0 D (37.0-47.0) % MCV 74.9 L (80.0-98.0) fL MCH 20.7 L (27.0-33.0) pg MCHC 27.6 L (31.0-35.0) g/dl RDW 22.9 H (11.0-16.0) % Plt Count 261 D (160-400) X10*3/uL MPV 11.0 (9.4-12.3) fL Immature Gran % (Auto) 0.5 H (0.0-0.4) % Neut % (Auto) 57.3 (45-73) % Lymph % (Auto) 30.7 (20-40) % [place] % (Auto) 10.6 (2-11) % Eos % (Auto) 0.4 (0-4) % Baso % (Auto) 0.5 (0-2) % Lymph # (Auto) 3.3 (1.2-4.9) X10*3/uL [place] # (Auto) 1.2 (0.1-1.2) X10*3/uL Eos # (Auto) 0.0 (0.0-0.4) X10*3/uL Baso # (Auto) 0.1 (0.0-0.2) X10*3/uL Abs Immat Gran (auto) 0.05 H (0.00-0.03) X10*3/uL Absolute Neuts (auto) 6.2 (2.0-8.3) x10*3/uL Absolute Nucleated RBC 0.000 (0.0-0.012) X10*3/uL Nucleated RBC % (auto) 0.0 (0.0-0.2) /100WBC PT 21.1 H (11.2-13.5) SEC INR 1.7 H (0.9-1.1) Sodium 160 H* (135-145) mmol/L Potassium 4.5 (3.3-5.1) mmol/L Chloride 123 H (96-108) mmol/L Carbon Dioxide 24 (22-29) mmol/L Anion Gap 18 (12-20) BUN 76 H (9-16) mg/dL Creatinine 1.37 (0.5-1.4) mg/dL Estim Creat Clear Calc 22.9 Estimated GFR 36 Random Glucose 228 H (60-115) mg/dL Lactic Acid 3.0 H* (0.5-2.0) mmol/L Lactic Acid F/U @ 2Hr (0.5-2.0) mmol/L Calcium 10.3 H D (8.4-10.2) mg/dL Magnesium 2.2 (1.6-2.6) mg/dL Total Bilirubin 0.6 (0.0-1.0) mg/dL AST 65 H (5-31) U/L ALT 54 H (0-31) U/L Alkaline Phosphatase 90 (39-117) U/L Troponin I High Sens 41.3 H D (<3.5-17.0) ng/L NT-Pro-B Natriuret Pep (<300) pg/mL Total Protein 8.3 H (6.5-8.0) g/dL Albumin 4.4 (3.5-5.0) g/dL Lipase (8-78) U/L TSH (0.32-4.0) uIU/mL Urine Color Yellow Urine Appearance Turbid Urine pH 5.0 (5.0-9.0) Ur Specific [place] 1.020 (1.005-1.025) Urine Protein 300 (3+) H (Neg-Trace) mg/dL Urine Glucose (UA) Negative (Negative) mg/dL Urine Ketones Trace (Negative) mg/dL Urine Blood Large (3+) H (Negative) Urine Nitrite Negative (Negative) Ur Leukocyte Esterase Large (3+) H (Negative) Urine RBC >20 H (0-2) /HPF Urine WBC >50 H (0-5) /HPF Ur Squamous Epith Cells 11-20 (0-2) /HPF Urine Bacteria 4+ (None Seen) Hyaline Casts 11-20 (0-2) /LPF Influenza Type A (PCR) NEGATIVE (Negative) Influenza Type B (PCR) NEGATIVE (Negative) RSV RNA Qual (PCR) NEGATIVE (Negative) SARS-CoV-2 RNA (RT-PCR) NEGATIVE (Negative) 02/09/25 Range/Units 17:50 WBC (4.8-10.8) X10*3/uL RBC (4.20-5.50) X10*6/uL Hgb (12.0-16.0) g/dl Hct (37.0-47.0) % MCV (80.0-98.0) fL MCH (27.0-33.0) pg MCHC (31.0-35.0) g/dl RDW (11.0-16.0) % Plt Count (160-400) X10*3/uL MPV (9.4-12.3) fL Immature Gran % (Auto) (0.0-0.4) % Neut % (Auto) (45-73) % Lymph % (Auto) (20-40) % [place] % (Auto) (2-11) % Eos % (Auto) (0-4) % Baso % (Auto) (0-2) % Lymph # (Auto) (1.2-4.9) X10*3/uL [place] # (Auto) (0.1-1.2) X10*3/uL Eos # (Auto) (0.0-0.4) X10*3/uL Baso # (Auto) (0.0-0.2) X10*3/uL Abs Immat Gran (auto) (0.00-0.03) X10*3/uL Absolute Neuts (auto) (2.0-8.3) x10*3/uL Absolute Nucleated RBC (0.0-0.012) X10*3/uL Nucleated RBC % (auto) (0.0-0.2) /100WBC PT (11.2-13.5) SEC INR (0.9-1.1) Sodium 160 H* (135-145) mmol/L Potassium 4.7 (3.3-5.1) mmol/L Chloride 123 H (96-108) mmol/L Carbon Dioxide 23 (22-29) mmol/L Anion Gap 19 (12-20) BUN 74 H (9-16) mg/dL Creatinine 1.25 (0.5-1.4) mg/dL Estim Creat Clear Calc 25.1 Estimated GFR 41 Random Glucose 144 H (60-115) mg/dL Lactic Acid (0.5-2.0) mmol/L Lactic Acid F/U @ 2Hr 3.0 H* (0.5-2.0) mmol/L Calcium 9.5 D (8.4-10.2) mg/dL Magnesium (1.6-2.6) mg/dL Total Bilirubin (0.0-1.0) mg/dL AST (5-31) U/L ALT (0-31) U/L Alkaline Phosphatase (39-117) U/L Troponin I High Sens 45.9 H (<3.5-17.0) ng/L NT-Pro-B Natriuret Pep 913.1 H (<300) pg/mL Total Protein (6.5-8.0) g/dL Albumin (3.5-5.0) g/dL Lipase 55 (8-78) U/L TSH 0.86 (0.32-4.0) uIU/mL Urine Color Urine Appearance Urine pH (5.0-9.0) Ur Specific [place] (1.005-1.025) Urine Protein (Neg-Trace) mg/dL Urine Glucose (UA) (Negative) mg/dL Urine Ketones (Negative) mg/dL Urine Blood (Negative) Urine Nitrite (Negative) Ur Leukocyte Esterase (Negative) Urine RBC (0-2) /HPF Urine WBC (0-5) /HPF Ur Squamous Epith Cells (0-2) /HPF Urine Bacteria (None Seen) Hyaline Casts (0-2) /LPF Influenza Type A (PCR) (Negative) Influenza Type B (PCR) (Negative) RSV RNA Qual (PCR) (Negative) SARS-CoV-2 RNA (RT-PCR) (Negative) Independent Interpretation I performed an independent interpretation of an: EKG (sinus tachycardia with LVH, rate 116bpm, normal AL interval, prolonged QTc, no significant change from prior) Independent Historian Clinical information obtained from an independent historian. History obtained from or confirmed by: Other (daughter) External Record Review External record reviewed: Inpatient record, Office record and Outpatient record Critical Care Time Critical Care Time Critical Care Time: Yes Total Critical Care Time: 55 Attestation: I have personally provided critical care time exclusive of time spent on separately billable procedures. Time includes review of lab data, radiology results, discussion with consultants, and monitoring for potential decompensation. Intervention performed as documented. Discharge Plan Discharge Clinical Impression: Hypernatremia Sepsis Qualifiers: Sepsis type: sepsis due to unspecified organism Sepsis acute organ dysfunction status: unspecified Qualified Code(s): A41.9 - Sepsis, unspecified organism Patient Disposition: Admitted As Inpatient Interventions: Admission Worksheet (ED) Last Done: 02/10/25 07:50 Discharge Date/Time: 02/10/25 08:19
--- NOTE | 2025-02-09 15:01 | ECG_ITS ---
Test Reason : tachy Blood Pressure : */* mmHG Vent. Rate : 116 BPM Atrial Rate : 116 BPM P-R Int : 122 ms QRS Dur : 98 ms QT Int : 344 ms P-R-T Axes : 53 -7 124 degrees QTcB Int : 478 ms Sinus tachycardia Left ventricular hypertrophy with repolarization abnormality ( R in aVL , José product ) Abnormal ECG When compared with ECG of 02-Sep-2024 15:11, No significant change was found Referred By: Mallory Pathak Electronically Signed By: TERRANCE QUINTANA MD
[2025-02-09 15:43] LABS: MANUAL DIFF FLAG NO
[2025-02-09 15:55] LABS: INTERNATIONAL NORM RATIO 1.7 (0.9-1.1); Prothrombin Time 21.1 SEC (11.2-13.5)
[2025-02-09 15:58] LABS: Hematocrit 46.0 % (37.0-47.0); Hemoglobin 12.7 g/dl (12.0-16.0); Imm Gran Abs Auto 0.05 X10*3/uL (0.00-0.03); Imm Gran Pct Auto 0.5 % (0.0-0.4); Lymphocytes Absolute Auto 3.3 X10*3/uL (1.2-4.9); Mean Corpuscular HGB Conc 27.6 g/dl (31.0-35.0); Mean Corpuscular Hemoglobin 20.7 pg (27.0-33.0); Mean Corpuscular Volume 74.9 fL (80.0-98.0); NRBC Abs Auto 0.000 X10*3/uL (0.0-0.012); NRBC Pct Auto 0.0 /100WBC (0.0-0.2); Platelet Count 261 X10*3/uL (160-400); Red Blood Count 6.14 X10*6/uL (4.20-5.50); White Blood Count 10.8 X10*3/uL (4.8-10.8)
[2025-02-09 16:06] LABS: Troponin-I High Sensitivity 41.3 ng/L (<3.5-17.0)
[2025-02-09 16:08] LABS: Alanine Aminotransferase 54 U/L (0-31); Albumin Level 4.4 g/dL (3.5-5.0); Alkaline Phosphatase 90 U/L (39-117); Anion Gap 18 (12-20); Aspartate Amino Transferase 65 U/L (5-31); Blood Urea Nitrogen 76 mg/dL (9-16); Calcium 10.3 mg/dL (8.4-10.2); Carbon Dioxide 24 mmol/L (22-29); Chloride 123 mmol/L (96-108); Creatinine Clr Calc Pharmacy 22.9; Estimated Glomerular Filt Rate 36; Magnesium 2.2 mg/dL (1.6-2.6); Potassium 4.5 mmol/L (3.3-5.1); Sodium 160 mmol/L (135-145); Total Protein 8.3 g/dL (6.5-8.0)
[2025-02-09 16:24] LABS: Resp Syncy Virus RNA Qual PCR NEGATIVE (Negative); SARS COV2 PCR INHOUSE NEGATIVE (Negative)
[2025-02-09] MEDS: Lactated Ringers 1,000 ML 999 ML IV (16:32)
[2025-02-09 17:20] LABS: Appearance Urine Turbid; Glucose Urine UA Negative (Negative); PH 5.0 (5.0-9.0); Specific Gravity - Urine 1.020 (1.005-1.025); UMIC TRIGGER UACC YES
[2025-02-09 17:41] LABS: Reflex Lactate? Lactic Acid Added
[2025-02-09 17:44] LABS: UACC Culture Trigger YES
[2025-02-09 18:17] LABS: ~Lactic Acid-LAB USE ONLY 3.0 mmol/L (0.5-2.0)
[2025-02-09 18:20] LABS: Troponin-I High Sensitivity 45.9 ng/L (<3.5-17.0)
[2025-02-09 18:59] LABS: Anion Gap 19 (12-20); Blood Urea Nitrogen 74 mg/dL (9-16); Calcium 9.5 mg/dL (8.4-10.2); Carbon Dioxide 23 mmol/L (22-29); Chloride 123 mmol/L (96-108); Creatinine Clr Calc Pharmacy 25.1; Estimated Glomerular Filt Rate 41; Potassium 4.7 mmol/L (3.3-5.1); Sodium 160 mmol/L (135-145)
--- NOTE | 2025-02-09 19:19 | PM.IMHP ---
History of Present Illness Date of Service: 02/09/25 Attending physician on admission: Jean Claude Delacruz Chief Complaint: increased confusion, infection suspected Patient is an 89-year-old female with past medical history dementia, underlying psychotic disorder, AV replacement, UTI (history of Klebsiella and Citrobacter), anemia, HTN, hyperlipidemia, AFib on Eliquis, GERD, CVA, bilateral ureteral stents and history of nephrostomy tubes, nephrolithiasis, CKD/GINA was BIBA for increased confusion and suspicion for UTI per pt's daughter, pt's primary child care director at home. On 02/05/2025 patient was at [facility] and had her ureteral stents replaced. Patient received fluconazole and IV antibiotics postprocedure. On Wednesday and Wednesday patient was at her baseline per patient's daughter but on there was suspicion that is patient was not feeling well and the culture came back positive for Klebsiella per [facility] provider. Arrangements for antibiotics to be sent to the home were made but daughter did not receive the antibiotics as they were sent to the wrong pharmacy. Patient never started antibiotics. Per daughter, patient today more confused than baseline acting borderline listless and she called 911 and had patient transported to the ED. Patient's sodium 160, confirm with 2nd draw. Daughter denies recent history of diarrhea but intake has been poor overall. No report of seizure activity but confusion appears to be worse than usual. Patient met criteria for sepsis on arrival with noted fever 102.7, tachycardia 125. Blood pressure stable at 119/83 and pulse ox 92 on room air. Lactic acid 3.0. No leukocytosis or anemia. Sodium 160, confirmed. Patient does not have a history of hypernatremia. Patient started on D5W at 100 mL/hour in the ED. Patient also received ertapenem 1 g as she has a history of resistant Klebsiella. Troponin mildly elevated, 41.3 than 45.9. EKG sinus tach no ischemic changes. Blood and urine cultures pending. CT of the chest abdomen and pelvis also pending. No current issues with urinary retention. Patient being admitted for sepsis, UTI, increased confusion and hypernatremia. Review of Systems Review of Systems: Yes Unobtainable due to mental status (Patient has baseline dementia) [facility] Medical History (Updated 02/09/25 @ 20:00 by MIGUEL Long) GERD (gastroesophageal reflux disease) Nephrolithiasis Dementia Citrobacter infection Anemia due to acute blood loss Nephrostomy complication UTI (urinary tract infection) Chronic anemia Ureteral stent present Aphasia Metacarpal bone fracture GERD (gastroesophageal reflux disease) Hypertension Hyperlipidemia Anemia Atrial fibrillation Kidney stones Dementia Cognitive capacity: Baseline dementia Functional capacity: bed bound Patient : No Surgical History (Updated 02/09/25 @ 20:59 by MIGUEL Long) Hx of cholecystectomy Hx of heart artery stent Social History Household Members: Family Housing: House Do you presently have visiting nurse or other home services: Yes Unable to assess alcohol history related to: Unknown Alcohol intake: never Patient Tobacco Use Status: Tobacco use Unknown Use of substances other than those prescribed or required for medical reasons: Unknown Advance Directives: Yes Advance Directives on File: Yes Advance Directives Date on File: 12/17/22 Nutrition Risks: No Nutritional Risk Patient : No service: No Current occupational status: retired [employer] Allergies Allergy/AdvReac Type Severity Reaction Status Date / Time aspirin (From Percodan) AdvReac Rash Verified 02/09/25 15:31 fentanyl AdvReac Rash Verified 02/09/25 15:31 oxycodone (From Percocet) AdvReac Rash Verified 02/09/25 15:31 Active Medications: Current Medications Acetaminophen (Acetaminophen 325 Mg Tablet) 650 mg PO Q6H PRN PRN Reason: Pain, Mild 1-3,fever,headache Albuterol/Ipratropium (Albuterol/Iprat 2.5/0.5mg 3 Ml Ampul.Neb) 3 ml INHALE Q4H PRN PRN Reason: Shortness of Breath/Wheezing Calcium Carbonate (Calcium Carbonate 750 Mg Tab.Chew) 750 mg PO Q4H PRN PRN Reason: Heartburn Dextrose (D5w) 1,000 mls @ 100 mls/hr IVCONT .Q10H YEHUDA Stop: 02/10/25 05:14 Ertapenem 1 gm/ Sodium (Chloride) 50 mls @ 100 mls/hr IV ONCE ONE Stop: 02/10/25 15:59 Magnesium Hydroxide (Milk Of Magnesia 30 Ml Oral.Susp) 30 ml PO DAILY PRN PRN Reason: Constipation Melatonin (Melatonin 3 Mg Tablet) 6 mg PO BEDTIME PRN PRN Reason: Insomnia Ondansetron HCl (Ondansetron Hcl 4 Mg/2 Ml Vial) 4 mg IVPUSH Q8H PRN PRN Reason: Nausea and Vomiting Polyethylene Glycol (Polyethylene Glycol 3350 17 Gm Powd.Pack) 17 gm PO DAILY PRN PRN Reason: Constipation Senna (Sennosides 8.6 Mg Tablet) 17.2 mg PO BEDTIME YEHUDA Sodium Chloride (0.9 % Sodium Chloride Flush 3 Ml Syringe) 3 ml IVFLUSH QSHIFT [facility] Home Medications ?Medication ?Instructions ?Recorded ?Confirmed ?Last Taken ?Type atorvastatin 80 mg tablet 1 tab PO BEDTIME 01/05/20 02/09/25 02/09/25 History fluoxetine 20 mg capsule 2 cap PO DAILY 01/05/20 02/09/25 02/09/25 History omeprazole 20 mg capsule,delayed 20 mg PO DAILY@0630 01/05/20 02/09/25 02/09/25 History release trazodone 50 mg tablet 1 tab PO DAILY PRN 01/05/20 02/09/25 Unknown History Insomnia/agitation apixaban 2.5 mg tablet (Eliquis) 2.5 mg PO BID 12/17/22 02/09/25 02/09/25 History nystatin 100,000 unit/gram topical 1 appl topical TID PRN irritation 12/17/22 02/09/25 12/17/22 History powder erythromycin 5 mg/gram (0.5 %) eye 1 appl ophthalmic (eye) BEDTIME 09/02/24 02/09/25 02/09/25 History ointment PRN itchiness after rubbing eyes zinc oxide 40 % topical ointment 1 appl topical DAILY PRN buttocks 09/02/24 02/09/25 Unknown History irritation estradiol 0.01% (0.1 mg/gram) 2 g vaginal MOWEFR 02/09/25 02/09/25 02/09/25 History vaginal cream Physical Exam Vital Signs and Narrative: Vital Signs: Last Vital Signs Temp 101.3 F H 02/09/25 17:35 Pulse 99 02/09/25 18:01 Resp 20 02/09/25 18:01 BP 114/77 02/09/25 18:01 Pulse Ox 94 02/09/25 18:01 O2 Del Method Room Air 02/09/25 18:01 BMI result Body Mass Index 23.7 confused, nonverbal currnetly, comfrotable , unable to provide good history. Neuro: pt awake, not following commands, baseline per daughter EYES: PERRLA, B ectropion, sclera nonicteric ENT: [place], uvula midline, lips moist, nares patent no epistaxis, no thrush Cardiac: S1 S2 RRR, tachy 103, no murmur, no JVD, no edema in Lower ext Pulmonary: lungs diminished B no adventitous sounds Abdominal: BS active in all 4 quadrants, no guarding, tenderness, rebounding MSK: strength 2-3/5 upper and lower extremities : no CVA tenderness no bladder distension Extremities: no edema in lower extremities, PT and DP pulses palpable +2 Psych: mood stable, judgement and insight poor Skin: no new lesions,rashes, opened wounds Results Labs 02/09/25 15:34 02/09/25 23:39 Labs: Laboratory Results - last 24 hr 02/09/25 02/09/25 02/09/25 15:34 15:36 17:07 MCV 74.9 L MCH 20.7 L MCHC 27.6 L RDW 22.9 H Plt Count 261 D MPV 11.0 Immature Gran % (Auto) 0.5 H Neut % (Auto) 57.3 Lymph % (Auto) 30.7 Wetzel % (Auto) 10.6 Eos % (Auto) 0.4 Baso % (Auto) 0.5 Lymph # (Auto) 3.3 Wetzel # (Auto) 1.2 Eos # (Auto) 0.0 Baso # (Auto) 0.1 Abs Immat Gran (auto) 0.05 H Absolute Neuts (auto) 6.2 Absolute Nucleated RBC 0.000 Nucleated RBC % (auto) 0.0 PT 21.1 H INR 1.7 H Anion Gap 18 Estim Creat Clear Calc 22.9 Estimated GFR 36 Random Glucose 228 H Lactic Acid 3.0 H* Lactic Acid F/U @ 2Hr Calcium 10.3 H D Magnesium 2.2 Total Bilirubin 0.6 AST 65 H ALT 54 H Alkaline Phosphatase 90 Troponin I High Sens 41.3 H D Total Protein 8.3 H Albumin 4.4 Urine Color Yellow Urine Appearance Turbid Urine pH 5.0 Ur Specific Henry 1.020 Urine Protein 300 (3+) H Urine Glucose (UA) Negative Urine Ketones Trace Urine Blood Large (3+) H Urine Nitrite Negative Ur Leukocyte Esterase Large (3+) H Urine RBC >20 H Urine WBC >50 H Ur Squamous Epith Cells 11-20 Urine Bacteria 4+ Hyaline Casts 11-20 Influenza Type A (PCR) NEGATIVE Influenza Type B (PCR) NEGATIVE RSV RNA Qual (PCR) NEGATIVE SARS-CoV-2 RNA (RT-PCR) NEGATIVE 02/09/25 17:50 MCV MCH MCHC RDW Plt Count MPV Immature Gran % (Auto) Neut % (Auto) Lymph % (Auto) Wetzel % (Auto) Eos % (Auto) Baso % (Auto) Lymph # (Auto) Wetzel # (Auto) Eos # (Auto) Baso # (Auto) Abs Immat Gran (auto) Absolute Neuts (auto) Absolute Nucleated RBC Nucleated RBC % (auto) PT INR Anion Gap 19 Estim Creat Clear Calc 25.1 Estimated GFR 41 Random Glucose 144 H Lactic Acid Lactic Acid F/U @ 2Hr 3.0 H* Calcium 9.5 D Magnesium Total Bilirubin AST ALT Alkaline Phosphatase Troponin I High Sens 45.9 H Total Protein Albumin Urine Color Urine Appearance Urine pH Ur Specific Henry Urine Protein Urine Glucose (UA) Urine Ketones Urine Blood Urine Nitrite Ur Leukocyte Esterase Urine RBC Urine WBC Ur Squamous Epith Cells Urine Bacteria Hyaline Casts Influenza Type A (PCR) Influenza Type B (PCR) RSV RNA Qual (PCR) SARS-CoV-2 RNA (RT-PCR) ECG Attestation: I personally reviewed and interpreted this ECG as follows: (ST no ischemic changes ) Prior ECG tracings: available for review Imaging Radiologist's Impressions: CT chest abd and pelvis pending Assessment and Plan (1) Sepsis: Qualifiers: Sepsis acute organ dysfunction status: unspecified Sepsis type: sepsis due to unspecified organism Qualified Code(s): A41.9 - Sepsis, unspecified organism Status: Acute (2) UTI (urinary tract infection): Qualifiers: Hematuria presence: with hematuria Urinary tract infection type: acute cystitis Qualified Code(s): N30.01 - Acute cystitis with hematuria Status: Acute (3) Hypernatremia: Status: Acute Plan Patient is an 89-year-old female with past medical history dementia, underlying psychotic disorder, AV replacement, IVC filter, UTI (history of Klebsiella and Citrobacter), anemia, HTN, hyperlipidemia, AFib on Eliquis, GERD, CVA, bilateral ureteral stents and history of nephrostomy tubes, nephrolithiasis, CKD/GINA was BIBA for increased confusion and suspicion for UTI per pt's daughter, pt's primary child care director at home. On 02/05/2025 patient was at [facility] and had her ureteral stents replaced. Patient being admitted for sepsis, UTI and hypernatremia Sepsis secondary to UTI most likely status post replacement of ureter tubes 02/05/2025 at [facility] Patient received fluid resuscitation per sepsis protocol Patient is started on ertapenem noting culture from ureter replacement positive for Klebsiella and patient has history of resistant Klebsiella IV fluids continue, change to D5W due to hypernatremia Blood cultures and urine culture pending CT of the chest abdomen and pelvis: chest neg for acute findings, abd/pelvis B uretal stend with hydronephrosis Telemetry with continuous pulse ox Eliquis on hold noting +3 heme Acute lactic acidosis 3.0 X2 , continue to trend IV fluids initiated Hypernatremia Likely secondary to poor p.o. intake versus DI 160, confirmed with 2nd redraw Patient is started on D5W at 100 mL/hour Repeat sodium every 4 hours until normalized Baseline dementia, possible encephalopathy Nephrology consulted Urine studies and serum osmolality requested Patient is not currently on any medications that promote hypernatremia No report of diarrhea Mildly elevated troponins 41, 45... Continue to trend EKG sinus tach without ischemic changes BNP pending Telemetry Constipation Stool burden noted on CT scan Dulcokax supp one time now Miralax daily Senna HS MOM prn AFib on Eliquis Patient not normally on any AV baljit blocking agents or rate control medications Eliquis on hold secondary to +3 heme and UA H&H currently stable Telemetry we will continue Currently sinus tach History of aortic valve replacement No recent issues per patient's daughter Consider echo if BNP is elevated Hyperlipidemia Holding statin as LFTs are mildly elevated Repeat CMP in the a.m. GERD Protonix IV DVT prophylaxisL: Eliquis held currently for +3 human UA Med rec pending Full code status: Confirmed with patient's daughter who is the healthcare proxy Patient will require at least a 2 midnight stay for IV antibiotics, IV fluids to treat sepsis and expert consultation with Nephrology for noted hypernatremia. Patient will require close hemodynamic monitoring. Quality Stroke Does the patient have a stroke diagnosis?: No Reason for No Anti-thrombotic by Day Two: Contraindicated (heme positive urine,await CT results ) VTE Prior VTE?: No VTE Risk Level:: Medical - moderate - high VTE Device Contraindication: N/A - Device Ordered VTE Drug Contraindication: N/A - Med Ordered
--- NOTE | 2025-02-09 19:20 | PHA.MEDREC ---
Pharmacy Consult ? Medication Reconciliation Pharmacy has completed the medication reconciliation. Spoke with daughter, Rosemary, at bedside. Daughter confirmed all medications.
[2025-02-09 19:55] LABS: Reflex Lactate? 2 Y
[2025-02-09] MEDS: iohexoL 350 MG/ML 100 ML INFUS..BTL IV (19:55)
[2025-02-09 20:34] LABS: ~Lactic Acid-LAB USE ONLY 2.3 mmol/L (0.5-2.0)
[2025-02-09 20:40] LABS: NT Pro B Type Natriuretic Pept 913.1 pg/mL (<300)
[2025-02-09 20:41] LABS: Lipase 55 U/L (8-78)
[2025-02-10] VITALS (10 sets, daily range): BP systolic 105–141; BP diastolic 62–76; PULSE 84–105; RESP 12–18; TEMP 36.2–36.8; O2SAT 94–100; BMI 26.3
[2025-02-10 00:02] LABS: Sodium 158 mmol/L (135-145)
--- NOTE | 2025-02-10 01:02 | PC.NURSE ---
PT noted to be more awake and alert then compared to initial interactions at 2300. The pt appears to be intermittently restless, vss, she does not appear to be in any apparent distress at this time and is not displaying any outward expressions of discomfort. Bilateral eyes noted to have yellow mucus both dry and wet/moist with red conjunctiva. IVF continue to infuse without s/s of complications. No stool noted as of yet, purewick remains in place. RN called down to the lab to confirm need for additional lactic acid as 4hr lab remained elevated and was informed there are no additional lactic acids are not required. RN also confirmed the tube tops required for the specific urine orders.
[2025-02-10 04:37] LABS: MANUAL DIFF FLAG NO
[2025-02-10 04:40] LABS: Hematocrit 41.8 % (37.0-47.0); Hemoglobin 11.9 g/dl (12.0-16.0); Imm Gran Abs Auto 0.03 X10*3/uL (0.00-0.03); Imm Gran Pct Auto 0.3 % (0.0-0.4); Lymphocytes Absolute Auto 2.6 X10*3/uL (1.2-4.9); Mean Corpuscular HGB Conc 28.5 g/dl (31.0-35.0); Mean Corpuscular Hemoglobin 21.1 pg (27.0-33.0); Mean Corpuscular Volume 74.2 fL (80.0-98.0); NRBC Abs Auto 0.000 X10*3/uL (0.0-0.012); NRBC Pct Auto 0.0 /100WBC (0.0-0.2); Platelet Count 194 X10*3/uL (160-400); Red Blood Count 5.63 X10*6/uL (4.20-5.50); White Blood Count 10.5 X10*3/uL (4.8-10.8)
[2025-02-10 04:52] LABS: Alanine Aminotransferase 40 U/L (0-31); Albumin Level 3.8 g/dL (3.5-5.0); Alkaline Phosphatase 84 U/L (39-117); Anion Gap 15 (12-20); Aspartate Amino Transferase 37 U/L (5-31); Blood Urea Nitrogen 59 mg/dL (9-16); Calcium 9.3 mg/dL (8.4-10.2); Carbon Dioxide 24 mmol/L (22-29); Chloride 119 mmol/L (96-108); Creatinine Clr Calc Pharmacy 31.0; Estimated Glomerular Filt Rate 52; Iron 44 mcg/dL (30-160); Percent Iron Saturation 13 % (15-50); Potassium 4.2 mmol/L (3.3-5.1); Sodium 154 mmol/L (135-145); Total Iron Binding Capacity 338 mcg/dL (228-428); Total Protein 7.0 g/dL (6.5-8.0); Unsaturated Iron Binding 294 ug/dL
[2025-02-10 04:57] LABS: Troponin-I High Sensitivity 34.7 ng/L (<3.5-17.0)
[2025-02-10 05:10] LABS: Osmolality, Serum 347 mosm/kg (281-305)
[2025-02-10 05:29] LABS: Vitamin B12 387 pg/mL (200-900)
--- NOTE | 2025-02-10 05:31 | HO.NURTONUR ---
Addendum entered by Basia Marie RN 02/10/25 06:59: Pt failed bedside swallow, NPO diet ordered, QB made aware via tiger. Original Note: 89 yo female presenting from home where she resides with her daughter d/t increased confusion with a history of frequent antibiotic resistent UTIs with sepsis. PT was found to initially be febrile, tachypnic and tachycardic. She was found to have an elevated sodium level, lactic acid, and bnp with a UTI. Sepsis alert initiated and IVF and Ertapenum and currently has D5W up and running at 100mls/hr through a #20G in the right AC. Abd/Pelvis CT showed bilateral hydronephrosis, Pt has a history of vascular dementia, has been resting most of her stay with intermittent episodes of restlessness where she was noted to pull at and play with cords/tubes but was redirectable. Per daughter pt can drink with a straw however she has not been given anything orally due to her presentation; ID Dulcolax given for large stool burden . Purewick in place to manage toileting needs.
[2025-02-10 06:34] LABS: Reflex Lactate? Lactic Acid Added
[2025-02-10 07:30] LABS: ~Lactic Acid-LAB USE ONLY 2.5 mmol/L (0.5-2.0)
[2025-02-10 07:33] LABS: Cancel Lactic Acid Canceled
--- NOTE | 2025-02-10 08:02 | PC.NURSE ---
Fluids D/C'd per provider
--- NOTE | 2025-02-10 08:05 | P.PNIM_ITS ---
Subjective Subjective Date of Service: 02/10/25 Interval History: hypernatremia , uti Review of Systems more awake intermittent agaitation Review of Systems: Yes all other systems are reviewed and are negative Physical Exam 2 Exam: Exam: Appearance: awake ,seems loud on hearing cvs: [id number], [id number] . res: clear to auscultation ,no rhonchii or wheezing abd: no rebound or guarding ,nt, bs present. ext pulses present , no cyanosis . neuro:moves all ext. Vital Signs: Vital Signs: Last Vital Signs Temp 98.3 F 02/10/25 06:16 Pulse 84 02/10/25 07:58 Resp 17 02/10/25 07:58 BP 111/71 02/10/25 07:58 Pulse Ox 94 02/10/25 07:58 O2 Del Method Room Air 02/10/25 07:58 BMI result Body Mass Index 23.7 Objective Data Active Medications Acetaminophen (Acetaminophen 325 Mg Tablet) 650 mg PO Q6H PRN PRN Reason: Pain, Mild 1-3,fever,headache Albuterol/Ipratropium (Albuterol/Iprat 2.5/0.5mg 3 Ml Ampul.Neb) 3 ml INHALE Q4H PRN PRN Reason: Shortness of Breath/Wheezing Atorvastatin Calcium (Atorvastatin Calcium 80 Mg Tablet) 80 mg PO BEDTIME [facility] Calcium Carbonate (Calcium Carbonate 750 Mg Tab.Chew) 750 mg PO Q4H PRN PRN Reason: Heartburn Fluoxetine HCl (Fluoxetine Hcl 20 Mg Capsule) 40 mg PO DAILY [facility] Ertapenem 1 gm/ Sodium (Chloride) 50 mls @ 100 mls/hr IV ONCE ONE Stop: 02/10/25 15:29 Magnesium Hydroxide (Milk Of Magnesia 30 Ml Oral.Susp) 30 ml PO DAILY PRN PRN Reason: Constipation Melatonin (Melatonin 3 Mg Tablet) 6 mg PO BEDTIME PRN PRN Reason: Insomnia Omeprazole (Omeprazole 20 Mg Capsule.Dr) 20 mg PO DAILY@0630 [facility] Last Admin: 02/10/25 07:20 Dose: Not Given Documented By: CHRIS Non-Admin Reason: NPO Ondansetron HCl (Ondansetron Hcl 4 Mg/2 Ml Vial) 4 mg IVPUSH Q8H PRN PRN Reason: Nausea and Vomiting Polyethylene Glycol (Polyethylene Glycol 3350 17 Gm Powd.Pack) 17 gm PO DAILY [facility] Senna (Sennosides 8.6 Mg Tablet) 17.2 mg PO BEDTIME [facility] Last Admin: 02/09/25 23:00 Dose: Not Given Documented By: WAYLON Non-Admin Reason: NPO Sodium Chloride (0.9 % Sodium Chloride Flush 3 Ml Syringe) 3 ml IVFLUSH QSHIFT [facility] Last Admin: 02/10/25 07:20 Dose: Not Given Documented By: CHRIS Non-Admin Reason: IV Running Labs 02/10/25 04:31 02/10/25 04:31 Labs: Laboratory Results - last 24 hr 02/09/25 02/09/25 02/09/25 15:34 15:36 17:07 MCV 74.9 L MCH 20.7 L MCHC 27.6 L RDW 22.9 H Plt Count 261 D MPV 11.0 Immature Gran % (Auto) 0.5 H Neut % (Auto) 57.3 Lymph % (Auto) 30.7 Craven % (Auto) 10.6 Eos % (Auto) 0.4 Baso % (Auto) 0.5 Lymph # (Auto) 3.3 Craven # (Auto) 1.2 Eos # (Auto) 0.0 Baso # (Auto) 0.1 Abs Immat Gran (auto) 0.05 H Absolute Neuts (auto) 6.2 Absolute Nucleated RBC 0.000 Nucleated RBC % (auto) 0.0 PT 21.1 H INR 1.7 H Anion Gap 18 Estim Creat Clear Calc 22.9 Estimated GFR 36 Random Glucose 228 H Osmolality Lactic Acid 3.0 H* Lactic Acid F/U @ 2Hr Lactic Acid F/U @ 4Hr Calcium 10.3 H D Magnesium 2.2 Iron TIBC % Saturation Unsat Iron Binding Total Bilirubin 0.6 AST 65 H ALT 54 H Alkaline Phosphatase 90 Troponin I High Sens 41.3 H D NT-Pro-B Natriuret Pep Total Protein 8.3 H Albumin 4.4 Lipase Vitamin B12 TSH Urine Color Yellow Urine Appearance Turbid Urine pH 5.0 Ur Specific Sentinel 1.020 Urine Protein 300 (3+) H Urine Glucose (UA) Negative Urine Ketones Trace Urine Blood Large (3+) H Urine Nitrite Negative Ur Leukocyte Esterase Large (3+) H Urine RBC >20 H Urine WBC >50 H Ur Squamous Epith Cells 11-20 Urine Bacteria 4+ Hyaline Casts 11-20 Urine Osmolality Ur Random Sodium Influenza Type A (PCR) NEGATIVE Influenza Type B (PCR) NEGATIVE RSV RNA Qual (PCR) NEGATIVE SARS-CoV-2 RNA (RT-PCR) NEGATIVE 02/09/25 02/09/25 02/10/25 17:50 20:11 01:05 MCV MCH MCHC RDW Plt Count MPV Immature Gran % (Auto) Neut % (Auto) Lymph % (Auto) Craven % (Auto) Eos % (Auto) Baso % (Auto) Lymph # (Auto) [place]ven # (Auto) Eos # (Auto) Baso # (Auto) Abs Immat Gran (auto) Absolute Neuts (auto) Absolute Nucleated RBC Nucleated RBC % (auto) PT INR Anion Gap 19 Estim Creat Clear Calc 25.1 Estimated GFR 41 Random Glucose 144 H Osmolality Lactic Acid Lactic Acid F/U @ 2Hr 3.0 H* Lactic Acid F/U @ 4Hr 2.3 H* Calcium 9.5 D Magnesium Iron TIBC % Saturation Unsat Iron Binding Total Bilirubin AST ALT Alkaline Phosphatase Troponin I High Sens 45.9 H NT-Pro-B Natriuret Pep 913.1 H Total Protein Albumin Lipase 55 Vitamin B12 TSH 0.86 Urine Color Urine Appearance Urine pH Ur Specific Sentinel Urine Protein Urine Glucose (UA) Urine Ketones Urine Blood Urine Nitrite Ur Leukocyte Esterase Urine RBC Urine WBC Ur Squamous Epith Cells Urine Bacteria Hyaline Casts Urine Osmolality 665 Ur Random Sodium 46.0 Influenza Type A (PCR) Influenza Type B (PCR) RSV RNA Qual (PCR) SARS-CoV-2 RNA (RT-PCR) 02/10/25 02/10/25 04:31 06:42 MCV 74.2 L MCH 21.1 L MCHC 28.5 L RDW 22.5 H Plt Count 194 D MPV 10.8 Immature Gran % (Auto) 0.3 Neut % (Auto) 66.7 Lymph % (Auto) 24.9 Craven % (Auto) 7.4 Eos % (Auto) 0.5 Baso % (Auto) 0.2 Lymph # (Auto) 2.6 Craven # (Auto) 0.8 Eos # (Auto) 0.1 Baso # (Auto) 0.0 Abs Immat Gran (auto) 0.03 Absolute Neuts (auto) 7.0 Absolute Nucleated RBC 0.000 Nucleated RBC % (auto) 0.0 PT INR Anion Gap 15 Estim Creat Clear Calc 31.0 Estimated GFR 52 Random Glucose 210 H Osmolality 347 H Lactic Acid 2.6 H* Lactic Acid F/U @ 2Hr 2.5 H* Lactic Acid F/U @ 4Hr Calcium 9.3 Magnesium Iron 44 TIBC 338 % Saturation 13 L Unsat Iron Binding 294 Total Bilirubin 0.5 AST 37 H ALT 40 H Alkaline Phosphatase 84 Troponin I High Sens 34.7 H NT-Pro-B Natriuret Pep Total Protein 7.0 Albumin 3.8 Lipase Vitamin B12 387 TSH Urine Color Urine Appearance Urine pH Ur Specific Sentinel Urine Protein Urine Glucose (UA) Urine Ketones Urine Blood Urine Nitrite Ur Leukocyte Esterase Urine RBC Urine WBC Ur Squamous Epith Cells Urine Bacteria Hyaline Casts Urine Osmolality Ur Random Sodium Influenza Type A (PCR) Influenza Type B (PCR) RSV RNA Qual (PCR) SARS-CoV-2 RNA (RT-PCR) Assessment and Plan (1) UTI (urinary tract infection): Status: Acute (2) Hypernatremia: Status: Acute (3) Gross hematuria: Status: Acute Plan 89-year-old female with past medical history dementia, underlying psychotic disorder, AV replacement, IVC filter, UTI (history of Klebsiella and Citrobacter), anemia, HTN, hyperlipidemia, AFib on Eliquis, GERD, CVA, bilateral ureteral stents and history of nephrostomy tubes, nephrolithiasis, CKD/GINA was BIBA for increased confusion and suspicion for UTI per pt's daughter, pt's primary wound care nurse at home. On 02/05/2025 patient was at [facility] and had her ureteral stents replaced. Patient being admitted for sepsis, UTI and hypernatremia Sepsis secondary to UTI most likely status post replacement of ureter tubes 02/05/2025 at [facility] Patient received fluid resuscitation per sepsis protocol Patient is started on ertapenem noting culture from ureter replacement positive for Klebsiella and patient has history of resistant Klebsiella Blood cultures and urine culture pending CT of the chest abdomen and pelvis: chest neg for acute findings, abd/pelvis B uretal stend with hydronephrosis Telemetry with continuous pulse ox Eliquis on hold noting +3 heme Acute lactic acidosis continue to trend improving s/p IV fluids . cancel lactic acid trending further . Baseline dementia, possible metaobolic encephalopathy multifactorial Hypernatremia Likely secondary to poor p.o. intake versus DI 160- improving to 154 urine osmolarity >serum Patient is not currently on any medications that promote hypernatremia plan: hold fluids and repeat BMP-goal to correct sodium 6-8 mEq/24 hours. Mildly elevated troponins 41, 45... Continue to trend EKG sinus tach without ischemic changes BNP pending Telemetry Constipation Stool burden noted on CT scan Dulcokax supp one time now Miralax daily Senna HS MOM prn AFib on Eliquis Patient not normally on any AV baljit blocking agents or rate control medications Eliquis on hold secondary to +3 heme and UA H&H currently stable Telemetry we will continue History of aortic valve replacement No recent issues per patient's daughter Consider echo if BNP is elevated Hyperlipidemia Holding statin as LFTs are mildly elevated Repeat CMP in the a.m. GERD Protonix IV DVT prophylaxis: Eliquis held currently for +3 human UA Ongoing need for stay sepsis secondary to UTI, metabolic encephalopathy for IV antibiotics, need close renal function electrolyte monitoring. Patient will require close hemodynamic monitoring. Patient's daughter was updated in detail. Quality Stroke Does the patient have a stroke diagnosis?: No Reason for No Anti-thrombotic by Day Two: Contraindicated (heme positive urine,await CT results ) VTE Prior VTE?: No VTE Risk Level:: Medical - moderate - high VTE Device Contraindication: N/A - Device Ordered VTE Drug Contraindication: N/A - Med Ordered
[2025-02-10 09:24] LABS: EOS Counted 14 CELLS; WBC, Counted 100 CELLS
[2025-02-10 09:25] LABS: EOS QC POS YES; EOS Stain Quality OK YES
--- NOTE | 2025-02-10 09:27 | PM.UROCN ---
History of Present Illness Consult details Consult date: 02/10/25 Narrative: CC: indwelling bilateral stents with urinary tract infection 89-year-old female past medical history significant for vascular dementia has bilateral indwelling ureteric stents changed regularly at [facility] underwent bilateral stent change 02/05/25 prior ESBL Klebsiella pneumoniae infection 09/22 - susceptibility to ertapenem and gentamicin per daughter report fluconazole on IV antibiotic was administered. No preprocedure culture or antibiotic was performed. For 2 days patient at baseline, by she felt unwell. Per report urine culture positive for Klebsiella from [facility]. Arrangements were made for antibiotics to be sent however they were not received. On presentation to emergency room patient was more confused at baseline. Admitted for treatment Given adequate baseline creatinine single daily dosing gentamicin would be appropriate - coordinate with pharmacy Culture pending Recommend outpatient follow-up with [facility] urology in order to make proper assessment with regard to management of ESBL Klebsiella pneumoniae in the setting of permanent indwelling ureteric stents. No indication to change stents at current admission Review of Systems Constitutional: Constitutional: Reports as per HPI and Reports no additional constitutional complaints Cardiovascular: Cardiovascular: Reports as per HPI and Reports no additional cardiovascular complaints Respiratory: Respiratory: Reports as per HPI and Reports no additional respiratory complaints Gastrointestinal: Gastrointestinal: Reports as per HPI and Reports no additional gastrointestinal complaints Genitourinary: Genitourinary: Reports as per HPI Musculoskeletal: Musculoskeletal: Reports no additional musculoskeletal complaints and Reports as per HPI Neurologic: Reports system reviewed and no additional complaints, except as documented and Reports as per HPI [facility] Past Medical History Medical History (Updated 02/10/25 @ 09:41 by Johnnie Lopez MD) GERD (gastroesophageal reflux disease) Nephrolithiasis Dementia Citrobacter infection Anemia due to acute blood loss Nephrostomy complication UTI (urinary tract infection) Chronic anemia Ureteral stent present Aphasia Metacarpal bone fracture GERD (gastroesophageal reflux disease) Hypertension Hyperlipidemia Anemia Atrial fibrillation Kidney stones Dementia Surgical History Surgical History Hx of cholecystectomy Hx of heart artery stent Social History Social History Household Members: Unknown / Unable to assess Housing: House Do you presently have visiting nurse or other home services: Yes Alcohol intake: never Patient Tobacco Use Status: Tobacco use Unknown Advance Directives Date on File: 12/17/22 service: No Current occupational status: retired Meds Allergies Allergy/AdvReac Type Severity Reaction Status Date / Time aspirin (From Percodan) AdvReac Rash Verified 02/09/25 15:31 fentanyl AdvReac Rash Verified 02/09/25 15:31 oxycodone (From Percocet) AdvReac Rash Verified 02/09/25 15:31 Active Medications: Current Medications Acetaminophen (Acetaminophen 325 Mg Tablet) 650 mg PO Q6H PRN PRN Reason: Pain, Mild 1-3,fever,headache Albuterol/Ipratropium (Albuterol/Iprat 2.5/0.5mg 3 Ml Ampul.Neb) 3 ml INHALE Q4H PRN PRN Reason: Shortness of Breath/Wheezing Atorvastatin Calcium (Atorvastatin Calcium 80 Mg Tablet) 80 mg PO BEDTIME [facility] Calcium Carbonate (Calcium Carbonate 750 Mg Tab.Chew) 750 mg PO Q4H PRN PRN Reason: Heartburn Fluoxetine HCl (Fluoxetine Hcl 20 Mg Capsule) 40 mg PO DAILY [facility] Ertapenem 1 gm/ Sodium (Chloride) 50 mls @ 100 mls/hr IV ONCE ONE Stop: 02/10/25 15:29 Magnesium Hydroxide (Milk Of Magnesia 30 Ml Oral.Susp) 30 ml PO DAILY PRN PRN Reason: Constipation Melatonin (Melatonin 3 Mg Tablet) 6 mg PO BEDTIME PRN PRN Reason: Insomnia Omeprazole (Omeprazole 20 Mg Capsule.Dr) 20 mg PO DAILY@0630 [facility] Last Admin: 02/10/25 07:20 Dose: Not Given Ondansetron HCl (Ondansetron Hcl 4 Mg/2 Ml Vial) 4 mg IVPUSH Q8H PRN PRN Reason: Nausea and Vomiting Polyethylene Glycol (Polyethylene Glycol 3350 17 Gm Powd.Pack) 17 gm PO DAILY [facility] Senna (Sennosides 8.6 Mg Tablet) 17.2 mg PO BEDTIME [facility] Last Admin: 02/09/25 23:00 Dose: Not Given Sodium Chloride (0.9 % Sodium Chloride Flush 3 Ml Syringe) 3 ml IVFLUSH QSHIFT [facility] Last Admin: 02/10/25 07:20 Dose: Not Given Home Medications ?Medication ?Instructions ?Recorded ?Confirmed ?Last Taken ?Type atorvastatin 80 mg tablet 1 tab PO BEDTIME 01/05/20 02/09/25 02/09/25 History fluoxetine 20 mg capsule 2 cap PO DAILY 01/05/20 02/09/25 02/09/25 History omeprazole 20 mg capsule,delayed 20 mg PO DAILY@0630 01/05/20 02/09/25 02/09/25 History release trazodone 50 mg tablet 1 tab PO DAILY PRN 01/05/20 02/09/25 Unknown History Insomnia/agitation apixaban 2.5 mg tablet (Eliquis) 2.5 mg PO BID 12/17/22 02/09/25 02/09/25 History nystatin 100,000 unit/gram topical 1 appl topical TID PRN irritation 12/17/22 02/09/25 12/17/22 History powder erythromycin 5 mg/gram (0.5 %) eye 1 appl ophthalmic (eye) BEDTIME 09/02/24 02/09/25 02/09/25 History ointment PRN itchiness after rubbing eyes zinc oxide 40 % topical ointment 1 appl topical DAILY PRN buttocks 09/02/24 02/09/25 Unknown History irritation estradiol 0.01% (0.1 mg/gram) 2 g vaginal MOWEFR 02/09/25 02/09/25 02/09/25 History vaginal cream Physical Exam Vital Signs: Vital Signs: Last Vital Signs Temp 98.3 F 02/10/25 06:16 Pulse 89 02/10/25 08:47 Resp 18 02/10/25 08:47 BP 141/72 H 02/10/25 08:47 Pulse Ox 100 02/10/25 08:47 O2 Del Method Room Air 02/10/25 08:47 BMI result Body Mass Index 26.3 Const: General: cooperative, healthy appearing, comfortable and no acute distress Orientation/consciousness: patient oriented x3 HEENT: Face and sinus: Yes normal facial exam Mouth: moist mucous membranes Neck: Neck: Yes normal visual inspection, Yes full ROM and Yes trachea midline Chest: Chest palpation & inspection: normal inspection of the chest Resp: Effort & Inspection: normal respiratory effort, able to speak in complete sentences and no respiratory distress GI: Inspection: Yes normal to inspection Back/Spine/Pelvis: Cervical Spine: normal cervical lordosis Thoracic/Lumbar Spine: thoracic and lumbar spine normal to inspection Skin: General skin exam: no rashes or lesions noted Neuro: General: patient oriented x3, tone normal and moves all extremities Extrem: General: Yes normal to inspection and Yes capillary refill normal Results Labs 02/10/25 04:31 02/10/25 04:31 Labs: Abnormal lab results 02/09/25 02/09/25 02/09/25 Range/Units 15:34 17:07 17:50 RBC 6.14 H D (4.20-5.50) X10*6/uL Hgb (12.0-16.0) g/dl MCV 74.9 L (80.0-98.0) fL MCH 20.7 L (27.0-33.0) pg MCHC 27.6 L (31.0-35.0) g/dl RDW 22.9 H (11.0-16.0) % Immature Gran % (Auto) 0.5 H (0.0-0.4) % Abs Immat Gran (auto) 0.05 H (0.00-0.03) X10*3/uL PT 21.1 H (11.2-13.5) SEC INR 1.7 H (0.9-1.1) Sodium 160 H* 160 H* (135-145) mmol/L Chloride 123 H 123 H (96-108) mmol/L BUN 76 H 74 H (9-16) mg/dL Random Glucose 228 H 144 H (60-115) mg/dL Osmolality (281-305) mosm/kg Lactic Acid 3.0 H* (0.5-2.0) mmol/L Lactic Acid F/U @ 2Hr 3.0 H* (0.5-2.0) mmol/L Lactic Acid F/U @ 4Hr (0.5-2.0) mmol/L Calcium 10.3 H D (8.4-10.2) mg/dL % Saturation (15-50) % AST 65 H (5-31) U/L ALT 54 H (0-31) U/L Troponin I High Sens 41.3 H D 45.9 H (<3.5-17.0) ng/L NT-Pro-B Natriuret Pep 913.1 H (<300) pg/mL Total Protein 8.3 H (6.5-8.0) g/dL Urine Protein 300 (3+) H (Neg-Trace) mg/dL Urine Blood Large (3+) H (Negative) Ur Leukocyte Esterase Large (3+) H (Negative) Urine RBC >20 H (0-2) /HPF Urine WBC >50 H (0-5) /HPF 02/09/25 02/09/25 02/10/25 Range/Units 20:11 23:39 04:31 RBC 5.63 H (4.20-5.50) X10*6/uL Hgb 11.9 L (12.0-16.0) g/dl MCV 74.2 L (80.0-98.0) fL MCH 21.1 L (27.0-33.0) pg MCHC 28.5 L (31.0-35.0) g/dl RDW 22.5 H (11.0-16.0) % Immature Gran % (Auto) (0.0-0.4) % Abs Immat Gran (auto) (0.00-0.03) X10*3/uL PT (11.2-13.5) SEC INR (0.9-1.1) Sodium 158 H 154 H (135-145) mmol/L Chloride 119 H (96-108) mmol/L BUN 59 H (9-16) mg/dL Random Glucose 210 H (60-115) mg/dL Osmolality 347 H (281-305) mosm/kg Lactic Acid 2.6 H* (0.5-2.0) mmol/L Lactic Acid F/U @ 2Hr (0.5-2.0) mmol/L Lactic Acid F/U @ 4Hr 2.3 H* (0.5-2.0) mmol/L Calcium (8.4-10.2) mg/dL % Saturation 13 L (15-50) % AST 37 H (5-31) U/L ALT 40 H (0-31) U/L Troponin I High Sens 34.7 H (<3.5-17.0) ng/L NT-Pro-B Natriuret Pep (<300) pg/mL Total Protein (6.5-8.0) g/dL Urine Protein (Neg-Trace) mg/dL Urine Blood (Negative) Ur Leukocyte Esterase (Negative) Urine RBC (0-2) /HPF Urine WBC (0-5) /HPF 02/10/25 Range/Units 06:42 RBC (4.20-5.50) X10*6/uL Hgb (12.0-16.0) g/dl MCV (80.0-98.0) fL MCH (27.0-33.0) pg MCHC (31.0-35.0) g/dl RDW (11.0-16.0) % Immature Gran % (Auto) (0.0-0.4) % Abs Immat Gran (auto) (0.00-0.03) X10*3/uL PT (11.2-13.5) SEC INR (0.9-1.1) Sodium (135-145) mmol/L Chloride (96-108) mmol/L BUN (9-16) mg/dL Random Glucose (60-115) mg/dL Osmolality (281-305) mosm/kg Lactic Acid (0.5-2.0) mmol/L Lactic Acid F/U @ 2Hr 2.5 H* (0.5-2.0) mmol/L Lactic Acid F/U @ 4Hr (0.5-2.0) mmol/L Calcium (8.4-10.2) mg/dL % Saturation (15-50) % AST (5-31) U/L ALT (0-31) U/L Troponin I High Sens (<3.5-17.0) ng/L NT-Pro-B Natriuret Pep (<300) pg/mL Total Protein (6.5-8.0) g/dL Urine Protein (Neg-Trace) mg/dL Urine Blood (Negative) Ur Leukocyte Esterase (Negative) Urine RBC (0-2) /HPF Urine WBC (0-5) /HPF Short CBC 02/09/25 02/10/25 Range/Units 15:34 04:31 WBC 10.8 10.5 (4.8-10.8) X10*3/uL Hgb 12.7 D 11.9 L (12.0-16.0) g/dl Hct 46.0 D 41.8 (37.0-47.0) % Plt Count 261 D 194 D (160-400) X10*3/uL BMP 02/09/25 02/09/25 02/09/25 15:34 17:50 23:39 Sodium 160 H* 160 H* 158 H Potassium 4.5 4.7 Chloride 123 H 123 H Carbon Dioxide 24 23 BUN 76 H 74 H Creatinine 1.37 1.25 Calcium 10.3 H D 9.5 D 02/10/25 04:31 Sodium 154 H Potassium 4.2 Chloride 119 H Carbon Dioxide 24 BUN 59 H Creatinine 1.01 Calcium 9.3 Liver Function 02/09/25 02/10/25 Range/Units 15:34 04:31 Total Bilirubin 0.6 0.5 (0.0-1.0) mg/dL AST 65 H 37 H (5-31) U/L ALT 54 H 40 H (0-31) U/L Alkaline Phosphatase 90 84 (39-117) U/L Albumin 4.4 3.8 (3.5-5.0) g/dL Urine 02/09/25 Range/Units 17:07 Urine Color Yellow Urine Appearance Turbid Urine pH 5.0 (5.0-9.0) Ur Specific [place] 1.020 (1.005-1.025) Urine Protein 300 (3+) H (Neg-Trace) mg/dL Urine Glucose (UA) Negative (Negative) mg/dL All other labs normal. Assessment and Plan (1) Infection due to ESBL-producing Klebsiella pneumoniae: Status: Acute (2) UTI (urinary tract infection): Qualifiers: Hematuria presence: with hematuria Urinary tract infection type: acute cystitis Qualified Code(s): N30.01 - Acute cystitis with hematuria Status: Acute Plan Appropriate antibiotics Patient to follow-up as outpatient with [facility] for appropriate evaluation regarding ESBL Klebsiella Procedures Date of Service Date of Service: 02/10/25
--- NOTE | 2025-02-10 11:04 | MHC.SL.SWA ---
Speech Pathologist Impression: Risk of Aspiration Due to: moderate oral pharyngeal dysphagia w/advanced dementia Dysphasia Diet Status: Liquid Consistency and Strategies for Safe Swallow: Liquid Intake Recommendation: [place] Thick Liquid Intake Strategies: controlled cup sip, individual sips, NO STRAW. Solid Food Consistency: Dietary Recommendations: Pureed (NDD1) Additional Modifications to Solid Foods: Patient will require 1-1 feed, with liquids by controlled, individual cup sips only (no straws) For comfort, allow fully supervised, individual sips of tepid water if desired. Patient has history of GERD, GERD precautions recommended (e.g. patient should remain in upright seated position for at least 30 minutes after meals). At meals, patient should be seated with HOB at 90 degrees, oriented to meal, provide small, individual sips/bites, observe for swallow before presenting more (patient may orally hold food/liquid), slower pace. Oral Medication Intake: Crushed with Puree Please contact the pharmacy regarding appropriate crushable or liquid drug formulations that are available whenever modified delivery is recommended. Compensatory Strategies and Precautions to be Taken for Safe Swallow: Supervision While Eating and Drinking for Safe Swallow: Total Assistance (1:1) Foods to Avoid: Mixed consistencies Swallowing Recommended Treatments: Recommendation for Speech: Inpatient Speech Therapy Comment: Patient presents with moderate oral pharyngeal dysphagia w/advanced dementia. Patient today tolerated puree consistencies and nectar thick liquids well, evidenced consistent cough after sips of thin liquids. Patient is severely [place] and confused, requires 1-1 feeding with strategies for safety. Recommend UPGRADE diet from NPO to PUREE (NDD1) with NECTAR THICK liquids (by controlled, individual cup sips only, no straws), pills crushed in puree. At meals, patient should be seated with HOB at 90 degrees, oriented to meal, provide small, individual sips/bites, observe for swallow before presenting more (patient may orally hold food/liquid), slower pace. If desired, patient may have fully supervised/administered individual sips of tepid water between meals. Patient has history of GERD, GERD precautions recommended (Patient remains in upright seated position for 30 minutes after meals. INDUSTRIAL MAINTENANCE REPAIRER will continue to follow for toleration diet, assess for upgrade as warranted. , RN advised of recommendations in person, RD by secure text. Frequency/Duration: Date Range for Service Req: Timeline to reassess: Full Decator Operator Clinican/Clinical Fellow: No Supervisory Statement: I have reviewed and agree with the student/clinical fellow's documentation: N/A Speech Language Pathologist: Kelli Treesa M.A., [facility]-INDUSTRIAL MAINTENANCE REPAIRER
--- NOTE | 2025-02-10 13:36 | MHC.CM.PN ---
IMM 02/10/25, Pt. lives with her dtr [place], who is her HCP, copy requested. PCP is: Aden Jaime MD at [facility] Pt. has [facility] 20 hrs per week from [facility]. She uses a walker, is a 2 person assist, which her dtr and another person do with her to keep her legs strong. Transport home at [place] is via BLS. DCP: home with services. CM to follow for DC needs.
[2025-02-10 17:26] LABS: Anion Gap 18 (12-20); Blood Urea Nitrogen 50 mg/dL (9-16); Calcium 9.4 mg/dL (8.4-10.2); Carbon Dioxide 22 mmol/L (22-29); Chloride 119 mmol/L (96-108); Creatinine Clr Calc Pharmacy 39.0; Estimated Glomerular Filt Rate 59; Potassium 4.9 mmol/L (3.3-5.1); Sodium 154 mmol/L (135-145)
[2025-02-10] MEDS: 0.9 % Sodium Chloride Flush 3 ML SYRINGE IVFLUSH (17:26)
[2025-02-10 18:02] LABS: Folate 14.4 ng/mL (> or = 4.0); Vitamin B12 462 pg/mL (200-900)
--- NOTE | 2025-02-10 18:52 | PM.EVENT ---
Event Note Date of Service: 02/10/25 Event Note: Sodium reviewed; 154. Calculated free water deficit 2.6 L. we will start D5W at 100 an hour overnight and check divalents in a.m. Time Spent With Patient Time: Total time managing care of this patient today ____ minutes.
[2025-02-10 20:57] LABS: Thyroid Stimulating Hormone 0.85 uIU/mL (0.32-4.0)
[2025-02-10 21:46] LABS: Glucose, Whole Blood 156 mg/dL (60-115)
[2025-02-10 22:21] LABS: Sodium 155 mmol/L (135-145)
[2025-02-11] VITALS (8 sets, daily range): BP systolic 89–123; BP diastolic 53–72; PULSE 76–92; RESP 18–20; TEMP 36.3–36.8; O2SAT 79–99
--- NOTE | 2025-02-11 00:09 | W.PM.IDCN ---
History of Present Illness Data of Consult Service Date: 02/10/25 Requesting physician: Stuart Cannon Primary Care Provider: Unknown Physician HPI Reason for consult: possible UTI She presents iwht mental stasi She has had EBL UTI in the past and CKD PMFSH Past Medical History Medical History (Updated 02/12/25 @ 10:43 by Anant Harper MD) GERD (gastroesophageal reflux disease) Nephrolithiasis Dementia Citrobacter infection Anemia due to acute blood loss Nephrostomy complication UTI (urinary tract infection) Chronic anemia Ureteral stent present Aphasia Metacarpal bone fracture GERD (gastroesophageal reflux disease) Hypertension Hyperlipidemia Anemia Atrial fibrillation Kidney stones Dementia Surgical History Surgical History Hx of cholecystectomy Hx of heart artery stent Social History Social History Household Members: Unknown / Unable to assess Housing: House Do you presently have visiting nurse or other home services: Yes Alcohol intake: never Patient Tobacco Use Status: Tobacco use Unknown Advance Directives Date on File: 12/17/22 service: No Current occupational status: retired [employer] Allergies Allergy/AdvReac Type Severity Reaction Status Date / Time aspirin (From Percodan) AdvReac Rash Verified 02/09/25 15:31 fentanyl AdvReac Rash Verified 02/09/25 15:31 oxycodone (From Percocet) AdvReac Rash Verified 02/09/25 15:31 Active Medications: Current Medications Acetaminophen (Acetaminophen 325 Mg Tablet) 650 mg PO Q6H PRN PRN Reason: Pain, Mild 1-3,fever,headache Albuterol/Ipratropium (Albuterol/Iprat 2.5/0.5mg 3 Ml Ampul.Neb) 3 ml INHALE Q4H PRN PRN Reason: Shortness of Breath/Wheezing Apixaban (Apixaban 2.5 Mg Tablet) 2.5 mg PO BID [facility] Last Admin: 02/10/25 22:08 Dose: 2.5 mg Atorvastatin Calcium (Atorvastatin Calcium 80 Mg Tablet) 80 mg PO BEDTIME [facility] Last Admin: 02/10/25 22:08 Dose: 80 mg Calcium Carbonate (Calcium Carbonate 750 Mg Tab.Chew) 750 mg PO Q4H PRN PRN Reason: Heartburn Fluoxetine HCl (Fluoxetine Hcl 20 Mg Capsule) 40 mg PO DAILY [facility] Last Admin: 02/10/25 11:39 Dose: 40 mg Dextrose (D5w) 1,000 mls @ 100 mls/hr IVCONT .Q10H [facility] Last Admin: 02/10/25 20:00 Dose: 100 mls/hr Vancomycin HCl 500 mg/ Sodium (Chloride) 110 mls @ 110 mls/hr IV Q12H [facility] Insulin Human Lispro (Insulin Lispro 100 Unit/Ml 3 Ml Vial) 0 unit SUBCUT QIDACHS [facility]; Protocol Last Admin: 02/10/25 22:08 Dose: 2 unit Magnesium Hydroxide (Milk Of Magnesia 30 Ml Oral.Susp) 30 ml PO DAILY PRN PRN Reason: Constipation Melatonin (Melatonin 3 Mg Tablet) 6 mg PO BEDTIME PRN PRN Reason: Insomnia Meropenem (Meropenem 1 Gm Vial) 1 gm IVPUSH Q12H [facility] Last Admin: 02/10/25 22:08 Dose: 1 gm Omeprazole (Omeprazole 20 Mg Capsule.) 20 mg PO DAILY@0630 [facility] Last Admin: 02/10/25 07:20 Dose: Not Given Ondansetron HCl (Ondansetron Hcl 4 Mg/2 Ml Vial) 4 mg IVPUSH Q8H PRN PRN Reason: Nausea and Vomiting Pharmacy Consult (Consult Rx Vancomycin Dosing) 1 each MISCELLANE DAILY PRN PRN Reason: Consult order Polyethylene Glycol (Polyethylene Glycol 3350 17 Gm Powd.Pack) 17 gm PO DAILY [facility] Last Admin: 02/10/25 11:39 Dose: 17 gm Senna (Sennosides 8.6 Mg Tablet) 17.2 mg PO BEDTIME [facility] Last Admin: 02/10/25 22:07 Dose: 17.2 mg Sodium Chloride (0.9 % Sodium Chloride Flush 3 Ml Syringe) [facility] Last Admin: 02/10/25 17:26 Dose: 3 ml Home Medications ?Medication ?Instructions ?Recorded ?Confirmed ?Last Taken ?Type atorvastatin 80 mg tablet 1 tab PO BEDTIME 01/05/20 02/09/25 02/09/25 History fluoxetine 20 mg capsule 2 cap PO DAILY 01/05/20 02/09/25 02/09/25 History omeprazole 20 mg capsule,delayed 20 mg PO DAILY@0630 01/05/20 02/09/25 02/09/25 History release trazodone 50 mg tablet 1 tab PO DAILY PRN 01/05/20 02/09/25 Unknown History Insomnia/agitation apixaban 2.5 mg tablet (Eliquis) 2.5 mg PO BID 12/17/22 02/09/25 02/09/25 History nystatin 100,000 unit/gram topical 1 appl topical TID PRN irritation 12/17/22 02/09/25 12/17/22 History powder erythromycin 5 mg/gram (0.5 %) eye 1 appl ophthalmic (eye) BEDTIME 09/02/24 02/09/25 02/09/25 History ointment PRN itchiness after rubbing eyes zinc oxide 40 % topical ointment 1 appl topical DAILY PRN buttocks 09/02/24 02/09/25 Unknown History irritation estradiol 0.01% (0.1 mg/gram) 2 g vaginal MOWEFR 02/09/25 02/09/25 02/09/25 History vaginal cream Physical Exam Vital Signs: Vital Signs: Last Vital Signs Temp 97.2 F 02/10/25 19:29 Pulse 105 H 02/10/25 19:29 Resp 16 02/10/25 19:29 BP 113/64 02/10/25 19:29 Pulse Ox 96 02/10/25 19:29 O2 Del Method Room Air 02/10/25 19:29 BMI result Body Mass Index 26.3 Results Labs 02/10/25 04:31 02/12/25 06:42 Labs: Short CBC 02/10/25 Range/Units 04:31 WBC 10.5 (4.8-10.8) X10*3/uL Hgb 11.9 L (12.0-16.0) g/dl Hct 41.8 (37.0-47.0) % Plt Count 194 D (160-400) X10*3/uL BMP 02/10/25 02/10/25 02/10/25 04:31 16:34 21:41 Sodium 154 H 154 H 155 H Potassium 4.2 4.9 Chloride 119 H 119 H Carbon Dioxide 24 22 BUN 59 H 50 H Creatinine 1.01 0.90 Calcium 9.3 9.4 Liver Function 02/10/25 Range/Units 04:31 Total Bilirubin 0.5 (0.0-1.0) mg/dL AST 37 H (5-31) U/L ALT 40 H (0-31) U/L Alkaline Phosphatase 84 (39-117) U/L Albumin 3.8 (3.5-5.0) g/dL Microbiology Microbiology Results: Microbiology 02/09/25 15:34 Blood - Venous Blood Culture - Preliminary Prelim: GPC Gram Stain only 02/09/25 15:36 Blood - Venous Blood Culture - Preliminary No growth after 24 hours. 02/09/25 Unknown Urine Catheterized Urine Culture - Preliminary Culture too young to evaluate. Assessment and Plan (1) UTI (urinary tract infection): Qualifiers: Hematuria presence: with hematuria Urinary tract infection type: acute cystitis Qualified Code(s): N30.01 - Acute cystitis with hematuria Status: Acute Plan There is possible Klebisella interfection urinary tract resistant to many organisma Agree with above Merem,await cultures soon
[2025-02-11 00:33] LABS: Anion Gap 15 (12-20); Blood Urea Nitrogen 58 mg/dL (9-16); Calcium 8.9 mg/dL (8.4-10.2); Carbon Dioxide 25 mmol/L (22-29); Chloride 119 mmol/L (96-108); Creatinine Clr Calc Pharmacy 39.4; Estimated Glomerular Filt Rate 60; Potassium 4.2 mmol/L (3.3-5.1); Sodium 155 mmol/L (135-145)
[2025-02-11 07:25] LABS: Alanine Aminotransferase 32 U/L (0-31); Albumin Level 3.3 g/dL (3.5-5.0); Alkaline Phosphatase 74 U/L (39-117); Anion Gap 14 (12-20); Aspartate Amino Transferase 28 U/L (5-31); Blood Urea Nitrogen 51 mg/dL (9-16); Calcium 8.7 mg/dL (8.4-10.2); Carbon Dioxide 24 mmol/L (22-29); Chloride 118 mmol/L (96-108); Creatinine Clr Calc Pharmacy 39.0; Estimated Glomerular Filt Rate 59; Potassium 4.1 mmol/L (3.3-5.1); Sodium 152 mmol/L (135-145); Total Protein 6.2 g/dL (6.5-8.0)
[2025-02-11 08:08] LABS: Glucose, Whole Blood 166 mg/dL (60-115)
[2025-02-11] MEDS: 0.9 % Sodium Chloride Flush 3 ML SYRINGE IVFLUSH ×2 (09:11→20:47)
[2025-02-11 11:00] LABS: Anion Gap 15 (12-20); Blood Urea Nitrogen 46 mg/dL (9-16); Calcium 8.7 mg/dL (8.4-10.2); Carbon Dioxide 21 mmol/L (22-29); Chloride 118 mmol/L (96-108); Creatinine Clr Calc Pharmacy 40.4; Estimated Glomerular Filt Rate > 60; Potassium 3.6 mmol/L (3.3-5.1); Sodium 150 mmol/L (135-145)
[2025-02-11 11:47] LABS: Glucose, Whole Blood 233 mg/dL (60-115)
--- NOTE | 2025-02-11 11:51 | MHC.CM.PN ---
Per pt. to have midline inserted 02/12/25 for tx for UTI.
--- NOTE | 2025-02-11 14:37 | HO.PM.IMPN ---
Subjective Subjective Date of Service: 02/11/25 Interval History: hypernatremia , uti Review of Systems awake ,seems similar Review of Systems: Yes all other systems are reviewed and are negative Physical Exam Exam: Exam: Appearance: awake ,seems loud on hearing cvs: rrr, [id number] . res: clear to auscultation ,no rhonchii or wheezing abd: no rebound or guarding ,nt, bs present. ext pulses present , no cyanosis . neuro:moves all ext. Vital Signs: Vital Signs: Last Vital Signs Temp 97.5 F 02/11/25 12:00 Pulse 91 02/11/25 12:00 Resp 18 02/11/25 12:00 BP 96/53 L 02/11/25 12:00 Pulse Ox 99 02/11/25 12:00 O2 Del Method Room Air 02/11/25 12:00 BMI result Body Mass Index 26.3 Objective Data Active Medications Acetaminophen (Acetaminophen 325 Mg Tablet) 650 mg PO Q6H PRN PRN Reason: Pain, Mild 1-3,fever,headache Albuterol/Ipratropium (Albuterol/Iprat 2.5/0.5mg 3 Ml Ampul.Neb) 3 ml INHALE Q4H PRN PRN Reason: Shortness of Breath/Wheezing Apixaban (Apixaban 2.5 Mg Tablet) 2.5 mg PO BID [facility] Last Admin: 02/11/25 09:06 Dose: 2.5 mg Documented By: BUDDY Atorvastatin Calcium (Atorvastatin Calcium 80 Mg Tablet) 80 mg PO BEDTIME [facility] Last Admin: 02/10/25 22:08 Dose: 80 mg Documented By: SHARMIN Calcium Carbonate (Calcium Carbonate 750 Mg Tab.Chew) 750 mg PO Q4H PRN PRN Reason: Heartburn Fluoxetine HCl (Fluoxetine Hcl 20 Mg Capsule) 40 mg PO DAILY [facility] Last Admin: 02/11/25 09:06 Dose: 40 mg Documented By: BUDDY Dextrose (D5w) 1,000 mls @ 60 mls/hr IVCONT .[id number] [facility] Last Admin: 02/11/25 05:42 Dose: 100 mls/hr Documented By: SHARMIN Vancomycin HCl 500 mg/ Sodium (Chloride) 110 mls @ 110 mls/hr IV Q12H [facility] Last Infusion: 02/11/25 10:25 Dose: Infused Documented By: BUDDY Insulin Human Lispro (Insulin Lispro 100 Unit/Ml 3 Ml Vial) 0 unit SUBCUT QIDACHS [facility]; Protocol Last Admin: 02/11/25 12:39 Dose: 4 unit Documented By: BUDDY Magnesium Hydroxide (Milk Of Magnesia 30 Ml Oral.Susp) 30 ml PO DAILY PRN PRN Reason: Constipation Melatonin (Melatonin 3 Mg Tablet) 6 mg PO BEDTIME PRN PRN Reason: Insomnia Meropenem (Meropenem 1 Gm Vial) 1 gm IVPUSH Q12H [facility] Last Admin: 02/11/25 10:36 Dose: 1 gm Documented By: BUDDY Omeprazole (Omeprazole 20 Mg Capsule.Dr) 20 mg PO DAILY@0630 [facility] Last Admin: 02/11/25 05:42 Dose: 20 mg Documented By: SHARMIN Ondansetron HCl (Ondansetron Hcl 4 Mg/2 Ml Vial) 4 mg IVPUSH Q8H PRN PRN Reason: Nausea and Vomiting Pharmacy Consult (Consult Rx Vancomycin Dosing) 1 each MISCELLANE DAILY PRN PRN Reason: Consult order Polyethylene Glycol (Polyethylene Glycol 3350 17 Gm Powd.Pack) 17 gm PO DAILY [facility] Last Admin: 02/11/25 09:19 Dose: 17 gm Documented By: BUDDY Senna (Sennosides 8.6 Mg Tablet) 17.2 mg PO BEDTIME [facility] Last Admin: 02/10/25 22:07 Dose: 17.2 mg Documented By: SHARMIN Sodium Chloride (0.9 % Sodium Chloride Flush 3 Ml Syringe) 3 ml IVFLUSH QSHIFT [facility] Last Admin: 02/11/25 09:11 Dose: 3 ml Documented By: BUDDY Labs 02/10/25 04:31 02/11/25 10:41 Labs: Laboratory Results - last 24 hr 02/10/25 02/10/25 02/10/25 16:34 21:42 23:49 Hold Purple Top Anion Gap 18 15 Estim Creat Clear Calc 39.0 39.4 Estimated GFR 59 60 POC Glucose 156 H Random Glucose 110 139 H Fasting Glucose Estimat Average Glucose Hemoglobin A1c % Calcium 9.4 8.9 Total Bilirubin AST ALT Alkaline Phosphatase Total Protein Albumin Vitamin B12 462 Folate 14.4 TSH 0.85 12/02/11/25 02/11/25 Unknown 06:43 07:50 Hold Purple Top SEE NOTE Anion Gap 14 Estim Creat Clear Calc 39.0 Estimated GFR 59 POC Glucose 166 H Random Glucose Fasting Glucose 172 H Estimat Average Glucose 134 Hemoglobin A1c % 6.3 H Calcium 8.7 Total Bilirubin 0.6 AST 28 ALT 32 H Alkaline Phosphatase 74 Total Protein 6.2 L Albumin 3.3 L Vitamin B12 Folate TSH 02/11/25 02/11/25 10:41 11:32 Hold Purple Top Anion Gap 15 Estim Creat Clear Calc 40.4 Estimated GFR > 60 POC Glucose 233 H Random Glucose 249 H Fasting Glucose Estimat Average Glucose Hemoglobin A1c % Calcium 8.7 Total Bilirubin AST ALT Alkaline Phosphatase Total Protein Albumin Vitamin B12 Folate TSH Microbiology Microbiology Results: Microbiology 02/09/25 Unknown Urine Culture - Final Urine Catheterized 02/09/25 15:34 Blood Culture - Final Blood - Venous Coag negative Staphylococcus 02/09/25 15:36 Blood Culture - Preliminary Blood - Venous No growth after 24 hours. Assessment and Plan (1) UTI (urinary tract infection): Status: Acute (2) Hypernatremia: Status: Acute (3) Gross hematuria: Status: Acute Plan 89-year-old female with past medical history dementia, underlying psychotic disorder, AV replacement, IVC filter, UTI (history of Klebsiella and Citrobacter), anemia, HTN, hyperlipidemia, AFib on Eliquis, GERD, CVA, bilateral ureteral stents and history of nephrostomy tubes, nephrolithiasis, CKD/GINA was BIBA for increased confusion and suspicion for UTI per pt's daughter, pt's primary director long term care at home. On 02/05/2025 patient was at [facility] and had her ureteral stents replaced. Patient being admitted for sepsis, UTI and hypernatremia Sepsis secondary to UTI most likely status post replacement of ureter tubes 02/05/2025 at [facility] Patient received fluid resuscitation per sepsis protocol Patient is started on ertapenem noting culture from ureter replacement positive for Klebsiella and patient has history of resistant Klebsiella Blood cultures 1/2 : Coagulase-negative Staph, and urine culture -mixed noel Repeat urine culture CT of the chest abdomen and pelvis: chest neg for acute findings, abd/pelvis B uretal stend with hydronephrosis Telemetry with continuous pulse ox Plan: Continue meropenem ID evaluation noted . Acute lactic acidosis continue to trend improving s/p IV fluids . cancel lactic acid trending further . Baseline dementia, possible metaobolic encephalopathy multifactorial Hypernatremia Likely secondary to poor p.o. intake versus DI improving to 150's urine osmolarity >serum Patient is not currently on any medications that promote hypernatremia plan: hold fluids and repeat BMP-goal to correct sodium 6-8 mEq/24 hours. new onset dm: hba1c is 6.3 fs with sliding scale coverage. Mildly elevated troponins 41, 45... Continue to trend EKG sinus tach without ischemic changes BNP elevated but no respiratory issues. Telemetry Constipation Stool burden noted on CT scan Dulcokax supp one time now Miralax daily Senna HS MOM prn AFib on Eliquis Patient not normally on any AV baljit blocking agents or rate control medications Eliquis added H&H currently stable Telemetry we will continue History of aortic valve replacement No recent issues per patient's daughter Consider echo if BNP is elevated Hyperlipidemia lft's improving Holding statin as LFTs are mildly elevated GERD Protonix IV DVT prophylaxis: Eliquis held currently for +3 human UA Ongoing need for stay sepsis secondary to UTI, metabolic encephalopathy for IV antibiotics, need close renal function electrolyte monitoring. Patient will require close hemodynamic monitoring. Patient's daughter was updated in detail. Quality Stroke Does the patient have a stroke diagnosis?: No Reason for No Anti-thrombotic by Day Two: Contraindicated (heme positive urine,await CT results ) VTE Prior VTE?: No VTE Risk Level:: Medical - moderate - high VTE Device Contraindication: N/A - Device Ordered VTE Drug Contraindication: N/A - Med Ordered
--- NOTE | 2025-02-11 14:41 | PM.EVENT ---
Event Note Date of Service: 02/11/25 Event Note: 89 y rold woman with gross hematuria Tc hydro with stents Seen by Uro Hypernatremia due to free water deficit Keep I > O with hypotonic fluids D5 W at 125 ml/hr Full consult to follow Time Spent With Patient Time: Total time managing care of this patient today ____ minutes.
[2025-02-11 15:34] LABS: Sodium 149 mmol/L (135-145)
[2025-02-11 15:59] LABS: Glucose, Whole Blood 169 mg/dL (60-115)
[2025-02-11 19:32] LABS: Anion Gap 14 (12-20); Blood Urea Nitrogen 45 mg/dL (9-16); Calcium 8.7 mg/dL (8.4-10.2); Carbon Dioxide 22 mmol/L (22-29); Chloride 115 mmol/L (96-108); Creatinine Clr Calc Pharmacy 41.3; Estimated Glomerular Filt Rate > 60; Potassium 4.1 mmol/L (3.3-5.1); Sodium 147 mmol/L (135-145)
[2025-02-11] MEDS: Lactated Ringers 500 ML 999 ML IV (21:20)
[2025-02-11 21:29] LABS: Glucose, Whole Blood 220 mg/dL (60-115)
[2025-02-11] MEDS: Dextrose 5 % and Lactated Ring 1,000 ML 125 ML IVCONT (22:08)
[2025-02-12] VITALS (7 sets, daily range): BP systolic 98–115; BP diastolic 50–72; PULSE 65–86; RESP 16–18; TEMP 36.2–36.7; O2SAT 94–98
[2025-02-12] MEDS: Dextrose 5 % and Lactated Ring 1,000 ML 125 ML IVCONT (05:26)
--- NOTE | 2025-02-12 07:00 | CA_ITS ---
Transthoracic Echocardiogram Patient (Last, First, Middle): Susan Prater, Gender: Female Date of : 1935 Age: 89 Procedure Date: 02/12/2025 Procedure Type: Transthoracic Echocardiogram Location: [facility] [place] Height: 157. cm Weight: 64.87 kg BSA: 1.65 m2 Heart Rate: bpm BP: 114 / 64 mmHg It Sales Representative: TIMBO Referring MD: Bre Barragan [employer] Symptoms: elevated BNP, hx of AV replacement Study Quality: Technically Difficult Conclusions: - Normal left ventricular size and systolic function. The visually estimated ejection fraction is between 60-65%. - There is severe septal asymmetric hypertrophy. - Normal right ventricular cavity size. There is mildly decreased right ventricular systolic function. - A bioprosthetic aortic valve is present. - There is no aortic valve stenosis. - There is no aortic valve regurgitation. - There is severe mitral annular calcification. 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 Findings Procedure Information The study quality is limited by the patients inability to tolerate the test and an uncooperative patient. Left Ventricle Normal left ventricular size and systolic function. The visually estimated ejection fraction is between 60-65%. There is no evidence of regional wall motion abnormalities. Diastolic function is indeterminate on the basis of available data. There is severe septal asymmetric hypertrophy. Right Ventricle Normal right ventricular cavity size. There is mildly decreased right ventricular systolic function. Atria The left atrium is normal in size. The right atrium is normal in size. Aortic Valve A bioprosthetic aortic valve is present. There is no aortic valve stenosis. The mean gradient is 8 mmHg. There is no aortic valve regurgitation. Mitral Valve There is severe mitral annular calcification. There is no mitral valve regurgitation. Pulmonic Valve The pulmonic valve was not well visualized. Tricuspid Valve Likely normal tricuspid valve structure and function. Normal right atrial pressure. 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 Venous The inferior vena cava is normal in size and collapses greater than 50% with inspiration. Pericardium/Pleural There is no evidence of pericardial effusion. Prior Study Comparison No prior study available for comparison. Measurements 2D Linear Measurements IVSd: 2.40 0.6-0.9/0.6-1.0 cm LVIDd: 3.45 3.9-5.3/4.2-5.9 cm LVIDd Index: 2.09 2.4-3.2/2.2-3.1 cm/m2 LVIDs: 1.72 2.0-3.6 cm LVPWd: 0.99 0.7-1.1 cm LA Diam: 3.30 2.7-3.8/3.0-4.0 cm LAIDs Index: 2.00 1.5-2.3 cm/m2 LV Mass: 290.11 67-162/88-224 g LV Mass Index: 175.82 43-95/49-115 g/m2 LVOT Diam: 2.00 3.0+(-)1.3 cm Aortic Valve AoV Pk [place]: 1.72 AoV Mn [place]: 1.36 AoV VTI: 0.38 AoV Pk Grad: 12.00 Aov Mn Grad: 8.00 INO Cont.VTI: 2.11 LVOT LVOT Pk [place]: 1.43 LVOT Mn [place]: 1.01 LVOT VTI: 0.25 LVOT Pk Grad: 8.00 LVOT Mn Grad: 5.00 LVOT Diam: 2.00 LVOT Area: 3.14 Right Ventricle TVS' [place]: 12.20 Tricuspid Valve TR Pk [place]: 1.97 TR Pk Grad: 16.00 Great Vessels Aorta Sinus of Valsalva: 3.40 2.0-3.5 cm Ao Asc: 4.30 2.1-3.4 cm Ao Arch: 3.20 Pulmonary Valve PV Pk [place]: 1.06 Peak PV Grad: 4.00 Updated in Other Vendor System with Status of Final Varun Whitehead MD electronically signed on 02/12/2025 4:54:48 PM with status of Final
[2025-02-12 07:05] LABS: Glucose, Whole Blood 142 mg/dL (60-115)
[2025-02-12 07:39] LABS: Creatinine Clr Calc Pharmacy 48.1; Estimated Glomerular Filt Rate > 60
[2025-02-12] MEDS: 0.9 % Sodium Chloride Flush 3 ML SYRINGE IVFLUSH ×3 (09:23→21:59)
[2025-02-12 10:22] LABS: Anion Gap 12 (12-20); Blood Urea Nitrogen 36 mg/dL (9-16); Calcium 8.4 mg/dL (8.4-10.2); Carbon Dioxide 25 mmol/L (22-29); Chloride 115 mmol/L (96-108); Potassium 3.7 mmol/L (3.3-5.1); Sodium 148 mmol/L (135-145)
--- NOTE | 2025-02-12 10:40 | P.CONNP_ITS ---
History of Present Illness Reason for Consult Consult date: 02/12/25 Chief Complaint Chief complaint: Acute Encephalopathy History of Present Illness Narrative: 89-year-old female with past medical history dementia, underlying psychotic disorder, AV replacement, UTI (history of Klebsiella and Citrobacter), anemia, HTN, hyperlipidemia, AFib on Eliquis, GERD, CVA, bilateral ureteral stents and history of nephrostomy tubes, nephrolithiasis, CKD/GINA was BIBA for increased confusion and suspicion for UTI per pt's daughter, pt's primary team primary care physician at home. On 02/05/2025 patient was at [facility] and had her ureteral stents replaced. Patient received fluconazole and IV antibiotics postprocedure. On Wednesday and Wednesday patient was at her baseline per patient's daughter but on there was suspicion that is patient was not feeling well and the culture came back positive for Klebsiella per [facility] provider. Arrangements for antibiotics to be sent to the home were made but daughter did not receive the antibiotics as they were sent to the wrong pharmacy. Patient never started antibiotics. Per daughter, patient today more confused than baseline acting borderline listless and she called 911 and had patient transported to the ED. Serum sodium was 160 millimoles on admission which has gradually decreased to 148 millimoles with hypotonic fluids. Serum creatinine was 1.37 which has also improved to 0.73 with the hydration. Review of Systems Review of Systems Yes Unobtainable due to mental status PMFSH Past Medical History Medical History (Updated 02/12/25 @ 10:43 by Anant Harper MD) GERD (gastroesophageal reflux disease) Nephrolithiasis Dementia Citrobacter infection Anemia due to acute blood loss Nephrostomy complication UTI (urinary tract infection) Chronic anemia Ureteral stent present Aphasia Metacarpal bone fracture GERD (gastroesophageal reflux disease) Hypertension Hyperlipidemia Anemia Atrial fibrillation Kidney stones Dementia Surgical History Surgical History Hx of cholecystectomy Hx of heart artery stent Social History Social History Household Members: Unknown / Unable to assess Housing: House Do you presently have visiting nurse or other home services: Yes Alcohol intake: never Patient Tobacco Use Status: Tobacco use Unknown Advance Directives Date on File: 12/17/22 service: No Current occupational status: retired Meds Allergies Allergy/AdvReac Type Severity Reaction Status Date / Time aspirin (From Percodan) AdvReac Rash Verified 02/09/25 15:31 fentanyl AdvReac Rash Verified 02/09/25 15:31 oxycodone (From Percocet) AdvReac Rash Verified 02/09/25 15:31 Active Medications: Current Medications Acetaminophen (Acetaminophen 325 Mg Tablet) 650 mg PO Q6H PRN PRN Reason: Pain, Mild 1-3,fever,headache Albuterol/Ipratropium (Albuterol/Iprat 2.5/0.5mg 3 Ml Ampul.Neb) 3 ml INHALE Q4H PRN PRN Reason: Shortness of Breath/Wheezing Apixaban (Apixaban 2.5 Mg Tablet) 2.5 mg PO BID [facility] Last Admin: 02/11/25 20:47 Dose: 2.5 mg Atorvastatin Calcium (Atorvastatin Calcium 80 Mg Tablet) 80 mg PO BEDTIME [facility] Last Admin: 02/11/25 20:47 Dose: 80 mg Calcium Carbonate (Calcium Carbonate 750 Mg Tab.Chew) 750 mg PO Q4H PRN PRN Reason: Heartburn Dextrose (Dextrose 50 % 25 Gm/50 Ml Syringe) 25 gm IVPUSH Q15M PRN; Protocol PRN Reason: per Hypoglycemia Standing Ord. Fluoxetine HCl (Fluoxetine Hcl 20 Mg Capsule) 40 mg PO DAILY [facility] Last Admin: 02/11/25 09:06 Dose: 40 mg Glucose (Glucose Gel 15 Gm Gel..Gram.) 15 gm PO Q15M PRN; Protocol PRN Reason: per Hypoglycemia Standing Ord. Insulin Human Lispro (Insulin Lispro 100 Unit/Ml 3 Ml Vial) 0 unit SUBCUT QIDACHS [facility]; Protocol Last Admin: 02/12/25 09:23 Dose: Not Given Magnesium Hydroxide (Milk Of Magnesia 30 Ml Oral.Susp) 30 ml PO DAILY PRN PRN Reason: Constipation Melatonin (Melatonin 3 Mg Tablet) 6 mg PO BEDTIME PRN PRN Reason: Insomnia Meropenem (Meropenem 1 Gm Vial) 1 gm IVPUSH Q12H [facility] Last Admin: 02/12/25 09:24 Dose: 1 gm Omeprazole (Omeprazole 20 Mg Capsule.Dr) 20 mg PO DAILY@0630 [facility] Last Admin: 02/12/25 05:27 Dose: 20 mg Ondansetron HCl (Ondansetron Hcl 4 Mg/2 Ml Vial) 4 mg IVPUSH Q8H PRN PRN Reason: Nausea and Vomiting Polyethylene Glycol (Polyethylene Glycol 3350 17 Gm Powd.Pack) 17 gm PO DAILY [facility] Last Admin: 02/11/25 09:19 Dose: 17 gm Senna (Sennosides 8.6 Mg Tablet) 17.2 mg PO BEDTIME [facility] Last Admin: 02/11/25 20:47 Dose: 17.2 mg Sodium Chloride (0.9 % Sodium Chloride Flush 3 Ml Syringe) 3 ml IVFLUSH QSHIFT [facility] Last Admin: 02/12/25 09:23 Dose: 3 ml Home Medications ?Medication ?Instructions ?Recorded ?Confirmed ?Last Taken ?Type atorvastatin 80 mg tablet 1 tab PO BEDTIME 01/05/2002/09/25 History fluoxetine 20 mg capsule 2 cap PO DAILY 01/05/2001/2902/09/25 History omeprazole 20 mg capsule,delayed 20 mg PO DAILY@0630 1 03/06/19 02/09/25 02/09/25 History release trazodone 50 mg tablet 1 tab PO DAILY PRN 01/05/20 02/09/25 Unknown History Insomnia/agitation apixaban 2.5 mg tablet (Eliquis) 2.5 mg PO BID 3 02/09/25 02/09/25 History nystatin 100,000 unit/gram topical 1 appl topical TID PRN irritation 12/17/22 02/09/25 12/17/22 History powder erythromycin 5 mg/gram (0.5 %) eye 1 appl ophthalmic ( eye) BEDTIME 09/02/24 02/09/25 02/09/25 History ointment PRN itchiness after rubbing eyes zinc oxide 40 % topical ointment 1 appl topical DAILY PRN buttocks 09/02/24 02/09/25 Unknown History irritation estradiol 0.01% (0.1 mg/gram) 2 g vaginal MOWEFR 02/0902/09/25 02/09/25 History vaginal cream Physical Exam Vital Signs: Last Vital Signs Temp 97.3 F 02/12/25 07:25 Pulse 69 02/12/25 09:20 Resp 16 02/12/25 07:25 BP 114/64 02/12/25 07:25 Pulse Ox 97 02/12/25 09:20 O2 Del Method Room Air 02/12/25 09:20 BMI result Body Mass Index 26.3 Const General: ill appearing Neck Neck: Yes supple Resp Auscultation: clear to auscultation bilaterally Cardio Palpation: no palpable S3 Heart sounds: no rubs GI Palpation (GI): Soft to palpation Auscultation: normal bowel sounds Neuro Motor exam (neuro): no asterixis Results Lab Results 02/10/25 04:31 02/12/25 06:42 Lab results: Chemistry 02/09/25 02/09/25 02/09/25 15:34 17:50 23:39 Sodium 160 H* 160 H* 158 H Potassium 4.5 4.7 Carbon Dioxide 24 23 BUN 76 H 74 H Creatinine 1.37 1.25 Calcium 10.3 H D 9.5 D 02/10/25 02/10/25 02/10/25 04:31 16:34 21:41 Sodium 154 H 154 H 155 H Potassium 4.2 4.9 Carbon Dioxide 24 22 BUN 59 H 50 H Creatinine 1.01 0.90 Calcium 9.3 9.4 02/10/25 02/11/25 02/11/25 23:49 06:43 10:41 Sodium 155 H 152 H 150 H Potassium 4.2 4.1 3.6 Carbon Dioxide 25 24 21 L BUN 58 H 51 H 46 H Creatinine 0.89 0.90 0.87 Calcium 8.9 8.7 8.7 02/11/25 02/11/25 02/12/25 14:56 19:09 06:42 Sodium 149 H 147 H 148 H Potassium 4.1 3.7 Carbon Dioxide 22 25 BUN 45 H 36 H Creatinine 0.85 0.73 Calcium 8.7 8.4 Hematology 02/09/25 02/10/25 15:34 04:31 WBC 10.8 10.5 Hgb 12.7 D 11.9 L Plt Count 261 D 194 D Urinalysis 02/09/25 17:07 Urine Color Yellow Urine Appearance Turbid Urine pH 5.0 Ur Specific [place] 1.020 Urine Protein 300 (3+) H Urine Glucose (UA) Negative Urine Ketones Trace Urine Blood Large (3+) H Urine Nitrite Negative Ur Leukocyte Esterase Large (3+) H Urine RBC >20 H Urine WBC >50 H Ur Squamous Epith Cells 11-20 Hyaline Casts 11-20 Urine Studies 02/10/25 01:05 Urine Osmolality 665 Assessment and Plan (1) Hypernatremia: Status: Acute (2) GINA (acute kidney injury): Status: Acute (3) Gross hematuria: Status: Acute Plan GINA due to hypoperfusion. Renal function has improved and returned to baseline. Hypernatremia due to free water deficit Continue IV hydration with hypotonic fluids. Can use half normal saline at 100 cc/hour when keep intake more than output Monitor serum sodium every 12 hours. Gross hematuria. Bilateral stent placement Being followed by Urology. Procedures Date of Service Date of Service: 02/12/25
[2025-02-12 11:22] LABS: Glucose, Whole Blood 95 mg/dL (60-115)
--- NOTE | 2025-02-12 12:24 | MHC.CM.PN ---
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
--- NOTE | 2025-02-12 14:08 | MHC.SLORD ---
Speech Language Pathology Order Status: Pt sleeping when WEB INTERFACE DEVELOPER arrived to room. Pt daughter at bedside, reporting she has been giving pt thin liquids by straw and 'she is not aspirating'. WEB INTERFACE DEVELOPER reviewed results of clinical bedside swallow evaluation; pt tolerated small, controlled sips of thins. At daughter's request WEB INTERFACE DEVELOPER contacted RD, but pt daughter left only a few minutes after asking for RD. WEB INTERFACE DEVELOPER upgraded liquid in orders; pt baseline diet is purees and thins. RN consulted. WEB INTERFACE DEVELOPER will follow.
--- NOTE | 2025-02-12 14:49 | P.PNID_ITS ---
Subjective Subjective Date of Service: 02/12/25 Critical Care Time (minutes): 15 Comment: she is resting,no complaints Objective Data Labs 02/10/25 04:31 02/12/25 06:42 Labs: Laboratory Results - last 24 hr 02/11/25 02/11/25 02/11/25 14:56 15:19 19:09 Hold Purple Top Sodium 149 H 147 H Potassium 4.1 Chloride 115 H Carbon Dioxide 22 Anion Gap 14 BUN 45 H Creatinine 0.85 Estim Creat Clear Calc 41.3 Estimated GFR > 60 POC Glucose 169 H Random Glucose 231 H Calcium 8.7 Random Vancomycin 15.2 02/11/25 02/12/25 02/12/25 21:25 06:42 07:00 Hold Purple Top Sodium 148 H Potassium 3.7 Chloride 115 H Carbon Dioxide 25 Anion Gap 12 BUN 36 H Creatinine 0.73 Estim Creat Clear Calc 48.1 Estimated GFR > 60 POC Glucose 220 H 142 H Random Glucose 140 H Calcium 8.4 Random Vancomycin 02/12/25 02/12/25 07:03 11:19 Hold Purple Top SEE NOTE Sodium Potassium Chloride Carbon Dioxide Anion Gap BUN Creatinine Estim Creat Clear Calc Estimated GFR POC Glucose 95 Random Glucose Calcium Random Vancomycin Microbiology Microbiology Results: Microbiology 02/11/25 20:45 Urine clean catch - Clean Catch Midstream Urine Culture - Preliminary No growth to date. 02/09/25 15:36 Blood - Venous Blood Culture - Preliminary No growth after 48 hours. 02/09/25 Unknown Urine Catheterized Urine Culture - Final 02/09/25 15:34 Blood - Venous Blood Culture - Final Coag negative Staphylococcus Physical Exam 2 Vital Signs: Vital Signs: Last Vital Signs Temp 97.4 F 02/12/25 11:43 Pulse 65 02/12/25 11:43 Resp 16 02/12/25 11:43 BP 98/50 L 02/12/25 11:43 Pulse Ox 96 02/12/25 11:43 O2 Del Method Room Air 02/12/25 11:43 BMI result Body Mass Index 26.3 Const: General: cooperative HEENT: Head: Yes normal to inspection Face and sinus: Yes normal facial exam Mouth: Normal oral and palatal mucosa present Teeth and gingiva: d entition normal Eyes: General: appearance normal, both eyes and all related structures P upils: Equal, round and reactive pupils present Resp: Effort & Inspection: normal respiratory effort Cardio: Rate: regular rate Rhythm: regular rhythm GI: Palpation (GI): Soft to palpation and nontender : General: Yes no CVA tenderness Back/Spine/Pelvis: Back: no CVA tenderness Skin: General skin exam: no rashes or lesions noted Neuro: General: moves all extremities Cranial nerves: Yes Equal, round and reactive pupils present Extrem: General: Yes normal to inspection Psych: Appearance: grossly normal Assessment and Plan Assessment and plan (1) GINA (acute kidney injury): Status: Acute Assessment and Plan: She has negative cultures would give IV Ceftriaxone while here and then Would give po fosfomycin outpatient 3 g Time Spent With Patient Time: Total time managing care of this patient today ____ minutes.
[2025-02-12 16:25] LABS: Glucose, Whole Blood 134 mg/dL (60-115)
--- NOTE | 2025-02-12 16:32 | P.CDIM_ITS ---
PROVIDER RESPONSE TEXT: To clarify, the appropriate diagnosis supported by the clinical indicators: Other (explain): ch afib QUERY TEXT: PHYSICIAN'S DOCUMENTATION REQUEST Date of Query: 02/12/2025 11:04 AM EST Patient Name: Susan Prater Admit Date: 02/10/2025 Dear Stuart Cannon MD, A review of the medical record indicates additional documentation may be needed. Please review below and update the documentation accordingly. Clinical Indicators: H&P and Progress note 02/09/25 - 02/11/25: Patient with Atrial Fibrillation on Eliquis. Afib on Eliquis, patient not normally on any AV baljit blocking agents or rate control medications. H&H currently stable. Telemetry we will continue. If possible, please provide further specificity regarding atrial fibrillation, such as: Paroxysmal atrial fibrillation: terminates spontaneously or with intervention within 7 days of onset Persistent atrial fibrillation: episodes of continuous AF that last more than 7 days and do not self-terminate Long lasting persistent atrial fibrillation: episodes of continuous AF that last more than 12 months Permanent atrial fibrillation: when a decision has been made to accept the presence of AF and there is no further attempt to restore or maintain sinus rhythm Other (explain) Clinically unable to determine (explain) Thank you, Rita Carter, CCS, CDIS Use of terms such as suspected, likely, concern for, or probable (associated with a specific diagnosis that is being evaluated, monitored, or treated as if it exists) are acceptable and can be coded in the inpatient setting, when documented at the time of discharge. Please use your independent medical judgment in providing your response. THIS QUERY IS PART OF THE PERMANENT MEDICAL RECORD
--- NOTE | 2025-02-12 17:23 | P.PNIM_ITS ---
Subjective Subjective Date of Service: 02/12/25 Interval History: hypernatremia , uti Review of Systems awake ,seems similar Physical Exam 2 Exam: Exam: Appearance: awake ,seems loud on hearing cvs: rrr, [id number] . res: clear to auscultation ,no rhonchii or wheezing abd: no rebound or guarding ,nt, bs present. ext pulses present , no cyanosis . neuro:moves all ext. Vital Signs: Vital Signs: Last Vital Signs Temp 97.6 F 02/12/25 15:44 Pulse 78 02/12/25 15:44 Resp 16 02/12/25 15:44 BP 114/72 02/12/25 15:44 Pulse Ox 94 02/12/25 15:44 O2 Del Method Room Air 02/12/25 15:44 BMI result Body Mass Index 26.3 Objective Data Active Medications Acetaminophen (Acetaminophen 325 Mg Tablet) 650 mg PO Q6H PRN PRN Reason: Pain, Mild 1-3,fever,headache Albuterol/Ipratropium (Albuterol/Iprat 2.5/0.5mg 3 Ml Ampul.Neb) 3 ml INHALE Q4H PRN PRN Reason: Shortness of Breath/Wheezing Apixaban (Apixaban 2.5 Mg Tablet) 2.5 mg PO BID [facility] Last Admin: 02/12/25 11:56 Dose: 2.5 mg Documented By: RYDER Atorvastatin Calcium (Atorvastatin Calcium 80 Mg Tablet) 80 mg PO BEDTIME [facility] Last Admin: 02/11/25 20:47 Dose: 80 mg Documented By: SHARMIN Calcium Carbonate (Calcium Carbonate 750 Mg Tab.Chew) 750 mg PO Q4H PRN PRN Reason: Heartburn Dextrose (Dextrose 50 % 25 Gm/50 Ml Syringe) 25 gm IVPUSH Q15M PRN; Protocol PRN Reason: per Hypoglycemia Standing Ord. Fluoxetine HCl (Fluoxetine Hcl 20 Mg Capsule) 40 mg PO DAILY [facility] Last Admin: 02/12/25 11:55 Dose: 40 mg Documented By: RYDER Glucose (Glucose Gel 15 Gm Gel..Gram.) 15 gm PO Q15M PRN; Protocol PRN Reason: per Hypoglycemia Standing Ord. Insulin Human Lispro (Insulin Lispro 100 Unit/Ml 3 Ml Vial) 0 unit SUBCUT QIDACHS [facility]; Protocol Last Admin: 02/12/25 11:57 Dose: Not Given Documented By: RYDER Non-Admin Reason: No Insulin Coverage Magnesium Hydroxide (Milk Of Magnesia 30 Ml Oral.Susp) 30 ml PO DAILY PRN PRN Reason: Constipation Melatonin (Melatonin 3 Mg Tablet) 6 mg PO BEDTIME PRN PRN Reason: Insomnia Meropenem (Meropenem 1 Gm Vial) 1 gm IVPUSH Q12H [facility] Last Admin: 02/12/25 09:24 Dose: 1 gm Documented By: RYDER Omeprazole (Omeprazole 20 Mg Capsule.Dr) 20 mg PO DAILY@0630 [facility] Last Admin: 02/12/25 05:27 Dose: 20 mg Documented By: SHARMIN Ondansetron HCl (Ondansetron Hcl 4 Mg/2 Ml Vial) 4 mg IVPUSH Q8H PRN PRN Reason: Nausea and Vomiting Polyethylene Glycol (Polyethylene Glycol 3350 17 Gm Powd.Pack) 17 gm PO DAILY [facility] Last Admin: 02/12/25 11:56 Dose: 17 gm Documented By: RYDER Senna (Sennosides 8.6 Mg Tablet) 17.2 mg PO BEDTIME [facility] Last Admin: 02/11/25 20:47 Dose: 17.2 mg Documented By: SHARMIN Sodium Chloride (0.9 % Sodium Chloride Flush 3 Ml Syringe) 3 ml IVFLUSH QSHIFT [facility] Last Admin: 02/12/25 09:23 Dose: 3 ml Documented By: RYDER Labs 02/10/25 04:31 02/12/25 06:42 Labs: Laboratory Results - last 24 hr 02/11/25 02/11/25 02/12/25 19:09 21:25 06:42 Hold Purple Top Anion Gap 14 12 Estim Creat Clear Calc 41.3 48.1 Estimated GFR > 60 > 60 POC Glucose 220 H Random Glucose 231 H 140 H Calcium 8.7 8.4 Random Vancomycin 15.2 02/12/25 02/12/25 02/12/25 07:00 07:03 11:19 Hold Purple Top SEE NOTE Anion Gap Estim Creat Clear Calc Estimated GFR POC Glucose 142 H 95 Random Glucose Calcium Random Vancomycin 02/12/25 16:22 Hold Purple Top Anion Gap Estim Creat Clear Calc Estimated GFR POC Glucose 134 H Random Glucose Calcium Random Vancomycin Microbiology Microbiology Results: Microbiology 02/11/25 20:45 Urine Culture - Preliminary Urine clean catch - Clean Catch Midstream No growth to date. 02/09/25 15:36 Blood Culture - Preliminary Blood - Venous No growth after 48 hours. 02/09/25 Unknown Urine Culture - Final Urine Catheterized Assessment and Plan (1) UTI (urinary tract infection): Status: Acute (2) Hypernatremia: Status: Acute (3) Gross hematuria: Status: Acute Plan 89-year-old female with past medical history dementia, underlying psychotic disorder, AV replacement, IVC filter, UTI (history of Klebsiella and Citrobacter), anemia, HTN, hyperlipidemia, AFib on Eliquis, GERD, CVA, bilateral ureteral stents and history of nephrostomy tubes, nephrolithiasis, CKD/GINA was BIBA for increased confusion and suspicion for UTI per pt's daughter, pt's primary health care legal assistant at home. On 02/05/2025 patient was at [facility] and had her ureteral stents replaced. Patient being admitted for sepsis, UTI and hypernatremia Sepsis secondary to UTI most likely status post replacement of ureter tubes 02/05/2025 at [facility] Patient received fluid resuscitation per sepsis protocol Patient is started on ertapenem noting culture from ureter replacement positive for Klebsiella and patient has history of resistant Klebsiella Blood cultures 1/2 : Coagulase-negative Staph, and urine culture -mixed noel Repeat urine culture CT of the chest abdomen and pelvis: chest neg for acute findings, abd/pelvis B uretal stend with hydronephrosis Telemetry with continuous pulse ox Plan: Continue meropenem ID evaluation noted . Acute lactic acidosis continue to trend improving s/p IV fluids . cancel lactic acid trending further . Baseline dementia, possible metaobolic encephalopathy multifactorial Hypernatremia Likely secondary to poor p.o. intake versus DI improving to 150's urine osmolarity >serum Patient is not currently on any medications that promote hypernatremia plan: hold fluids and repeat BMP-goal to correct sodium 6-8 mEq/24 hours. new onset dm: hba1c is 6.3 fs with sliding scale coverage. Mildly elevated troponins 41, 45... Continue to trend EKG sinus tach without ischemic changes BNP elevated but no respiratory issues. Telemetry Constipation Stool burden noted on CT scan Dulcokax supp one time now Miralax daily Senna HS MOM prn AFib on Eliquis Patient not normally on any AV baljit blocking agents or rate control medications Eliquis added H&H currently stable Telemetry we will continue History of aortic valve replacement No recent issues per patient's daughter Consider echo if BNP is elevated Hyperlipidemia lft's improving Holding statin as LFTs are mildly elevated GERD Protonix IV DVT prophylaxis: Eliquis held currently for +3 human UA Ongoing need for stay sepsis secondary to UTI, metabolic encephalopathy for IV antibiotics, need close renal function electrolyte monitoring. Patient will require close hemodynamic monitoring. Patient's daughter was updated in detail. Quality Stroke Does the patient have a stroke diagnosis?: No Reason for No Anti-thrombotic by Day Two: Contraindicated (heme positive urine,await CT results ) VTE Prior VTE?: No VTE Risk Level:: Medical - moderate - high VTE Device Contraindication: N/A - Device Ordered VTE Drug Contraindication: N/A - Med Ordered
[2025-02-12 19:49] LABS: Anion Gap 11 (12-20); Blood Urea Nitrogen 41 mg/dL (9-16); Calcium 8.9 mg/dL (8.4-10.2); Carbon Dioxide 26 mmol/L (22-29); Chloride 113 mmol/L (96-108); Creatinine Clr Calc Pharmacy 51.7; Estimated Glomerular Filt Rate > 60; Potassium 4.2 mmol/L (3.3-5.1); Sodium 146 mmol/L (135-145)
[2025-02-12 22:19] LABS: Glucose, Whole Blood 164 mg/dL (60-115)
[2025-02-13 03:33] VITALS: BP 123/66; PULSE 80; RESP 18; TEMP 36.4; O2SAT 99
[2025-02-13 06:19] LABS: Creatinine Clr Calc Pharmacy 54.1; Estimated Glomerular Filt Rate > 60
[2025-02-13 07:21] LABS: Glucose, Whole Blood 124 mg/dL (60-115)
[2025-02-13 07:41] LABS: Anion Gap 12 (12-20); Blood Urea Nitrogen 38 mg/dL (9-16); Calcium 8.6 mg/dL (8.4-10.2); Carbon Dioxide 26 mmol/L (22-29); Chloride 112 mmol/L (96-108); Potassium 4.2 mmol/L (3.3-5.1); Sodium 146 mmol/L (135-145)
[2025-02-13 07:49] VITALS: BP 116/57; PULSE 58; RESP 16; TEMP 36.4; O2SAT 94
[2025-02-13] MEDS: FLUoxetine HCl Oral Solution 20 MG/5 ML SOLUTION 40 MG PO (09:28)
--- NOTE | 2025-02-13 10:40 | P.PNNP_ITS ---
Subjective Subjective Date of Service: 02/13/25 Interval history: hypernatremia , uti Physical Exam 2 Vital Signs: Vital Signs: Last Vital Signs Temp 97.6 F 02/13/25 07:49 Pulse 58 02/13/25 07:49 Resp 16 02/13/25 07:49 BP 116/57 L 02/13/25 07:49 Pulse Ox 94 02/13/25 07:49 O2 Del Method Room Air 02/13/25 07:49 BMI result Body Mass Index 26.3 Neck: Neck: Yes supple Resp: Auscultation: clear to auscultation bilaterally Cardio: Palpation: no palpable S3 Heart sounds: no rubs GI: Palpation (GI): Soft to palpation Auscultation: normal bowel sounds Neuro: Motor exam (neuro): no asterixis Objective Data Labs 02/10/25 04:31 02/13/25 05:55 Labs: Laboratory Results - last 24 hr 02/12/25 02/12/25 02/12/25 11:19 16:22 19:25 Hold Purple Top Sodium 146 H Potassium 4.2 Chloride 113 H Carbon Dioxide 26 Anion Gap 11 L BUN 41 H Creatinine 0.68 Estim Creat Clear Calc 51.7 Estimated GFR > 60 POC Glucose 95 134 H Random Glucose 132 H Calcium 8.9 Random Vancomycin 8.7 L 02/12/25 02/13/25 02/13/25 22:09 05:55 07:10 Hold Purple Top SEE NOTE Sodium 146 H Potassium 4.2 Chloride 112 H Carbon Dioxide 26 Anion Gap 12 BUN 38 H Creatinine 0.65 Estim Creat Clear Calc 54.1 Estimated GFR > 60 POC Glucose 164 H 124 H Random Glucose 107 Calcium 8.6 Random Vancomycin Microbiology Microbiology Results: Microbiology 02/11/25 20:45 Urine clean catch - Clean Catch Midstream Urine Culture - Final No growth. 02/09/25 15:36 Blood - Venous Blood Culture - Preliminary No growth after 48 hours. 02/09/25 Unknown Urine Catheterized Urine Culture - Final 02/09/25 15:34 Blood - Venous Blood Culture - Final Coag negative Staphylococcus Procedures Date of Service Date of Service: 02/13/25 Assessment & Plan Assessment and plan (1) Hypernatremia: Status: Acute (2) GINA (acute kidney injury): Status: Acute (3) Gross hematuria: Status: Acute Plan GINA due to hypoperfusion. Renal function has improved and returned to baseline. Hypernatremia due to free water deficit Continue IV hydration with hypotonic fluids. Can use half normal saline at 100 cc/hour when keep intake more than output Monitor serum sodium every 12 hours. Gross hematuria. Bilateral stent placement Being followed by Urology. Time Spent With Patient Time: Total time managing care of this patient today ____ minutes. Progress Note: Quality Stroke Does the patient have a stroke diagnosis?: No Reason for No Anti-thrombotic by Day Two: Contraindicated (heme positive urine,await CT results )
[2025-02-13 11:40] VITALS: BP 135/66; PULSE 75; RESP 16; TEMP 36.1; O2SAT 97
[2025-02-13 11:45] LABS: Glucose, Whole Blood 153 mg/dL (60-115)
--- NOTE | 2025-02-13 12:04 | P.CDIM_ITS ---
PROVIDER RESPONSE TEXT: To clarify, the appropriate diagnosis supported by the clinical indicators: CKD, please provide stage: [id number] QUERY TEXT: PHYSICIAN'S DOCUMENTATION REQUEST Date of Query: 02/13/2025 08:22 AM EST Patient Name: Susan Prater Admit Date: 02/10/2025 Dear Stuart Cannon MD, A review of the medical record indicates additional documentation may be needed. Please review below and update the documentation accordingly. Clinical Indicators: H&P and Progress notes - Past medical history of Chronic kidney disease. CKD GFR 36 >60 CR 1.37 0.85 BUN 76 45 Please clarify which of the following accurately represents the stage of the documented CKD: Acute renal failure on Chronic Kidney Disease (CKD) Stage 1, 2, 3a, 3b, 4 CKD, please provide stage 1, 2, 3a, 3b, 4 Other (explain) Clinically unable to determine (explain) Thank you, Rita Carter, CCS, CDIS Use of terms such as suspected, likely, concern for, or probable (associated with a specific diagnosis that is being evaluated, monitored, or treated as if it exists) are acceptable and can be coded in the inpatient setting, when documented at the time of discharge. Please use your independent medical judgment in providing your response. THIS QUERY IS PART OF THE PERMANENT MEDICAL RECORD
--- NOTE | 2025-02-13 14:23 | MHC.SL.SWA ---
Speech Pathologist Impression: Moderate oropharyngeal dysphagia Risk of Aspiration Due to: Cognition/Advanced dementia Dysphasia Diet Status: CONTINUE NDD1 (puree), THIN liquids with 1:1 feeding assistance Liquid Consistency and Strategies for Safe Swallow: Liquid Intake Recommendation: Thin Liquid Intake Strategies: Solid Food Consistency: Dietary Recommendations: Pureed (NDD1) Additional Modifications to Solid Foods: Oral Medication Intake: Crushed with Puree Please contact the pharmacy regarding appropriate crushable or liquid drug formulations that are available whenever modified delivery is recommended. Compensatory Strategies and Precautions to be Taken for Safe Swallow: Sitting Upright (90 deg) Small Bites and Sips Alternate Liquids/Solids Rate of Ingestion Change Supervision While Eating and Drinking for Safe Swallow: Total Assistance (1:1) Foods to Avoid: Mixed consistencies Swallowing Recommended Treatments: Compens. Strategy Educat. Recommendation for Speech: Inpatient Speech Therapy Comment: Patient met in room with slack cooper/family member at bedside. Per family member, patient with baseline of NDD1, Thin liquids. Patient given pudding and water this date. Pudding via teaspoons and water via both controlled cup sip and straw sip. Patient requiring 1:1 feeding assistance; able to hold cup with BUILDING TECH for controlled cup sip. Patient with no vocalizations this date; per family member/slack cooper she is minimally responsive. Patient with no overt s/sx of penetration/aspiration. Patient with perseveratory chewing despite no chewable solids given, slow AP transit and suspected delayed swallow. Whiteboard displaying incorrect diet; BUILDING TECH adjusting. Recommend CONTINUE with current diet of NDD1 (puree), THIN liquids. Patient at baseline, BUILDING TECH to f/u x1. RN made aware of recommendations in-person. Frequency/Duration: Date Range for Service Req: Timeline to reassess: Metallurgist Helper Clinican/Clinical Fellow: No Supervisory Statement: I have reviewed and agree with the student/clinical fellow's documentation: N/A Speech Language Pathologist: Lavinia Carter M.A., [facility]-BUILDING TECH
--- NOTE | 2025-02-13 14:55 | MHC.CM.PN ---
Cm spoke to pt.'s dtr / HCP, she declines for pt. to go to [facility], they take care of her at home. DCP: home with family care.
[2025-02-13 15:36] VITALS: BP 104/50; PULSE 79; RESP 16; TEMP 36.4; O2SAT 97
--- NOTE | 2025-02-13 15:36 | P.PNIM_ITS ---
Subjective Subjective Date of Service: 02/13/25 Interval History: hyperntremia ,uti Review of Systems seems similar ,as per her family friend in room -near baseline Review of Systems: Yes all other systems are reviewed and are negative Physical Exam 2 Exam: Exam: Appearance: awake ,seems loud on hearing cvs: [id number], [id number] . res: clear to auscultation ,no rhonchii or wheezing abd: no rebound or guarding ,nt, bs present. ext pulses present , no cyanosis . neuro:moves all ext. Vital Signs: Vital Signs: Last Vital Signs Temp 97.0 F 02/13/25 11:40 Pulse 75 02/13/25 11:40 Resp 16 02/13/25 11:40 BP 135/66 02/13/25 11:40 Pulse Ox 97 02/13/25 11:40 O2 Del Method Room Air 02/13/25 11:40 BMI result Body Mass Index 26.3 Objective Data Active Medications Acetaminophen (Acetaminophen 325 Mg Tablet) 650 mg PO Q6H PRN PRN Reason: Pain, Mild 1-3,fever,headache Albuterol/Ipratropium (Albuterol/Iprat 2.5/0.5mg 3 Ml Ampul.Neb) 3 ml INHALE Q4H PRN PRN Reason: Shortness of Breath/Wheezing Apixaban (Apixaban 2.5 Mg Tablet) 2.5 mg PO BID [facility] Last Admin: 02/13/25 09:28 Dose: 2.5 mg Documented By: CARO Atorvastatin Calcium (Atorvastatin Calcium 80 Mg Tablet) 80 mg PO BEDTIME [facility] Last Admin: 02/12/25 21:59 Dose: 80 mg Documented By: JR Calcium Carbonate (Calcium Carbonate 750 Mg Tab.Chew) 750 mg PO Q4H PRN PRN Reason: Heartburn Dextrose (Dextrose 50 % 25 Gm/50 Ml Syringe) 25 gm IVPUSH Q15M PRN; Protocol PRN Reason: per Hypoglycemia Standing Ord. Fluoxetine HCl (Fluoxetine Hcl Oral Solution 20 Mg/5 Ml Solution) 40 mg PO DAILY [facility] Last Admin: 02/13/25 09:28 Dose: 40 mg Documented By: CARO Glucose (Glucose Gel 15 Gm Gel..Gram.) 15 gm PO Q15M PRN; Protocol PRN Reason: per Hypoglycemia Standing Ord. Dextrose/Sodium Chloride (D5ns) 1,000 mls @ 60 mls/hr IVCONT .[id number] [facility] Last Admin: 02/13/25 09:29 Dose: 60 mls/hr Documented By: CARO Ceftriaxone Sodium 1 gm/ (Sodium Chloride) 50 mls @ 100 mls/hr IV Q24H [facility] Last Infusion: 02/13/25 13:44 Dose: Infused Documented By: CARO Insulin Human Lispro (Insulin Lispro 100 Unit/Ml 3 Ml Vial) 0 unit SUBCUT QIDACHS [facility]; Protocol Last Admin: 02/13/25 12:47 Dose: Not Given Documented By: CARO Non-Admin Reason: See Note Comments: poor oral intake Magnesium Hydroxide (Milk Of Magnesia 30 Ml Oral.Susp) 30 ml PO DAILY PRN PRN Reason: Constipation Melatonin (Melatonin 3 Mg Tablet) 6 mg PO BEDTIME PRN PRN Reason: Insomnia Omeprazole (Omeprazole 20 Mg Capsule.Dr) 20 mg PO DAILY@0630 [facility] Last Admin: 02/13/25 06:28 Dose: 20 mg Documented By: JR Ondansetron HCl (Ondansetron Hcl 4 Mg/2 Ml Vial) 4 mg IVPUSH Q8H PRN PRN Reason: Nausea and Vomiting Polyethylene Glycol (Polyethylene Glycol 3350 17 Gm Powd.Pack) 17 gm PO DAILY [facility] Last Admin: 02/13/25 09:31 Dose: 17 gm Documented By: CARO Senna (Sennosides 8.6 Mg Tablet) 17.2 mg PO BEDTIME [facility] Last Admin: 02/12/25 21:59 Dose: 17.2 mg Documented By: JR Sodium Chloride (0.9 % Sodium Chloride Flush 3 Ml Syringe) 3 ml IVFLUSH QSHIFT [facility] Last Admin: 02/13/25 09:31 Dose: Not Given Labs 02/10/25 04:31 02/13/25 16:11 Labs: Laboratory Results - last 24 hr 02/12/25 02/12/25 02/12/25 16:22 19:25 22:09 Hold Purple Top Anion Gap 11 L Estim Creat Clear Calc 51.7 Estimated GFR > 60 POC Glucose 134 H 164 H Random Glucose 132 H Calcium 8.9 Random Vancomycin 8.7 L 02/13/25 02/13/25 02/13/25 05:55 07:10 11:39 Hold Purple Top SEE NOTE Anion Gap 12 Estim Creat Clear Calc 54.1 Estimated GFR > 60 POC Glucose 124 H 153 H Random Glucose 107 Calcium 8.6 Random Vancomycin Microbiology Microbiology Results: Microbiology 02/11/25 20:45 Urine Culture - Final Urine clean catch - Clean Catch Midstream No growth. 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 On 02/05/2025 patient was at [facility] and had her ureteral stents replaced. Patient being admitted for sepsis, UTI and hypernatremia Sepsis secondary to UTI most likely status post replacement of ureter tubes 02/05/2025 at [facility] Patient received fluid resuscitation per sepsis protocol Patient is started on ertapenem noting culture from ureter replacement positive for Klebsiella and patient has history of resistant Klebsiella Blood cultures 1/2 : Coagulase-negative Staph, and urine culture -negative Repeat urine culture CT of the chest abdomen and pelvis: chest neg for acute findings, abd/pelvis B uretal stend with hydronephrosis Telemetry with continuous pulse ox Plan: id eval noted -rec to switch to ceftriaxone (per daughter fosfamycin does not work on her mother -in past) Acute lactic acidosis continue to trend improving s/p IV fluids . cancel lactic acid trending further . Baseline dementia, possible metaobolic encephalopathy multifactorial Hypernatremia Likely secondary to poor p.o. intake versus DI improving 146 urine osmolarity >serum Patient is not currently on any medications that promote hypernatremia plan: goal to correct sodium 6-8 mEq/24 hours. new onset dm: hba1c is 6.3 fs with sliding scale coverage. Mildly elevated troponins 41, 45... Continue to trend EKG sinus tach without ischemic changes BNP elevated but no respiratory issues. Telemetry Constipation Stool burden noted on CT scan Dulcokax supp one time now Miralax daily Senna HS MOM prn AFib on Eliquis Patient not normally on any AV baljit blocking agents or rate control medications Eliquis added H&H currently stable Telemetry we will continue History of aortic valve replacement No recent issues per patient's daughter Consider echo if BNP is elevated Hyperlipidemia moniter lft's improving Holding statin GERD Protonix IV DVT prophylaxis: Eliquis . Ongoing need for stay sepsis secondary to UTI, metabolic encephalopathy for IV antibiotics, need close renal function electrolyte monitoring. Patient will require close hemodynamic monitoring. Patient's daughter was updated in detail. Quality Stroke Does the patient have a stroke diagnosis?: No Reason for No Anti-thrombotic by Day Two: Contraindicated (heme positive urine,await CT results ) VTE Prior VTE?: No VTE Risk Level:: Medical - moderate - high VTE Device Contraindication: N/A - Device Ordered VTE Drug Contraindication: N/A - Med Ordered
[2025-02-13 16:33] LABS: Glucose, Whole Blood 158 mg/dL (60-115)
[2025-02-13 16:57] LABS: Sodium 146 mmol/L (135-145)
[2025-02-13 20:00] VITALS: BP 101/56; PULSE 63; RESP 20; TEMP 36.3; O2SAT 98
[2025-02-13 22:00] LABS: Glucose, Whole Blood 130 mg/dL (60-115)
[2025-02-13 22:06] LABS: Anion Gap 11 (12-20); Blood Urea Nitrogen 40 mg/dL (9-16); Calcium 8.4 mg/dL (8.4-10.2); Carbon Dioxide 27 mmol/L (22-29); Chloride 113 mmol/L (96-108); Creatinine Clr Calc Pharmacy 57.5; Estimated Glomerular Filt Rate > 60; Potassium 4.1 mmol/L (3.3-5.1); Sodium 147 mmol/L (135-145)
[2025-02-14] VITALS: BP 105/55; PULSE 69; RESP 20; TEMP 36.8; O2SAT 95
[2025-02-14 03:31] VITALS: BP 120/65; PULSE 62; RESP 20; TEMP 36.4; O2SAT 95
[2025-02-14 07:13] LABS: Creatinine Clr Calc Pharmacy 58.6; Estimated Glomerular Filt Rate > 60
[2025-02-14 07:48] VITALS: BP 107/73; PULSE 62; RESP 16; TEMP 36.4; O2SAT 96
[2025-02-14 07:55] LABS: Glucose, Whole Blood 129 mg/dL (60-115)
[2025-02-14] MEDS: 0.9 % Sodium Chloride Flush 3 ML SYRINGE IVFLUSH ×3 (09:21→21:22)
[2025-02-14] MEDS: FLUoxetine HCl Oral Solution 20 MG/5 ML SOLUTION 40 MG PO (09:21)
--- NOTE | 2025-02-14 10:34 | PC.NURSE ---
Pt IV access lost at 0900. Attempted to gain access unsuccessfully on pt. IV ultrasound team contacted. Awaiting response. IV fluid paused as a result of no access.
--- NOTE | 2025-02-14 11:14 | MHC.CM.PN ---
Per MD rounds, patient not medically cleared for dc. CM will continue to follow.
[2025-02-14 11:32] LABS: Glucose, Whole Blood 172 mg/dL (60-115)
[2025-02-14 11:35] VITALS: BP 98/48; PULSE 86; RESP 16; TEMP 36.2; O2SAT 97
--- NOTE | 2025-02-14 11:46 | HO.PM.IMPN ---
Subjective Subjective Date of Service: 02/14/25 Review of Systems Review of Systems: Yes Unobtainable due to mental condition Physical Exam Exam: Exam: Appearance: awake ,seems loud on hearing cvs: [id number], [id number] . res: clear to auscultation ,no rhonchii or wheezing abd: no rebound or guarding ,nt, bs present. ext pulses present , no cyanosis . neuro:moves all ext. Vital Signs: Vital Signs: Last Vital Signs Temp 97.2 F 02/14/25 11:35 Pulse 86 02/14/25 11:35 Resp 16 02/14/25 11:35 BP 98/48 L 02/14/25 11:35 Pulse Ox 97 02/14/25 11:35 O2 Del Method Room Air 02/14/25 11:35 BMI result Body Mass Index 26.3 Objective Data Active Medications Acetaminophen (Acetaminophen 325 Mg Tablet) 650 mg PO Q6H PRN PRN Reason: Pain, Mild 1-3,fever,headache Albuterol/Ipratropium (Albuterol/Iprat 2.5/0.5mg 3 Ml Ampul.Neb) 3 ml INHALE Q4H PRN PRN Reason: Shortness of Breath/Wheezing Apixaban (Apixaban 2.5 Mg Tablet) 2.5 mg PO BID [facility] Last Admin: 02/14/25 09:21 Dose: 2.5 mg Documented By: MICHELLE Atorvastatin Calcium (Atorvastatin Calcium 80 Mg Tablet) 80 mg PO BEDTIME [facility] Last Admin: 02/13/25 21:56 Dose: 80 mg Documented By: MARY Calcium Carbonate (Calcium Carbonate 750 Mg Tab.Chew) 750 mg PO Q4H PRN PRN Reason: Heartburn Dextrose (Dextrose 50 % 25 Gm/50 Ml Syringe) 25 gm IVPUSH Q15M PRN; Protocol PRN Reason: per Hypoglycemia Standing Ord. Fluoxetine HCl (Fluoxetine Hcl Oral Solution 20 Mg/5 Ml Solution) 40 mg PO DAILY [facility] Last Admin: 02/14/25 09:21 Dose: 40 mg Documented By: MICHELLE Glucose (Glucose Gel 15 Gm Gel..Gram.) 15 gm PO Q15M PRN; Protocol PRN Reason: per Hypoglycemia Standing Ord. Ceftriaxone Sodium 1 gm/ (Sodium Chloride) 50 mls @ 100 mls/hr IV Q24H [facility] Last Infusion: 02/13/25 13:44 Dose: Infused Documented By: CARO Dextrose (D5w) 1,000 mls @ 125 mls/hr IVCONT .Q8H [facility] Insulin Human Lispro (Insulin Lispro 100 Unit/Ml 3 Ml Vial) 0 unit SUBCUT QIDACHS [facility]; Protocol Last Admin: 02/14/25 08:09 Dose: Not Given Documented By: MICHELLE Non-Admin Reason: No Insulin Coverage Magnesium Hydroxide (Milk Of Magnesia 30 Ml Oral.Susp) 30 ml PO DAILY PRN PRN Reason: Constipation Melatonin (Melatonin 3 Mg Tablet) 6 mg PO BEDTIME PRN PRN Reason: Insomnia Omeprazole (Omeprazole 20 Mg Capsule.Dr) 20 mg PO DAILY@0630 [facility] Last Admin: 02/14/25 05:40 Dose: 20 mg Documented By: PAOLA Ondansetron HCl (Ondansetron Hcl 4 Mg/2 Ml Vial) 4 mg IVPUSH Q8H PRN PRN Reason: Nausea and Vomiting Polyethylene Glycol (Polyethylene Glycol 3350 17 Gm Powd.Pack) 17 gm PO DAILY [facility] Last Admin: 02/14/25 09:21 Dose: 17 gm Documented By: MICHELLE Senna (Sennosides 8.6 Mg Tablet) 17.2 mg PO BEDTIME [facility] Last Admin: 02/13/25 21:55 Dose: 17.2 mg Documented By: MARY Sodium Chloride (0.9 % Sodium Chloride Flush 3 Ml Syringe) 3 ml IVFLUSH QSHIFT [facility] Last Admin: 02/14/25 09:21 Dose: 3 ml Documented By: MICHELLE Labs 02/10/25 04:31 02/14/25 06:16 Labs: Laboratory Results - last 24 hr 02/13/25 02/13/25 02/13/25 16:29 21:43 21:48 Anion Gap 11 L Estim Creat Clear Calc 57.5 Estimated GFR > 60 POC Glucose 158 H 130 H Random Glucose 129 H Calcium 8.4 02/14/25 02/14/25 02/14/25 06:16 07:52 11:17 Anion Gap Estim Creat Clear Calc 58.6 Estimated GFR > 60 POC Glucose 129 H 172 H Random Glucose Calcium Microbiology Microbiology Results: Microbiology 02/11/25 20:45 Urine Culture - Final Urine clean catch - Clean Catch Midstream No growth. Assessment and Plan (1) Hypernatremia: Status: Acute Plan 89F PMH advanced Alzheimer dementia, psychotic disorder, aortic valve replacement, recurrent UTI, hypertension, hyperlipidemia, paroxysmal AFib presented with worsening confusion Sepsis due to recurrent urinary tract infection So far cultures mixed Continue ceftriaxone Acute metabolic encephalopathy due to acute hypernatremia Changed to D5W, monitor Advanced Alzheimer's dementia Prediabetes Insulin sliding scale Paroxysmal atrial fibrillation Eliquis DVT prophylaxis on Eliquis Full code reason for continued hospitalization: D5W for hypernatremia Quality Stroke Does the patient have a stroke diagnosis?: No Reason for No Anti-thrombotic by Day Two: Contraindicated (heme positive urine,await CT results ) VTE Prior VTE?: No VTE Risk Level:: Medical - moderate - high VTE Device Contraindication: N/A - Device Ordered VTE Drug Contraindication: N/A - Med Ordered
--- NOTE | 2025-02-14 13:42 | MHC.SLORD ---
Speech Language Pathology Order Status: Pt sleepy, not waking for long periods of time. Home CLINICAL LABORATORY SCIENCE PROFESSOR at bedside, brought in Ensure for pt. [facility] [place] office secretary present providing care. Pt is tolerating NDD1 with thins without issue, back to baseline diet. RD texted for consultation with pt caregiver. RN consulted. No further need for PRODUCE SERVICE TEAM MEMBER tx at this time. PRODUCE SERVICE TEAM MEMBER signing off.
[2025-02-14 15:17] VITALS: BP 130/61; PULSE 70; RESP 18; TEMP 36.2; O2SAT 98
[2025-02-14 16:07] LABS: Glucose, Whole Blood 194 mg/dL (60-115)
[2025-02-14 19:33] VITALS: BP 114/63; PULSE 72; RESP 18; TEMP 36; O2SAT 95
[2025-02-14 21:16] LABS: Glucose, Whole Blood 156 mg/dL (60-115)
[2025-02-15] VITALS (7 sets, daily range): BP systolic 101–138; BP diastolic 40–68; PULSE 59–76; RESP 16–20; TEMP 36.1–36.4; O2SAT 94–98
[2025-02-15 06:54] LABS: Alanine Aminotransferase 24 U/L (0-31); Albumin Level 2.7 g/dL (3.5-5.0); Alkaline Phosphatase 69 U/L (39-117); Anion Gap 9 (12-20); Aspartate Amino Transferase 31 U/L (5-31); Blood Urea Nitrogen 23 mg/dL (9-16); Calcium 8.0 mg/dL (8.4-10.2); Carbon Dioxide 26 mmol/L (22-29); Chloride 109 mmol/L (96-108); Creatinine Clr Calc Pharmacy 65.0; Estimated Glomerular Filt Rate > 60; Magnesium 1.6 mg/dL (1.6-2.6); Potassium 4.1 mmol/L (3.3-5.1); Sodium 140 mmol/L (135-145); Total Protein 5.1 g/dL (6.5-8.0)
[2025-02-15 07:38] LABS: Glucose, Whole Blood 118 mg/dL (60-115)
[2025-02-15] MEDS: FLUoxetine HCl Oral Solution 20 MG/5 ML SOLUTION 40 MG PO (09:23)
--- NOTE | 2025-02-15 10:33 | HO.PM.IMPN ---
Subjective Subjective Date of Service: 02/15/25 Review of Systems Review of Systems: Yes Unobtainable due to mental condition Physical Exam Exam: Exam: Appearance: awake ,seems loud on hearing cvs: rrr, [id number] . res: clear to auscultation ,no rhonchii or wheezing abd: no rebound or guarding ,nt, bs present. ext pulses present , no cyanosis . neuro:moves all ext. Vital Signs: Vital Signs: Last Vital Signs Temp 97.0 F 02/15/25 08:00 Pulse 59 02/15/25 08:00 Resp 16 02/15/25 08:00 BP 115/68 02/15/25 08:00 Pulse Ox 97 02/15/25 08:00 O2 Del Method Room Air 02/15/25 08:00 BMI result Body Mass Index 26.3 Objective Data Active Medications Acetaminophen (Acetaminophen 325 Mg Tablet) 650 mg PO Q6H PRN PRN Reason: Pain, Mild 1-3,fever,headache Albuterol/Ipratropium (Albuterol/Iprat 2.5/0.5mg 3 Ml Ampul.Neb) 3 ml INHALE Q4H PRN PRN Reason: Shortness of Breath/Wheezing Apixaban (Apixaban 2.5 Mg Tablet) 2.5 mg PO BID [facility] Last Admin: 02/15/25 09:23 Dose: 2.5 mg Documented By: PIRYA Atorvastatin Calcium (Atorvastatin Calcium 80 Mg Tablet) 80 mg PO BEDTIME [facility] Last Admin: 02/14/25 21:22 Dose: 80 mg Documented By: YAJAIRA Calcium Carbonate (Calcium Carbonate 750 Mg Tab.Chew) 750 mg PO Q4H PRN PRN Reason: Heartburn Dextrose (Dextrose 50 % 25 Gm/50 Ml Syringe) 25 gm IVPUSH Q15M PRN; Protocol PRN Reason: per Hypoglycemia Standing Ord. Fluoxetine HCl (Fluoxetine Hcl Oral Solution 20 Mg/5 Ml Solution) 40 mg PO DAILY [facility] Last Admin: 02/15/25 09:23 Dose: 40 mg Documented By: PRIYA Glucose (Glucose Gel 15 Gm Gel..Gram.) 15 gm PO Q15M PRN; Protocol PRN Reason: per Hypoglycemia Standing Ord. Ceftriaxone Sodium 1 gm/ (Sodium Chloride) 50 mls @ 100 mls/hr IV Q24H [facility] Last Infusion: 02/14/25 14:33 Dose: Infused Documented By: MICHELLE Insulin Human Lispro (Insulin Lispro 100 Unit/Ml 3 Ml Vial) 0 unit SUBCUT QIDACHRob [facility]; Protocol Last Admin: 02/15/25 07:20 Dose: Not Given Documented By: PRIYA Non-Admin Reason: No Insulin Coverage Magnesium Hydroxide (Milk Of Magnesia 30 Ml Oral.Susp) 30 ml PO DAILY PRN PRN Reason: Constipation Magnesium Oxide (Magnesium Oxide 400 Mg Tablet) 400 mg PO BIDPC [facility] Last Admin: 02/15/25 09:23 Dose: 400 mg Documented By: PRIYA Melatonin (Melatonin 3 Mg Tablet) 6 mg PO BEDTIME PRN PRN Reason: Insomnia Omeprazole (Omeprazole 20 Mg Capsule.Dr) 20 mg PO DAILY@0630 [facility] Last Admin: 02/15/25 06:24 Dose: Not Given Documented By: YAJAIRA Non-Admin Reason: cant crush Ondansetron HCl (Ondansetron Hcl 4 Mg/2 Ml Vial) 4 mg IVPUSH Q8H PRN PRN Reason: Nausea and Vomiting Polyethylene Glycol (Polyethylene Glycol 3350 17 Gm Powd.Pack) 17 gm PO DAILY [facility] Last Admin: 02/15/25 09:27 Dose: Not Given Documented By: PRIYA Non-Admin Reason: loose stool Senna (Sennosides 8.6 Mg Tablet) 17.2 mg PO BEDTIME [facility] Last Admin: 02/14/25 21:22 Dose: 17.2 mg Documented By: YAJAIRA Sodium Chloride (0.9 % Sodium Chloride Flush 3 Ml Syringe) 3 ml IVFLUSH QSHIFT [facility] Last Admin: 02/15/25 09:23 Dose: Not Given Documented By: PRIYA Non-Admin Reason: IV Running Labs 02/10/25 04:31 02/15/25 06:03 Labs: Laboratory Results - last 24 hr 02/14/25 02/14/25 02/14/25 11:17 16:02 21:12 Anion Gap Estim Creat Clear Calc Estimated GFR POC Glucose 172 H 194 H 156 H Random Glucose Calcium Magnesium Total Bilirubin Direct Bilirubin AST ALT Alkaline Phosphatase Total Protein Albumin 02/15/25 02/15/25 06:03 07:20 Anion Gap 9 L Estim Creat Clear Calc 65.0 Estimated GFR > 60 POC Glucose 118 H Random Glucose 109 Calcium 8.0 L Magnesium 1.6 Total Bilirubin 0.3 Direct Bilirubin 0.1 AST 31 ALT 24 Alkaline Phosphatase 69 Total Protein 5.1 L Albumin 2.7 L Microbiology Microbiology Results: Microbiology 02/09/25 15:36 Blood Culture - Final Blood - Venous No growth after 5 days. Assessment and Plan (1) Hypernatremia: Status: Acute Plan 89F PMH advanced Alzheimer dementia, psychotic disorder, aortic valve replacement, recurrent UTI, hypertension, hyperlipidemia, paroxysmal AFib presented with worsening confusion Sepsis due to recurrent urinary tract infection So far cultures mixed Continue ceftriaxone Acute metabolic encephalopathy due to acute hypernatremia hypernatremia resolved, dced d5w, monitor Advanced Alzheimer's dementia Prediabetes Insulin sliding scale Paroxysmal atrial fibrillation Eliquis DVT prophylaxis on Eliquis Full code reason for continued hospitalization: monitor off d5w Quality Stroke Does the patient have a stroke diagnosis?: No Reason for No Anti-thrombotic by Day Two: Contraindicated (heme positive urine,await CT results ) VTE Prior VTE?: No VTE Risk Level:: Medical - moderate - high VTE Device Contraindication: N/A - Device Ordered VTE Drug Contraindication: N/A - Med Ordered
[2025-02-15 11:17] LABS: Glucose, Whole Blood 142 mg/dL (60-115)
[2025-02-15 14:43] LABS: Hematocrit 28.8 % (37.0-47.0); Hemoglobin 8.4 g/dl (12.0-16.0); Mean Corpuscular HGB Conc 29.2 g/dl (31.0-35.0); Mean Corpuscular Hemoglobin 21.6 pg (27.0-33.0); Mean Corpuscular Volume 74.0 fL (80.0-98.0); NRBC Abs Auto 0.000 X10*3/uL (0.0-0.012); NRBC Pct Auto 0.0 /100WBC (0.0-0.2); PLT CLUMP 1; Red Blood Count 3.89 X10*6/uL (4.20-5.50)
[2025-02-15 15:21] LABS: White Blood Count 5.8 X10*3/uL (4.8-10.8)
[2025-02-15 15:23] LABS: Platelet Count 87 X10*3/uL (160-400)
[2025-02-15 16:22] LABS: Glucose, Whole Blood 129 mg/dL (60-115)
[2025-02-15 21:21] LABS: Glucose, Whole Blood 107 mg/dL (60-115)
[2025-02-16] MEDS: 0.9 % Sodium Chloride Flush 3 ML SYRINGE IVFLUSH ×2 (01:10→07:58)
[2025-02-16 03:45] VITALS: BP 120/55; PULSE 62; RESP 18; TEMP 36.3; O2SAT 94
[2025-02-16 04:08] VITALS: BP 124/55; PULSE 60; RESP 18; TEMP 35.8; O2SAT 94
[2025-02-16 06:46] LABS: Hematocrit 28.0 % (37.0-47.0); Hemoglobin 8.2 g/dl (12.0-16.0); Mean Corpuscular HGB Conc 29.3 g/dl (31.0-35.0); Mean Corpuscular Hemoglobin 21.8 pg (27.0-33.0); Mean Corpuscular Volume 74.5 fL (80.0-98.0); NRBC Abs Auto 0.000 X10*3/uL (0.0-0.012); NRBC Pct Auto 0.0 /100WBC (0.0-0.2); Red Blood Count 3.76 X10*6/uL (4.20-5.50); White Blood Count 4.9 X10*3/uL (4.8-10.8)
[2025-02-16 06:47] LABS: Platelet Count 92 X10*3/uL (160-400)
[2025-02-16 07:22] LABS: Anion Gap 10 (12-20); Blood Urea Nitrogen 34 mg/dL (9-16); Carbon Dioxide 28 mmol/L (22-29); Chloride 108 mmol/L (96-108); Creatinine Clr Calc Pharmacy 59.5; Estimated Glomerular Filt Rate > 60; Magnesium 1.8 mg/dL (1.6-2.6); Potassium 4.3 mmol/L (3.3-5.1); Sodium 142 mmol/L (135-145)
[2025-02-16 07:27] LABS: Glucose, Whole Blood 90 mg/dL (60-115)
[2025-02-16 07:28] LABS: Calcium 9.1 mg/dL (8.4-10.2)
[2025-02-16] MEDS: FLUoxetine HCl Oral Solution 20 MG/5 ML SOLUTION 40 MG PO (07:57)
--- NOTE | 2025-02-16 09:11 | PM.DS ---
DS: Providers Provider Date of admission: 02/09/25 19:02 Date of discharge: 02/16/25 Primary care physician: Aden Monroe MD Consults: 02/09/25 15:38 Consult to Infectious Diseases Routine Consulting Provider: [facility] Reason for consultation: klebsiella UTIs 02/09/25 19:15 Consult to Nephrology Routine Consulting Provider: [facility] Reason for consultation: hypernatremia Na 160 (repeated for accuracy) Consult to Urology Routine Consulting Provider: [facility] Reason for consultation: B nephrostomy tubes, sepsis, UTI Has provider been notified: No DS: Diagnosis Discharge Diagnosis (1) Hypernatremia: Status: Acute DS: Summary Hospital Course Hospital Course: from initial hpi: 89-year-old female with past medical history dementia, underlying psychotic disorder, AV replacement, UTI (history of Klebsiella and Citrobacter), anemia, HTN, hyperlipidemia, AFib on Eliquis, GERD, CVA, bilateral ureteral stents and history of nephrostomy tubes, nephrolithiasis, CKD/GINA was BIBA for increased confusion and suspicion for UTI per pt's daughter, 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 On 02/05/2025 patient was at [facility] and had her ureteral stents replaced. Patient received fluconazole and IV antibiotics postprocedure. On Wednesday and Wednesday patient was at her baseline per patient's daughter but on there was suspicion that is patient was not feeling well and the culture came back positive for Klebsiella per [facility] provider. Arrangements for antibiotics to be sent to the home were made but daughter did not receive the antibiotics as they were sent to the wrong pharmacy. Patient never started antibiotics. Per daughter, patient today more confused than baseline acting borderline listless and she called 911 and had patient transported to the ED. Patient's sodium 160, confirm with 2nd draw. Daughter denies recent history of diarrhea but intake has been poor overall. No report of seizure activity but confusion appears to be worse than usual. Patient met criteria for sepsis on arrival with noted fever 102.7, tachycardia 125. Blood pressure stable at 119/83 and pulse ox 92 on room air. Lactic acid 3.0. No leukocytosis or anemia. Sodium 160, confirmed. Patient does not have a history of hypernatremia. Patient started on D5W at 100 mL/hour in the ED. Patient also received ertapenem 1 g as she has a history of resistant Klebsiella. Troponin mildly elevated, 41.3 than 45.9. EKG sinus tach no ischemic changes. Blood and urine cultures pending. CT of the chest abdomen and pelvis also pending. No current issues with urinary retention. Patient being admitted for sepsis, UTI, increased confusion and hypernatremia. hospital course: Patient was admitted for sepsis due to recurrent urinary tract infection. Urine culture grew mixed noel, history of ceftriaxone on discharge we will continue 5 more days of Ceftin. For acute metabolic encephalopathy due to sepsis and acute hypernatremia due to poor p.o. intake was given D5W and sodium returned to baseline. Patient is now eating and drinking better and is encouraged to continue p.o. fluids, mental status is back to baseline. For advanced Alzheimer's dementia patient is at baseline. For prediabetes was continued on insulin sliding scale. For paroxysmal AFib continued on Eliquis. Patient is back to her baseline - (alert, minimally verbal, able to follow simple commands, essentially dependent in all ADLs) and she will be discharged home. Time Attestation Discharge Coordination Time (in mins): 33 Quality: Safe Use of Opioids Does Pt have an Active Cancer Diagnosis on the Problem List?: No Quality: Stroke Does the patient have a stroke diagnosis?: No Physical Exam Exam: Exam: Appearance: awake ,seems loud on hearing cvs: rrr, [id number] . res: clear to auscultation ,no rhonchii or wheezing abd: no rebound or guarding ,nt, bs present. ext pulses present , no cyanosis . neuro:moves all ext. Vital Signs: Vital Signs: Last Vital Signs Temp 96.5 F L 02/16/25 04:08 Pulse 60 02/16/25 04:08 Resp 18 02/16/25 04:08 BP 124/55 L 02/16/25 04:08 Pulse Ox 94 02/16/25 04:08 O2 Del Method Room Air 02/16/25 04:08 BMI result Body Mass Index 26.3 DS: Data Data Completed and Pending Completed studies during hospitalization [Text1]: Procedures Insertion of Infusion Device into Left Brachial Vein, Percutaneous Approach (09/02/24) Transfusion of Nonautologous Red Blood Cells into Peripheral Vein, Percutaneous Approach (01/05/20) Labs on day of discharge: Laboratory Results - last 24 hr 02/15/25 02/15/25 02/15/25 10:59 14:23 16:08 WBC 5.8 RBC 3.89 L D Hgb 8.4 L D Hct 28.8 L D MCV 74.0 L MCH 21.6 L MCHC 29.2 L RDW 22.2 H Plt Count 87 L D MPV Not Reportable Absolute Nucleated RBC 0.000 Nucleated RBC % (auto) 0.0 Sodium Potassium Chloride Carbon Dioxide Anion Gap BUN Creatinine Estim Creat Clear Calc Estimated GFR POC Glucose 142 H 129 H Random Glucose Calcium Magnesium 02/15/25 02/16/25 02/16/25 21:12 05:48 07:07 WBC 4.9 RBC 3.76 L Hgb 8.2 L Hct 28.0 L MCV 74.5 L MCH 21.8 L MCHC 29.3 L RDW 22.5 H Plt Count 92 L MPV Not Reportable Absolute Nucleated RBC 0.000 Nucleated RBC % (auto) 0.0 Sodium 142 Potassium 4.3 Chloride 108 Carbon Dioxide 28 Anion Gap 10 L BUN 34 H Creatinine 0.59 Estim Creat Clear Calc 59.5 Estimated GFR > 60 POC Glucose 107 90 Random Glucose 97 Calcium 9.1 D Magnesium 1.8 Discharge Plan Discharge Anticipated Discharge Date/Time: 02/16/25 09:08 Patient Disposition: Home, Self-Care Discharge Diagnosis: hypernatremia, uti Referrals: Aden Monroe MD [Primary Care Provider, Radiation Oncology] - 1 Week Discharge Medications: New cefuroxime axetil 500 mg tablet 500 mg PO BID Qty: 10 0RF Continued atorvastatin 80 mg tablet 1 tab PO BEDTIME trazodone 50 mg tablet 1 tab PO DAILY PRN (Reason: Insomnia/agitation) omeprazole 20 mg capsule,delayed release(DR/EC) 20 mg PO DAILY@0630 fluoxetine 20 mg capsule 2 cap PO DAILY nystatin 100,000 unit/gram powder 1 appl topical TID PRN (Reason: irritation) Eliquis 2.5 mg tablet 2.5 mg PO BID acetaminophen 500 mg capsule 500 mg PO Q6H PRN (Reason: pain (scale score 1-3)) Qty: 60 0RF estradiol 0.01 % (0.1 mg/gram) cream 2 g vaginal MOWEFR erythromycin 5 mg/gram (0.5 %) ointment 1 appl ophthalmic (eye) BEDTIME PRN (Reason: itchiness after rubbing eyes) zinc oxide 40 % Ointment 1 appl TOPICAL DAILY PRN (Reason: buttocks irritation) Discharge Orders: Discharge Order (Routine); Ordered 02/16/25 Ordered By: Rick Emery Diet: pureed with thins Activity on Discharge: As tolerated Stand Alone Forms: Patient Portal Discharge page Print Language: Choose Not To Answer Care Plan Goals: recovery Health Concerns: poor intake, recurrent uti Plan of Treatment: 5 more days ceftin, encourage po fluids Assessment: see above
--- NOTE | 2025-02-16 10:18 | MHC.CM.PN ---
PT CLEARED TO DC HOME TODAY WITH [employer]UMPTION OF [employer] AND FAMILY SUPPORT CM CALLED PTS DAUGHTER, MANUELITO, PER DISCUSSION, 1500 HR BLS TRANSPORT WILL BE ARRANGED SHE ASKS THAT SHE BE CALLED WHEN PT IS ACTUALLY LEAVING THE HOSPITAL SO SHE CAN BE WAITING BLS TRANSPORT BOOKED WITH [employer]
[2025-02-16 11:53] LABS: Glucose, Whole Blood 211 mg/dL (60-115)
[2025-02-16 12:00] VITALS: BP 109/52; PULSE 76; RESP 16; TEMP 36.6; O2SAT 96
[2025-02-16 14:47] VITALS: BP 106/58; PULSE 92; RESP 16; TEMP 36.2; O2SAT 96
--- NOTE | 2025-02-16 15:21 | P.PNID_ITS ---
Subjective Subjective Date of Service: 02/16/25 Critical Care Time (minutes): 15 Comment: she has no complaints Objective Data Labs 02/16/25 05:48 02/16/25 05:48 Labs: Laboratory Results - last 24 hr 02/15/25 02/15/25 02/15/25 14:23 16:08 21:12 WBC 5.8 RBC Hgb Hct MCV MCH MCHC RDW Plt Count 87 L D MPV Absolute Nucleated RBC 0.000 Nucleated RBC % (auto) 0.0 Sodium Potassium Chloride Carbon Dioxide Anion Gap BUN Creatinine Estim Creat Clear Calc Estimated GFR POC Glucose 129 H 107 Random Glucose Calcium Magnesium 02/16/25 02/16/25 02/16/25 05:48 07:07 11:48 WBC 4.9 RBC 3.76 L Hgb 8.2 L Hct 28.0 L MCV 74.5 L MCH 21.8 L MCHC 29.3 L RDW 22.5 H Plt Count 92 L MPV Not Reportable Absolute Nucleated RBC 0.000 Nucleated RBC % (auto) 0.0 Sodium 142 Potassium 4.3 Chloride 108 Carbon Dioxide 28 Anion Gap 10 L BUN 34 H Creatinine 0.59 Estim Creat Clear Calc 59.5 Estimated GFR > 60 POC Glucose 90 211 H Random Glucose 97 Calcium 9.1 D Magnesium 1.8 Microbiology Microbiology Results: Microbiology 02/09/25 15:36 Blood - Venous Blood Culture - Final No growth after 5 days. 02/11/25 20:45 Urine clean catch - Clean Catch Midstream Urine Culture - Final No growth. 02/09/25 Unknown Urine Catheterized Urine Culture - Final 02/09/25 15:34 Blood - Venous Blood Culture - Final Coag negative Staphylococcus Physical Exam 2 Vital Signs: Vital Signs: Last Vital Signs Temp 97.1 F 02/16/25 14:47 Pulse 92 02/16/25 14:47 Resp 16 02/16/25 14:47 BP 106/58 L 02/16/25 14:47 Pulse Ox 96 02/16/25 14:47 O2 Del Method Room Air 02/16/25 14:47 BMI result Body Mass Index 26.3 Const: General: cooperative HEENT: Head: Yes normal to inspection Face and sinus: Yes normal facial exam Mouth: Normal oral and palatal mucosa present Teeth and gingiva: d entition normal Eyes: General: appearance normal, both eyes and all related structures P upils: Equal, round and reactive pupils present Resp: Effort & Inspection: normal respiratory effort Cardio: Rate: regular rate Rhythm: regular rhythm GI: Palpation (GI): Soft to palpation and nontender : General: Yes no CVA tenderness Back/Spine/Pelvis: Back: no CVA tenderness Skin: General skin exam: no rashes or lesions noted Neuro: General: moves all extremities Cranial nerves: Yes Equal, round and reactive pupils present Extrem: General: Yes normal to inspection Psych: Other: confused Assessment and Plan Assessment and plan (1) UTI (urinary tract infection): Problem details: UTI, mixed noel,received multiple antibiotics Status: Acute Assessment and Plan: Po cefuroxime 5 d appropriate Time Spent With Patient Time: Total time managing care of this patient today ____ minutes.
== END 2025-02-16 15:31 | disposition home or self-care (01) | DRG 862 ==
LOC: HO.ED 17:20 → HO.EDOVER 19:45 → HO.IMC 02-10 07:37 → HO.S3 02-14 02:43
PROVIDERS: Hospitalist; Internal Medicine; Nurse Practitioner Family; Physician Assistant; Registered Nurse Emergency; Admitting Provider Internal Medicine; Emergency Provider Emergency Medicine; PCP Student in an Organized Health Care Education/Training Program; Visit Provider Internal Medicine
DX: T81.44XA Sepsis following a procedure, initial encounter (principal); A41.9 Sepsis, unspecified organism; G93.41 Metabolic encephalopathy; E87.0 Hyperosmolality and hypernatremia; N17.9 Acute kidney failure, unspecified; N39.0 Urinary tract infection, site not specified; G30.9 Alzheimer's disease, unspecified; F02.80 Dementia in other diseases classified elsewhere, unspecified severity, without behavioral disturbance, psychotic disturbance, mood disturbance, and anxiety; F01.50 Vascular dementia, unspecified severity, without behavioral disturbance, psychotic disturbance, mood disturbance, and anxiety; K59.00 Constipation, unspecified; N18.31 Chronic kidney disease, stage 3a; E78.5 Hyperlipidemia, unspecified; R31.0 Gross hematuria; R73.03 Prediabetes; I48.0 Paroxysmal atrial fibrillation; K21.9 Gastro-esophageal reflux disease without esophagitis; Z74.01 Bed confinement status; Z20.822 Contact with and (suspected) exposure to COVID-19; Z95.2 Presence of prosthetic heart valve; Z87.440 Personal history of urinary (tract) infections; Z79.01 Long term (current) use of anticoagulants; Z79.899 Other long term (current) drug therapy
CPT/HCPCS: 36415; 71260; 74177; 80048; 80053; 80076; 80202; 81001; 82565; 82607; 82746; 82947; 83036; 83540; 83605; 83690; 83735; 83880; 83930; 83935; 84295; 84300; 84443; 84484; 85025; 85027; 85610; 85999; 87040; 87086; 87147; 87205; 87637; 92526; 92610; 93005; 93306; 97162; 99285; J0131; J0696; J1335; J2185; J3374; J7120; Q9957; Q9967

== ENCOUNTER → 2025-02-09 15:01 | Outpatient (BNV) | payer MEDICARE, MEDICAID, SELFPAY | PROVIDERS: Admitting Provider Internal Medicine; Emergency Provider Emergency Medicine; Visit Provider Internal Medicine Cardiovascular Disease | DX: I51.7 Cardiomegaly (principal); R00.0 Tachycardia, unspecified | CPT/HCPCS: 93010 ==

== ENCOUNTER 2025-02-09 19:02 | Outpatient (BNV) | payer MEDICARE, MEDICAID, SELFPAY | END 2025-02-12 07:00 | PROVIDERS: Admitting Provider Internal Medicine; Emergency Provider Emergency Medicine; PCP Student in an Organized Health Care Education/Training Program; Visit Provider Internal Medicine Cardiovascular Disease | DX: I42.2 Other hypertrophic cardiomyopathy (principal); I34.81 Nonrheumatic mitral (valve) annulus calcification; I77.810 Thoracic aortic ectasia; Z95.2 Presence of prosthetic heart valve | CPT/HCPCS: 93306 ==

== ENCOUNTER 2025-02-09 19:02 | Outpatient (BNV) | payer MEDICARE, MEDICAID, SELFPAY | END 2025-02-09 19:47 | PROVIDERS: Admitting Provider Internal Medicine; Emergency Provider Emergency Medicine; Visit Provider Radiology Diagnostic Radiology | DX: A41.9 Sepsis, unspecified organism (principal); N13.30 Unspecified hydronephrosis; Z96.0 Presence of urogenital implants; Z87.01 Personal history of pneumonia (recurrent) | CPT/HCPCS: 71260; 74177 ==

== ENCOUNTER → 2025-02-09 19:02 | Outpatient (BNV) | payer MEDICARE, MEDICAID, SELFPAY | PROVIDERS: Admitting Provider Internal Medicine; Emergency Provider Emergency Medicine; Visit Provider Urology | DX: A49.8 Other bacterial infections of unspecified site (principal); Z16.12 Extended spectrum beta lactamase (ESBL) resistance; N30.01 Acute cystitis with hematuria | CPT/HCPCS: 99222 ==

== ENCOUNTER → 2025-02-09 19:02 | Outpatient (BNV) | payer MEDICARE, MEDICAID, SELFPAY | PROVIDERS: Admitting Provider Internal Medicine; Emergency Provider Emergency Medicine; PCP Student in an Organized Health Care Education/Training Program; Visit Provider Internal Medicine | DX: N30.01 Acute cystitis with hematuria (principal); N17.9 Acute kidney failure, unspecified | CPT/HCPCS: 99222; 99232 ==

== ENCOUNTER → 2025-02-09 19:02 | Outpatient (BNV) | payer MEDICARE, MEDICAID, SELFPAY | PROVIDERS: Admitting Provider Internal Medicine; Emergency Provider Emergency Medicine; Visit Provider Nurse Practitioner Family | DX: N30.01 Acute cystitis with hematuria (principal); E87.0 Hyperosmolality and hypernatremia | CPT/HCPCS: 99222; 99232; 99499 ==

== ENCOUNTER → 2025-02-09 19:02 | Outpatient (BNV) | payer MEDICARE, MEDICAID, SELFPAY | PROVIDERS: Admitting Provider Internal Medicine; Emergency Provider Emergency Medicine; PCP Student in an Organized Health Care Education/Training Program; Visit Provider Internal Medicine Hypertension Specialist | DX: E87.0 Hyperosmolality and hypernatremia (principal); N17.9 Acute kidney failure, unspecified; R31.0 Gross hematuria | CPT/HCPCS: 99232 ==